=== PATIENT | female | born 1945 | race Caucasian/White ===

== ENCOUNTER 2016-05-22 11:11 | Outpatient (CLI) | payer MEDICARE, OTHER | END 2016-05-22 11:12 | disposition home or self-care (01) | DX: E11.9 Type 2 diabetes mellitus without complications (principal) ==

== ENCOUNTER 2016-07-07 14:21 | Outpatient (CLI) | payer MEDICARE, BC | END 2016-07-07 14:22 | disposition home or self-care (01) | DX: M77.31 Calcaneal spur, right foot (principal); M67.873 Other specified disorders of tendon, right ankle and foot ==

== ENCOUNTER 2016-08-07 11:14 | Outpatient (CLI) | payer MEDICARE, BC | END 2016-08-07 11:15 | disposition home or self-care (01) | DX: I10 Essential (primary) hypertension (principal); E11.9 Type 2 diabetes mellitus without complications; R07.9 Chest pain, unspecified ==

== ENCOUNTER 2016-11-12 13:37 | Outpatient (CLI) | payer MEDICARE, BC ==
[2016-11-12 18:21] LABS: HEMOGLOBIN A1C 0.81 g/dL
== END 2016-11-12 13:38 | disposition home or self-care (01) ==
LOC: LAB.F 13:37
PROVIDERS: ATTEND Family Medicine
DX: I10 Essential (primary) hypertension (principal)
CPT/HCPCS: 36415; 83036

== ENCOUNTER 2016-11-13 12:10 | Outpatient (CLI) | payer MEDICARE, BC | END 2016-11-13 12:11 | disposition home or self-care (01) | LOC: LAB.R 12:10 | PROVIDERS: ATTEND Family Medicine | DX: N39.0 Urinary tract infection, site not specified (principal); I10 Essential (primary) hypertension; E11.9 Type 2 diabetes mellitus without complications | CPT/HCPCS: 87077; 87086 ==

== ENCOUNTER 2017-03-15 09:59 | Outpatient (CLI) | payer MEDICARE, BC ==
[2017-03-15 19:11] LABS: BASOPHILS # (AUTO) 0.1 10^3/uL (0.0-0.1); BASOPHILS % (AUTO) 0.7 %; EOSINOPHILS # (AUTO) 0.2 10^3/uL (0.0-0.7); EOSINOPHILS % (AUTO) 2.2 %; HCT - HEMATOCRIT 39.7 % (37.0-47.0); HGB - HEMOGLOBIN 12.9 g/dL (12.0-16.0); LYMPHOCYTES % (AUTO) 20.3 %; MEAN CORPUSCULAR HEMOGLOBIN 25.8 pg (27.0-31.0); MEAN CORPUSCULAR HGB CONC 32.4 g/dL (32.0-36.0); MEAN CORPUSCULAR VOLUME 79.6 fL (81.0-99.0); MEAN PLATELET VOLUME 10.4 fL (7.9-10.8); MONOCYTES # (AUTO) 0.5 10^3/uL (0.0-1.0); MONOCYTES % (AUTO) 4.8 %; NEUTROPHILS # (AUTO) 7.2 10^3/uL (1.5-6.6); NUCLEATED RED BLOOD CELLS AUTO 0.1 /100WBC; RED BLOOD COUNT 4.99 10^6/uL (4.20-5.40); RED CELL DISTRIBUTION WIDTH 17.1 % (12.0-15.0); UNCORRECTED WHITE BLOOD COUNT 10.1 x10^3/uL; WHITE BLOOD COUNT 10.1 x10^3/uL (4.8-10.8)
[2017-03-15 19:17] LABS: ALBUMIN/GLOBULIN RATIO 1.2 (1.0-2.2); BILIRUBIN,TOTAL 0.6 mg/dL (0.2-1.0); BUN - BLOOD UREA NITROGEN 11 mg/dL (6-20); CALCIUM 8.9 mg/dL (8.5-10.3); CARBON DIOXIDE - CO2 25 mmol/L (21-32); CHLORIDE 104 mmol/L (101-111); CHOL/HDL RATIO 4.2 (<4.4); CHOLESTEROL 236 mg/dL; CREATININE 0.7 mg/dL (0.4-1.0); GFR - MDRD 82 (>89); GLUCOSE 102 mg/dL (70-100); HDL CHOLESTEROL 56 mg/dL; LDL/HDL RATIO 2.7 (<4.4); POTASSIUM 3.8 mmol/L (3.5-5.0); SODIUM 138 mmol/L (135-145); TOTAL PROTEIN 7.2 g/dL (6.7-8.2); TRIGLYCERIDES 136 mg/dL; VLDL CHOLESTEROL 27 mg/dL
[2017-03-15 20:16] LABS: HEMOGLOBIN A1C 0.83 g/dL
== END 2017-03-15 10:00 | disposition home or self-care (01) ==
LOC: LAB.F 09:59
PROVIDERS: ATTEND Family Medicine
DX: I10 Essential (primary) hypertension (principal); E11.9 Type 2 diabetes mellitus without complications; E78.5 Hyperlipidemia, unspecified; D64.9 Anemia, unspecified; I25.10 Atherosclerotic heart disease of native coronary artery without angina pectoris; E04.9 Nontoxic goiter, unspecified
CPT/HCPCS: 36415; 80053; 80061; 83036; 84443; 85025

== ENCOUNTER 2017-06-07 14:09 | Outpatient (CLI) | payer MEDICARE, BC ==
[2017-06-07 18:05] LABS: CREATININE 0.7 mg/dL (0.4-1.0)
[2017-06-07 19:05] LABS: HB2 TOTAL 13.4 g/dL; HEMOGLOBIN A1C 0.87 g/dL; HEMOGLOBIN A1C % 8.1 % (4.6-6.2)
== END 2017-06-07 14:10 | disposition home or self-care (01) ==
LOC: LAB.F 14:09
PROVIDERS: ATTEND Family Medicine
DX: I10 Essential (primary) hypertension (principal); E78.5 Hyperlipidemia, unspecified; E11.9 Type 2 diabetes mellitus without complications; I25.10 Atherosclerotic heart disease of native coronary artery without angina pectoris; E04.9 Nontoxic goiter, unspecified
CPT/HCPCS: 36415; 80048; 83036

== ENCOUNTER 2017-06-28 16:58 | Outpatient (CLI) | payer MEDICARE, BC ==
--- NOTE | 2017-06-29 15:45 | Ultrasound Report ---
CAROTID DUPLEX: 06/28/2017 CLINICAL INDICATION: CVA. TECHNIQUE: Real-time sonographic vascular imaging was performed by the floriculturist through the carotid arteries utilizing both color-flow and Doppler spectral analysis. Multiple passenger relations representative static images were saved for review. RIGHT Vessel PSV cm/sec EDV cm/sec ICA/CCA RSV Ratio Degree of Stenosis Plaque Estimate % RCCA Prox 120 -- -- RCCA Dist 91 10 -- RECA 103 -- -- RT BULB 103 7 1.1 ALFONSO Prox 68 7 0.74 ALFONSO Mid 76 12 0.83 ALFONSO Dist 86 20 0.94 RVA 78 -- -- RVA flow direction: Antegrade LEFT Vessel PSV cm/sec EDV cm/sec ICA/CCA RSV Ratio Degree of Stenosis Plaque Estimate % LCCA Prox 115 -- -- LCCA Dist 96 14 -- LECA 126 -- -- LFT BULB 120 14 1.25 LICA Prox 96 15 1.0 LICA Mid 90 18 0.93 LICA Dist 90 16 0.93 LVA 77 -- -- LVA flow direction: Antegrade Velocity criteria are extrapolated from diameter data as defined by the Society of Radiologists in Ultrasound Consensus Conference Radiology 2003; 229; 340-346. Degree of Stenosis % ICA PSV cm/sec ICA EDV cm/sec ICA/CCA PSV Ratio Plaque Estimate % Normal < 125 < 40 < 2.0 None <50 < 125 < 40 < 2.0 < 50 50-69 125-130 40-100 2.0-4.0 >/=50 >/=70 but less than near occlusion > 230 > 100 > 4.0 >/=50 Near occlusion High, low or undetectable Variable Variable Visible Total occlusion Undetectable Not applicable Not applicable No detectable lumen FINDINGS RIGHT: There is minimal plaquing in the right carotid bifurcation, without evidence of a focal hemodynamically significant stenosis. LEFT: There is minimal plaquing in the left carotid bifurcation, without evidence of a focal hemodynamically significant stenosis. Vertebral arteries demonstrate antegrade flow bilaterally. IMPRESSION: NO EVIDENCE OF A FOCAL HEMODYNAMICALLY SIGNIFICANT CAROTID STENOSIS. TD: 06/29/2017 11:13 [facility]
== END 2017-06-28 16:59 | disposition home or self-care (01) ==
LOC: DI 16:58
PROVIDERS: ATTEND Family Medicine
DX: I63.9 Cerebral infarction, unspecified (principal)
CPT/HCPCS: 93880

== ENCOUNTER 2017-10-07 08:29 | Outpatient (CLI) | payer MEDICARE, BC ==
[2017-10-07 12:43] LABS: ALBUMIN 3.6 g/dL (3.2-5.5); ALBUMIN/GLOBULIN RATIO 1.1 (1.0-2.2); ALKALINE PHOSPHATASE 78 IU/L (42-121); ALT ALANINE AMINOTRANSFERASE 28 IU/L (10-60); AST ASPARTATE AMINOTRANSFERASE 33 IU/L (10-42); BILIRUBIN,TOTAL 0.6 mg/dL (0.2-1.0); BUN - BLOOD UREA NITROGEN 13 mg/dL (6-20); CARBON DIOXIDE - CO2 29 mmol/L (21-32); CHLORIDE 101 mmol/L (101-111); CHOL/HDL RATIO 3.8 (<4.4); CHOLESTEROL 222 mg/dL; CREATININE 0.6 mg/dL (0.4-1.0); GFR - MDRD 98 (>89); GLUCOSE 99 mg/dL (70-100); HDL CHOLESTEROL 58 mg/dL; LDL CHOLESTEROL,CALCULATED 137 mg/dL; LDL/HDL RATIO 2.4 (<4.4); SODIUM 137 mmol/L (135-145); VLDL CHOLESTEROL 27 mg/dL
[2017-10-07 13:21] LABS: HB2 TOTAL 13.4 g/dL; HEMOGLOBIN A1C 0.76 g/dL; HEMOGLOBIN A1C % 7.3 % (4.6-6.2)
== END 2017-10-07 08:30 | disposition home or self-care (01) ==
LOC: LAB.F 08:29
PROVIDERS: ATTEND Family Medicine
DX: I10 Essential (primary) hypertension (principal); E11.9 Type 2 diabetes mellitus without complications; E78.5 Hyperlipidemia, unspecified; I25.10 Atherosclerotic heart disease of native coronary artery without angina pectoris; E04.9 Nontoxic goiter, unspecified
CPT/HCPCS: 36415; 80053; 80061; 82043; 83036; 83721; 84443

== ENCOUNTER 2018-01-02 13:09 | Outpatient (CLI) | payer MEDICARE, BC | END 2018-01-02 13:10 | disposition critical access hospital (66) | LOC: EMS 13:09 | PROVIDERS: ATTEND Surgery | DX: R51 Headache (principal); R53.1 Weakness; R42 Dizziness and giddiness; W18.30XA Fall on same level, unspecified, initial encounter; Y92.009 Unspecified place in unspecified non-institutional (private) residence as the place of occurrence of the external cause | CPT/HCPCS: A0425; A0429 ==

== ENCOUNTER 2018-01-02 13:34 | Emergency (ER) | payer MEDICARE, BC ==
--- NOTE | 2018-01-02 13:43 | ED Physician Documentation ---
History of Present Illness - Stated complaint Stated Complaint: FALL/HEAD INJ - Additonal information Additional information: hx from pt 72 f was in good health this morning making scones for the [employer] game sat down in a chair and it flipped backward and she fell hitting her head on the hard wood floor no LOC but has a terrible OLSEN feels nauseated and dizzy also has low nack pain no numbness or weakness no blood thinners Review of Systems Constitutional: denies: Fever Ears: denies: Drainage/discharge Nose: denies: Epistaxis Cardiac: denies: Chest pain / pressure GI: reports: Nausea. denies: Abdominal Pain, Vomiting Musculoskeletal: reports: Neck pain Neurologic: reports: Headache. denies: Focal weakness, Numbness Endocrine: denies: Easy bruising / bleeding PD PAST MEDICAL HISTORY - Past Medical History Cardiovascular: Hypertension Respiratory: None Endocrine/Autoimmune: Type 2 diabetes GI: None ROLL INSPECTOR: None : None HEENT: None Psych: None Musculoskeletal: Osteoarthritis Derm: None - Past Surgical History Past Surgical History: Yes General: Cholecystectomy Ortho: Carpal Tunnel surgery, Other /ROLL INSPECTOR: Hysterectomy Cardiovascular: CABG - Present Medications Home Medications: Ambulatory Orders Medication Instructions Recorded Confirmed Levothyroxine [Synthroid] 100 mcg PO QDAC 07/08/14 07/08/14 Losartan [Cozaar] 25 mg PO BID 07/08/14 07/08/14 Metoprolol Tartrate 1 tab PO BID 07/08/14 07/08/14 Pantoprazole [Protonix] 40 mg PO DAILY 07/08/14 07/08/14 Sertraline [Zoloft] 25 mg PO QPM 07/08/14 07/08/14 Insulin Glargine,Hum.rec.anlog 100 unit SUBQ QPM 01/02/18 01/02/18 [Toujeo Solostar] Ondansetron Odt [Zofran] 4 mg TL Q6H PRN #10 tablet 01/02/18 - Allergies Allergies/Adverse Reactions: Allergies Allergy/AdvReac Type Severity Reaction Status Date / Time Sulfa (Sulfonamide Allergy Mild Nausea Verified 07/08/14 07:14 Antibiotics) epinephrine AdvReac Unknown Verified 07/08/14 07:14 - Social History Does the pt smoke?: No Smoking Status: Former smoker Does the pt drink ETOH?: Yes Does the pt have substance abuse?: No - Immunizations Immunizations are current?: Yes - POLST Patient has POLST: No PD ED PE NORMAL - Vitals Vital signs reviewed: Yes - General General: Alert and oriented X 3 - HEENT HEENT: No: Atraumatic (TTP and erythema posteriopr scalp s step off or lac) - Neck Neck: No: No bony TTP (TTP C67) - Cardiac Cardiac: RRR - Respiratory Respiratory: No respiratory distress, Clear bilaterally - Abdomen Abdomen: Non tender - Derm Derm: Normal color - Neuro Neuro: Alert and oriented X 3 Eye Opening: Spontaneous Motor: Obeys Commands Verbal: Oriented GCS Score: 15 Results - Vitals Vitals: Vital Signs - 24 hr 01/02/18 13:41 Temperature 36.7 C Heart Rate 73 Respiratory 15 Rate Blood Pressure 148/54 H O2 Saturation 97 Oxygen O2 Source Room air - Labs Labs: Laboratory Tests 01/02/18 13:48 POC Whole Bld Glucose 212 H - Rads (name of study) CTH Radiology: See rad report (none) CTCS Radiology: See rad report (no acute) CXR Radiology: See rad report (no acute) PD MEDICAL DECISION MAKING - Sepsis Event Vital Signs: Vital Signs - 24 hr 01/02/18 13:41 Temperature 36.7 C Heart Rate 73 Respiratory 15 Rate Blood Pressure 148/54 H O2 Saturation 97 Oxygen O2 Source Room air Departure - Departure Disposition: 01 Home, Self Care Clinical Impression: Fall Qualifiers: Encounter type: initial encounter Qualified Code(s): W19.XXXA - Unspecified fall, initial encounter Head injury Qualifiers: Encounter type: initial encounter Qualified Code(s): S09.90XA - Unspecified injury of head, initial encounter Neck sprain Qualifiers: Encounter type: initial encounter Qualified Code(s): S13.9XXA - Sprain of joints and ligaments of unspecified parts of neck, initial encounter Sprain of chest wall Qualifiers: Encounter type: initial encounter Qualified Code(s): S23.8XXA - Sprain of other specified parts of thorax, initial encounter Condition: Good Instructions: ED Head Injury Closed, ED Sprain Strain Neck Follow-Up: Provider,Other [Primary Care Provider] - Prescriptions: Ondansetron Odt [Zofran] 4 mg TL Q6H PRN #10 tablet PRN Reason: Nausea / Vomiting Comments: Thankfully the CT scans and xray did not show any fractures or brain bleeding or brain swelling It is safe for you to go home Recommend tylenol for pain, ice for swelling and pain, zofran for nausea. Follow up with your PMD if not better in 3 days Return if worse
--- NOTE | 2018-01-02 14:45 | CT Report ---
Reason: fall HI nausea dizzy Procedure Date: 01/02/2018 Accession Number: [id number] / [id number] Procedure: CT - Head W/O CPT Code: FULL RESULT: EXAM: CT HEAD EXAM DATE: 01/02/2018 02:11 PM. CLINICAL HISTORY: Fall HI nausea dizzy. COMPARISON: 0 07/08/2014. TECHNIQUE: Multiaxial CT images were obtained from the foramen magnum to the vertex. Reformats: Sagittal and coronal. IV contrast: None. In accordance with CT protocol optimization, one or more of the following dose reduction techniques were utilized for this exam: automated exposure control, adjustment of mA and/or KV based on patient size, or use of iterative reconstructive technique. FINDINGS: Parenchyma: There is mild periventricular white matter hypodensity. Negative for acute hemorrhage. No midline shift or mass-effect. Extraaxial Spaces: No subdural or epidural collections identified. Ventricles: Normal in size and position. Sinuses and Orbits: Imaged paranasal sinuses, orbits, and mastoids show no significant abnormality. Bones: No fracture. Other: None. IMPRESSION: 1. Mild nonfocal white matter disease. 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 RADIA
[2018-01-02] MEDS ORDERED: ACETAMINOPHEN 325 MG TABLET PO STA (14:57)
[2018-01-02] MEDS ORDERED: ONDANSETRON ODT 4 MG TABLET TL STA (14:57)
--- NOTE | 2018-01-02 14:57 | CT Report ---
Reason: fall back HI C 67 TTP Procedure Date: 01/02/2018 Accession Number: [id number] / [id number] Procedure: CT - Cervical Spine W/O CPT Code: FULL RESULT: EXAM: CT CERVICAL SPINE WITHOUT CONTRAST DATE: 01/02/2018 02:11 PM. HISTORY: Head and neck injury. Tender to palpation. COMPARISONS: None. TECHNIQUE: Thin-section axial images were acquired of the cervical spine without contrast. Post-processing: Coronal and sagittal reformats. Other: None. In accordance with CT protocol optimization, one or more of the following dose reduction techniques were utilized for this exam: automated exposure control, adjustment of mA and/or KV based on patient size, or use of iterative reconstructive technique. FINDINGS: Alignment: No scoliosis or spondylolisthesis. Bones: No fracture. No lytic or destructive bone lesion. There is multilevel degenerative disease. Interspace Levels/Facets: There is mild to moderate disk height loss at C5-C6. There is mild disk height loss at C4-C5 and C6-C7. Facet joints appear normal in alignment with mild to moderate spurring. Musculature: No paravertebral hematoma. Other: No apical pneumothorax. Trachea is midline. IMPRESSION: 1. No fracture or subluxation. Mild to moderate degenerative disease at C5-C6. RADIA
--- NOTE | 2018-01-02 14:57 | XRAY Report ---
Reason: fall chest TTP Procedure Date: 01/02/2018 Accession Number: [id number] / [id number] Procedure: XR - Chest 2 View X-Ray CPT Code: 13876 FULL RESULT: EXAM: CHEST RADIOGRAPHY EXAM DATE: 01/02/2018 02:25 PM. CLINICAL HISTORY: Fall chest TTP. COMPARISON: 07/08/2014. TECHNIQUE: 2 views. FINDINGS: Lungs/Pleura: No focal opacities evident. No pleural effusion. No pneumothorax. Normal volumes. Mediastinum: Heart and mediastinal contours are unremarkable. Sternal wires and mediastinal vascular clips are compatible with CABG. Aortic calcifications are present. Other: No definite acute osseous abnormality. IMPRESSION: No acute cardiopulmonary abnormality. RADIA
[2018-01-02 16:37] VITALS: BP 137/49
== END 2018-01-02 16:39 | disposition home or self-care (01) ==
LOC: ED 13:34
DX: S09.90XA Unspecified injury of head, initial encounter (principal); S13.9XXA Sprain of joints and ligaments of unspecified parts of neck, initial encounter; S23.8XXA Sprain of other specified parts of thorax, initial encounter; W07.XXXA Fall from chair, initial encounter; I10 Essential (primary) hypertension; E11.9 Type 2 diabetes mellitus without complications; Z79.4 Long term (current) use of insulin; Z95.1 Presence of aortocoronary bypass graft; Z87.891 Personal history of nicotine dependence
CPT/HCPCS: 70450; 71046; 72125; 99283; A9270

== ENCOUNTER 2018-06-15 11:32 | Outpatient (CLI) | payer MEDICARE, BC | END 2018-06-15 11:33 | disposition EMS.NT | LOC: EMS 11:32 | PROVIDERS: ATTEND Surgery | DX: M25.562 Pain in left knee (principal); M25.561 Pain in right knee; M25.511 Pain in right shoulder; W18.39XA Other fall on same level, initial encounter; Y92.009 Unspecified place in unspecified non-institutional (private) residence as the place of occurrence of the external cause ==

== ENCOUNTER 2018-06-16 12:39 | Outpatient (CLI) | payer MEDICARE, BC ==
[2018-06-16 17:57] LABS: BILIRUBIN,URINE NEGATIVE (NEGATIVE); GLUCOSE, URINE (UA) NEGATIVE (NEGATIVE); KETONES,URINE (UA) NEGATIVE (NEGATIVE); LEUKOCYTE ESTERASE, URINE MODERATE (NEGATIVE); NITRITE,URINE NEGATIVE (NEGATIVE); OCCULT BLOOD,URINE NEGATIVE (NEGATIVE); PROTEIN,URINE NEGATIVE (NEGATIVE); UROBILINOGEN,URINE 0.2 (NORMAL) E.U./dL (NORMAL)
[2018-06-16 17:58] LABS: BACTERIA,URINE Rare /HPF (None Seen); CLARITY,URINE CLOUDY (CLEAR); RBC,URINE 0-5 /HPF (0-5); SQUAMOUS EPITHELIAL CELL,UR MOD Squamous (<= Few)
[2018-06-16 17:59] LABS: AMORPHOUS SEDIMENT,UR Marked /LPF
[2018-06-16 18:00] LABS: CREATININE 0.6 mg/dL (0.4-1.0)
[2018-06-16 18:01] LABS: HB2 TOTAL 14.5 g/dL; HEMOGLOBIN A1C 0.85 g/dL; HEMOGLOBIN A1C % 7.5 % (4.6-6.2)
== END 2018-06-16 12:40 | disposition home or self-care (01) ==
LOC: LAB.F 12:39
PROVIDERS: ATTEND Nurse Practitioner Family
DX: E11.9 Type 2 diabetes mellitus without complications (principal); R30.0 Dysuria
CPT/HCPCS: 36415; 80048; 81001; 82043; 83036; 87086

== ENCOUNTER 2018-08-06 08:00 | Outpatient (CLI) | payer MEDICARE, BC ==
[2018-08-06 14:38] LABS: BILIRUBIN,URINE NEGATIVE (NEGATIVE); GLUCOSE, URINE (UA) NEGATIVE (NEGATIVE); KETONES,URINE (UA) NEGATIVE (NEGATIVE); LEUKOCYTE ESTERASE, URINE NEGATIVE (NEGATIVE); NITRITE,URINE NEGATIVE (NEGATIVE); OCCULT BLOOD,URINE NEGATIVE (NEGATIVE); PROTEIN,URINE NEGATIVE (NEGATIVE); UROBILINOGEN,URINE 0.2 (NORMAL) E.U./dL (NORMAL)
[2018-08-06 14:40] LABS: CLARITY,URINE CLEAR (CLEAR)
== END 2018-08-06 23:59 | disposition home or self-care (01) ==
LOC: LAB.R 08:00
PROVIDERS: ATTEND Nurse Practitioner Family
DX: N39.0 Urinary tract infection, site not specified (principal)
CPT/HCPCS: 81001; 81003; 87086

== ENCOUNTER 2019-06-01 14:09 | Outpatient (CLI) | payer MEDICARE, BC | END 2019-06-01 14:10 | disposition EMS.NT | LOC: EMS 14:09 | PROVIDERS: ATTEND Surgery | DX: R53.1 Weakness (principal) ==

== ENCOUNTER 2019-08-12 12:06 | Outpatient (CLI) | payer MEDICARE, BC | END 2019-08-12 12:07 | disposition critical access hospital (66) | LOC: EMS 12:06 | PROVIDERS: ATTEND Surgery | DX: R42 Dizziness and giddiness (principal); R03.0 Elevated blood-pressure reading, without diagnosis of hypertension | CPT/HCPCS: A0425; A0429 ==

== ENCOUNTER 2019-08-12 12:23 | Emergency (ER) | payer MEDICARE, BC ==
[2019-08-12 13:27] LABS: BASOPHILS # (AUTO) 0.1 10^3/uL (0.0-0.1); BASOPHILS % (AUTO) 0.5 %; EOSINOPHILS # (AUTO) 0.2 10^3/uL (0.0-0.7); EOSINOPHILS % (AUTO) 1.8 %; HGB - HEMOGLOBIN 13.4 g/dL (12.0-16.0); LYMPHOCYTES # (AUTO) 1.7 10^3/uL (1.5-3.5); LYMPHOCYTES % (AUTO) 16.4 %; MEAN CORPUSCULAR HEMOGLOBIN 28.5 pg (27.0-31.0); MEAN CORPUSCULAR HGB CONC 32.8 g/dL (32.0-36.0); MEAN CORPUSCULAR VOLUME 86.8 fL (81.0-99.0); MEAN PLATELET VOLUME 11.2 fL (7.9-10.8); MONOCYTES # (AUTO) 0.6 10^3/uL (0.0-1.0); MONOCYTES % (AUTO) 5.5 %; NEUTROPHILS % (AUTO) 75.3 %; PLT - PLATELET COUNT 153 10^3/uL (130-450); RED BLOOD COUNT 4.71 10^6/uL (4.20-5.40); RED CELL DISTRIBUTION WIDTH 14.8 % (12.0-15.0); WHITE BLOOD COUNT 10.6 x10^3/uL (4.8-10.8)
[2019-08-12 13:33] LABS: INR 1.1 (0.8-1.2); PT - PROTHROMBIN TIME 12.7 secs (9.9-12.6)
[2019-08-12 13:40] LABS: ALBUMIN 3.7 g/dL (3.2-5.5); ALBUMIN/GLOBULIN RATIO 1.2 (1.0-2.2); BILIRUBIN,TOTAL 0.7 mg/dL (0.2-1.0); CREATININE 0.8 mg/dL (0.4-1.0); TOTAL PROTEIN 6.9 g/dL (6.7-8.2)
--- NOTE | 2019-08-12 13:41 | ED Physician Documentation ---
History of Present Illness - Stated complaint Stated Complaint: DIZZY - Chief complaint Chief Complaint: General - History obtained from History obtained from: Patient - Additonal information Additional information: 73-year-old woman with remote history of coronary bypass, hypertension. For the last 2 months every day when she gets out of bed she feels dizzy. She has to take several minutes to get out of bed and feels lightheaded. About once a week she has been having syncopal episodes from this. Today she had 1 of the syncopal episodes and injured her shoulders. They had already been injured from prior falls a little bit too. She also has a significant headache. She denies chest pain or trouble breathing. She had pedal edema yesterday and took a as needed Lasix which is a rare occurrence for her. Review of Systems Ten Systems: 10 systems reviewed and negative Constitutional: denies: Fever, Chills Nose: denies: Rhinorrhea / runny nose, Congestion Cardiac: denies: Chest pain / pressure, Palpitations Respiratory: denies: Dyspnea, Cough PD PAST MEDICAL HISTORY - Past Medical History Cardiovascular: Hypertension Respiratory: None Endocrine/Autoimmune: Type 2 diabetes GI: None ENGINEERING SPECIALIST: None : None HEENT: None Psych: None Musculoskeletal: Osteoarthritis Derm: None - Past Surgical History Past Surgical History: Yes General: Cholecystectomy Ortho: Carpal Tunnel surgery, Other /ENGINEERING SPECIALIST: Hysterectomy Cardiovascular: CABG - Present Medications Home Medications: Ambulatory Orders Medication Instructions Recorded Confirmed Levothyroxine [Synthroid] 100 mcg PO QDAC 07/08/14 07/08/14 Losartan [Cozaar] 25 mg PO BID 07/08/14 07/08/14 Metoprolol Tartrate 1 tab PO BID 07/08/14 07/08/14 Pantoprazole [Protonix] 40 mg PO DAILY 07/08/14 07/08/14 Sertraline [Zoloft] 25 mg PO QPM 07/08/14 07/08/14 Insulin Glargine,Hum.rec.anlog 100 unit SUBQ QPM 01/02/18 01/02/18 [Maribel Tsai] Ondansetron Odt [Zofran] 4 mg TL Q6H PRN #10 tablet 01/02/18 - Allergies Allergies/Adverse Reactions: Allergies Allergy/AdvReac Type Severity Reaction Status Date / Time Sulfa (Sulfonamide Allergy Mild Nausea Verified 08/12/19 12:34 Antibiotics) epinephrine AdvReac Unknown Verified 08/12/19 12:34 - Social History Does the pt smoke?: No Smoking Status: Never smoker Does the pt drink ETOH?: Yes Does the pt have substance abuse?: No - Immunizations Immunizations are current?: Yes - POLST Patient has POLST: No PD ED PE NORMAL - Vitals Vital signs reviewed: Yes - General General: Alert and oriented X 3, No acute distress - HEENT HEENT: PERRL, EOMI - Neck Neck: Supple, no meningeal sign, No bony TTP - Cardiac Cardiac: RRR, No murmur - Respiratory Respiratory: No respiratory distress, Clear bilaterally - Abdomen Abdomen: Non tender - Extremities Extremities: No edema, No calf tenderness / cord, Other (Both shoulders are nontender with relatively full range of motion) - Neuro Neuro: Alert and oriented X 3, No motor deficit, No sensory deficit, Normal speech Results - Vitals Vitals: Vital Signs - 24 hr 08/12/19 08/12/19 08/12/19 12:34 13:38 14:40 Temperature 36.9 C Heart Rate 84 73 Heart Rate [ 80 Sitting] Heart Rate [ 87 Standing] Heart Rate [ 73 Supine] Respiratory 22 22 Rate Blood Pressure 171/66 H 171/93 H Blood Pressure 147/95 H [Sitting] Blood Pressure 171/93 H [Standing] Blood Pressure 159/60 H [Supine] O2 Saturation 100 98 Oxygen O2 Source Room air - EKG (time done) 1229 Rate: Rate (enter#) (Normal sinus rhythm with a rate of 75, single PVC, low voltage. No ST elevation or depression.) - Labs Labs: Laboratory Tests 08/12/19 08/12/19 08/12/19 13:20 13:20 13:20 WBC 10.6 RBC 4.71 Hgb 13.4 Hct 40.9 MCV 86.8 MCH 28.5 MCHC 32.8 RDW 14.8 Plt Count 153 MPV 11.2 H Neut # (Auto) 8.0 H Lymph # (Auto) 1.7 [place] # (Auto) 0.6 Eos # (Auto) 0.2 Baso # (Auto) 0.1 Absolute Nucleated RBC 0.00 Nucleated RBC % 0.0 PT 12.7 H INR 1.1 Sodium 140 Potassium 4.2 Chloride 102 Carbon Dioxide 30 Anion Gap 8.0 BUN 13 Creatinine 0.8 Estimated GFR (MDRD) 70 L Glucose 98 Calcium 9.0 Total Bilirubin 0.7 AST 20 ALT 19 Alkaline Phosphatase 81 Troponin I High Sens B-Natriuretic Peptide Total Protein 6.9 Albumin 3.7 Globulin 3.2 Albumin/Globulin Ratio 1.2 Lipase 22 08/12/19 08/12/19 13:20 13:20 WBC RBC Hgb Hct MCV MCH MCHC RDW Plt Count MPV Neut # (Auto) Lymph # (Auto) [place] # (Auto) Eos # (Auto) Baso # (Auto) Absolute Nucleated RBC Nucleated RBC % PT INR Sodium Potassium Chloride Carbon Dioxide Anion Gap BUN Creatinine Estimated GFR (MDRD) Glucose Calcium Total Bilirubin AST ALT Alkaline Phosphatase Troponin I High Sens 4.1 B-Natriuretic Peptide 39 Total Protein Albumin Globulin Albumin/Globulin Ratio Lipase - Rads (name of study) CT Head Radiology: EMP read contemporaneously PD MEDICAL DECISION MAKING - ED course ED course: 73-year-old woman with orthostasis. Appears well here with a normal exam. Vital signs are unremarkable. Not technically orthostatic on orthostatic vital signs. Labs are unremarkable without evidence of CHF or OR. She had a significant headache, CT was done showing an old infarct but nothing acute. Departure - Departure Disposition: 01 Home, Self Care Clinical Impression: Orthostasis Headache Qualifiers: Headache type: unspecified Headache chronicity pattern: acute headache Intractability: not intractable Qualified Code(s): R51 - Headache Condition: Good Record reviewed to determine appropriate education?: Yes Instructions: ED Cephalgia Unspecified, ED Hypotension Orthostatic Comments: Drink plenty of fluids and be careful with position changes, return if worse. Follow-up with your doctor, next available appointment. Call Wednesday for an appointment.
--- NOTE | 2019-08-12 14:34 | CT Report ---
Reason: headache Procedure Date: 08/12/2019 Accession Number: [id number] / [id number] Procedure: CT - HEAD WO CPT Code: Final Report FULL RESULT: EXAM: CT HEAD EXAM DATE: 08/12/2019 01:59 PM. CLINICAL HISTORY: Fall. Headache. Stroke 4 years ago. COMPARISON: CERVICAL SPINE W/O 01/02/2018 2:07 PM HEAD W/O 07/08/2014 7:03 AM. TECHNIQUE: Multiaxial CT images were obtained from the foramen magnum to the vertex. Reformats: Sagittal and coronal. IV contrast: None. In accordance with CT protocol optimization, one or more of the following dose reduction techniques were utilized for this exam: automated exposure control, adjustment of mA and/or KV based on patient size, or use of iterative reconstructive technique. FINDINGS: Parenchyma: There is a focus of gliosis in the right internal capsule, suggestive of a prior infarct. No acute hemorrhage or infarct. Extraaxial Spaces: Normal for age. No subdural or epidural collections identified. Ventricles: Normal in size and position. Sinuses and Orbits: Imaged paranasal sinuses, orbits, and mastoids show no significant abnormality. Bones: No evidence of fracture or calvarial defect. Other: None. 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 No other significant abnormality. RADIA
[2019-08-12 14:47] VITALS: BP 171/93
== END 2019-08-12 15:11 | disposition home or self-care (01) ==
LOC: EDUNIT# → ED 12:23
DX: I95.1 Orthostatic hypotension (principal); R51 Headache; I10 Essential (primary) hypertension; E11.9 Type 2 diabetes mellitus without complications; Z79.4 Long term (current) use of insulin
CPT/HCPCS: 36415; 70450; 80053; 83690; 83880; 84484; 85025; 85610; 93005; 99284; 99285

== ENCOUNTER 2020-05-01 02:19 | Outpatient (CLI) | payer MEDICARE, BC | END 2020-05-01 02:20 | disposition critical access hospital (66) | LOC: EMS 02:19 | PROVIDERS: ATTEND Surgery | DX: M54.2 Cervicalgia (principal); R51.9 Headache, unspecified; S01.21XA Laceration without foreign body of nose, initial encounter; W18.39XA Other fall on same level, initial encounter; Y93.01 Activity, walking, marching and hiking; Y92.009 Unspecified place in unspecified non-institutional (private) residence as the place of occurrence of the external cause | CPT/HCPCS: A0425; A0427 ==

== ENCOUNTER 2020-05-01 03:20 | Emergency (ER) | payer MEDICARE, BC ==
--- NOTE | 2020-05-01 03:34 | ED Physician Documentation ---
PD HPI Fall - Stated complaint Stated Complaint: GLF - History obtained from History obtained from: Patient, EMS - History of Present Illness Mechanism of injury: Lost balance Fall distance: Standing position Where injury occurred: Home Timing - onset: How many minutes ago (approximately 30-40 minutes OVEN BAKER) Injury(ies) location: Head, Face, Neck Pain level now: 6 Quality of pain: Pain Associated symptoms: Neck pain. No: LOC, AMS, Seizures, Ear drainage, Nasal drainage, Weakness, Paresthesias, Dyspnea Contributing factors: No: Anticoagulated, Intoxicated Similar symptoms before: Has not had sx before Recently seen: Not recently seen - Additional information Additional information: BIBA. patient was in her kitchen tonight, had just plugged in her phone to charge it and quickly turned with intention of going to bedroom (was going to go to bed). upon turning, she suddenly lost her balance, which she says is not unusual for her if she turns too quickly; this resulted in her falling to floor, struck head and face on floor. She denies LOC but c/o neck pain and generalized headache. given 50micrograms fentanyl en route with improvement in these pains. she does not take any blood-thinning medications Review of Systems Eyes: reports: Reviewed and negative Cardiac: reports: Reviewed and negative Respiratory: reports: Reviewed and negative GI: reports: Reviewed and negative : denies: Incontinent Musculoskeletal: reports: Neck pain. denies: Back pain, Extremity pain, Joint pain Neurologic: reports: Headache, Head injury. 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 : None HEENT: None Psych: None Musculoskeletal: Osteoarthritis Derm: None - Past Surgical History Past Surgical History: Yes General: Cholecystectomy Ortho: Carpal Tunnel surgery, Other /FILE SYSTEM INSTALLER: Hysterectomy Cardiovascular: CABG - Present Medications Home Medications: Ambulatory Orders Medication Instructions Recorded Confirmed Levothyroxine [Synthroid] 100 mcg PO QDAC 07/08/14 07/08/14 Losartan [Cozaar] 100 mg PO DAILY 07/08/14 07/08/14 Metoprolol Tartrate 2 tab PO DAILY PM 07/08/14 07/08/14 Pantoprazole [Protonix] 40 mg PO DAILY 07/08/14 07/08/14 Insulin Glargine,Hum.rec.anlog 160 unit SUBQ QPM 01/02/18 01/02/18 [Maribel Tsai] - Allergies Allergies/Adverse Reactions: Allergies Allergy/AdvReac Type Severity Reaction Status Date / Time Sulfa (Sulfonamide Allergy Mild Nausea Verified 05/01/20 03:36 Antibiotics) epinephrine AdvReac Unknown Verified 05/01/20 03:36 - Social History Does the pt smoke?: No Smoking Status: Never smoker Does the pt drink ETOH?: Yes Does the pt have substance abuse?: No - Immunizations Immunizations are current?: Yes - POLST Patient has POLST: No PD ED PE NORMAL - Vitals Vital signs reviewed: Yes - General General: Alert and oriented X 3, No acute distress, Well developed/nourished - HEENT HEENT: PERRL, EOMI, Moist mucous membranes, Other (no racoon eyes (periorbital echymosis), negative smith's sign) - Cardiac Cardiac: RRR, No murmur - Respiratory Respiratory: No respiratory distress, Clear bilaterally - Abdomen Abdomen: Soft, Non tender - Derm Derm: Normal color, Warm and dry - Extremities Extremities: No deformity, No tenderness to palpate, Normal ROM s pain, No edema - Neuro Neuro: Alert and oriented X 3, insole rounder 2-12 intact, No motor deficit, No sensory deficit, Normal speech Eye Opening: Spontaneous Motor: Obeys Commands Verbal: Oriented GCS Score: 15 PD ED PE EXPANDED - HEENT HEENT Visual: 1 - abrasion (superficial abrasions without bony tenderness) Results - Vitals Vitals: Vital Signs - 24 hr 05/01/20 05/01/20 03:25 05:33 Temperature 36.5 C 36.6 C Heart Rate 88 95 Respiratory 23 22 Rate Blood Pressure 187/62 H 164/59 H O2 Saturation 95 93 Oxygen O2 Source Room air - Rads (name of study) CT cervical spine Radiology: Prelim report reviewed, See rad report CT head Radiology: Prelim report reviewed, See rad report PD MEDICAL DECISION MAKING - ED course Complexity details: reviewed results, re-evaluated patient, considered differential, d/w patient ED course: no acute findings on CT cervical spine nor CT head. she had brief episode of n/v which resolved with zofran. she was in NAD on reevaluation, requests tylenol for her headache and is comfortable with d/c home. after CT cervical spine result available, cervical collar removed and exam of the neck reveals nontender with palpation of cervical spine and no increase in discomfort with ROM of neck (extension, flexion, rotation) Departure - Departure Disposition: 01 Home, Self Care Clinical Impression: Head injury, Cervical strain, Fall Condition: Good Instructions: ED Head Injury Closed, ED Sprain Strain Neck Follow-Up: JENNA BECERRA MD [Primary Care Provider] - Discharge Date/Time: 05/01/20 06:18
[2020-05-01] MEDS ORDERED: ONDANSETRON 4 MG/2 ML VIAL IVP STA (04:40)
[2020-05-01 05:33] VITALS: BP 164/59
[2020-05-01] MEDS ORDERED: ACETAMINOPHEN 325 MG TABLET PO STA (05:39)
--- NOTE | 2020-05-01 08:07 | CT Report ---
PROCEDURE: HEAD WO INDICATIONS: fall, OLSEN, head injury TECHNIQUE: Noncontrast 4.5 mm thick angled axial sections acquired from the foramen magnum to the vertex. For r adiation dose reduction, the following was used: automated exposure control, adjustment of mA and/or kV according to patient size. COMPARISON: 08/12/2019 FINDINGS: Image quality: Excellent. CSF spaces: Basal cisterns are patent. No extra-axial fluid collections. Ventricles are normal in size and shape. Brain: No midline shift. No intracranial masses or hemorrhage. Diop-white matter interface is norm al. Age-related volume loss and mild small vessel ischemic change. Old lacunar infarcts in the right thalamus, body of right caudate, and left basal ganglia. Internal carotid and vertebral artery calci fications. Skull and face: Calvarium and visualized facial bones are intact, without suspicious lesions. Sinuses: Visualized sinuses and mastoids are clear. IMPRESSION: 1. Age-related volume loss, mild small vessel ischemic change, old lacunar infarcts. 2. No evidence acute stroke, hemorrhage, or mass. 3. No evidence significant intracranial sequelae of acute trauma. A preliminary report with the above findings was provided at the time of the study by [facility]. Reviewed by: Reyes Perry MD on 05/01/2020 8:06 AM [facility] Approved by: Reyes Perry MD on 05/01/2020 8:06 AM PST Station ID: [id number]
--- NOTE | 2020-05-01 08:10 | CT Report ---
PROCEDURE: CERVICAL SPINE WO INDICATIONS: fall, neck pain TECHNIQUE: Noncontrast 3 mm thick sections acquired from the skull base to the T4 level. Sagittal and coronal r eformats were then constructed. For radiation dose reduction, the following was used: automated exp osure control, adjustment of mA and/or kV according to patient size. COMPARISON: 01/02/2018 FINDINGS: Image quality: Excellent. Bones: No fractures or dislocations. Visualized superior ribs are intact. Moderate cervical spondy litic change. Chronic disc height loss and posterior disc osteophyte complex and uncovertebral joint hypertrophy at C5-C6 with bilateral bony foraminal narrowing. Multilevel cervical facet arthropathy. Soft tissues: Prevertebral soft tissues are normal in thickness. No paravertebral hematomas. No ap ical pneumothoraces. IMPRESSION: 1. No evidence acute cervical fracture or dislocation. 2. Moderate cervical spondylitic change. A preliminary report with the above findings was provided at the time of the study by [facility]. Reviewed by: Reyes Perry MD on 05/01/2020 8:09 AM [facility] Approved by: Reyes Perry MD on 05/01/2020 8:09 AM PST Station ID: [id number]
== END 2020-05-01 06:18 | disposition home or self-care (01) ==
LOC: EDUNIT# → ED 03:20
DX: S09.90XA Unspecified injury of head, initial encounter (principal); S16.1XXA Strain of muscle, fascia and tendon at neck level, initial encounter; S00.81XA Abrasion of other part of head, initial encounter; S00.10XA Contusion of unspecified eyelid and periocular area, initial encounter; W01.0XXA Fall on same level from slipping, tripping and stumbling without subsequent striking against object, initial encounter; Y92.000 Kitchen of unspecified non-institutional (private) residence as the place of occurrence of the external cause; R11.2 Nausea with vomiting, unspecified; R51.9 Headache, unspecified; M47.812 Spondylosis without myelopathy or radiculopathy, cervical region; I10 Essential (primary) hypertension; E11.9 Type 2 diabetes mellitus without complications; Z79.4 Long term (current) use of insulin
CPT/HCPCS: 70450; 72125; 96374; 99284; A9270

== ENCOUNTER 2021-02-26 13:34 | Emergency (ER) | payer MEDICARE, BC ==
[2021-02-26] MEDS ORDERED: SODIUM CHLORIDE 0.9% 1,000 ML IV STA (13:52)
--- NOTE | 2021-02-26 13:55 | ED Physician Documentation ---
History of Present Illness - Stated complaint Stated Complaint: HEADACHE, WEAKNESS, OFF CORDINATION - Additonal information Additional information: 75-year-old female presents emergency department for evaluation of dizziness, feeling off balance as well as a headache. She does have a longstanding history of dizziness and previous CtT scans have showed old CVA. She reports that yesterday morning she was getting ready and standing at her closet when she began to feel suddenly dizzy fell backwards striking her head. There was no loss of consciousness. Patient is not anticoagulated. However since the fall yesterday she has been having some numbness in her left arm as well as feeling off balance and unable to walk steadily. She denies CP, SOA She does report that currently her primary doctor is treating her for a urinary tract infection. Review of Systems Constitutional: denies: Fever, Chills Eyes: denies: Loss of vision, Decreased vision, Photophobia Ears: reports: Reviewed and negative Nose: reports: Reviewed and negative Throat: reports: Reviewed and negative Cardiac: denies: Chest pain / pressure, Palpitations Respiratory: denies: Dyspnea, Cough GI: denies: Abdominal Pain, Nausea, Vomiting : denies: Dysuria Skin: denies: Rash, Abrasion (s) Musculoskeletal: denies: Neck pain, Back pain Neurologic: reports: Numbness (Left arm), Headache. denies: Syncope, Seizure, Confused, Head injury, LOC PD PAST MEDICAL HISTORY - Past Medical History Cardiovascular: Hypertension Respiratory: None Neuro: CVA Endocrine/Autoimmune: Type 2 diabetes GI: None BOARD CERTIFIED ARTS THERAPIST: None : None HEENT: None Psych: None Musculoskeletal: Osteoarthritis Derm: None - Past Surgical History Past Surgical History: Yes General: Cholecystectomy Ortho: Carpal Tunnel surgery, Other /BOARD CERTIFIED ARTS THERAPIST: Hysterectomy Cardiovascular: CABG - Present Medications Home Medications: Ambulatory Orders Medication Instructions Recorded Confirmed Levothyroxine [Synthroid] 100 mcg PO QDAC 07/08/14 07/08/14 Losartan [Cozaar] 100 mg PO DAILY 07/08/14 07/08/14 Metoprolol Tartrate 2 tab PO DAILY PM 07/08/14 07/08/14 Pantoprazole [Protonix] 40 mg PO DAILY 07/08/14 07/08/14 Insulin Glargine,Hum.rec.anlog 160 unit SUBQ QPM 01/02/18 01/02/18 [Maribel Tsai] - Allergies Allergies/Adverse Reactions: Allergies Allergy/AdvReac Type Severity Reaction Status Date / Time Sulfa (Sulfonamide Allergy Mild Nausea Verified 02/26/21 14:01 Antibiotics) epinephrine AdvReac Unknown Verified 02/26/21 14:01 - Social History Does the pt smoke?: No Smoking Status: Never smoker Does the pt drink ETOH?: Yes Does the pt have substance abuse?: No - Immunizations Immunizations are current?: Yes - POLST Patient has POLST: No PD ED PE EXPANDED - General General: Alert, No acute distress, Well developed/nourished (Obese) - Cardiac Cardiac: Regular Rate, Radial strong equal, Pedal strong equal, Cap refill < 2 sec. No: Murmur Present - Respiratory Respiratory: Clear to ausultation zee. No: Distress, Labored - Abdomen Abdomen: Normal Bowel sounds, Tender to palpation, Suprapubic (no guarding or rebound) - Back Back: Normal exam. No: Vertebral tenderness - Derm Derm: Normal color, Warm and dry - Neuro Neuro: Alert and Oriented X 3, CNII-XII intact, Normal finger nose, Normal speech. No: Confused, Disoriented - GCS Eye Opening: Spontaneous Motor: Obeys Commands Verbal: Oriented Total: 15 Results - Vitals Vitals: Vital Signs - 24 hr 02/26/21 02/26/21 02/26/21 14:00 14:01 14:06 Temperature 36.8 C 36.8 C Heart Rate 84 84 Heart Rate [ 81 Sitting] Heart Rate [ 85 Standing] Heart Rate [ 76 Supine] Respiratory 20 20 Rate Blood Pressure 162/68 H 162/68 H Blood Pressure 151/88 H [Sitting] Blood Pressure 166/89 H [Standing] Blood Pressure 162/68 H [Supine] O2 Saturation 98 98 02/26/21 02/26/21 02/26/21 16:30 18:31 20:07 Temperature Heart Rate 70 73 88 Heart Rate [ Sitting] Heart Rate [ Standing] Heart Rate [ Supine] Respiratory 18 20 27 H Rate Blood Pressure 138/60 H 134/98 H 132/63 H Blood Pressure [Sitting] Blood Pressure [Standing] Blood Pressure [Supine] O2 Saturation 97 98 96 Oxygen O2 Source Room air - EKG (time done) 1408 Rate: Rate (enter#) (74) Rhythm: NSR Waldo: Normal Intervals: Normal OK QRS: Poor R wave progression Ischemia: Q waves (V4, II, III, AVF) Compare to prior EKG: Changed from prior EKG (new Q waves V4) - Labs Labs: Laboratory Tests 02/26/21 02/26/21 02/26/21 14:06 14:06 14:06 WBC 14.0 H RBC 4.98 Hgb 13.7 Hct 42.7 MCV 85.7 MCH 27.5 MCHC 32.1 RDW 14.9 Plt Count 165 MPV 11.9 H Neut # (Auto) 11.6 H Lymph # (Auto) 1.6 [place] # (Auto) 0.6 Eos # (Auto) 0.1 Baso # (Auto) 0.0 Absolute Nucleated RBC 0.00 Nucleated RBC % 0.0 Sodium 137 Potassium 3.9 Chloride 100 L Carbon Dioxide 26 Anion Gap 11.0 BUN 10 Creatinine 0.8 Estimated GFR (MDRD) 70 L Glucose 136 H Calcium 9.4 Total Bilirubin 0.7 AST 25 ALT 19 Alkaline Phosphatase 76 Troponin I High Sens 9.0 Total Protein 7.3 Albumin 4.3 Globulin 3.0 Albumin/Globulin Ratio 1.4 Lipase 18 L Urine Color Urine Clarity Urine pH Ur Specific [place] Urine Protein Urine Glucose (UA) Urine Ketones Urine Occult Blood Urine Nitrite Urine Bilirubin Urine Urobilinogen Ur Leukocyte Esterase Urine RBC Urine WBC Ur Squamous Epith Cells Urine Bacteria Ur Microscopic Review Urine Culture Comments Nasal Adenovirus (PCR) Nasal B. parapertussis DNA (PCR) Nasal Coronavir 229E PCR Nasal Coronavir HKU1 PCR Nasal Coronavir NL63 PCR Nasal Coronavir OC43 PCR Nasal Enterovir/Rhinovir PCR Nasal Influenza B PCR Nasal Influenza A PCR Nasal Parainfluen 1 PCR Nasal Parainfluen 2 PCR Nasal Parainfluen 3 PCR Nasal Parainfluen 4 PCR Nasal RSV (PCR) Nasal B.pertussis DNA PCR Nasal C.pneumoniae (PCR) [place] Human Metapneumo PCR Nasal M.pneumoniae (PCR) Nasal SARS-CoV-2 (PCR) Urine Opiates Screen Ur Oxycodone Screen Urine Methadone Screen Ur Propoxyphene Screen Ur Barbiturates Screen Ur Tricyclics Screen Ur Phencyclidine Scrn Ur Amphetamine Screen U Methamphetamines Scrn U Benzodiazepines Scrn Urine Cocaine Screen U Cannabinoids Screen 11/24/21 11/24/21 11/24/21 14:25 14:25 16:30 WBC RBC Hgb Hct MCV MCH MCHC RDW Plt Count MPV Neut # (Auto) Lymph # (Auto) [place] # (Auto) Eos # (Auto) Baso # (Auto) Absolute Nucleated RBC Nucleated RBC % Sodium Potassium Chloride Carbon Dioxide Anion Gap BUN Creatinine Estimated GFR (MDRD) Glucose Calcium Total Bilirubin AST ALT Alkaline Phosphatase Troponin I High Sens Total Protein Albumin Globulin Albumin/Globulin Ratio Lipase Urine Color LT. YELLOW Urine Clarity CLEAR Urine pH 5.5 Ur Specific [place] 1.010 Urine Protein NEGATIVE Urine Glucose (UA) NEGATIVE Urine Ketones NEGATIVE Urine Occult Blood NEGATIVE Urine Nitrite NEGATIVE Urine Bilirubin NEGATIVE Urine Urobilinogen 0.2 (NORMAL) Ur Leukocyte Esterase SMALL H Urine RBC 0-5 Urine WBC 6-10 H Ur Squamous Epith Cells MOD Squamous H Urine Bacteria Few Ur Microscopic Review INDICATED Urine Culture Comments NOT INDICATED Nasal Adenovirus (PCR) NOT DETECTED Nasal B. parapertussis DNA (PCR) NOT DETECTED Nasal Coronavir 229E PCR NOT DETECTED Nasal Coronavir HKU1 PCR NOT DETECTED Nasal Coronavir NL63 PCR NOT DETECTED Nasal Coronavir OC43 PCR NOT DETECTED Nasal Enterovir/Rhinovir PCR NOT DETECTED Nasal Influenza B PCR NOT DETECTED Nasal Influenza A PCR NOT DETECTED Nasal Parainfluen 1 PCR NOT DETECTED Nasal Parainfluen 2 PCR NOT DETECTED Nasal Parainfluen 3 PCR NOT DETECTED Nasal Parainfluen 4 PCR NOT DETECTED Nasal RSV (PCR) NOT DETECTED Nasal B.pertussis DNA PCR NOT DETECTED Nasal C.pneumoniae (PCR) NOT DETECTED [place] Human Metapneumo PCR NOT DETECTED Nasal M.pneumoniae (PCR) NOT DETECTED Nasal SARS-CoV-2 (PCR) NOT DETECTED Urine Opiates Screen NEGATIVE Ur Oxycodone Screen NEGATIVE Urine Methadone Screen NEGATIVE Ur Propoxyphene Screen NEGATIVE Ur Barbiturates Screen NEGATIVE Ur Tricyclics Screen NEGATIVE Ur Phencyclidine Scrn NEGATIVE Ur Amphetamine Screen NEGATIVE U Methamphetamines Scrn NEGATIVE U Benzodiazepines Scrn NEGATIVE Urine Cocaine Screen NEGATIVE U Cannabinoids Screen NEGATIVE - Rads (name of study) CXR Radiology: Final report received (mild atypical pneumonia) Angio head Radiology: Final report received (Interval right AIRBRUSH ARTIST TECHNICAL territory infarction since the 05/01/2020 exam with volume loss and encephalomalacia. This does not represent an acute infarct. Decreased flow within the right posterior cerebral artery.) CT angio neck Radiology: Final report received (No bandar hemodynamically significant stenosis seen within the arteries of the neck.) PD MEDICAL DECISION MAKING - ED course Complexity details: reviewed results, re-evaluated patient, d/w patient ED course: 75-year-old female who carries a history of hypertension and diabetes presents the emergency department for evaluation of feeling dizzy off balance and having a headache after her closet yesterday. She had fluent speech and no elicited ataxia however when walking with a walker she did have some difficulty walking a straight line. CT angio of the head and neck does show an interval right AIRBRUSH ARTIST TECHNICAL territory infarction which is new from April 2020. There is some associated decreased flow within the right posterior cerebral artery. Given her risk factors for CVA and CT evidence of a new infarct since April 2020 with new presentation for dizziness there is concerned that this may be posterior circulation CVA. Unfortunately we do not have MRI or MRI available. I will now reach out to neurology for further consult to determine if emergent transfer is warranted. Patient will be loaded with 324 of aspirin as well as 300 Plavix while here in the emergency department. Chest x-ray is suggestive of a mild atypical pneumonia. Patient's curb 65 score is 1 given for age only. Patient will be started on ceftriaxone and azithromycin. She is finishing a course of Macrobid for urinary tract infection. 1650: Have spoken with neuro-hospitalist Dr. Jo at [facility]. Given the patient's history and concerning CT angio of the head the concern is that she may have evolving infarcts. We unfortunately do not have MRI available at [facility] and he does recommend the patient transfer. He would recommend daily aspirin and Plavix. Goal systolic blood pressure less than 140. They will attempt to find us a hospitalist. 1730: I have spoken with Dr. Abdelrahman chang at [facility] Who has agreed to accept the patient in transfer. Unfortunately it will likely be 1 to 2 days before a bed is available at any [facility] campus. Pt is aware of the plan to transfer. Pt will be signed out to my night time colleague Dr. Calix to follow up on bed availability and any significant changes overnight. Departure - Departure Disposition: 02 Transfer Acute Care Hosp Clinical Impression: Posterior circulation stroke, Dizzy Pneumonia Qualifiers: Pneumonia type: due to unspecified organism Laterality: unspecified laterality Lung location: unspecified part of lung Qualified Code(s): J18.9 - Pneumonia, unspecified organism Condition: Stable Record reviewed to determine appropriate education?: Yes
[2021-02-26 14:12] LABS: BASOPHILS % (AUTO) 0.3 %; EOSINOPHILS # (AUTO) 0.1 10^3/uL (0.0-0.7); EOSINOPHILS % (AUTO) 0.6 %; HCT - HEMATOCRIT 42.7 % (37.0-47.0); HGB - HEMOGLOBIN 13.7 g/dL (12.0-16.0); LYMPHOCYTES # (AUTO) 1.6 10^3/uL (1.5-3.5); LYMPHOCYTES % (AUTO) 11.3 %; MEAN CORPUSCULAR HEMOGLOBIN 27.5 pg (27.0-31.0); MEAN CORPUSCULAR HGB CONC 32.1 g/dL (32.0-36.0); MEAN CORPUSCULAR VOLUME 85.7 fL (81.0-99.0); MEAN PLATELET VOLUME 11.9 fL (7.9-10.8); MONOCYTES # (AUTO) 0.6 10^3/uL (0.0-1.0); MONOCYTES % (AUTO) 4.1 %; NEUTROPHILS # (AUTO) 11.6 10^3/uL (1.5-6.6); NEUTROPHILS % (AUTO) 83.3 %; PLT - PLATELET COUNT 165 10^3/uL (130-450); RED BLOOD COUNT 4.98 10^6/uL (4.20-5.40); RED CELL DISTRIBUTION WIDTH 14.9 % (12.0-15.0)
--- NOTE | 2021-02-26 14:13 | XRAY Report ---
PROCEDURE: Chest 1 View X-Ray INDICATIONS: Chest Pain TECHNIQUE: One view of the chest was acquired. COMPARISON: 01/02/2018 chest x-ray FINDINGS: Surgical changes and devices: None. Lungs and pleura: No pleural effusions or pneumothorax. Mild bilateral perihilar reticulonodular den sity. Mediastinum: Mediastinal contours appear normal. Heart size is normal. Bones and chest wall: No suspicious bony lesions. Overlying soft tissues appear unremarkable. IMPRESSION: Mild atypical pneumonia. Reviewed by: Letitia Olivera MD on 02/26/2021 2:11 PM PST Approved by: Letitia Olivera MD on 02/26/2021 2:11 PM PST Station ID: [id number]
[2021-02-26] MEDS ORDERED: IOVERSOL 320 100 ML VIAL IVP ONE ×2 (14:15→18:38)
[2021-02-26 14:30] LABS: ALBUMIN 4.3 g/dL (3.2-5.5); ALBUMIN/GLOBULIN RATIO 1.4 (1.0-2.2); BILIRUBIN,TOTAL 0.7 mg/dL (0.2-1.0); CALCIUM 9.4 mg/dL (8.5-10.3); CREATININE 0.8 mg/dL (0.4-1.0); POTASSIUM 3.9 mmol/L (3.5-5.0); TOTAL PROTEIN 7.3 g/dL (6.7-8.2)
[2021-02-26 14:57] LABS: BILIRUBIN,URINE NEGATIVE (NEGATIVE); GLUCOSE, URINE (UA) NEGATIVE (NEGATIVE); KETONES,URINE (UA) NEGATIVE (NEGATIVE); LEUKOCYTE ESTERASE, URINE SMALL (NEGATIVE); NITRITE,URINE NEGATIVE (NEGATIVE); OCCULT BLOOD,URINE NEGATIVE (NEGATIVE); PH,URINE 5.5 PH (5.0-7.5); PROTEIN,URINE NEGATIVE (NEGATIVE); UROBILINOGEN,URINE 0.2 (NORMAL) E.U./dL (NORMAL)
[2021-02-26 15:00] LABS: CLARITY,URINE CLEAR (CLEAR)
[2021-02-26 15:12] LABS: RBC,URINE 0-5 /HPF (0-5)
[2021-02-26 15:13] LABS: BACTERIA,URINE Few /HPF (None Seen); SQUAMOUS EPITHELIAL CELL,UR MOD Squamous (<= Few)
--- NOTE | 2021-02-26 15:59 | CT Report ---
PROCEDURE: ANGIO NECK W INDICATIONS: L sided facial droop, L neck pain CONTRAST: IV CONTRAST: Optiray 320 ml: 80 PO CONTRAST: *NO PO CONTRAST TECHNIQUE: After the administration of intravenous contrast, 1.5 mm axial sections acquired from the aortic arch to the [place] of [place]. Coronal 3-D maximum intensity projection (MIP) and/or volume rendering ref ormats were then performed. For radiation dose reduction, the following was used: automated exposur e control, adjustment of mA and/or kV according to patient size. COMPARISON: Correlation is made with the accompanying head CT angiogram, 02/26/2021. Correlation is made with prior cervical spine CT, 05/01/2020. FINDINGS: Image quality: Excellent. Carotid system: The great vessels demonstrate a conventional anatomy as they arise from the aortic a rch. The origins of the common carotid arteries appear patent. The common carotid arteries demonstr ate normal calibers and courses. The bifurcation regions demonstrate atherosclerotic calcification a nd irregularity. There is approximately 50% narrowing seen involving the origin of the left left inte rnal carotid artery. Within the right proximal internal carotid artery, there is 30-40% narrowing. Th e more distal internal carotid arteries demonstrate normal course and caliber. Posterior circulation: The origins of the vertebral arteries appear patent. Focal calcification is seen involving the left V4 segment, with approximately 50% narrowing. The more superior portions of t he vertebral arteries otherwise demonstrate normal course and caliber, with the left vertebral artery dominant to the right. Soft tissues: Visualized neck soft tissues demonstrate no suspicious abnormalities. The thyroid is normal in size and there are no incidental findings. In this patient with this given history, scrutiny is given to the course of the left facial nerve, in cluding within the left parotid gland. No masses or abnormal enhancement can be seen. Bones: No suspicious bony lesions. Visualized cervical spine appears normally aligned. Moderate c ervical spine degenerative changes are seen. IMPRESSION: No imaging explanation is found for the patient's presenting symptoms. No bandar hemodynamically significant stenosis can be seen involving the arteries of the neck. The estimate of stenosis included in the report of the imaging study was calculated using the NASCET method Reviewed by: Forest Banda MD on 02/26/2021 2:58 PM [facility] Approved by: Forest Banda MD on 02/26/2021 2:58 PM [facility] Station ID: [id number]
--- NOTE | 2021-02-26 16:05 | CT Report ---
PROCEDURE: ANGIO HEAD W/WO INDICATIONS: L sided facial droop CONTRAST: IV CONTRAST: Optiray 320 ml: 80 PO CONTRAST: *NO PO CONTRAST TECHNIQUE: Precontrast 4.5 mm thick angled axial sections acquired from the foramen magnum to the vertex. Afte r the administration of intravenous contrast, 1 mm thick sections acquired through the [place] of [place] is. Postcontrast 4.5 mm thick sections then re-acquired from the foramen magnum to the vertex. 3-di mensional etbqlzz-wvawfhhbf-wissbwoouh (MIP) and/or volume rendering reformats were acquired of the c entral intracranial vasculature. For radiation dose reduction, the following was used: automated ex posure control, adjustment of mA and/or kV according to patient size. COMPARISON: Correlation is made with prior noncontrast head CT, 05/01/2020. Correlation is also made with the accompanying CT neck angiogram, 02/26/2021. FINDINGS: Image quality: Motion artifact is noted. There is streak artifact seen through the skull base. Anterior circulation: Intracranial internal carotid arteries demonstrate arthroscopic calcification and irregularity, with approximately 50% narrowing seen on each side. The flow within the paired ante rior cerebral arteries is normal and symmetric. The flow within the middle cerebral arteries is norm al and symmetric. The anterior communicating artery is seen. No aneurysms are seen. Posterior circulation: The distal right vertebral artery largely terminates in the right posterior in ferior cerebellar artery. Within the proximal left vertebral artery, there is focal calcification, wi th approximately 50% narrowing. There is a normal appearing basilar artery. Flow within the posterior cerebral arteries is asymmetric and decreased on the right. No aneurysms are seen. CSF spaces: Ventricles are normal in size and shape. Basal cisterns are patent. No extra-axial flu id collections. Brain: Since the prior examination, there has been a right COURT ABSTRACTOR territory infarction, with mild loss and encephalomalacia. This does not have an acute appearance. No midline shift. No intracranial blee ds or masses. Diop-white matter interface appears intact. In this patient with this given history, scrutiny is given to left facial droop, scrutiny is given to the course of the left facial nerve, including within the left parotid gland. No masses or abnormal enhancement can be seen. Skull and face: Calvarium and facial bones appear intact, without suspicious lesions. Sinuses: Visualized sinuses and mastoids are clear. IMPRESSION: No imaging explanation is found for the patient's presenting symptoms of left facial kimber op. If there is strong clinical concern for a stroke, please consider a dedicated brain MRI for further e valuation (assuming that there is no contraindication to MRI). Interval right COURT ABSTRACTOR territory infarction, since the 05/01/2020 examination, with volume loss and enceph alomalacia. This does not represent an acute infarction. There is associated decreased flow within the right posterior cerebral artery. No intracranial hemorrhage is seen. Reviewed by: Forest Banda MD on 02/26/2021 3:03 PM [facility] Approved by: Forest Banda MD on 02/26/2021 3:03 PM [facility] Station ID: [id number]
[2021-02-26] MEDS ORDERED: CLOPIDOGREL 300 MG TABLET PO STA (16:27)
[2021-02-26] MEDS ORDERED: ASPIRIN CHEW 81 MG TABLET PO STA (16:27)
[2021-02-26 16:54] LABS: MUDS CUTOFF CONCENTRATIONS CUTOFF CONC BELOW:
[2021-02-26 17:21] LABS: AMPHETAMINE SCREEN,URINE NEGATIVE (NEGATIVE); BARBITURATE SCREEN,UR NEGATIVE (NEGATIVE); BENZODIAZEPINES SCREEN, URINE NEGATIVE (NEGATIVE); COCAINE SCREEN URINE NEGATIVE (NEGATIVE); METHADONE SCREEN, URINE NEGATIVE (NEGATIVE); METHAMPHETAMINES SCREEN, URINE NEGATIVE (NEGATIVE); OPIATE SCREEN, URINE NEGATIVE (NEGATIVE); OXYCODONE SCREEN, URINE NEGATIVE (NEGATIVE); PROPOXYPHENE SCREEN, URINE NEGATIVE (NEGATIVE); THC CANNABINOID SCREEN, URINE NEGATIVE (NEGATIVE); TRICYCLIC ANTIDEPRESSANT,URINE NEGATIVE (NEGATIVE)
[2021-02-26 17:35] LABS: CORONAVIRUS 229E-RESP PCR NOT DETECTED; CORONAVIRUS HKU1-RESP PCR NOT DETECTED; CORONAVIRUS NL63-RESP PCR NOT DETECTED; CORONAVIRUS OC43-RESP PCR NOT DETECTED; HUMAN METAPNEUMOVIRUS NOT DETECTED; INFLUENZA A- RESP PCR PANEL NOT DETECTED; RHINOVIRUS/ENTEROVIRUS NOT DETECTED; SARS-CoV-2 -RESP PCR PANEL NOT DETECTED
[2021-02-26 17:36] LABS: B. PARAPERTUSSIS- RESP PCR PAN NOT DETECTED; B. PERTUSSIS- RESP PCR PANEL NOT DETECTED; C. PNEUMONIAE- RESP PCR PANEL NOT DETECTED; INFLUENZA B - RESP PCR PANEL NOT DETECTED; M. PNEUMONIAE- RESP PCR PANEL NOT DETECTED; PARAINFLUENZA VIRUS 1 NOT DETECTED; PARAINFLUENZA VIRUS 2 NOT DETECTED; PARAINFLUENZA VIRUS 3 NOT DETECTED; PARAINFLUENZA VIRUS 4 NOT DETECTED; RSV- RESP PCR PANEL NOT DETECTED
[2021-02-26] MEDS ORDERED: cefTRIAXone 1 GM VIAL IVP STA (18:12)
[2021-02-26] MEDS ORDERED: AZITHROMYCIN INJ 500 MG in SODIUM CHLORIDE 0.9% 250 ML IV STA (18:12)
[2021-02-27 05:01] VITALS: BP 146/57
== END 2021-02-27 05:00 | disposition short-term general hospital (02) ==
LOC: ED 13:34
DX: I63.331 Cerebral infarction due to thrombosis of right posterior cerebral artery (principal); J18.9 Pneumonia, unspecified organism; I10 Essential (primary) hypertension; E11.59 Type 2 diabetes mellitus with other circulatory complications; Z79.4 Long term (current) use of insulin; Z20.822 Contact with and (suspected) exposure to COVID-19
CPT/HCPCS: 36415; 70496; 70498; 71045; 80053; 80306; 81001; 83690; 84484; 85025; 87631; 93005; 96365; 96375; 99283; 99285; A9270; Q9967; 0202U; 81003; 87086

== ENCOUNTER 2021-04-20 08:16 | Outpatient (CLI) | payer MEDICARE, BC | END 2021-04-20 08:17 | disposition EMS.NT | LOC: EMS 08:16 | DX: Z03.89 Encounter for observation for other suspected diseases and conditions ruled out (principal) ==

== ENCOUNTER 2021-05-05 19:58 | Outpatient (CLI) | payer MEDICARE, BC | END 2021-05-05 19:59 | disposition EMS.NT | LOC: EMS 19:58 | DX: Z03.89 Encounter for observation for other suspected diseases and conditions ruled out (principal) ==

== ENCOUNTER 2021-05-14 21:32 | Outpatient (CLI) | payer MEDICARE, BC | END 2021-05-14 21:33 | disposition short-term general hospital (02) | LOC: EMS 21:32 | DX: I46.9 Cardiac arrest, cause unspecified (principal) | CPT/HCPCS: A0425; A0433 ==

== ENCOUNTER 2021-06-05 08:00 | Outpatient (CLI) | payer MEDICARE, BC ==
[2021-06-05 20:55] LABS: BASOPHILS # (AUTO) 0.1 10^3/uL (0.0-0.1); BASOPHILS % (AUTO) 0.5 %; EOSINOPHILS # (AUTO) 0.2 10^3/uL (0.0-0.7); EOSINOPHILS % (AUTO) 1.6 %; HCT - HEMATOCRIT 37.8 % (37.0-47.0); HGB - HEMOGLOBIN 11.4 g/dL (12.0-16.0); LYMPHOCYTES # (AUTO) 1.8 10^3/uL (1.5-3.5); LYMPHOCYTES % (AUTO) 11.8 %; MEAN CORPUSCULAR HGB CONC 30.2 g/dL (32.0-36.0); MEAN CORPUSCULAR VOLUME 89.6 fL (81.0-99.0); MONOCYTES # (AUTO) 0.9 10^3/uL (0.0-1.0); MONOCYTES % (AUTO) 6.1 %; NEUTROPHILS # (AUTO) 12.1 10^3/uL (1.5-6.6); NEUTROPHILS % (AUTO) 79.5 %; PLT - PLATELET COUNT 206 10^3/uL (130-450); RED BLOOD COUNT 4.22 10^6/uL (4.20-5.40); RED CELL DISTRIBUTION WIDTH 17.7 % (12.0-15.0); WHITE BLOOD COUNT 15.2 x10^3/uL (4.8-10.8)
[2021-06-05 21:06] LABS: ALBUMIN 3.7 g/dL (3.2-5.5); ALBUMIN/GLOBULIN RATIO 1.2 (1.0-2.2); BILIRUBIN,TOTAL 0.6 mg/dL (0.2-1.0); CALCIUM 9.3 mg/dL (8.5-10.3); CREATININE 1.8 mg/dL (0.4-1.0); POTASSIUM 4.2 mmol/L (3.5-5.0); TOTAL PROTEIN 6.7 g/dL (6.7-8.2)
== END 2021-06-05 23:59 | disposition home or self-care (01) ==
LOC: LAB.R 08:00
DX: I11.0 Hypertensive heart disease with heart failure (principal); I50.20 Unspecified systolic (congestive) heart failure
CPT/HCPCS: 80053; 85025

== ENCOUNTER 2021-06-14 21:30 | Outpatient (CLI) | payer MEDICARE, BC ==
[2021-06-14 21:57] LABS: BASOPHILS # (AUTO) 0.1 10^3/uL (0.0-0.1); BASOPHILS % (AUTO) 0.4 %; EOSINOPHILS # (AUTO) 0.5 10^3/uL (0.0-0.7); EOSINOPHILS % (AUTO) 3.4 %; LYMPHOCYTES # (AUTO) 2.2 10^3/uL (1.5-3.5); LYMPHOCYTES % (AUTO) 16.2 %; MEAN CORPUSCULAR HEMOGLOBIN 27.4 pg (27.0-31.0); MEAN CORPUSCULAR HGB CONC 30.2 g/dL (32.0-36.0); MEAN CORPUSCULAR VOLUME 90.5 fL (81.0-99.0); MEAN PLATELET VOLUME 13.1 fL (7.9-10.8); MONOCYTES # (AUTO) 0.7 10^3/uL (0.0-1.0); MONOCYTES % (AUTO) 5.2 %; NEUTROPHILS # (AUTO) 10.2 10^3/uL (1.5-6.6); NEUTROPHILS % (AUTO) 74.4 %; PLT - PLATELET COUNT 154 10^3/uL (130-450); RED BLOOD COUNT 4.75 10^6/uL (4.20-5.40); RED CELL DISTRIBUTION WIDTH 18.3 % (12.0-15.0); WHITE BLOOD COUNT 13.7 x10^3/uL (4.8-10.8)
[2021-06-14 22:52] LABS: CALCIUM 9.8 mg/dL (8.5-10.3); CREATININE 1.7 mg/dL (0.4-1.0); POTASSIUM 4.2 mmol/L (3.5-5.0)
== END 2021-06-14 23:59 | disposition home or self-care (01) ==
LOC: LAB.R 21:30
DX: E11.9 Type 2 diabetes mellitus without complications (principal); I11.0 Hypertensive heart disease with heart failure; I50.9 Heart failure, unspecified; I48.0 Paroxysmal atrial fibrillation; I25.5 Ischemic cardiomyopathy
CPT/HCPCS: 80048; 85025

== ENCOUNTER 2021-06-14 23:53 | Outpatient (CLI) | payer MEDICARE, BC | END 2021-06-14 23:54 | disposition critical access hospital (66) | LOC: EMS 23:53 | DX: R94.4 Abnormal results of kidney function studies (principal); I95.9 Hypotension, unspecified; R73.9 Hyperglycemia, unspecified | CPT/HCPCS: A0425; A0427 ==

== ENCOUNTER 2021-06-15 | Inpatient (IN) | payer MEDICARE, BC ==
[2021-06-15 00:31] LABS: BASOPHILS # (AUTO) 0.1 10^3/uL (0.0-0.1); BASOPHILS % (AUTO) 0.3 %; EOSINOPHILS # (AUTO) 0.5 10^3/uL (0.0-0.7); EOSINOPHILS % (AUTO) 3.3 %; HCT - HEMATOCRIT 41.5 % (37.0-47.0); HGB - HEMOGLOBIN 12.7 g/dL (12.0-16.0); LYMPHOCYTES # (AUTO) 2.9 10^3/uL (1.5-3.5); LYMPHOCYTES % (AUTO) 20.1 %; MEAN CORPUSCULAR HEMOGLOBIN 27.4 pg (27.0-31.0); MEAN CORPUSCULAR HGB CONC 30.6 g/dL (32.0-36.0); MEAN CORPUSCULAR VOLUME 89.6 fL (81.0-99.0); MEAN PLATELET VOLUME 13.6 fL (7.9-10.8); MONOCYTES # (AUTO) 0.9 10^3/uL (0.0-1.0); MONOCYTES % (AUTO) 6.2 %; NEUTROPHILS % (AUTO) 69.7 %; PLT - PLATELET COUNT 153 10^3/uL (130-450); RED BLOOD COUNT 4.63 10^6/uL (4.20-5.40); RED CELL DISTRIBUTION WIDTH 18.2 % (12.0-15.0); WHITE BLOOD COUNT 14.4 x10^3/uL (4.8-10.8)
[2021-06-15 00:43] LABS: ALBUMIN 3.7 g/dL (3.2-5.5); ALBUMIN/GLOBULIN RATIO 1.2 (1.0-2.2); BILIRUBIN,TOTAL 0.5 mg/dL (0.2-1.0); CALCIUM 9.4 mg/dL (8.5-10.3); CREATININE 1.6 mg/dL (0.4-1.0); POTASSIUM 4.1 mmol/L (3.5-5.0); TOTAL PROTEIN 6.8 g/dL (6.7-8.2)
[2021-06-15] MEDS ORDERED: SODIUM CHLORIDE 0.9% 1,000 ML IV STA ×2 (01:32→04:40)
[2021-06-15] MEDS ORDERED: COD LIVER OIL/ZINC OXIDE 113 GM TUBE TOP PRN (04:49)
[2021-06-15] MEDS ORDERED: ZINC OXIDE 20% OINT 30 GM TUBE TOP STA (05:07)
[2021-06-15 08:35] LABS: CREATININE 1.4 mg/dL (0.4-1.0); POTASSIUM 3.9 mmol/L (3.5-5.0)
[2021-06-15] MEDS ORDERED: ACETAMINOPHEN 325 MG TABLET PO PRN (09:19)
[2021-06-15] MEDS ORDERED: ONDANSETRON 4 MG/2 ML VIAL IVP PRN (09:19)
--- NOTE | 2021-06-15 10:07 | XRAY Report ---
PROCEDURE: Chest 1 View X-Ray INDICATIONS: leukocytosis, AMS TECHNIQUE: One view of the chest was acquired. COMPARISON: CXR 02/26/2021. Lung apices on CTA neck 02/26/2021. FINDINGS: Surgical changes and devices: Post median sternotomy and CABG. Cholecystic clips. Lungs and pleura: No pleural effusions or pneumothorax. No consolidation identified. Mild hazy opaci ty in the upper lobes appears similar the prior exam. Low lung volumes. Mediastinum: Mediastinal contours appear normal. Heart size is at the upper limits of normal. Bones and chest wall: No suspicious bony lesions. Overlying soft tissues appear unremarkable. IMPRESSION: Mild hazy opacity in the upper lobes bilaterally. This could be due to pneumonia, atelectasis, or sca rring. Reviewed by: Amilcar Maldonado MD on 06/15/2021 9:05 AM [facility] Approved by: Amilcar Maldonado MD on 06/15/2021 9:05 AM [facility] Station ID: [id number]
[2021-06-15] MEDS: DEXTROSE 5%-0.45% NACL 1,000 ML IV SCH ×3 (10:54→21:17)
[2021-06-15] MEDS: SODIUM CHLORIDE FLUSH 0.9% 10 ML SYRINGE IVP PRN ×2 (10:54→13:25)
--- NOTE | 2021-06-15 11:12 | HISTORY & PHYSICAL EXAMINATION ---
Chief Complaint - Chief Complaint Chief Complaint: Abnormal labs History of Present Illness - Admitted From Admitted From:: formerly [facility] - History Obtained From Records Reviewed: [facility] and [facility] Admission Record History obtained from: Medical Records Exam Limitations: Patient is unable to answer questions - History of Present Illness HPI Comment/Other: 75 year old female who presented today from formerly [facility] due to abnormal labs. She is unable to provide history therefore the information has been obtained from report with the ED provider and medical records. Labs were drawn on 06/14/21 at [facility] and showed a Sodium of 153, Potassium 4.2, Chloride 114, serum Carbon Dioxide 26, Anion Gap 13.0, BUN 96, Creatinine 1.7, GFR 29. In the emergency room her labs were redrawn and showed acute kidney injury with hypovolemia hypernatremia, dehydration, and leukocytosis with a Sodium of 152, Bun 93, Creatinine 1.6, GFR 31, H&H 12.7/41.4, and WBCs 14.4. She is afebrile and an urinalysis was ordered. She was given 2 liters of normal saline and her repeat labs showed a sodium of 154, BUN 85, Creatinine 1.4, GFR 36. Upon arrival to the medical surgical unit the patient is lethargic but arousable. She is able to follow simple commands and moves all extremities equally. Her pupils are PERRL. She did not verbalize answers to questions but did shake and nod her head. She shook her head no when asked if she was in any pain. Upon examination, she has lower abdominal tenderness to palpation and distended bladder. A Shafer catheter has been ordered due to her lower abdominal tenderness and to obtain a urinalysis. A chest x-ray was also added to determine if leukocytosis is infectious versus reactive. Her IV fluids were changed to D5 1/2 NS at 125ml/hr for hypovolemia hypernatremia and dehydration. A CT of the head has been added due to current neurological status. She has a , [employer] who is her POA and according the record his number is [phone]. The bedside nurse relayed that he was with the patient in the ED and left to get some sleep when she was transferred to the floor. She has a history of a Cardiopulmonary resuscitation in May 2021 and was tr ansferred to [facility]. She was then discharged to [facility]. She also has a history of a Cardiovascular accident in March 2021. A residual from the CVA is unknown however her [facility] record listed a history of dysphagia and generalized muscle weakness. She has a history of type II diabetes and takes Lantus, Novolog, and Canagliflozin. She also has a history of hypothyroidsim, hyperlipidemia, Bipolar, depression, hypertension, ischemic cardiomyopathy, and parosysmal atrial fibrillation. History - Past Medical History Cardiovascular: reports: Hypertension, High cholesterol, Coronary artery disease, Atrial fibrillation, Other (Cardiomyopathy) Respiratory: reports: None Neuro: reports: CVA Endocrine/Autoimmune: reports: Type 2 diabetes GI: reports: None RUG SHAMPOOER: reports: None : reports: None HEENT: reports: None Psych: reports: Depression, Bipolar disorder Musculoskeletal: reports: Osteoarthritis Derm: reports: None MRSA Hx?: No - Past Surgical History General: reports: Cholecystectomy Ortho: reports: Carpal Tunnel surgery, Other /RUG SHAMPOOER: reports: Hysterectomy Cardiovascular: reports: CABG - Family & Social History Family History Comment/Other: Unable to obtian family history at this time Living arrangement: prison ([facility]) - Substance History Use: Uses substance without health or social issues: NONE - POLST Patient has POLST: Yes POLST Status: Full Code (POLST is dated 05/30/2021) Meds/Allgy - Home Medications Home Medications: Ambulatory Orders Medication Instructions Recorded Confirmed Metoprolol Tartrate 2 tab PO DAILY PM 07/08/14 07/08/14 Apixaban [Eliquis] 5 mg PO BID 06/15/21 Aspirin [Aspirin EC] 81 mg PO DAILY 06/15/21 Atorvastatin Calcium [Lipitor] 80 mg PO QPM 06/15/21 06/15/21 Canagliflozin [Invokana] 100 mg PO DAILY 06/15/21 Clopidogrel [Plavix] 75 mg PO DAILY 06/15/21 06/15/21 Ergocalciferol [Vitamin D2] 2,000 unit PO DAILY 06/15/21 Furosemide [Lasix] 20 mg PO DAILY 06/15/21 06/15/21 Insulin Glargine [Lantus Solostar] 10 units SUBQ BID 06/15/21 Insulin Lispro [Humalog Kwikpen 6 unit SUBQ ACHS 06/15/21 06/15/21 U-100] Levothyroxine Sodium 50 mcg PO QDAC 06/15/21 06/15/21 Losartan [Cozaar] 75 mg PO DAILY 06/15/21 06/15/21 Metoprolol Succinate [Toprol Xl] 50 mg PO QPM 06/15/21 06/15/21 Metoprolol Succinate [Toprol Xl] 100 mg PO DAILY 06/15/21 06/15/21 Multivitamin 1 tab PO DAILY 06/15/21 Pantoprazole [Protonix] 40 mg PO BIDAC 06/15/21 06/15/21 Sacubitril/Valsartan [Entresto 24 1 tab PO DAILY 06/15/21 mg-26 mg Tablet] Sertraline [Zoloft] 50 mg PO DAILY 06/15/21 06/15/21 - Allergies Allergies/Adverse Reactions: Allergies Allergy/AdvReac Type Severity Reaction Status Date / Time Sulfa (Sulfonamide Allergy Mild Nausea Verified 06/15/21 00:11 Antibiotics) epinephrine AdvReac Unknown Verified 06/15/21 00:11 Review of Systems - Other Findings Other Findings: Unable to complete the ROS due to patient status. Exam - Vital Signs Vital Signs: Vital Signs x48h Temp Pulse Pulse Resp BP BP Pulse Ox 06/15/21 10:45 36.4 C L 98 19 101/77 95 06/15/21 09:46 36.3 C L 95 19 142/73 H 97 06/15/21 09:07 90 21 109/50 L 96 06/15/21 08:00 89 21 109/79 98 06/15/21 06:00 84 22 112/90 H 97 06/15/21 04:37 85 22 98/51 L 97 06/15/21 01:59 82 20 120/60 99 - Physical Exam General Appearance: positive: No acute distress, Lethargic Eyes Bilateral: positive: Normal inspection, PERRL ENT: positive: Dry mucous membranes Respiratory: positive: Chest non-tender, No respiratory distress, Breath sounds nml Cardiovascular: positive: Regular rate & rhythm, No murmur, No gallop Abdomen: positive: Nml bowel sounds, Tenderness (lower abdominal) Skin: positive: Warm, Dry, Skin rash (Erythematus rash to bilateral groin.), Decubitus (State II to coccyx.) Extremities: positive: Non-tender, Nml appearance, No pedal edema, Other (poor skin turgor) Neurologic/Psychiatric: positive: Other (Patient is lethargic but following simple commands. She is able to opens eye and maintain eye contact. She is moving all extremties. When asked simple questions she makes incoherent sounds. When asked yes or no questions she is nodding and shaking her head approp riately.) Conclusion/Plan - Problem List (1) CVA (cerebral vascular accident) Conclusion/Plan: According to the ED provider, the patient was alert and oriented until February 2021 and then she had a CVA in March 2021. If she had a residual from this CVA is unknown however her admission record from [facility] listed muscle weakness and dysphagia as a diagnosis. Upon admission to the medical surgical unit she was following simple commands, opening eyes, PERRL 3, and tracking. She was able to move all extremities equally. She was not verbally answering questions but was shaking her head appropriately. The bedside nurse reports that she was able to assist with position changes and feed herself lunch. A repeat neuro assessment 2 hours after admission to the floor revealed PERRL 3, intermittently follows commands and was able to weakly show teeth with slight left side facial droop. She is able to withdrawal to pain bilaterally to both upper and lower extremities. She is no longer shaking or nodding head to questions. She is only opening her right eye and is not tracking. The NIH score at this time is 24 and [place] Coma Scale is 9. A CT of her head was added to the admission workup due to the presenting neurological status. The 06/15/[address] showed "suspected new left lacunar infart. No acute intracranial hemorrhage. Encephalomalacia in the right occipital lobe from prior infarct appears similar. Similar prior right lacunar infarct. New opacification of the right maxillary sinus." Stroke Code was called after radiologist presented findings. Neurologist Dr. Odin Alanis from [facility] was consulted who recommended stopping the Eliquis, continuing aspirin, along with obtaining an MRI and 2D Echo. She is not a TPA candidate due to last known normal is unknown and greater than 4 hours. Plan: Stop Eliquis per Neurologist recommendation Continue Aspirin 81mg PO daily. Order 2D Echo per Neurologist recommendation. Monitor neuro status every 6 hours for the next 24 hours for changes. A MRI of brain tomorrow. Lipid panel for tomorrow morning and A1C (2) Hypovolemia due to dehydration Conclusion/Plan: Patient was admitted from [facility] today for abnormal labs. The prehospital labs were drawn on 06/14/21 at [facility] and showed a Sodium of 153, Potassium 4.2, Chloride 114, serum Carbon Dioxide 26, Anion Gap 13.0, BUN 96, Creatinine 1.7, GFR 29. In the emergency room her labs were redrawn and showed acute kidney injury with hypovolemia hypernatremia and dehydration with a Sodium of 152, Bun 93, Creatinine 1.6, GFR 31, H&H 12.7/41.4. She was given 2 liters of normal saline and her repeat labs showed a sodium of 154, BUN 85, Creatinine 1.4, GFR 36. She was changed to D5 1/2NS at 125ml/hr for hydration upon admission to the medical surgical floor. Plan: Continue to rehydrate with IVF D5 1/2 NS at 125ml/hr. Monitor BMP daily. (3) Hypernatremia Conclusion/Plan: Patient was brought to the hospital today from [facility] due to abnormal labs that included an elevated Sodium of 153. In the ED her sodium remianed elevated at 152 after 2 liters of normal saline. IV fluids were changed to D5 1/2 NS at 125ml/hr upon arriving to the medical surgical unit. Plan: Continue to with IVF D5 1/2NS at 125ml/hr for hydration. Monitor BMP daily. (4) RAGHAV (acute kidney injury) Conclusion/Plan: Patient was admitted from [facility] today for abnormal labs. The prehospital labs were drawn on 06/14/21 at [facility] and showed a Sodium of 153, Potassium 4.2, Chloride 114, serum Carbon Dioxide 26, Anion Gap 13.0, BUN 96, Creatinine 1.7, GFR 29. In the emergency room her labs were redrawn and showed acute kidney injury with hypovolemia hypernatremia and dehydration with a Sodium of 152, Bun 93, Creatinine 1.6, GFR 31, H&H 12.7/41.4. She was given 2 liters of normal saline and her repeat labs showed a sodium of 154, BUN 85, Creatinine 1.4, GFR 36. She was changed to D5 1/2NS at 125ml/hr for hydration upon admission to the medical surgical floor. Plan: Continue to rehydrate with IVF D5 1/2 NS at 125ml/hr. Monitor BMP daily. Avoid nephrotoxic agents. (5) Leukocytosis Conclusion/Plan: Patient was admitted from [facility] today for abnormal labs. It us unclear as to why she was getting frequent lab draws but her WBCs on 06/05/21 were 15.2, then on 06/14/21 they were 13.7, and today they were 14.4. She is afebrile. A urinalysis which showed positive nitrites, moderate leukocytes, and WBCs. A chest x-ray was also done upon admission and showed "Mild hazy opacity in bilateral upper lobes. This could be pneumonia, atelectasis, or scaring". She also presented with a sena rash to her groin bilaterally and a stage II decubitus ulcer to coccyx. Plan: Obtain blood cultures and lactic acid. Start Azihromycin 500mg IVPB daily and Ceftriaxone 1gm IVPB daily for possible pnuemonia and UTI. Adjust antibiotics for urine culture results as needed. Nystatin cream to rash twice daily. Apply zinc oxide to coccyx. Consider abdominal studies if WBCs continue to be elevated after antibiotics due to tenderness. (6) Type 2 diabetes mellitus Conclusion/Plan: Patient has a history of type II diabetes and takes Lantus 10 units twice daily, Insulin Lispro 6 units subQ four times a day, and Canagliflozin 100mg PO daily. Upon admission her serum glucose was 260. Plan Obtain an A1C. Resume Lantus 10 units SubQ twice daily Monitor bedside glucose every 6 hours and cover per insulin sliding scale. (7) History of atrial fibrillation Conclusion/Plan: According to her admission record from [facility] the patient has a history of Atrial Fibrillation. In the ED she had an EKG that showed NSR with Q waves in lead II and aVF. She is on Metoprolol tartrate 100mg PO daily, Eliquis 5mg PO twice daily, and Aspirin 81mg PO daily. CHADS-VASc Score is 8 and is associated with a 10.8% stroke risk per year. Plan: We will continue to monitor the patient's cardiac rhythm with telemetry. We will continue her metoprolol using Metorolol succinate 100mg NG daily until she is able to swallow. Continue with aspirin 81mg PO daily. Hold Eliquis due to recommendation by neurologist. (8) Hypothyroid Conclusion/Plan: The patient has a history of hypothyroidism and takes Levothyroxine 50mcg po daily. Plan: We will obtain a TSH level and resume levothyroxine as indicated. (9) Hypertension Conclusion/Plan: The patient has a history of hypertension. She is on Sacrubitril/ Valsartan 24/26mg PO daily and Metoprolol tartrate 100mg PO daily. During her hospitalization her systolic blood pressure has been 90-120s. Plan: We will resume her Metoprolol for her a-fib prophylaxis with hold parameters for BP less than 100. Consider resuming her her Sacrubitril/Valsartan when systolic blood pressure is consistently greater than 120. - Lab Results Fish Bones: 06/15/21 00:25 06/15/21 07:50
[2021-06-15] MEDS: NYSTATIN POWDER 15 GM TOP SCH ×2 (13:35→20:53)
[2021-06-15 13:36] LABS: BILIRUBIN,URINE NEGATIVE (NEGATIVE); CLARITY,URINE SL. CLOUDY (CLEAR); GLUCOSE, URINE (UA) >=1000 mg/dL (NEGATIVE); KETONES,URINE (UA) NEGATIVE (NEGATIVE); LEUKOCYTE ESTERASE, URINE MODERATE (NEGATIVE); NITRITE,URINE POSITIVE (NEGATIVE); OCCULT BLOOD,URINE TRACE-INTA (NEGATIVE); PH,URINE 5.5 PH (5.0-7.5); PROTEIN,URINE NEGATIVE (NEGATIVE); UROBILINOGEN,URINE 0.2 (NORMAL) E.U./dL (NORMAL)
--- NOTE | 2021-06-15 13:42 | CT Report ---
PROCEDURE: HEAD WO INDICATIONS: altered mental status TECHNIQUE: Noncontrast 4.5 mm thick angled axial sections acquired from the foramen magnum to the vertex. For r adiation dose reduction, the following was used: automated exposure control, adjustment of mA and/or kV according to patient size. COMPARISON: Head CT 02/26/2021, 05/01/2020. FINDINGS: Image quality: Excellent. CSF spaces: Basal cisterns are patent. No extra-axial fluid collections. Ventricles are prominent. Brain: No midline shift. No intracranial masses or hemorrhage. Small left lacunar infarct appears new. Similar prior right lacunar infarct. Encephalomalacia adjacent to the posterior horn of the righ t lateral ventricle is similar to 02/26/2021. There is periventricular hypodensity consistent with ch ronic microvascular ischemic disease. Age-related parenchymal loss. Skull and face: Calvarium and visualized facial bones are intact, without suspicious lesions. Sinuses: Opacification of the right maxillary sinus, new. Mild mucosal thickening in the right anteri or ethmoid air cells. The other paranasal sinuses and mastoids are clear. IMPRESSION: 1. Suspect new left lacunar infarct. No acute intracranial hemorrhage. 2. Encephalomalacia in the right occipital lobe from prior infarct appears similar. Similar prior rig ht lacunar infarct. 3. Opacification of the right maxillary sinus, new. Results were communicated to Dr. Rivero at 06/15/2021 12:36 PM AKJAVIER. Reviewed by: Amilcar Maldonado MD on 06/15/2021 12:40 PM SUMAYA Approved by: Amilcar Maldonado MD on 06/15/2021 12:40 PM AKJAVIER Station ID: [id number]
[2021-06-15 13:44] LABS: BACTERIA,URINE Few /HPF (None Seen); SQUAMOUS EPITHELIAL CELL,UR RARE Squamous (<= Few); WBC,URINE >25 /HPF (0-5)
[2021-06-15 13:45] LABS: YEAST,URINE PRESENT
[2021-06-15] MEDS: SODIUM CHLORIDE FLUSH 0.9% 10 ML SYRINGE IVP SCH (15:55)
[2021-06-15] MEDS: cefTRIAXone 1 GM in SODIUM CHLORIDE 0.9% MINIBAG 100 ML IV SCH (16:45)
[2021-06-15] MEDS: AZITHROMYCIN INJ 500 MG in SODIUM CHLORIDE 0.9% 250 ML IV SCH (16:51)
[2021-06-15] MEDS: INSULIN REGULAR HUMAN 300 UNIT/3 ML VIAL SUBQ SCH (18:53)
--- NOTE | 2021-06-15 20:25 | ED Physician Documentation ---
History of Present Illness - Stated complaint Stated Complaint: ABNORMAL LABS - Chief complaint Chief Complaint: General - History obtained from History obtained from: Family (spouse (in ED at bedside)) - History of Present Illness Timing: Unknown - Additonal information Additional information: BIBA from [facility]. Patient sent to ED for abnormal blood tests (specifically, high BUN and sodium). It is unclear why these were drawn today. Patient cannot contribute to HPI/ROS due to expressive aphasia (she is lethargic and nonverbal on initial evaluation; later in ED stay she is awake but minimal vernal response when I ask her how she is feeling, and dysarthric and very difficult to understand when she did respond to the question). Patients says he suspects she is not taking much PO liquid intake; she is only allowed what he describes as a gel form of hydration. Patient was seen in this ED February 2021 for CVA, transferred to [facility]. Last month (05/14/21) she collapsed at home and was pulseless and apneic (per EMS report), had CPR (EMS report mentions PEA as well as asystole). She was taken directly to [facility] says that prior to that event, she was AAOx3 and independent. She now is at [facility], requires assist with attempts to stand, and is mostly nonverbal. Review of Systems Unable to obtain: Other (no adequate verbal responses to obtain ROS) PD PAST MEDICAL HISTORY - Past Medical History Past Medical History: Yes Cardiovascular: Hypertension, High cholesterol, Coronary artery disease, Atrial fibrillation, Other (Cardiomyopathy) Respiratory: None Neuro: CVA Endocrine/Autoimmune: Type 2 diabetes GI: None CANDY CATCHER: None : None HEENT: None Psych: Depression, Bipolar disorder Musculoskeletal: Osteoarthritis Derm: None - Past Surgical History Past Surgical History: Yes General: Cholecystectomy Ortho: Carpal Tunnel surgery, Other /CANDY CATCHER: Hysterectomy Cardiovascular: CABG - Present Medications Home Medications: Ambulatory Orders Medication Instructions Recorded Confirmed Metoprolol Tartrate 2 tab PO DAILY PM 07/08/14 07/08/14 Apixaban [Eliquis] 5 mg PO BID 06/15/21 Aspirin [Aspirin EC] 81 mg PO DAILY 06/15/21 Atorvastatin Calcium [Lipitor] 80 mg PO QPM 06/15/21 06/15/21 Canagliflozin [Invokana] 100 mg PO DAILY 06/15/21 Clopidogrel [Plavix] 75 mg PO DAILY 06/15/21 06/15/21 Ergocalciferol [Vitamin D2] 2,000 unit PO DAILY 06/15/21 Furosemide [Lasix] 20 mg PO DAILY 06/15/21 06/15/21 Insulin Glargine [Lantus Solostar] 10 units SUBQ BID 06/15/21 Insulin Lispro [Humalog Kwikpen 6 unit SUBQ ACHS 06/15/21 06/15/21 U-100] Levothyroxine Sodium 50 mcg PO QDAC 06/15/21 06/15/21 Losartan [Cozaar] 75 mg PO DAILY 06/15/21 06/15/21 Metoprolol Succinate [Toprol Xl] 50 mg PO QPM 06/15/21 06/15/21 Metoprolol Succinate [Toprol Xl] 100 mg PO DAILY 06/15/21 06/15/21 Multivitamin 1 tab PO DAILY 06/15/21 Pantoprazole [Protonix] 40 mg PO BIDAC 06/15/21 06/15/21 Sacubitril/Valsartan [Entresto 24 1 tab PO DAILY 06/15/21 mg-26 mg Tablet] Sertraline [Zoloft] 50 mg PO DAILY 06/15/21 06/15/21 - Allergies Allergies/Adverse Reactions: Allergies Allergy/AdvReac Type Severity Reaction Status Date / Time Sulfa (Sulfonamide Allergy Mild Nausea Verified 06/15/21 00:11 Antibiotics) epinephrine AdvReac Unknown Verified 06/15/21 00:11 - Social History Does the pt smoke?: No Smoking Status: Unknown if ever smoked Does the pt drink ETOH?: Yes Does the pt have substance abuse?: No - Immunizations Immunizations are current?: Yes - POLST Patient has POLST: Yes POLST Status: Full Code (POLST is dated 05/30/2021) PD ED PE NORMAL - Vitals Vital signs reviewed: Yes - General General: No acute distress, Well developed/nourished, Other (asleep; awakens to verbal with gentle tactile. follows simple commands, opens eyes but no eye contact) - HEENT HEENT: PERRL - Cardiac Cardiac: RRR, No murmur - Respiratory Respiratory: No respiratory distress, Clear bilaterally - Abdomen Abdomen: Normal bowel sounds, Soft, Non tender, Non distended - Derm Derm: Warm and dry - Extremities Extremities: No edema - Neuro Eye Opening: To Voice Motor: Obeys Commands Verbal: Incomprehensible GCS Score: 11 Results - Vitals Vitals: Vital Signs - 24 hr 06/15/21 06/15/21 06/15/21 00:00 00:51 01:59 Temperature 36.5 C Heart Rate 91 87 82 Respiratory 18 22 20 Rate Blood Pressure 137/59 H 120/60 O2 Saturation 97 98 99 06/15/21 06/15/21 06/15/21 04:37 06:00 08:00 Temperature Heart Rate 85 84 89 Respiratory 22 22 21 Rate Blood Pressure 98/51 L 112/90 H 109/79 O2 Saturation 97 97 98 06/15/21 09:07 Temperature Heart Rate 90 Respiratory 21 Rate Blood Pressure 109/50 L O2 Saturation 96 Oxygen O2 Source Room air - EKG (time done) No standard instances Rate: Rate (enter#) (90) Rhythm: NSR [place]: LAD Intervals: Normal [place] QRS: Normal Ischemia: Normal ST segments, Q waves (III, aVF, V3-V5) - Labs Labs: Laboratory Tests 06/15/21 06/15/21 06/15/21 00:25 00:25 06:51 WBC 14.4 H RBC 4.63 Hgb 12.7 Hct 41.5 MCV 89.6 MCH 27.4 MCHC 30.6 L RDW 18.2 H Plt Count 153 MPV 13.6 H Neut # (Auto) 10.0 H Lymph # (Auto) 2.9 [place] # (Auto) 0.9 Eos # (Auto) 0.5 Baso # (Auto) 0.1 Absolute Nucleated RBC 0.00 Nucleated RBC % 0.0 Sodium 152 H Cancelled Potassium 4.1 Cancelled Chloride 115 H Cancelled Carbon Dioxide 24 Cancelled Anion Gap 13.0 Cancelled BUN 93 H* Cancelled Creatinine 1.6 H Cancelled Estimated GFR (MDRD) 31 L Cancelled Glucose 260 H Cancelled Calcium 9.4 Cancelled Total Bilirubin 0.5 AST 20 ALT 26 Alkaline Phosphatase 151 H Total Protein 6.8 Albumin 3.7 Globulin 3.1 Albumin/Globulin Ratio 1.2 Lipase 52 H 06/15/21 07:50 WBC RBC Hgb Hct MCV MCH MCHC RDW Plt Count MPV Neut # (Auto) Lymph # (Auto) [place] # (Auto) Eos # (Auto) Baso # (Auto) Absolute Nucleated RBC Nucleated RBC % Sodium 154 H Potassium 3.9 Chloride 117 H Carbon Dioxide 27 Anion Gap 10.0 BUN 85 H* Creatinine 1.4 H Estimated GFR (MDRD) 36 L Glucose 187 H Calcium 9.0 Total Bilirubin AST ALT Alkaline Phosphatase Total Protein Albumin Globulin Albumin/Globulin Ratio Lipase PD MEDICAL DECISION MAKING - ED course Complexity details: reviewed old records, reviewed results, re-evaluated patient, considered differential, d/w patient, d/w family ED course: profoundly elevated BUN with mildly elevated creatinine. Mild hypernatremia. Patients bun/creatinine had been normal on previous results (as far back as 2012 on [facility] records) until 06/05/21. Notably there are no results between February 2021 and June 05, 2021. Based on the EMS record (in [facility]) from 05/14/21, and considering (per ) her neurologic changes subsequent to that event, I suspect she sustained ischemic injury due to low-flow state when she had the cardiopulmonary arrest, with current evidence of this previous, recent cerebral and renal injury. The most concerning abnormality at this time is BUN in 90s, which is significantly higher than 06/05/21. Her creatinine tonight is comparable to 06/05/21. This pattern would be most likely due to profound dehydration. LGIB included on differential but this would be unlikely given normal h/h. She is given 2 liters NS IV and BMP redrawn. On reevaluation, she is awake and alert with again at bedside. She makes some eye contact. It is on the reevaluation when she answers one of my questions (how are you feeling?), but I cannot understand her answer (very quiet and dysarthric). The redraw shows persistent hypernatremia (sodium has slightly increased from previous) and little improvement in BUN (93 down to 85). She will likely benefit from further IV hydration and recheck(s) of labs and at this point would best be undertaken as inpatient/observation. D/W Dr. Jones, accepts to hospitalist service. Records were requested from [facility] but were not received during patients ED stay. Departure - Departure Disposition: ED Place in Observation Clinical Impression: Hypernatremia, Prerenal azotemia Condition: Stable Discharge Date/Time: 06/15/21 10:32
[2021-06-15] MEDS: PANTOPRAZOLE 40 MG TABLET PO SCH (20:53)
[2021-06-15] MEDS: ATORVASTATIN 40 MG TABLET PO SCH (20:53)
[2021-06-15] MEDS: INSULIN GLARGINE 300 UNIT/3 ML PEN SUBQ SCH (20:56)
[2021-06-15] MEDS ORDERED: METOPROLOL SUCCINATE 50 MG TABLET PO SCH ×2 (21:00)
[2021-06-15] MEDS ORDERED: ATORVASTATIN 40 MG TABLET PO SCH (21:00)
[2021-06-15] MEDS ORDERED: NON FORMULARY MED (Atorvastatin Calcium [Lipitor] 80 MG Tablet) PO SCH (21:00)
[2021-06-16] MEDS: INSULIN REGULAR HUMAN 300 UNIT/3 ML VIAL SUBQ SCH ×3 (00:22→11:25)
[2021-06-16] MEDS: SODIUM CHLORIDE FLUSH 0.9% 10 ML SYRINGE IVP SCH ×3 (00:28→16:27)
[2021-06-16] MEDS: DEXTROSE 5%-0.45% NACL 1,000 ML IV SCH (04:17)
[2021-06-16 05:22] LABS: BASOPHILS % (AUTO) 0.2 %; EOSINOPHILS # (AUTO) 0.4 10^3/uL (0.0-0.7); EOSINOPHILS % (AUTO) 4.9 %; HCT - HEMATOCRIT 34.8 % (37.0-47.0); HGB - HEMOGLOBIN 10.2 g/dL (12.0-16.0); LYMPHOCYTES # (AUTO) 2.2 10^3/uL (1.5-3.5); MEAN CORPUSCULAR HEMOGLOBIN 26.9 pg (27.0-31.0); MEAN CORPUSCULAR HGB CONC 29.3 g/dL (32.0-36.0); MEAN CORPUSCULAR VOLUME 91.8 fL (81.0-99.0); MEAN PLATELET VOLUME 12.8 fL (7.9-10.8); MONOCYTES # (AUTO) 0.5 10^3/uL (0.0-1.0); MONOCYTES % (AUTO) 5.8 %; NEUTROPHILS # (AUTO) 5.9 10^3/uL (1.5-6.6); NEUTROPHILS % (AUTO) 64.7 %; PLT - PLATELET COUNT 116 10^3/uL (130-450); RED BLOOD COUNT 3.79 10^6/uL (4.20-5.40); RED CELL DISTRIBUTION WIDTH 18.6 % (12.0-15.0)
[2021-06-16 05:32] LABS: CHOL/HDL RATIO 3.8 (<4.4); CHOLESTEROL 115 mg/dL; HDL CHOLESTEROL 30 mg/dL; LDL CHOLESTEROL,CALCULATED 55 mg/dL; LDL/HDL RATIO 1.8 (<4.4); TRIGLYCERIDES 149 mg/dL; VLDL CHOLESTEROL 30 mg/dL
[2021-06-16 05:38] LABS: CALCIUM 9.1 mg/dL (8.5-10.3); CREATININE 1.1 mg/dL (0.4-1.0); POTASSIUM 3.9 mmol/L (3.5-5.0)
[2021-06-16] MEDS: PANTOPRAZOLE 40 MG TABLET PO SCH ×2 (06:17→16:23)
[2021-06-16] MEDS: LEVOTHYROXINE 25 MCG TABLET PO SCH (06:17)
--- NOTE | 2021-06-16 07:31 | PROVIDER PROGRESS NOTE ---
Assessment/Plan - Problem List (1) CVA (cerebral vascular accident) Assessment/Plan: MRI done on 06/16/2021 showed acute infarcts in the left basal ganglia and left cerebral pedro as well as a punctate acute infarct in the left centrum semiovale. Remote right occipital temporal infarct. Global cerebral volume loss and severe chronic microvascular ischemic changes She was seen by speech therapy for swallow eval with recommendations for thin liquid via straw following oral care and mechanical soft diet. Lovastatin 80 mg p.o. every afternoon. Plavix 75 mg p.o. daily Eliquis 5 mg p.o. twice daily Metoprolol succinate 100 mg every morning and 50 mg every afternoon Losartan 75 mg p.o. daily. Entresto currently held. Anticipate return to [facility] on 06/17/2021 or 06/18/2021 for continued rehab (2) Hypovolemia due to dehydration Assessment/Plan: Currently receiving IV hydration with dextrose 5 solution at 100 mL/h. (3) Hypernatremia Assessment/Plan: On 06/16/2021 at 5 AM was 156. IV fluids were changed to dextrose 5 solution at 100 mL/h. Repeat sodium at 5 PM was 151 We will continue IV hydration and continue to monitor sodium level. (4) RAGHAV (acute kidney injury) Assessment/Plan: Improved/resolved. Creatinine today was 1.0 with estimated GFR of 54 Continue IV hydration with dextrose 5 solution at 100 mL/h. (5) Urinary tract infection Assessment/Plan: Urine culture grew E. coli. White blood cell count improved from 14.4 yesterday down to 9.0 today. We will continue Rocephin and azithromycin while awaiting blood culture (6) Type 2 diabetes mellitus Assessment/Plan: Hemoglobin A1c was 8.1. On Lantus 10 units subcu twice daily. Sliding scale insulin and Accu-Cheks before every meal at bedtime. (7) History of atrial fibrillation Assessment/Plan: Miguel vasc score is 8. On metoprolol succinate 100 mg every morning and 50 mg every afternoon. Eliquis 5 mg p.o. twice daily. 2D echocardiogram done on 06/15/2021 showed overall left ventricular systolic function is normal with an ejection fraction of 55 to 60%. Impaired relaxation consistent with grade 1 diastolic dysfunction. No regional wall motion abnormality was seen. Aortic valve is trileaflet. Focal sclerosis of the right and noncoronary cusps. No evidence of aortic stenosis. No evidence of aortic regurgitation. No mitral stenosis. Mild mitral annular calcification. Trace mitral regurgitation. No pericardial effusion. There was an adipose layer noted in the pericardium. Inter atrial septum appears normal. No mass or thrombus identified. No pleural effusion noted. (8) Hypothyroid Assessment/Plan: Synthroid 50 mcg p.o. daily AC (9) Hypertension Assessment/Plan: On metoprolol and losartan. - Current Meds Current Meds: Current Medications Generic Name Dose Route Start Last Admin Trade Name Freq PRN Reason Stop Dose Admin Atorvastatin Calcium 80 mg 06/15/21 21:00 06/15/21 20:53 Atorvastatin 40 Mg Tablet PO 80 mg QPM ELIZABETH Administration Ceftriaxone Sodium 1 gm/ 100 mls @ 200 mls/hr 06/15/21 15:46 06/15/21 17:15 Sodium Chloride IV Infused DAILY ELIZABETH Infusion Azithromycin 500 mg/ Sodium 250 mls @ 250 mls/hr 06/15/21 17:00 06/15/21 17:51 Chloride IV 06/17/21 09:59 Infused DAILY ELIZABETH Infusion Insulin Glargine 10 unit 06/15/21 21:00 06/15/21 20:56 Insulin Glargine 300 Unit/3 Ml Pen SUBQ 10 unit BID ELIZABETH Administration Insulin Human Regular 2 - 10 unit 06/15/21 18:00 06/16/21 06:15 Insulin Regular Human 300 Unit/3 Ml Vial SUBQ 2 unit Q6HR ELIZABETH Administration Protocol Levothyroxine Sodium 50 mcg 06/16/21 07:00 06/16/21 06:17 Levothyroxine 25 Mcg Tablet PO 50 mcg QDAC ELIZABETH Administration Nystatin 1 applic 06/15/21 13:00 06/15/21 20:53 Nystatin Powder 15 Gm TOP 1 applic BID ELIZABETH Administration Pantoprazole Sodium 40 mg 06/15/21 20:00 06/16/21 06:17 Pantoprazole 40 Mg Tablet PO 40 mg BIDAC ELIZABETH Administration Sodium Chloride 10 ml 06/15/21 09:19 06/15/21 13:25 Sodium Chloride Flush 0.9% 10 Ml Syringe IVP 10 ml PRN PRN Administration NEEDED PER PROVIDER ORDERS Sodium Chloride 10 ml 06/15/21 17:00 06/16/21 00:28 Sodium Chloride Flush 0.9% 10 Ml Syringe IVP Not Given 0100,0900,1700 ELIZABETH - Lab Result Fish Bone Diagrams: 06/16/21 05:00 06/16/21 11:02 - Additional Planning My Orders: My Active Orders 06/15/21 09:19 Activity Orders [RC] Q2HR IO [RC] IOSHIFT Initiate Bowel Care Protocol [RC] .protocol Initiate Line Care Protocol [RC] QSHIFT Initiate Personal Care Protoco [RC] .protocol Oxygen Therapy [RC] .PRN Telemetry- [RC] Q4HR Vital Signs [RC] Q4HR Acetaminophen [Tylenol] 650 mg PO Q4HR PRN Ondansetron Inj [Zofran Inj] 4 mg IVP Q6HR PRN Sodium Chloride Flush 0.9% [Normal Saline Flush 0.9%] 10 ml IVP PRN PRN Code Status [OTHERS] Routine Condition of Patient [OTHERS] Routine DVT Prophylaxis [OTHERS] Routine 06/15/21 09:24 SCDs [RC] QSHIFT 06/15/21 11:13 Nutrition Consult [CONS] Routine 06/15/21 12:09 Bladder Scan [RC] ONCE 06/15/21 12:46 Straight Catheter Insertion [RC] PRN 06/15/21 13:00 Nystatin [Nystop] 1 applic TOP BID 06/15/21 15:46 cefTRIAXone [Rocephin] 1 gm Sodium Chloride 0.9% Minibag [Normal Saline 0.9% Minibag] 100 ml IV DAILY 06/15/21 15:49 Blood Glucose POC [RC] 0000,0600,1200,1800 Initiate Hypoglycemia Protocol [RC] .protocol 06/15/21 15:51 NPO except Meds [DIET] 06/15/21 16:01 Neuro Check [RC] Q4H 06/15/21 16:14 Blood Culture [CULTURE, BLOOD #1] [] Stat 06/15/21 16:44 Blood Culture [CULTURE, BLOOD #2] [] Stat 06/15/21 17:00 Azithromycin Inj [Zithromax Inj] 500 mg Sodium Chloride 0.9% [Normal Saline 0.9%] 250 ml IV DAILY Sodium Chloride Flush 0.9% [Normal Saline Flush 0.9%] 10 ml IVP 0100,0900,1700 06/15/21 18:00 Insulin Regular Human [Humulin R] 2 - 10 unit SUBQ Q6HR 06/15/21 20:00 Pantoprazole [Protonix] 40 mg PO BIDAC 06/15/21 21:00 Atorvastatin [Lipitor] 80 mg PO QPM Insulin Glargine [Lantus Solostar] 10 unit SUBQ BID 06/16/21 05:00 HEMOGLOBIN A1c% [CHEM] DAILYLAB 06/16/21 07:00 Levothyroxine [Synthroid] 50 mcg PO QDAC 06/16/21 07:26 Echo Complete w/Bubble Study [ECHO] Routine 06/16/21 08:00 D5W @ 100mls/hr Dextrose 5% [D5w] 1,000 ml IV 100 mls/hr 06/16/21 09:00 BRAIN WO [MRI] Routine Clopidogrel [Plavix] 75 mg PO DAILY Sertraline [Zoloft] 50 mg PO DAILY 06/16/21 11:00 BMP - BASIC METABOLIC PANEL [CHEM] Q6H 06/16/21 17:00 BMP - BASIC METABOLIC PANEL [CHEM] Q6H 06/17/21 05:00 BMP - BASIC METABOLIC PANEL [CHEM] DAILYLAB CBC - COMP BLD CT W/AUTO DIFF [HEME] DAILYLAB 06/18/21 05:00 BMP - BASIC METABOLIC PANEL [CHEM] DAILYLAB CBC - COMP BLD CT W/AUTO DIFF [HEME] DAILYLAB 06/19/21 05:00 BMP - BASIC METABOLIC PANEL [CHEM] DAILYLAB CBC - COMP BLD CT W/AUTO DIFF [HEME] DAILYLAB 06/20/21 05:00 BMP - BASIC METABOLIC PANEL [CHEM] DAILYLAB CBC - COMP BLD CT W/AUTO DIFF [HEME] DAILYLAB Subjective - Subjective Patient Reports: Other (Patient was more alert, awake and oriented x4 today. Following commands appropriately and attempting to answer questions appropriately. Her voice is hoarse.) Objective Vital Signs: Vital Signs - 24 hr 06/15/21 06/15/21 06/15/21 08:00 09:07 09:46 Temperature 36.3 C L Heart Rate 89 90 95 Heart Rate [ Brachial] Heart Rate [ Monitoring electrodes] Respiratory 21 21 19 Rate Blood Pressure 109/79 109/50 L 142/73 H Blood Pressure [Left Brachial artery] O2 Saturation 98 96 97 06/15/21 06/15/21 06/15/21 10:45 14:19 15:42 Temperature 36.4 C L 36.4 C L 36.8 C Heart Rate Heart Rate [ 85 Brachial] Heart Rate [ 98 Monitoring electrodes] Respiratory 19 18 18 Rate Blood Pressure Blood Pressure 101/77 121/52 L 103/61 [Left Brachial artery] O2 Saturation 95 98 95 06/15/21 06/15/21 06/16/21 20:58 23:57 05:09 Temperature 36.6 C 36.7 C 36.7 C Heart Rate Heart Rate [ 85 78 Brachial] Heart Rate [ Monitoring electrodes] Respiratory 19 20 22 Rate Blood Pressure Blood Pressure 129/49 L 113/42 L 119/40 L [Left Brachial artery] O2 Saturation 100 98 97 Oxygen O2 Source Room air I&O (Last 24 Hrs): Intake and Output Totals x24h 06/14/21 06/15/21 06/16/21 22:59 23:59 23:59 Intake Total 942.083 Output Total 400 Balance 542.083 General: Alert, Oriented x3, Cooperative, No acute distress HEENT: PERRLA, EOMI Neck: Supple, No JVD Neuro: Alert, Oriented Times 3 Cardiovascular: Other (Irregularly iregular) Respiratory: Chest non-tender, No respiratory distress, Breath sounds nml Abdomen: Normal bowel sounds, Soft, No tenderness, No masses Extremities: No clubbing, No edema, No tenderness/swelling Skin: No rashes, No breakdown, No significant lesion - Results Results: Laboratory Results WBC 9.0 x10^3/uL (4.8-10.8) 06/16/21 05:00 RBC 3.79 10^6/uL (4.20-5.40) L 06/16/21 05:00 Hgb 10.2 g/dL (12.0-16.0) L 06/16/21 05:00 Hct 34.8 % (37.0-47.0) L 06/16/21 05:00 MCV 91.8 fL (81.0-99.0) 06/16/21 05:00 MCH 26.9 pg (27.0-31.0) L 06/16/21 05:00 MCHC 29.3 g/dL (32.0-36.0) L 06/16/21 05:00 RDW 18.6 % (12.0-15.0) H 06/16/21 05:00 Plt Count 116 10^3/uL (130-450) L 06/16/21 05:00 MPV 12.8 fL (7.9-10.8) H 06/16/21 05:00 Neut # (Auto) 5.9 10^3/uL (1.5-6.6) 06/16/21 05:00 Lymph # (Auto) 2.2 10^3/uL (1.5-3.5) 06/16/21 05:00 [place] # (Auto) 0.5 10^3/uL (0.0-1.0) 06/16/21 05:00 Eos # (Auto) 0.4 10^3/uL (0.0-0.7) 06/16/21 05:00 Baso # (Auto) 0.0 10^3/uL (0.0-0.1) 06/16/21 05:00 Absolute Nucleated RBC 0.00 x10^3/uL 06/16/21 05:00 Nucleated RBC % 0.0 /100WBC 06/16/21 05:00 Sodium 156 mmol/L (135-145) H* 06/16/21 05:00 Potassium 3.9 mmol/L (3.5-5.0) 06/16/21 05:00 Chloride 120 mmol/L (101-111) H* 06/16/21 05:00 Carbon Dioxide 27 mmol/L (21-32) 06/16/21 05:00 Anion Gap 9.0 (6-13) 06/16/21 05:00 BUN 51 mg/dL (6-20) H 06/16/21 05:00 Creatinine 1.1 mg/dL (0.4-1.0) H 06/16/21 05:00 Estimated GFR (MDRD) 48 (>89) L 06/16/21 05:00 Glucose 176 mg/dL (70-100) H 06/16/21 05:00 Lactic Acid 2.1 mmol/L (0.5-2.2) 06/15/21 16:14 Calcium 9.1 mg/dL (8.5-10.3) 06/16/21 05:00 Total Bilirubin 0.5 mg/dL (0.2-1.0) 06/15/21 00:25 AST 20 IU/L (10-42) 06/15/21 00:25 ALT 26 IU/L (10-60) 06/15/21 00:25 Alkaline Phosphatase 151 IU/L (42-121) H 06/15/21 00:25 Total Protein 6.8 g/dL (6.7-8.2) 06/15/21 00:25 Albumin 3.7 g/dL (3.2-5.5) 06/15/21 00:25 Globulin 3.1 g/dL (2.1-4.2) 06/15/21 00:25 Albumin/Globulin Ratio 1.2 (1.0-2.2) 06/15/21 00:25 Triglycerides 149 mg/dL (-149) 06/16/21 05:00 Cholesterol 115 mg/dL (-199) 06/16/21 05:00 LDL Cholesterol, Calc 55 mg/dL (-129) 06/16/21 05:00 VLDL Cholesterol 30 mg/dL 06/16/21 05:00 HDL Cholesterol 30 mg/dL (60-) L 06/16/21 05:00 LDL/HDL Ratio 1.8 (<4.4) 06/16/21 05:00 Cholesterol/HDL Ratio 3.8 (<4.4) 06/16/21 05:00 Lipase 52 U/L (22-51) H 06/15/21 00:25 Urine Color YELLOW 06/15/21 13:25 Urine Clarity SL. CLOUDY (CLEAR) 06/15/21 13:25 Urine pH 5.5 PH (5.0-7.5) 06/15/21 13:25 Ur Specific [place] 1.020 (1.002-1.030) 06/15/21 13:25 Urine Protein NEGATIVE mg/dL (NEGATIVE) 06/15/21 13:25 Urine Glucose (UA) >=1000 mg/dL (NEGATIVE) H 06/15/21 13:25 Urine Ketones NEGATIVE mg/dL (NEGATIVE) 06/15/21 13:25 Urine Occult Blood TRACE-INTA (NEGATIVE) 06/15/21 13:25 Urine Nitrite POSITIVE (NEGATIVE) H 06/15/21 13:25 Urine Bilirubin NEGATIVE (NEGATIVE) 06/15/21 13:25 Urine Urobilinogen 0.2 (NORMAL) E.U./dL (NORMAL) 06/15/21 13:25 Ur Leukocyte Esterase MODERATE (NEGATIVE) H 06/15/21 13:25 Urine RBC 6-10 /HPF (0-5) H 06/15/21 13:25 Urine WBC >25 /HPF (0-5) H 06/15/21 13:25 Ur Squamous Epith Cells RARE Squamous (<= Few) 06/15/21 13:25 Urine Bacteria Few /HPF (None Seen) 06/15/21 13:25 Urine Yeast PRESENT 06/15/21 13:25 Ur Microscopic Review INDICATED 06/15/21 13:25 Urine Culture Comments INDICATED 06/15/21 13:25 SARS-CoV-2 (PCR) NOT DETECTED 06/15/21 09:30 ABX Reporting Has patient been on IV antibiotics over the past 48 hours?: Yes
[2021-06-16] MEDS: cefTRIAXone 1 GM in SODIUM CHLORIDE 0.9% MINIBAG 100 ML IV SCH (08:04)
[2021-06-16] MEDS: DEXTROSE 5% 1,000 ML IV SCH ×2 (08:05→21:29)
[2021-06-16] MEDS: SERTRALINE 50 MG TABLET PO SCH (08:08)
[2021-06-16] MEDS: INSULIN GLARGINE 300 UNIT/3 ML PEN SUBQ SCH ×2 (08:08→21:32)
[2021-06-16] MEDS: NYSTATIN POWDER 15 GM TOP SCH ×2 (08:08→21:32)
[2021-06-16] MEDS: CLOPIDOGREL 75 MG TABLET PO SCH (08:08)
[2021-06-16] MEDS ORDERED: LOSARTAN 50 MG TABLET PO SCH (09:00)
[2021-06-16] MEDS ORDERED: ASPIRIN EC 81 MG TABLET PO SCH (09:00)
[2021-06-16] MEDS ORDERED: METOPROLOL SUCCINATE 50 MG TABLET PO SCH (09:00)
[2021-06-16] MEDS: AZITHROMYCIN INJ 500 MG in SODIUM CHLORIDE 0.9% 250 ML IV SCH (09:06)
[2021-06-16 09:19] LABS: ESTIMATED AVERAGE GLUCOSE 186 mg/dL (70-100); HEMOGLOBIN A1c% 8.1 % (4.27-6.07)
--- NOTE | 2021-06-16 11:08 | PHARMACY PROGRESS NOTE ---
- Best Possible Medication History Admit Date and Time: 06/15/211927 Processed by: Pharmacy Medication History completed: Yes Secondary Source(s): Facility MAR as ONLY source As the person ultimately responsible for medication therapy, providers are able to order a medication from an existing home medication list in [facility] via the "Reconcile Routine" prior to Confirmation of that medication by director of operations support. Such practice is discouraged except when the physician, in their clinical judgment, deems that a medical need exists for a medication without regard to previous use.
[2021-06-16 11:26] LABS: CALCIUM 9.1 mg/dL (8.5-10.3); CREATININE 1.1 mg/dL (0.4-1.0); POTASSIUM 3.6 mmol/L (3.5-5.0)
--- NOTE | 2021-06-16 15:14 | MRI Report ---
PROCEDURE: Brain W/O INDICATIONS: altered mental status TECHNIQUE: Noncontrast axial T1 spin echo, axial T2 fast spin echo, sagittal and axial FLAIR, coronal T2 fast sp in echo, axial gradient echo, axial diffusion and ADC through the brain. COMPARISON: CT head 05/01/2020 and 02/26/2021. FINDINGS: There are multiple areas of restricted diffusion consistent with acute infarct. The most notable of t hese is in the left basal ganglia and left thalamus which extends inferiorly into the anteromedial le ft cerebral pedro. An additional punctate focus of restricted diffusion is present in the left centrum semiovale. There is remote infarct in the right occipital lobe and posterior temporal lobe with encephalomalacia and gliosis. No abnormal extra axial fluid collection, mass effect, or midline shift. The ventricles and basilar c isterns are patent. There is advanced global cerebral volume loss and severe chronic vascular ischemi c change. No gross orbital abnormality. Right maxillary sinus opacification. Remaining paranasal sinu ses and mastoid air cells are predominantly clear. IMPRESSION: Acute infarcts in the left basal ganglia and left cerebral pedro as well as a punctate acute infarct i n the left centrum semiovale. Remote right occipitotemporal infarct. Global cerebral volume loss and severe chronic microvascular ischemic changes. Reviewed by: Chris Baer MD on 06/16/2021 3:13 PM PDT Approved by: Chris Baer MD on 06/16/2021 3:13 PM PDT Station ID: [id number]
[2021-06-16] MEDS: INSULIN ASPART 300 UNIT/3 ML PEN SUBQ SCH ×2 (16:29→21:31)
[2021-06-16 17:13] LABS: POTASSIUM 3.6 mmol/L (3.5-5.0)
[2021-06-16] MEDS: ATORVASTATIN 40 MG TABLET PO SCH (21:30)
[2021-06-16] MEDS: APIXABAN 5 MG TABLET PO SCH (21:30)
[2021-06-16] MEDS: METOPROLOL SUCCINATE 50 MG TABLET PO SCH (21:31)
[2021-06-17] MEDS: SODIUM CHLORIDE FLUSH 0.9% 10 ML SYRINGE IVP SCH ×3 (00:24→16:42)
[2021-06-17 05:09] LABS: BASOPHILS % (AUTO) 0.4 %; EOSINOPHILS # (AUTO) 0.4 10^3/uL (0.0-0.7); EOSINOPHILS % (AUTO) 4.8 %; HCT - HEMATOCRIT 32.2 % (37.0-47.0); HGB - HEMOGLOBIN 9.7 g/dL (12.0-16.0); LYMPHOCYTES # (AUTO) 2.1 10^3/uL (1.5-3.5); LYMPHOCYTES % (AUTO) 22.6 %; MEAN CORPUSCULAR HEMOGLOBIN 27.4 pg (27.0-31.0); MEAN CORPUSCULAR HGB CONC 30.1 g/dL (32.0-36.0); MEAN PLATELET VOLUME 13.4 fL (7.9-10.8); MONOCYTES # (AUTO) 0.5 10^3/uL (0.0-1.0); MONOCYTES % (AUTO) 5.5 %; NEUTROPHILS % (AUTO) 65.8 %; PLT - PLATELET COUNT 113 10^3/uL (130-450); RED BLOOD COUNT 3.54 10^6/uL (4.20-5.40); RED CELL DISTRIBUTION WIDTH 17.8 % (12.0-15.0); WHITE BLOOD COUNT 9.2 x10^3/uL (4.8-10.8)
[2021-06-17 05:17] LABS: CALCIUM 8.7 mg/dL (8.5-10.3); CREATININE 0.9 mg/dL (0.4-1.0); POTASSIUM 3.4 mmol/L (3.5-5.0)
[2021-06-17] MEDS: PANTOPRAZOLE 40 MG TABLET PO SCH ×2 (06:08→16:35)
[2021-06-17] MEDS: LEVOTHYROXINE 25 MCG TABLET PO SCH (06:08)
[2021-06-17] MEDS: DEXTROSE 5% 1,000 ML IV SCH ×3 (06:12→16:43)
[2021-06-17] MEDS ORDERED: POTASSIUM CHLORIDE 20 MEQ TABLET PO ONE (07:50)
[2021-06-17] MEDS: INSULIN ASPART 300 UNIT/3 ML PEN SUBQ SCH ×3 (08:57→21:05)
[2021-06-17] MEDS: SERTRALINE 50 MG TABLET PO SCH (08:58)
[2021-06-17] MEDS: APIXABAN 5 MG TABLET PO SCH ×2 (08:58→21:01)
[2021-06-17] MEDS: MULTIVITAMIN W/MINERALS TABLET PO SCH (08:58)
[2021-06-17] MEDS: CLOPIDOGREL 75 MG TABLET PO SCH (08:59)
[2021-06-17] MEDS ORDERED: METOPROLOL SUCCINATE 50 MG TABLET PO SCH (09:00)
[2021-06-17] MEDS: INSULIN GLARGINE 300 UNIT/3 ML PEN SUBQ SCH ×2 (09:01→21:05)
[2021-06-17] MEDS: cefTRIAXone 1 GM in SODIUM CHLORIDE 0.9% MINIBAG 100 ML IV SCH (09:01)
[2021-06-17] MEDS: NYSTATIN POWDER 15 GM TOP SCH ×2 (09:03→20:31)
[2021-06-17] MEDS: AZITHROMYCIN INJ 500 MG in SODIUM CHLORIDE 0.9% 250 ML IV SCH (09:46)
--- NOTE | 2021-06-17 10:21 | PROVIDER PROGRESS NOTE ---
Subjective - Prog Note Date Prog Note Date: 06/17/21 - Subjective Subjective: She denies any focal deficits. Feels at her baseline. Reports no pain. Current Medications - Current Medications Current Medications: Active Medications Acetaminophen (Acetaminophen 325 Mg Tablet) 650 mg PO Q4HR PRN PRN Reason: Pain 1 to 4 Apixaban (Apixaban 5 Mg Tablet) 5 mg PO BID [facility] Last Admin: 06/17/21 08:58 Dose: 5 mg Atorvastatin Calcium (Atorvastatin 40 Mg Tablet) 80 mg PO QPM [facility] Last Admin: 06/16/21 21:30 Dose: 80 mg Cefuroxime Axetil (Cefuroxime Axetil 250 Mg Tablet) 250 mg PO BID [facility] Stop: 06/20/21 08:59 Clopidogrel Bisulfate (Clopidogrel 75 Mg Tablet) 75 mg PO DAILY [facility] Last Admin: 06/17/21 08:59 Dose: 75 mg Dextrose (D5w) 1,000 mls @ 100 mls/hr IV .Q10H [facility] Last Admin: 06/17/21 06:12 Dose: 100 mls/hr Insulin Aspart (Insulin Aspart 300 Unit/3 Ml Pen) 1 - 5 unit SUBQ 0800,1200,1700,2100 [facility]; Protocol Last Admin: 06/17/21 08:57 Dose: 1 unit Insulin Glargine (Insulin Glargine 300 Unit/3 Ml Pen) 10 unit SUBQ BID [facility] Last Admin: 06/17/21 09:01 Dose: 10 unit Levothyroxine Sodium (Levothyroxine 25 Mcg Tablet) 50 mcg PO QDAC [facility] Last Admin: 06/17/21 06:08 Dose: 50 mcg Metoprolol Succinate (Metoprolol Succinate 50 Mg Tablet) 50 mg PO QPM [facility] Last Admin: 06/16/21 21:31 Dose: 50 mg Metoprolol Succinate (Metoprolol Succinate 50 Mg Tablet) 100 mg PO DAILY [facility] Last Admin: 06/17/21 09:01 Dose: 100 mg Multivitamins/Minerals (Multivitamin W/Minerals Tablet) 1 tab PO DAILYWM [facility] Last Admin: 06/17/21 08:58 Dose: 1 tab Nystatin (Nystatin Powder 15 Gm) 1 applic TOP BID [facility] Last Admin: 06/17/21 09:03 Dose: 1 applic Ondansetron HCl (Ondansetron 4 Mg/2 Ml Vial) 4 mg IVP Q6HR PRN PRN Reason: Nausea / Vomiting Pantoprazole Sodium (Pantoprazole 40 Mg Tablet) 40 mg PO BIDAC [facility] Last Admin: 06/17/21 06:08 Dose: 40 mg Sertraline HCl (Sertraline 50 Mg Tablet) 50 mg PO DAILY [facility] Last Admin: 06/17/21 08:58 Dose: 50 mg Sodium Chloride (Sodium Chloride Flush 0.9% 10 Ml Syringe) 10 ml IVP PRN PRN PRN Reason: NEEDED PER PROVIDER ORDERS Last Admin: 06/15/21 13:25 Dose: 10 ml Sodium Chloride (Sodium Chloride Flush 0.9% 10 Ml Syringe) 10 ml IVP 0100,0900,1700 [facility] Last Admin: 06/17/21 09:46 Dose: 10 ml Apixaban [Eliquis] 5 mg PO BID 06/15/21 Atorvastatin Calcium [Lipitor] 40 mg PO QPM 06/15/21 Furosemide [Lasix] 20 mg PO DAILY 06/15/21 Insulin Glargine [Lantus Solostar] 10 units SUBQ BID 06/15/21 Levothyroxine Sodium 50 mcg PO QDAC 06/15/21 Losartan [Cozaar] 75 mg PO DAILY 06/15/21 Metoprolol Succinate [Toprol Xl] 50 mg PO QPM 06/15/21 Pantoprazole [Protonix] 40 mg PO BIDAC 06/15/21 RX: Aspirin [Aspirin EC] 81 mg PO DAILY 06/15/21 RX: Canagliflozin [Invokana] 100 mg PO DAILY 06/15/21 RX: Multivitamin 1 tab PO DAILY 06/15/21 RX: Sacubitril/Valsartan [Entresto 24 mg-26 mg Tablet] 1 tab PO BID 06/15/21 RX: Sertraline [Zoloft] 50 mg PO DAILY 06/15/21 Acetaminophen [Acetaminophen Extra Strength] 1,000 mg PO Q8H PRN 06/16/21 Brimonidine Tartrate/Timolol [Combigan 0.2%-0.5% Eye Drops] 2 drops EACHEYE TID 06/16/21 Calcium Carbonate [Tums (Calcium Carbonate 500mg)] 1,000 mg PO Q8H PRN 06/16/21 Cholecalciferol (Vitamin D3) [Vitamin D3] 50 mcg PO DAILY 06/16/21 Insulin Regular Human [Humulin R] 6 unit SUBQ AC 06/16/21 RX: Ascorbic Acid 500 mg PO DAILY 06/16/21 Spironolactone [Aldactone] 25 mg PO DAILY 06/16/21 Objective - Vital Signs/Intake & Output Reviewed Vital Signs: Yes Vital Signs: Vital Signs x48h Temp Pulse Pulse Resp BP BP Pulse Ox 06/17/21 07:31 36.3 C L 64 18 133/40 H 96 06/17/21 05:58 36.6 C 64 17 111/82 H 100 Intake & Output: Intake & Output 06/14/21 06/15/21 06/16/21 06/17/21 22:59 23:59 23:59 23:59 Intake Total 2975.083 1966.667 Output Total 1000 600 Balance 2793.570 3801.667 - Objective General Appearance: positive: No acute distress, Alert Eyes Bilateral: positive: Normal inspection, Conjunctivae nml ENT: positive: ENT inspection nml Neck: positive: Nml inspection Respiratory: positive: No respiratory distress. negative: Wheezes, Rales Cardiovascular: positive: Regular rate & rhythm. negative: Tachycardia Abdomen: positive: Non-tender, No distention. negative: Tenderness Skin: positive: Warm, Dry Extremities: positive: No pedal edema Neurologic/Psychiatric: positive: Other (She has 5 out of 5 motor strength in her left upper and lower extremity. She has 5 out of 5 motor strength in her right lower extremity as well. She appears to have very faint motor weakness distally in her right upper extremity but no gross deficits). negative: Disoriented to person, Disoriented to place, Facial droop - Lab Results Fish Bones: 06/17/21 04:45 06/17/21 18:07 Other Labs: Lab Results x24hrs 06/17/21 06/17/21 06/16/21 Range/Units 04:45 04:45 17:00 WBC 9.2 (4.8-10.8) x10^3/uL RBC 3.54 L (4.20-5.40) 10^6/uL Hgb 9.7 L (12.0-16.0) g/dL Hct 32.2 L (37.0-47.0) % MCV 91.0 (81.0-99.0) fL MCH 27.4 (27.0-31.0) pg MCHC 30.1 L (32.0-36.0) g/dL RDW 17.8 H (12.0-15.0) % Plt Count 113 L (130-450) 10^3/uL MPV 13.4 H (7.9-10.8) fL Neut # (Auto) 6.0 (1.5-6.6) 10^3/uL Lymph # (Auto) 2.1 (1.5-3.5) 10^3/uL [place] # (Auto) 0.5 (0.0-1.0) 10^3/uL Eos # (Auto) 0.4 (0.0-0.7) 10^3/uL Baso # (Auto) 0.0 (0.0-0.1) 10^3/uL Absolute Nucleated RBC 0.00 x10^3/uL Nucleated RBC % 0.0 /100WBC Sodium 148 H 151 H (135-145) mmol/L Potassium 3.4 L 3.6 (3.5-5.0) mmol/L Chloride 112 H 116 H (101-111) mmol/L Carbon Dioxide 26 26 (21-32) mmol/L Anion Gap 10.0 9.0 (6-13) BUN 28 H 37 H (6-20) mg/dL Creatinine 0.9 1.0 (0.4-1.0) mg/dL Estimated GFR (MDRD) 61 L 54 L (>89) Glucose 166 H 177 H (70-100) mg/dL Calcium 8.7 9.0 (8.5-10.3) mg/dL / Range/Units 11:02 WBC (4.8-10.8) x10^3/uL RBC (4.20-5.40) 10^6/uL Hgb (12.0-16.0) g/dL Hct (37.0-47.0) % MCV (81.0-99.0) fL MCH (27.0-31.0) pg MCHC (32.0-36.0) g/dL RDW (12.0-15.0) % Plt Count (130-450) 10^3/uL MPV (7.9-10.8) fL Neut # (Auto) (1.5-6.6) 10^3/uL Lymph # (Auto) (1.5-3.5) 10^3/uL [place] # (Auto) (0.0-1.0) 10^3/uL Eos # (Auto) (0.0-0.7) 10^3/uL Baso # (Auto) (0.0-0.1) 10^3/uL Absolute Nucleated RBC x10^3/uL Nucleated RBC % /100WBC Sodium 155 H* (135-145) mmol/L Potassium 3.6 (3.5-5.0) mmol/L Chloride 117 H (101-111) mmol/L Carbon Dioxide 24 (21-32) mmol/L Anion Gap 14.0 H (6-13) BUN 43 H (6-20) mg/dL Creatinine 1.1 H (0.4-1.0) mg/dL Estimated GFR (MDRD) 48 L (>89) Glucose 189 H (70-100) mg/dL Calcium 9.1 (8.5-10.3) mg/dL Assessment/Plan - Problem List (1) CVA (cerebral vascular accident) Impression: MRI yesterday confirmed multiple left-sided infarcts involving the basal ganglia as well as the cerebral pedro and centrum semiovale. She is on Plavix and we have now resumed Eliquis after discussion with neurology as it was felt to be a low risk of hemorrhagic conversion. We did allow permissive hypertension and her home antihypertensives have been resumed. She is working with PT and OT and she will need to go back to [facility] for ongoing rehab. Suspect she will be able to be discharged tomorrow once we ensure her blood pressure stable as well as her sodium continues to improve. (2) Hypernatremia Impression: This is likely secondary to decreased free water intake which may have been exacerbated by the pured diet and thickened liquid she had been on at the [facility]. This is now improved and her sodium today is 148. We will continue her on D5 water and I have asked the nursing staff provide her with a cup of water every few hours. We have also advanced her diet after being evaluated by speech therapy and hopes that she will increase her free water intake. (3) Urinary tract infection Impression: Urine culture grew E. coli. She has received 3 days of ceftriaxone and will switch her over to oral Ceftin to complete 5 days of therapy. (4) History of atrial fibrillation Impression: She is in a sinus rhythm and is rate controlled. We are continuing her home metoprolol. We have also resumed her home Eliquis after the stroke as it was felt that there is low risk of hemorrhagic conversion. (5) Type 2 diabetes mellitus Impression: Her blood glucose has been well controlled. We will continue her home insulin regimen. (6) Hypothyroid Impression: Continue synthroid. (7) RAGHAV (acute kidney injury) Impression: Resolved. This was secondary to hypovolemia and resolved with IV fluids.
[2021-06-17] MEDS: ZINC OXIDE 20% OINT 30 GM TUBE TOP PRN (14:30)
[2021-06-17] MEDS ORDERED: INSULIN ASPART 300 UNIT/3 ML PEN SUBQ SCH (17:00)
[2021-06-17] MEDS: ATORVASTATIN 40 MG TABLET PO SCH (21:01)
[2021-06-17] MEDS: METOPROLOL SUCCINATE 50 MG TABLET PO SCH (21:01)
[2021-06-18] MEDS: SODIUM CHLORIDE FLUSH 0.9% 10 ML SYRINGE IVP SCH ×2 (00:28→08:56)
[2021-06-18] MEDS: DEXTROSE 5% 1,000 ML IV SCH (01:05)
[2021-06-18] MEDS: PANTOPRAZOLE 40 MG TABLET PO SCH (06:01)
[2021-06-18] MEDS: LEVOTHYROXINE 25 MCG TABLET PO SCH (06:01)
[2021-06-18 08:06] LABS: BASOPHILS % (AUTO) 0.3 %; EOSINOPHILS # (AUTO) 0.4 10^3/uL (0.0-0.7); EOSINOPHILS % (AUTO) 4.3 %; HCT - HEMATOCRIT 30.9 % (37.0-47.0); HGB - HEMOGLOBIN 9.7 g/dL (12.0-16.0); LYMPHOCYTES # (AUTO) 2.2 10^3/uL (1.5-3.5); LYMPHOCYTES % (AUTO) 23.8 %; MEAN CORPUSCULAR HEMOGLOBIN 27.4 pg (27.0-31.0); MEAN CORPUSCULAR HGB CONC 31.4 g/dL (32.0-36.0); MEAN CORPUSCULAR VOLUME 87.3 fL (81.0-99.0); MEAN PLATELET VOLUME 12.3 fL (7.9-10.8); MONOCYTES # (AUTO) 0.5 10^3/uL (0.0-1.0); MONOCYTES % (AUTO) 5.2 %; NEUTROPHILS # (AUTO) 5.9 10^3/uL (1.5-6.6); NEUTROPHILS % (AUTO) 65.5 %; PLT - PLATELET COUNT 111 10^3/uL (130-450); RED BLOOD COUNT 3.54 10^6/uL (4.20-5.40); RED CELL DISTRIBUTION WIDTH 17.6 % (12.0-15.0); WHITE BLOOD COUNT 9.1 x10^3/uL (4.8-10.8)
[2021-06-18 08:15] LABS: CALCIUM 8.4 mg/dL (8.5-10.3); CREATININE 0.8 mg/dL (0.4-1.0); POTASSIUM 3.5 mmol/L (3.5-5.0)
[2021-06-18] MEDS: MULTIVITAMIN W/MINERALS TABLET PO SCH (08:44)
[2021-06-18] MEDS: APIXABAN 5 MG TABLET PO SCH (08:44)
[2021-06-18] MEDS: INSULIN GLARGINE 300 UNIT/3 ML PEN SUBQ SCH (08:44)
[2021-06-18] MEDS: CLOPIDOGREL 75 MG TABLET PO SCH (08:44)
[2021-06-18] MEDS: NYSTATIN POWDER 15 GM TOP SCH (08:44)
[2021-06-18] MEDS: ZINC OXIDE 20% OINT 30 GM TUBE TOP PRN (08:44)
[2021-06-18] MEDS: SERTRALINE 50 MG TABLET PO SCH (08:44)
[2021-06-18] MEDS: INSULIN ASPART 300 UNIT/3 ML PEN SUBQ SCH ×2 (08:45→11:42)
--- NOTE | 2021-06-18 08:58 | Discharge Plan ---
"Discharge Plan for SNF / [place] - Discharge Plan And Transition Orders Problem Reviewed?: Yes Disposition: [facility] DC/Xfer Condition: Stable Allergies and Adverse Reactions: Allergies Allergy/AdvReac Type Severity Reaction Status Date / Time Sulfa (Sulfonamide Allergy Mild Nausea Verified 06/15/21 00:11 Antibiotics) epinephrine AdvReac Unknown Verified 06/15/21 00:11 Health Concerns: The patient was admitted for hypernatremia due to decreased free water intake likely secondary to the dysphagia and thickened liquid diet she was previously on. Shortly after hospitalization, she developed right-sided deficits which resolved within a few hours. There was concern for stroke or TIA and she underwent MRI which confirmed multiple left-sided infarcts. Her Eliquis was initially held but this has later been resumed as it was felt she was at low risk for hemorrhagic conversion. She has also been started on atorvastatin. We are also continuing her home Plavix. She [facility] and not appear to have any obvious gross deficits. She was seen by physical therapy and they recommended ongoing therapy at a SNF. Her hypernatremia was managed here with D5 water and her diet was advanced to dysphagia with thin liquids. She has done well with this without obvious signs of aspiration's we will advance her diet on discharge to dysphagia with thin liquids. Her sodium is now within normal limits. Her acute kidney injury resolved with IV fluids. She was also found of a urinary tract infection and was treated with IV ceftriaxone before being attention to oral Ceftin. She is now stable for discharge back to SNF for rehab. On day of discharge, she does participate in a palpation but it is quite brief and she does not speak very much. She is oriented to self but not always to location. She does follow commands. We suspect that she likely has vascular dementia after her multiple strokes and after the cardiac arrest last month. Plan of Treatment: She will continue oral Ceftin until the evening of June 19. I recommend discontinuing Lasix and spironolactone upon discharge she appears euvolemic and she came in quite dehydrated and has had limited free water intake due to her dysphagia diet. We will need to encourage her to consume free water to event further episodes of hypernatremia. She should also discontinue losartan as she is on Entresto. She should have labs obtained in 3 to 5 days to ensure her sodium and renal function is stable. We also recommend an outpatient referral to palliative care. - SNF / [facility] Transition Orders [facility] Diagnosis: Stroke - stable. Hypernatremia - resolved. Suspect vascular dementia - stable. UTI - improved. History of atrial fibrillation - stable. Type 2 diabetes mellitus - stable. Hypothyroidism - stable. RAGHAV - resolved. Medicare Certification Statement: I cert[facility] medically necessary on a continuing basis for any of the conditions for which she/he is receiving care during hospitalization. Notify PCP of admission and forward orders to primary provider for signature. Weight on admission and: Weekly Call PCP immediately if weight increases by: 1.361 kg Other Notification Orders: Call PCP immediately if patient develops dyspnea, chest pain/tightness or edema. Additional Bowel Program Orders: If no BM after 2 days, nurse may give M.O.M. 30ml PO PRN and/or ducolax Supp 1 VA and/or CINDY 250mg P.O., and/or senna 1-2 tabs PO. On day 3 nurse may give repeat above order until residents constipation is resolved. Medication Orders: PLEASE REFER TO THE DISCHARGE MEDICATION LIST. Insulin Orders?: Yes - Medications New Prescriptions: cefUROXime axetiL [Ceftin] 250 mg PO BID 2 Days #3 tablet Atorvastatin [Lipitor] 80 mg PO QPM #30 tablet - Diet Type: No added sugar Texture: Dysphagia mech Liquids: Thin - Therapies | Activity Therapy: Evaluation | Treat if indicated: PT, OT, Swallowing / ST Follow Up: She should continue to follow-up with her press loader and she should be referred to neurology."
--- NOTE | 2021-06-18 11:27 | DISCHARGE SUMMARY ---
"Discharge Summary Admit Date: 06/15/21 Discharge Date: 06/18/21 Discharging Provider: Romain Tolliver Primary Care Provider: Lissy Nguyen Code Status: Attempt Resuscitation Condition at Discharge: Stable Discharge Disposition: SNF DC/Xfer Discharge Facility Name: [facility] - DIAGNOSES Admission Diagnoses: CVA Hypovolemia due to dehydration Hyponatremia RAGHAV Leukocytosis Type 2 diabetes mellitus History of atrial fibrillation Hypothyroid Hypertension Discharge Diagnoses with Status of Each Condition: Stroke - stable. Hypernatremia - resolved. Vascular dementia - stable. UTI - improved. History of atrial fibrillation - stable. Type 2 diabetes mellitus - stable. Hypothyroidism - stable. RAGHAV - resolved. - HPI History of Present Illness: 75 year old female who presented today from [facility] due to abnormal labs. She is unable to provide history therefore the information has been obtained from report with the ED provider and medical records. Labs were drawn on 06/14/21 at [facility] and showed a Sodium of 153, Potassium 4.2, Chloride 114, serum Carbon Dioxide 26, Anion Gap 13.0, BUN 96, Creatinine 1.7, GFR 29. In the emergency room her labs were redrawn and showed acute kidney injury with hypovolemia hypernatremia, dehydration, and leukocytosis with a Sodium of 152, Bun 93, Creatinine 1.6, GFR 31, H&H 12.7/41.4, and WBCs 14.4. She is afebrile and an urinalysis was ordered. She was given 2 liters of normal saline and her repeat labs showed a sodium of 154, BUN 85, Creatinine 1.4, GFR 36. Upon arrival to the medical surgical unit the patient is lethargic but arousable. She is able to follow simple commands and moves all extremities equally. Her pupils are PERRL. She did not verbalize answers to questions but did shake and nod her head. She shook her head no when asked if she was in any pain. Upon examination, she has lower abdominal tenderness to palpation and distended bladder. A Shafer catheter has been ordered due to her lower abdominal tenderness and to obtain a urinalysis. A chest x-ray was also added to determine if leukocytosis is infectious versus reactive. Her IV fluids were changed to D5 1/2 NS at 125ml/hr for hypovolemia hypernatremia and dehydration. A CT of the head has been added due to current neurological status. She has a , Socrates Shine who is her POA and according the record his number is [phone]. The bedside nurse relayed that he was with the patient in the ED and left to get some sleep when she was transferred to the floor. She has a history of a Cardiopulmonary resuscitation in May 2021 and was transferred to [facility]. She was then discharged to [facility]. She also has a history of a Cardiovascular accident in March 2021. A residual from the CVA is unknown however her [facility] record listed a history of dysphagia and generalized muscle weakness. She has a history of type II diabetes and takes Lantus, Novolog, and Canagliflozin. She also has a history of hypothyroidsim, hyperlipidemia, Bipolar, depression, hypertension, ischemic cardiomyopathy, and parosysmal atrial fibrillation. - CONSULTS | PROCEDURES Consultations: PT, OT - HOSPITAL COURSE Hospital Course: The patient was admitted for hypernatremia due to decreased free water intake likely secondary to the dysphagia and thickened liquid diet she was previously on. Shortly after hospitalization, she developed right-sided deficits which resolved within a few hours. There was concern for stroke or TIA and she underwent MRI which confirmed multiple left-sided infarcts. Her Eliquis was initially held but this has later been resumed as it was felt she was at low risk for hemorrhagic conversion. She has also been started on atorvastatin. We are also continuing her home Plavix. She has done well from a neurologic standpoint and not appear to have any obvious gross deficits. She was seen by physical therapy and they recommended ongoing therapy at a SNF. Her hypernatrem ia was managed here with D5 water and her diet was advanced to dysphagia with thin liquids. She has done well with this without obvious signs of aspiration's we will advance her diet on discharge to dysphagia with thin liquids. Her sodium is now within normal limits. Her acute kidney injury resolved with IV fluids. She was also found of a urinary tract infection and was treated with IV ceftriaxone before being attention to oral Ceftin. She is now stable for discharge back to SNF for rehab. On day of discharge, she does participate in a palpation but it is quite brief and she does not speak very much. She is oriented to self but not always to location. She does follow commands. We susp ect that she likely has vascular dementia after her multiple strokes and after the cardiac arrest last month. On discharge, we prescribed Ceftin to take for 2 more days to complete 5 days of therapy on June 19. I have also discontinued Lasix and spironolactone as she appears euvolemic and was dehydrated on admission. We have also commended that she increase her free water intake at the SNF. We also discontinue losartan as she is already on Entresto. - ALLERGIES Allergies/Adverse Reactions: Allergies Allergy/AdvReac Type Severity Reaction Status Date / Time Sulfa (Sulfonamide Allergy Mild Nausea Verified 06/15/21 00:11 Antibiotics) epinephrine AdvReac Unknown Verified 06/15/21 00:11 - MEDICATIONS Home Medications: Ambulatory Orders Medication Instructions Recorded Confirmed Apixaban [Eliquis] 5 mg PO BID 06/15/21 06/16/21 Aspirin [Aspirin EC] 81 mg PO DAILY 06/15/21 06/16/21 Canagliflozin [Invokana] 100 mg PO DAILY 06/15/21 06/16/21 Insulin Glargine [Lantus Solostar] 10 units SUBQ BID 06/15/21 06/16/21 Levothyroxine Sodium 50 mcg PO QDAC 06/15/21 06/15/21 Metoprolol Succinate [Toprol Xl] 50 mg PO QPM 06/15/21 06/15/21 Multivitamin 1 tab PO DAILY 06/15/21 06/16/21 Pantoprazole [Protonix] 40 mg PO BIDAC 06/15/21 06/15/21 Sacubitril/Valsartan [Entresto 24 1 tab PO BID 06/15/21 06/16/21 mg-26 mg Tablet] Sertraline [Zoloft] 50 mg PO DAILY 06/15/21 06/15/21 Acetaminophen [Acetaminophen Extra 1,000 mg PO Q8H PRN 06/16/21 06/16/21 Strength] Ascorbic Acid 500 mg PO DAILY 06/16/21 06/16/21 Brimonidine Tartrate/Timolol 2 drops EACHEYE TID 06/16/21 06/16/21 [Combigan 0.2%-0.5% Eye Drops] Calcium Carbonate [Tums (Calcium 1,000 mg PO Q8H PRN 06/16/21 06/16/21 Carbonate 500mg)] Cholecalciferol (Vitamin D3) 50 mcg PO DAILY 06/16/21 06/16/21 [Vitamin D3] Insulin Regular Human [Humulin R] 6 unit SUBQ AC 06/16/21 06/16/21 Atorvastatin [Lipitor] 80 mg PO QPM #30 tablet 06/18/21 cefUROXime axetiL [Ceftin] 250 mg PO BID 2 Days #3 tablet 06/18/21 - PHYSICAL EXAM AT DISCHARGE General Appearance: positive: No acute distress, Alert Eyes Bilateral: positive: Normal inspection, PERRL, Conjunctivae nml ENT: positive: ENT inspection nml Neck: positive: Nml inspection Respiratory: positive: No respiratory distress. negative: Wheezes, Rales Cardiovascular: positive: Regular rate & rhythm, No murmur. negative: Tachycardia Abdomen: positive: Non-tender, No distention. negative: Tenderness Skin: positive: Warm, Dry Extremities: positive: No pedal edema Neurologic/Psychiatric: positive: Disoriented to place (She is not always oriented to location), Slurred/abnml speech (Her speech is not slurred but is delayed. She has some difficulty with word finding.), Other (She has 5-5 motor strength in all of her extremity except the right upper extremity. She has about 4-5 motor strength in the right upper extremity. Also abnormal [id number] test with right upper extremity.). negative: Disoriented to person - LABS Result Diagrams: 06/18/21 08:01 06/18/21 08:01 Other Lab Results: Vital Signs - 24 hr 06/17/21 06/17/21 06/18/21 21:00 23:47 06:23 Temperature 37.2 C 37 C 36.3 C L Heart Rate [ 80 71 Brachial] Heart Rate [ 58 L Radial] Respiratory 22 19 20 Rate Blood Pressure 131/52 H 104/43 L [Left Brachial artery] Blood Pressure 108/85 H [Left Radial artery] Blood Pressure [Right Brachial artery] O2 Saturation 100 100 97 06/18/21 06/18/21 06/18/21 08:41 12:32 12:52 Temperature 36.5 C Heart Rate [ 56 L 71 Brachial] Heart Rate [ Radial] Respiratory 16 18 Rate Blood Pressure 125/41 L 136/117 H [Left Brachial artery] Blood Pressure [Left Radial artery] Blood Pressure 119/47 L [Right Brachial artery] O2 Saturation 97 97 Oxygen O2 Source Room air - DIAGNOSTIC IMAGING Diagnostic Imaging Results: Final report reviewed - FOLLOW UP Follow Up: We recommend that she continue to follow-up with her engineer technician. We also recommended that she follow-up with neurology on an outpatient basis. - TIME SPENT Time Spent in Discharge (Minutes): 34"
[2021-06-18 13:32] VITALS: BP 119/47
== END 2021-06-18 13:45 | DRG 65 ==
LOC: EDUNIT# → ED → MS2 09:19 → OBSVTOIN 19:28
PROVIDERS: ADMIT Internal Medicine; ATTEND Internal Medicine
DX: I63.9 Cerebral infarction, unspecified (principal); E87.0 Hyperosmolality and hypernatremia; N17.9 Acute kidney failure, unspecified; N39.0 Urinary tract infection, site not specified; G81.91 Hemiplegia, unspecified affecting right dominant side; R53.83 Other fatigue; I10 Essential (primary) hypertension; E78.5 Hyperlipidemia, unspecified; F31.9 Bipolar disorder, unspecified; R29.724 NIHSS score 24; I25.5 Ischemic cardiomyopathy; E86.1 Hypovolemia; E86.0 Dehydration; Z20.822 Contact with and (suspected) exposure to COVID-19; D72.829 Elevated white blood cell count, unspecified; B37.2 Candidiasis of skin and nail; L89.152 Pressure ulcer of sacral region, stage 2; E11.9 Type 2 diabetes mellitus without complications; Z79.4 Long term (current) use of insulin; Z79.899 Other long term (current) drug therapy; E03.9 Hypothyroidism, unspecified; B96.20 Unspecified Escherichia coli [E. coli] as the cause of diseases classified elsewhere; R29.810 Facial weakness; R13.10 Dysphagia, unspecified; I48.0 Paroxysmal atrial fibrillation; F01.50 Vascular dementia, unspecified severity, without behavioral disturbance, psychotic disturbance, mood disturbance, and anxiety; Z95.1 Presence of aortocoronary bypass graft; Z86.73 Personal history of transient ischemic attack (TIA), and cerebral infarction without residual deficits
CPT/HCPCS: 36415; 51701; 70450; 70551; 71045; 80048; 80053; 80061; 81001; 83036; 83605; 83690; 83735; 84132; 85025; 87040; 87086; 87181; 87635; 92610; 93005; 93306; 96361; 96365; 96368; 97163; 97166; 97530; 99285; A9270; G0378; J1815; 81003; 83721

== ENCOUNTER 2021-06-18 13:43 | Outpatient (CLI) | payer MEDICARE, BC | END 2021-06-18 13:44 | disposition home or self-care (01) | LOC: EMS 13:43 | PROVIDERS: ATTEND Internal Medicine | DX: R41.82 Altered mental status, unspecified (principal); Z74.01 Bed confinement status | CPT/HCPCS: A0425; A0428 ==

== ENCOUNTER 2021-06-26 15:42 | Outpatient (CLI) | payer MEDICARE, BC ==
[2021-06-26 16:22] LABS: BASOPHILS % (AUTO) 0.3 %; EOSINOPHILS # (AUTO) 0.2 10^3/uL (0.0-0.7); EOSINOPHILS % (AUTO) 1.9 %; HCT - HEMATOCRIT 35.1 % (37.0-47.0); LYMPHOCYTES # (AUTO) 1.5 10^3/uL (1.5-3.5); MEAN CORPUSCULAR HEMOGLOBIN 28.4 pg (27.0-31.0); MEAN CORPUSCULAR HGB CONC 31.3 g/dL (32.0-36.0); MEAN CORPUSCULAR VOLUME 90.5 fL (81.0-99.0); MEAN PLATELET VOLUME 12.5 fL (7.9-10.8); MONOCYTES # (AUTO) 0.6 10^3/uL (0.0-1.0); MONOCYTES % (AUTO) 6.2 %; NEUTROPHILS % (AUTO) 75.2 %; PLT - PLATELET COUNT 155 10^3/uL (130-450); RED BLOOD COUNT 3.88 10^6/uL (4.20-5.40); RED CELL DISTRIBUTION WIDTH 18.9 % (12.0-15.0); WHITE BLOOD COUNT 9.3 x10^3/uL (4.8-10.8)
[2021-06-26 16:33] LABS: ALBUMIN 3.4 g/dL (3.2-5.5); ALBUMIN/GLOBULIN RATIO 1.1 (1.0-2.2); BILIRUBIN,TOTAL 0.5 mg/dL (0.2-1.0); CREATININE 0.9 mg/dL (0.4-1.0); POTASSIUM 3.3 mmol/L (3.5-5.0); TOTAL PROTEIN 6.4 g/dL (6.7-8.2)
[2021-06-26 17:37] LABS: ESTIMATED AVERAGE GLUCOSE 166 mg/dL (70-100); HEMOGLOBIN A1c% 7.4 % (4.27-6.07)
== END 2021-06-26 15:43 | disposition home or self-care (01) ==
LOC: LAB.R 15:42
DX: I10 Essential (primary) hypertension (principal); I48.0 Paroxysmal atrial fibrillation; N17.9 Acute kidney failure, unspecified; E11.9 Type 2 diabetes mellitus without complications; D64.9 Anemia, unspecified
CPT/HCPCS: 80053; 83036; 85025

== ENCOUNTER 2021-07-17 10:04 | Outpatient (CLI) | payer MEDICARE, BC ==
[2021-07-17 10:43] LABS: ALBUMIN 3.6 g/dL (3.2-5.5); ALBUMIN/GLOBULIN RATIO 1.1 (1.0-2.2); BILIRUBIN,TOTAL 0.7 mg/dL (0.2-1.0); CREATININE 0.7 mg/dL (0.4-1.0); MAGNESIUM 1.9 mg/dL (1.7-2.8); POTASSIUM 3.7 mmol/L (3.5-5.0); TOTAL PROTEIN 6.8 g/dL (6.7-8.2)
== END 2021-07-17 10:05 | disposition home or self-care (01) ==
LOC: LAB 10:04
PROVIDERS: ATTEND Internal Medicine Cardiovascular Disease
DX: I50.9 Heart failure, unspecified (principal)
CPT/HCPCS: 36415; 80053; 83735

== ENCOUNTER 2021-08-28 20:10 | Outpatient (CLI) | payer MEDICARE, BC ==
[2021-08-28 22:10] LABS: CALCIUM 9.2 mg/dL (8.5-10.3); CREATININE 0.7 mg/dL (0.4-1.0); POTASSIUM 3.5 mmol/L (3.5-5.0)
== END 2021-08-28 23:59 | disposition home or self-care (01) ==
LOC: LAB.R 20:10
PROVIDERS: ATTEND Hospitalist
DX: E11.9 Type 2 diabetes mellitus without complications (principal)
CPT/HCPCS: 80048

== ENCOUNTER 2021-09-18 14:53 | Outpatient (CLI) | payer MEDICARE, BC | END 2021-09-18 14:54 | disposition critical access hospital (66) | LOC: EMS 14:53 | DX: R04.0 Epistaxis (principal); W06.XXXA Fall from bed, initial encounter; Y92.092 Bedroom in other non-institutional residence as the place of occurrence of the external cause; Z79.01 Long term (current) use of anticoagulants | CPT/HCPCS: A0425; A0427 ==

== ENCOUNTER 2021-09-18 15:05 | Emergency (ER) | payer MEDICARE, BC ==
[2021-09-18 15:12] VITALS: BP 141/50
--- NOTE | 2021-09-18 15:31 | ED Physician Documentation ---
History of Present Illness - Stated complaint Stated Complaint: GLF - Chief complaint Chief Complaint: Trauma Hd/Nk - Additonal information Additional information: 75-year-old female who has a history of fairly advanced dementia and is on El iquis presents to the emergency department after an unwitnessed fall. She is typically bedbound and was found on the ground at her care facility. She is at baseline a Glascow 14 and presents as such today. She does have contusion to the right side of her face as well as epistaxis to her right nares. History from patient is limited secondary to dementia Patient does present as a modified trauma and is in a modified c-collar Review of Systems Unable to obtain: Dementia PD PAST MEDICAL HISTORY - Past Medical History Cardiovascular: Hypertension, High cholesterol, Coronary artery disease, Atrial fibrillation, Other Respiratory: None Neuro: CVA Endocrine/Autoimmune: Type 2 diabetes GI: None CONTRACT ASSOCIATE MANAGER: None : None HEENT: None Psych: Depression, Bipolar disorder Musculoskeletal: Osteoarthritis Derm: None - Past Surgical History Past Surgical History: Yes General: Cholecystectomy Ortho: Carpal Tunnel surgery, Other /CONTRACT ASSOCIATE MANAGER: Hysterectomy Cardiovascular: CABG - Present Medications Home Medications: Ambulatory Orders Medication Instructions Recorded Confirmed Apixaban [Eliquis] 5 mg PO BID 06/15/21 09/07/21 Aspirin [Aspirin EC] 81 mg PO DAILY 06/15/21 09/07/21 Canagliflozin [Invokana] 100 mg PO DAILY 06/15/21 09/07/21 Insulin Glargine [Lantus Solostar] 10 units SUBQ BID 06/15/21 09/07/21 Levothyroxine Sodium 50 mcg PO QDAC 06/15/21 09/07/21 Metoprolol Succinate [Toprol Xl] 50 mg PO QPM 06/15/21 09/07/21 Multivitamin 1 tab PO DAILY 06/15/21 09/07/21 Pantoprazole [Protonix] 40 mg PO BIDAC 06/15/21 09/07/21 Sacubitril/Valsartan [Entresto 24 1 tab PO BID 06/15/21 09/07/21 mg-26 mg Tablet] Sertraline [Zoloft] 50 mg PO DAILY 06/15/21 09/07/21 Acetaminophen [Acetaminophen Extra 1,000 mg PO Q8H PRN 06/16/21 09/07/21 Strength] Ascorbic Acid 500 mg PO DAILY 06/16/21 09/07/21 Brimonidine Tartrate/Timolol 2 drops EACHEYE TID 06/16/21 09/07/21 [Combigan 0.2%-0.5% Eye Drops] Calcium Carbonate [Tums (Calcium 1,000 mg PO Q8H PRN 06/16/21 09/07/21 Carbonate 500mg)] Cholecalciferol (Vitamin D3) 50 mcg PO DAILY 06/16/21 09/07/21 [Vitamin D3] Insulin Regular Human [Humulin R] 6 unit SUBQ AC 06/16/21 09/07/21 Atorvastatin [Lipitor] 80 mg PO QPM #30 tablet 06/18/21 09/07/21 - Allergies Allergies/Adverse Reactions: Allergies Allergy/AdvReac Type Severity Reaction Status Date / Time Sulfa (Sulfonamide Allergy Mild Nausea Verified 09/18/21 15:12 Antibiotics) epinephrine AdvReac Unknown Verified 09/18/21 15:12 - Social History Does the pt smoke?: No Smoking Status: Unknown if ever smoked Does the pt drink ETOH?: Yes Does the pt have substance abuse?: No - Immunizations Immunizations are current?: Yes Immunizations: TDAP current <10years - POLST Patient has POLST: Yes POLST Status: Full Code PD ED PE EXPANDED - General General: Alert, No acute distress - HEENT HEENT: Head injury, PERRL, Other (Contusion just above the right eyebrow. Dried blood in the right nares. No active epistaxis.). No: Atraumatic - Neck Neck: Supple w/out meningeal sx. No: Adenopathy - Cardiac Cardiac: Regular Rate, Radial strong equal, Pedal strong equal, Cap refill < 2 sec - Respiratory Respiratory: Clear to ausultation zee. No: Distress, Labored - Abdomen Abdomen: Normal Bowel sounds. No: Tender to palpation - Back Back: No: Vertebral tenderness (No vertebral tenderness crepitus or step-off. No bruising ecchymosis noted to the posterior flank back or legs) - Derm Derm: Abrasion (s) (Right forehead) - Extremities Extremities: Normal. No: Deformity, Tenderness - Neuro Neuro: Confused, CNII-XII intact - GCS Eye Opening: Spontaneous Motor: Obeys Commands Verbal: Confused Total: 14 Results - Vitals Vitals: Vital Signs - 24 hr 09/18/21 15:08 Temperature 36.8 C Heart Rate 86 Respiratory 12 Rate Blood Pressure 141/50 H O2 Saturation 97 Oxygen O2 Source Room air - Rads (name of study) CT head Radiology: Final report received (Volume loss and small vessel ischemic disease. No interim cranial acute findings. Chronic right occipital lobe infarct. Chronic bilateral basal ganglial infarcts. No change in right maxillary sinus opacification) cervical CT Radiology: Final report received (No fracture or dislocation) max/fac CT Radiology: Final report received (Nasal bone fracture) PD MEDICAL DECISION MAKING - ED course Complexity details: reviewed results, re-evaluated patient, considered differential ED course: 75-year-old female who has a history of dementia and is anticoagulated on Eliquis is brought to the emergency department for evaluation of facial trauma after being found on the ground at her care facility. It is assumed that she rolled out of bed. She presents with an abrasion to her right forehead and epistaxis to the right nares. She has no obvious focal neurodeficits and is at her baseline health Glascow coma scale of 14. CT of the head showed no acute findings though we do note the chronic basal ganglia and right occipital infarcts. Cervical spine imaging was negative. Maxillofacial CT did show a nasal bone fracture. No acute treatment is necessary. Patient is stable for discharge back to her care facility. Departure - Departure Disposition: 01 Home, Self Care Clinical Impression: Dementia Qualifiers: Dementia type: unspecified type Dementia behavioral disturbance: without beha vioral disturbance Qualified Code(s): F03.90 - Unspecified dementia without behavioral disturbance Fall from bed Qualifiers: Encounter type: initial encounter Qualified Code(s): W06.XXXA - Fall from bed, initial encounter Nasal bone fracture Qualifiers: Encounter type: initial encounter Fracture type: closed Qualified Code(s): S02.2XXA - Fracture of nasal bones, initial encounter for closed fracture Condition: Stable Record reviewed to determine appropriate education?: Yes Instructions: ED Head Injury Closed Comments: Agnieszka was seen in the emergency department today after she was found on the ground at the care facility. It is assumed that she rolled out of bed. She is on Eliquis and anticoagulant. She does have an abrasion to her right forehead as well as some blood from her right nostril. The CT of her head did not show any acute findings though we do note that she has multiple old previous infarcts. The cervical spine CT showed no fractures. The CT of the bones of her face do show a nasal bone fracture. In general there is no specific treatment for this it will simply heal with time. Please return Agnieszka to the emergency department if you note any acutely altered mental status, she has slurred speech, facial droop or sudden weakness in her arms
--- NOTE | 2021-09-18 15:35 | CT Report ---
PROCEDURE: HEAD WO INDICATIONS: fall out of bed; anticoagulated TECHNIQUE: Noncontrast 4.5 mm thick angled axial sections acquired from the foramen magnum to the vertex. For r adiation dose reduction, the following was used: automated exposure control, adjustment of mA and/or kV according to patient size. COMPARISON: Brain MRI dated 06/16/2021. CT dated 09/07/2021 FINDINGS: Image quality: Excellent. CSF spaces: Basal cisterns are patent. No extra-axial fluid collections. A saccular dilatation of the occipital horn of the right lateral ventricle. Ventricles are otherwise normal in size and shape. Brain: No midline shift. Moderate chronic right occipital lobe infarct. No change in small bilatera l chronic basal ganglia infarcts. No intracranial masses or hemorrhage. Diop-white matter interface is normal. Skull and face: Calvarium and visualized facial bones are intact, without suspicious lesions. Sinuses: Complete opacification of the right maxillary sinus, as before. Mastoids are clear. IMPRESSION: 1. Volume loss and small vessel ischemic disease. 2. No acute intracranial amount. 3. Chronic right occipital lobe infarct. Small chronic bilateral basal ganglia infarcts. 4. No change in right maxillary sinus opacification. Reviewed by: Letitia Olivera MD on 09/18/2021 3:34 PM PDT Approved by: Letitia Olivera MD on 09/18/2021 3:34 PM PDT Station ID: [id number]
--- NOTE | 2021-09-18 15:37 | CT Report ---
PROCEDURE: MAXILLOFACIAL WO INDICATIONS: fall out of bed; right nares epistaxis TECHNIQUE: Noncontrast 1.5 mm thick axial images acquired from the mandible through the frontal sinuses, with co bean and sagittal reformatting. For radiation dose reduction, the following was used: automated ex posure control, adjustment of mA and/or kV according to patient size. COMPARISON: None. FINDINGS: Image quality: Excellent. Bones and teeth: Orbital west are intact. Sinus west show no fracture or deformity. Moderately di splaced comminuted fracture of the nasal bone. Visualized portions of the mandible demonstrate no fra ctures or subluxation. Zygomatic arches are intact. Pterygoid plates are intact. Visualized portio ns of the skull base and auditory canals are intact. Sinuses: Complete opacification of the right maxillary sinus is present, as before. Mastoids are tremayne r. Moderate because of thickening within the right anterior ethmoid air cells. Soft tissues: No edema, masses, or fluid collections. No enlarged lymph nodes. No soft tissue lace rations or debris. Vascular: Visualized vascular structures appear normal in the absence of contrast. Bony vascular fo ramina and canals are intact. IMPRESSION: 1. Nasal bone fracture. 2. Right maxillary sinus opacification. Reviewed by: Letitia Olivera MD on 09/18/2021 3:35 PM PDT Approved by: Letitia Olivera MD on 09/18/2021 3:35 PM PDT Station ID: [id number]
--- NOTE | 2021-09-18 15:38 | CT Report ---
PROCEDURE: CERVICAL SPINE WO INDICATIONS: fall out of bed TECHNIQUE: Noncontrast 3 mm thick sections acquired from the skull base to the T4 level. Sagittal and coronal r eformats were then constructed. For radiation dose reduction, the following was used: automated exp osure control, adjustment of mA and/or kV according to patient size. COMPARISON: None. FINDINGS: Image quality: Excellent. Bones: No fractures or dislocations. Visualized superior ribs are intact. Multilevel degenerative disc and facet disease is present. Soft tissues: Prevertebral soft tissues are normal in thickness. No paravertebral hematomas. No ap ical pneumothoraces. IMPRESSION: No fracture. Reviewed by: Letitia Olivera MD on 09/18/2021 3:37 PM PDT Approved by: Letitia Olivera MD on 09/18/2021 3:37 PM PDT Station ID: [id number]
== END 2021-09-18 16:34 | disposition home or self-care (01) ==
LOC: EDBD → EDUNIT# → ED 15:05
DX: S02.2XXA Fracture of nasal bones, initial encounter for closed fracture (principal); W06.XXXA Fall from bed, initial encounter; F03.90 Unspecified dementia, unspecified severity, without behavioral disturbance, psychotic disturbance, mood disturbance, and anxiety; I10 Essential (primary) hypertension; I48.91 Unspecified atrial fibrillation; E11.9 Type 2 diabetes mellitus without complications; Z79.4 Long term (current) use of insulin
CPT/HCPCS: 36415; 99281; 99284

== ENCOUNTER 2021-09-18 16:35 | Outpatient (CLI) | payer MEDICARE, BC | END 2021-09-18 16:36 | disposition home or self-care (01) | LOC: EMS 16:35 | PROVIDERS: ATTEND Registered Nurse | DX: S02.2XXA Fracture of nasal bones, initial encounter for closed fracture (principal); X58.XXXA Exposure to other specified factors, initial encounter; F03.90 Unspecified dementia, unspecified severity, without behavioral disturbance, psychotic disturbance, mood disturbance, and anxiety; Z74.01 Bed confinement status | CPT/HCPCS: A0425; A0428 ==

== ENCOUNTER 2021-12-05 08:56 | Outpatient (CLI) | payer MEDICARE, BC ==
[2021-12-05 09:16] LABS: CALCIUM 9.5 mg/dL (8.5-10.3); CREATININE 0.7 mg/dL (0.4-1.0)
[2021-12-05 10:13] LABS: ESTIMATED AVERAGE GLUCOSE 120 mg/dL (70-100); HEMOGLOBIN A1c% 5.8 % (4.27-6.07)
== END 2021-12-05 08:57 | disposition home or self-care (01) ==
LOC: LAB.R 08:56
PROVIDERS: ATTEND Hospitalist
DX: I50.22 Chronic systolic (congestive) heart failure (principal); E11.9 Type 2 diabetes mellitus without complications
CPT/HCPCS: 80048; 83036

== ENCOUNTER 2022-03-18 08:00 | Outpatient (CLI) | payer MEDICARE, BC ==
[2022-03-18 19:17] LABS: B. PARAPERTUSSIS- RESP PCR PAN NOT DETECTED; B. PERTUSSIS- RESP PCR PANEL NOT DETECTED; C. PNEUMONIAE- RESP PCR PANEL NOT DETECTED; CORONAVIRUS 229E-RESP PCR NOT DETECTED; CORONAVIRUS HKU1-RESP PCR NOT DETECTED; CORONAVIRUS NL63-RESP PCR NOT DETECTED; CORONAVIRUS OC43-RESP PCR NOT DETECTED; HUMAN METAPNEUMOVIRUS NOT DETECTED; INFLUENZA A- RESP PCR PANEL NOT DETECTED; INFLUENZA B - RESP PCR PANEL NOT DETECTED; M. PNEUMONIAE- RESP PCR PANEL NOT DETECTED; PARAINFLUENZA VIRUS 1 NOT DETECTED; PARAINFLUENZA VIRUS 2 NOT DETECTED; PARAINFLUENZA VIRUS 3 NOT DETECTED; PARAINFLUENZA VIRUS 4 NOT DETECTED; RHINOVIRUS/ENTEROVIRUS NOT DETECTED; RSV- RESP PCR PANEL NOT DETECTED; SARS-CoV-2 -RESP PCR PANEL NOT DETECTED
== END 2022-03-18 23:59 | disposition home or self-care (01) ==
LOC: LAB.R 08:00
PROVIDERS: ATTEND Internal Medicine
DX: J06.9 Acute upper respiratory infection, unspecified (principal); R06.02 Shortness of breath; B34.8 Other viral infections of unspecified site; Z13.83 Encounter for screening for respiratory disorder NEC; Z20.822 Contact with and (suspected) exposure to COVID-19
CPT/HCPCS: 87633

== ENCOUNTER 2022-08-26 14:51 | Outpatient (CLI) | payer MEDICARE, BC ==
[2022-08-26 20:24] LABS: ESTIMATED AVERAGE GLUCOSE 117 mg/dL (70-100); HEMOGLOBIN A1c% 5.7 % (4.27-6.07)
== END 2022-08-26 14:52 | disposition home or self-care (01) ==
LOC: LAB.R 14:51
PROVIDERS: ATTEND Registered Nurse
DX: E11.9 Type 2 diabetes mellitus without complications (principal)
CPT/HCPCS: 83036

== ENCOUNTER 2023-01-31 15:52 | Outpatient (CLI) | payer MEDICARE, BC | END 2023-01-31 15:53 | disposition critical access hospital (66) | LOC: EMS 15:52 | DX: S00.83XA Contusion of other part of head, initial encounter (principal); W05.0XXA Fall from non-moving wheelchair, initial encounter; Y92.098 Other place in other non-institutional residence as the place of occurrence of the external cause | CPT/HCPCS: A0425; A0429 ==

== ENCOUNTER 2023-02-05 13:34 | Outpatient (CLI) | payer MEDICARE, BC ==
[2023-02-05 13:46] LABS: BASOPHILS % (AUTO) 0.3 %; EOSINOPHILS % (AUTO) 0.3 %; HCT - HEMATOCRIT 48.9 % (37.0-47.0); HGB - HEMOGLOBIN 14.8 g/dL (12.0-16.0); LYMPHOCYTES # (AUTO) 1.4 10^3/uL (1.5-3.5); LYMPHOCYTES % (AUTO) 11.9 %; MEAN CORPUSCULAR HEMOGLOBIN 28.2 pg (27.0-31.0); MEAN CORPUSCULAR HGB CONC 30.3 g/dL (32.0-36.0); MEAN CORPUSCULAR VOLUME 93.1 fL (81.0-99.0); MEAN PLATELET VOLUME 13.4 fL (7.9-10.8); MONOCYTES # (AUTO) 0.6 10^3/uL (0.0-1.0); MONOCYTES % (AUTO) 5.2 %; NEUTROPHILS # (AUTO) 9.7 10^3/uL (1.5-6.6); PLT - PLATELET COUNT 126 10^3/uL (130-450); RED BLOOD COUNT 5.25 10^6/uL (4.20-5.40); RED CELL DISTRIBUTION WIDTH 15.3 % (12.0-15.0); WHITE BLOOD COUNT 11.8 x10^3/uL (4.8-10.8)
[2023-02-05 13:59] LABS: CALCIUM 10.3 mg/dL (8.5-10.3); CREATININE 0.7 mg/dL (0.6-1.3); MAGNESIUM 2.1 mg/dL (1.7-2.3); POTASSIUM 3.9 mmol/L (3.5-4.5)
[2023-02-05 14:20] LABS: THYROID STIMULATING HORMONE 0.59 uIU/mL (0.34-5.60)
== END 2023-02-05 13:35 | disposition home or self-care (01) ==
LOC: LAB.R 13:34
PROVIDERS: ATTEND Registered Nurse
DX: I11.0 Hypertensive heart disease with heart failure (principal); I50.22 Chronic systolic (congestive) heart failure; E11.9 Type 2 diabetes mellitus without complications; I48.0 Paroxysmal atrial fibrillation; I25.5 Ischemic cardiomyopathy; E03.9 Hypothyroidism, unspecified
CPT/HCPCS: 80048; 83735; 84443; 85025

== ENCOUNTER 2023-02-10 17:27 | Outpatient (CLI) | payer MEDICARE, BC | END 2023-02-10 17:28 | disposition critical access hospital (66) | LOC: EMS 17:27 | DX: R40.20 Unspecified coma (principal); R00.0 Tachycardia, unspecified | CPT/HCPCS: A0425; A0427 ==

== ENCOUNTER 2023-02-10 17:34 | Inpatient (IN) | payer MEDICARE, BC ==
[2023-02-10] MEDS ORDERED: SODIUM CHLORIDE 0.9% 1,000 ML IV STA ×2 (17:42→17:43)
--- NOTE | 2023-02-10 17:45 | ED Physician Documentation ---
PD HPI FEVER - Stated complaint Stated Complaint: ALOC - History obtained from History obtained from: EMS - Additional information Additional information: Patient is a 77-year-old female brought in to the emergency department from [facility]. The patient is unable to give any history. She apparently is nonverbal at baseline. Per EMS they found the patient unresponsive this afternoon in her bed. She did have a fall about a week ago. She is reportedly on blood thinners. She felt warm to the touch to EMS. No reported fevers from the [facility]. No reported vomiting, cough, diarrhea or constipation. Patient does not ambulate at baseline. She is reportedly full code. 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: Hysterectomy Cardiovascular: CABG - Present Medications Home Medications: Ambulatory Orders Medication Instructions Recorded Confirmed Apixaban [Eliquis] 5 mg PO BID 06/15/21 09/07/21 Canagliflozin [Invokana] 100 mg PO DAILY 06/15/21 09/07/21 Insulin Glargine [Lantus Solostar] 10 units SUBQ BID 06/15/21 09/07/21 Levothyroxine Sodium 50 mcg PO QDAC 06/15/21 09/07/21 Metoprolol Succinate [Toprol Xl] 50 mg PO QPM 06/15/21 09/07/21 Multivitamin 1 tab PO DAILY 06/15/21 09/07/21 Pantoprazole [Protonix] 40 mg PO BIDAC 06/15/21 09/07/21 Sacubitril/Valsartan [Entresto 24 1 tab PO BID 06/15/21 09/07/21 mg-26 mg Tablet] Sertraline [Zoloft] 50 mg PO DAILY 06/15/21 09/07/21 Acetaminophen [Acetaminophen Extra 1,000 mg PO Q8H PRN 06/16/21 09/07/21 Strength] Brimonidine Tartrate/Timolol 2 drops EACHEYE TID 06/16/21 09/07/21 [Combigan 0.2%-0.5% Eye Drops] Calcium Carbonate [Tums (Calcium 1,000 mg PO Q8H PRN 06/16/21 09/07/21 Carbonate 500mg)] Cholecalciferol (Vitamin D3) 50 mcg PO DAILY 06/16/21 09/07/21 [Vitamin D3] Insulin Regular Human [Humulin R] 6 unit SUBQ AC 06/16/21 09/07/21 Spironolactone [Aldactone] 25 mg PO DAILY 02/10/23 - Allergies Allergies/Adverse Reactions: Allergies Allergy/AdvReac Type Severity Reaction Status Date / Time Sulfa (Sulfonamide Allergy Mild Nausea Verified 02/10/23 17:48 Antibiotics) epinephrine AdvReac Unknown Verified 02/10/23 17:48 - Social History Does the pt smoke?: No Smoking Status: Unknown if ever smoked Does the pt drink ETOH?: Yes Does the pt have substance abuse?: No - Immunizations Immunizations are current?: Yes Immunizations: TDAP current <10years - POLST Patient has POLST: Yes POLST Status: Full Code PD ED PE NORMAL - Vitals Vital signs reviewed: Yes - General General: Other (mouth open, staring at ceiling, eyes closed) - HEENT HEENT: Other (dry lips and tongue) - Neck Neck: No bony TTP - Cardiac Cardiac: Other (tachycardic) - Respiratory Respiratory: Other (diminished B) - Abdomen Abdomen: Soft, Non tender, Non distended - Derm Derm: Other (hot skin, slight skin breakdown over the sacrum with erythema, no drainage) - Extremities Extremities: No edema - Neuro Eye Opening: To Pain Motor: Withdraws to Pain Verbal: Incomprehensible GCS Score: 8 Results - Vitals Vitals: Vital Signs - 24 hr 02/10/23 02/10/23 02/10/23 17:43 17:49 18:24 Temperature 37.4 C Heart Rate 133 H 971 H 115 H Respiratory 20 20 36 H Rate Blood Pressure 98/58 L 98/59 L 84/47 L O2 Saturation 96 97 95 02/10/23 02/10/23 02/10/23 19:33 19:45 20:14 Temperature 37.1 C Heart Rate 104 H 129 H 98 Respiratory 22 28 H 28 H Rate Blood Pressure 121/51 L 93/69 O2 Saturation 97 100 99 Oxygen O2 Source Room air - Labs Labs: Laboratory Tests 02/10/23 02/10/23 02/10/23 17:51 17:51 17:51 WBC 27.3 H RBC 5.45 H Hgb 15.6 Hct 52.6 H MCV 96.5 MCH 28.6 MCHC 29.7 L RDW 16.4 H Plt Count 359 MPV 13.2 H Neut # (Auto) Not Reportable Lymph # (Auto) Not Reportable [place] # (Auto) Not Reportable Eos # (Auto) Not Reportable Baso # (Auto) Not Reportable Absolute Nucleated RBC Not Reportable Total Counted 100 Band Neuts % (Manual) 0 Abnorm Lymph % (Manual) 0 Nucleated RBC % Not Reportable Neutrophils # (Manual) 25.7 H Lymphocytes # (Manual) 0.8 L Monocytes # (Manual) 0.8 Eosinophils # (Manual) 0.0 Basophils # (Manual) 0.0 Differential Comment MANUAL DIFFERENTIAL Manual Slide Review Indicated Platelet Estimate NORMAL (130-450,000) Platelet Morphology NORMAL APPEARANCE RBC Morph Micro Appear NORMAL APPEARANCE PT 21.3 H INR 2.1 H APTT 28.1 Sodium 159 H* Potassium 4.1 Chloride 118 H Carbon Dioxide 21 Anion Gap 20.0 H BUN 65 H Creatinine 2.4 H Estimated GFR (MDRD) 19 L Glucose 274 H Lactic Acid Calcium 10.0 Total Bilirubin 0.7 AST 56 H ALT 40 Alkaline Phosphatase 96 Total Protein 6.6 Albumin 3.8 Globulin 2.8 Albumin/Globulin Ratio 1.4 Lipase 66 Urine Color Urine Clarity Urine pH Ur Specific [place] Urine Protein Urine Glucose (UA) Urine Ketones Urine Occult Blood Urine Nitrite Urine Bilirubin Urine Urobilinogen Ur Leukocyte Esterase Urine RBC Urine WBC Ur Epithelial Cells Ur Squamous Epith Cells Urine Bacteria Urine Yeast Ur Microscopic Review Urine Culture Comments Nasal Adenovirus (PCR) Nasal B. parapertussis DNA (PCR) Nasal Coronavir 229E PCR Nasal Coronavir HKU1 PCR Nasal Coronavir NL63 PCR Nasal Coronavir OC43 PCR Nasal Enterovir/Rhinovir PCR Nasal Influenza B PCR Nasal Influenza A PCR Nasal Parainfluen 1 PCR Nasal Parainfluen 2 PCR Nasal Parainfluen 3 PCR Nasal Parainfluen 4 PCR Nasal RSV (PCR) Nasal B.pertussis DNA PCR Nasal C.pneumoniae (PCR) Mynor Human Metapneumo PCR Nasal M.pneumoniae (PCR) Nasal SARS-CoV-2 (PCR) 02/10/23 02/10/23 02/10/23 17:51 18:00 18:05 WBC RBC Hgb Hct MCV MCH MCHC RDW Plt Count MPV Neut # (Auto) Lymph # (Auto) [place] # (Auto) Eos # (Auto) Baso # (Auto) Absolute Nucleated RBC Total Counted Band Neuts % (Manual) Abnorm Lymph % (Manual) Nucleated RBC % Neutrophils # (Manual) Lymphocytes # (Manual) Monocytes # (Manual) Eosinophils # (Manual) Basophils # (Manual) Differential Comment Manual Slide Review Platelet Estimate Platelet Morphology RBC Morph Micro Appear PT INR APTT Sodium Potassium Chloride Carbon Dioxide Anion Gap BUN Creatinine Estimated GFR (MDRD) Glucose Lactic Acid 4.3 H* Calcium Total Bilirubin AST ALT Alkaline Phosphatase Total Protein Albumin Globulin Albumin/Globulin Ratio Lipase Urine Color YELLOW Urine Clarity HAZY Urine pH 5.5 Ur Specific [place] >=1.030 H Urine Protein NEGATIVE Urine Glucose (UA) 500 H Urine Ketones NEGATIVE Urine Occult Blood MODERATE H Urine Nitrite NEGATIVE Urine Bilirubin NEGATIVE Urine Urobilinogen 0.2 (NORMAL) Ur Leukocyte Esterase SMALL H Urine RBC 6-10 H Urine WBC >25 H Ur Epithelial Cells RARE Transitional Ur Squamous Epith Cells NONE SEEN Urine Bacteria Many H Urine Yeast PRESENT Ur Microscopic Review INDICATED Urine Culture Comments INDICATED Nasal Adenovirus (PCR) NOT DETECTED Nasal B. parapertussis DNA (PCR) NOT DETECTED Nasal Coronavir 229E PCR NOT DETECTED Nasal Coronavir HKU1 PCR NOT DETECTED Nasal Coronavir NL63 PCR NOT DETECTED Nasal Coronavir OC43 PCR NOT DETECTED Nasal Enterovir/Rhinovir PCR NOT DETECTED Nasal Influenza B PCR NOT DETECTED Nasal Influenza A PCR NOT DETECTED Nasal Parainfluen 1 PCR NOT DETECTED Nasal Parainfluen 2 PCR NOT DETECTED Nasal Parainfluen 3 PCR NOT DETECTED Nasal Parainfluen 4 PCR NOT DETECTED Nasal RSV (PCR) NOT DETECTED Nasal B.pertussis DNA PCR NOT DETECTED Nasal C.pneumoniae (PCR) NOT DETECTED [place]yn[place] Human Metapneumo PCR NOT DETECTED Nasal M.pneumoniae (PCR) NOT DETECTED Nasal SARS-CoV-2 (PCR) NOT DETECTED - Rads (name of study) cxr Relevant Findings:: Final report received, See rad report head CT Relevant Findings:: Final report received, See rad report PD Medical Decision Making - ED course Complexity details: reviewed results, re-evaluated patient, considered differential, d/w cloud consultant ED course: 77-year-old female with an unclear past medical history presents with altered mental status and fever. Appears to be septic. Likely uroseptic. Possible pneumonia on chest x-ray. White blood cell count significantly elevated at 27. 3. Lactate was elevated at 4.3, after fluid resuscitation repeat lactate 2.2. She is also hyponatremic, but this is a chronic condition for the patient. She does have acute renal insufficiency as well. Creatinine 2.4, baseline 0.7, likely secondary to dehydration. Respiratory panel is negative. Chest x-ray shows a possible upper lobe patchy pneumonia. Initial fluid resuscitation with with normal saline, when her sodium came back elevated, changed to Plasma-Lyte. Patient will be admitted for further care, discussed the case with the nighttime hospitalist who accepts This document was made in part using voice recognition software. While efforts are made to proofread this document, sound alike and grammatical errors may occur. - Sepsis Event Sepsis Onset Date: 02/10/23 Sepsis Onset Time: 19:05 Current Stage of Sepsis: Sepsis Possible source of Sepsis: Genitourinary, Skin/soft tissue Mental/Cognitive Status: Lethargic, Change from baseline Reason for not giving 30ml/kg crystalloid fluids: Electrolye imbalance Capillary refill: Less than 2 seconds Peripheral Pulse Strength: 2+ Slightly Diminished Peripheral Pulse Location: Radial Bedside ultrasound performed: No Departure - Departure Disposition: 66 [facility] DC/Xfer Clinical Impression: Sepsis Qualifiers: Sepsis type: sepsis due to unspecified organism Sepsis acute organ dysfunction status: with acute organ dysfunction Severe sepsis acute organ dysfunction type: acute renal failure Acute renal failure type: unspecified Severe sepsis shock status: without septic shock Qualified Code(s): A41.9 - Sepsis, unspecified organism UTI (urinary tract infection) Qualifiers: Urinary tract infection type: site unspecified Hematuria presence: without hematuria Qualified Code(s): N39.0 - Urinary tract infection, site not specified Condition: Stable Discharge Date/Time: 02/10/23 21:55
[2023-02-10 18:02] LABS: BASOPHILS % (AUTO) 0.4 %; HCT - HEMATOCRIT 52.6 % (37.0-47.0); HGB - HEMOGLOBIN 15.6 g/dL (12.0-16.0); LYMPHOCYTES % (AUTO) 5.5 %; MEAN CORPUSCULAR HEMOGLOBIN 28.6 pg (27.0-31.0); MEAN CORPUSCULAR HGB CONC 29.7 g/dL (32.0-36.0); MEAN CORPUSCULAR VOLUME 96.5 fL (81.0-99.0); MEAN PLATELET VOLUME 13.2 fL (7.9-10.8); NEUTROPHILS % (AUTO) 89.3 %; PLT - PLATELET COUNT 359 10^3/uL (130-450); RED BLOOD COUNT 5.45 10^6/uL (4.20-5.40); RED CELL DISTRIBUTION WIDTH 16.4 % (12.0-15.0); WHITE BLOOD COUNT 27.3 x10^3/uL (4.8-10.8)
[2023-02-10 18:07] LABS: SLIDE REVIEW? Indicated
[2023-02-10 18:09] LABS: ABNORMAL LYMPHS % (MANUAL) 0 %; BAND NEUTROPHILS % (MANUAL) 0 %
[2023-02-10 18:11] LABS: PARTIAL THROMBOPLASTIN TIME 28.1 secs (24.9-33.3)
[2023-02-10 18:11] LABS: BILIRUBIN,URINE NEGATIVE (NEGATIVE); GLUCOSE, URINE (UA) 500 mg/dL (NEGATIVE); KETONES,URINE (UA) NEGATIVE (NEGATIVE); LEUKOCYTE ESTERASE, URINE SMALL (NEGATIVE); NITRITE,URINE NEGATIVE (NEGATIVE); OCCULT BLOOD,URINE MODERATE (NEGATIVE); PH,URINE 5.5 PH (5.0-7.5); PROTEIN,URINE NEGATIVE (NEGATIVE); UROBILINOGEN,URINE 0.2 (NORMAL) E.U./dL (NORMAL)
[2023-02-10 18:13] LABS: ALBUMIN 3.8 g/dL (3.2-5.5)
[2023-02-10 18:15] LABS: INR 2.1 (0.8-1.2); PT - PROTHROMBIN TIME 21.3 secs (9.9-12.6)
[2023-02-10 18:19] LABS: ALBUMIN/GLOBULIN RATIO 1.4 (1.0-2.2); BILIRUBIN,TOTAL 0.7 mg/dL (0.2-1.0); CREATININE 2.4 mg/dL (0.6-1.3); POTASSIUM 4.1 mmol/L (3.5-4.5); TOTAL PROTEIN 6.6 g/dL (6.4-8.9)
[2023-02-10 18:20] LABS: CLARITY,URINE HAZY (CLEAR)
[2023-02-10 18:20] LABS: LACTIC ACID, VENOUS 4.3 mmol/L (0.5-2.2)
[2023-02-10 18:24] LABS: BACTERIA,URINE Many /HPF (None Seen); EPITHELIAL CELLS,UR RARE Transitional /HPF (<= Few); SQUAMOUS EPITHELIAL CELL,UR NONE SEEN (<= Few); WBC,URINE >25 /HPF (0-5)
[2023-02-10 18:25] LABS: YEAST,URINE PRESENT
[2023-02-10 18:28] LABS: DIFFERENTIAL COMMENT MANUAL DIFFERENTIAL; LYMPHOCYTES # (MANUAL) 0.8 10^3/uL (1.5-3.5); LYMPHOCYTES % (MANUAL) 3 %; MONOCYTES # (MANUAL) 0.8 10^3/uL (0.0-1.0); NEUTROPHILS # (MANUAL) 25.7 10^3/uL (1.5-6.6); PLATELET ESTIMATE, MANUAL NORMAL (130-450,000) (NORMAL); PLATELET MORPHOLOGY NORMAL APPEARANCE (NORMAL); RBC MORPHOLOGY (MULTIPLE) NORMAL APPEARANCE (NORMAL)
[2023-02-10] MEDS ORDERED: cefTRIAXone 1 GM VIAL IVP STA (18:37)
[2023-02-10] MEDS ORDERED: ELECTROLYTE-A SOLUTION 1,000 ML IV STA (18:39)
[2023-02-10] MEDS ORDERED: ELECTROLYTE-A SOLUTION 1,000 ML IV ONE (18:39)
[2023-02-10] MEDS ORDERED: VANCOMYCIN INJ 1 GM in SODIUM CHLORIDE 0.9% 500 ML IV STA (18:40)
[2023-02-10 19:04] LABS: B. PARAPERTUSSIS- RESP PCR PAN NOT DETECTED; B. PERTUSSIS- RESP PCR PANEL NOT DETECTED; C. PNEUMONIAE- RESP PCR PANEL NOT DETECTED; CORONAVIRUS 229E-RESP PCR NOT DETECTED; CORONAVIRUS HKU1-RESP PCR NOT DETECTED; CORONAVIRUS NL63-RESP PCR NOT DETECTED; CORONAVIRUS OC43-RESP PCR NOT DETECTED; HUMAN METAPNEUMOVIRUS NOT DETECTED; INFLUENZA A- RESP PCR PANEL NOT DETECTED; INFLUENZA B - RESP PCR PANEL NOT DETECTED; M. PNEUMONIAE- RESP PCR PANEL NOT DETECTED; PARAINFLUENZA VIRUS 1 NOT DETECTED; PARAINFLUENZA VIRUS 2 NOT DETECTED; PARAINFLUENZA VIRUS 3 NOT DETECTED; PARAINFLUENZA VIRUS 4 NOT DETECTED; RHINOVIRUS/ENTEROVIRUS NOT DETECTED; RSV- RESP PCR PANEL NOT DETECTED; SARS-CoV-2 -RESP PCR PANEL NOT DETECTED
--- NOTE | 2023-02-10 19:06 | XRAY Report ---
PROCEDURE: Chest 1 View X-Ray INDICATIONS: fever TECHNIQUE: One view of the chest was acquired. COMPARISON: Chest x-ray, 06/18/2021. FINDINGS: Surgical changes and devices: None. Lungs and pleura: Question patchy infiltrates in upper lobes bilaterally appear No pleural effusions or pneumothorax. Mediastinum: Mediastinal contours appear normal. Heart size is normal. Bones and chest wall: No suspicious bony lesions. Overlying soft tissues appear unremarkable. IMPRESSION: Question patchy infiltrates in upper lobes bilaterally. Reviewed by: Parag Sharif MD on 02/10/2023 7:05 PM PST Approved by: Parag Sharif MD on 02/10/2023 7:05 PM PST Station ID: [id number]
--- NOTE | 2023-02-10 20:02 | CT Report ---
PROCEDURE: HEAD WO INDICATIONS: altered, fever, h/o falls TECHNIQUE: Noncontrast 4.5 mm thick angled axial sections acquired from the foramen magnum to the vertex. For r adiation dose reduction, the following was used: automated exposure control, adjustment of mA and/or kV according to patient size. COMPARISON: CT head without, 01/31/2023. FINDINGS: Image quality: Excellent. CSF spaces: Basal cisterns are patent. No extra-axial fluid collections. Ventricles are normal in size and shape. Brain: There is [id number] cerebral volume loss. Moderate periventricular white matter chron ic small vessel ischemic changes are present. Encephalomalacia in the right occipital lobe consistent with old infarct. No midline shift. No intracranial masses or hemorrhage. Diop-white matter interf neo is normal. Skull and face: Calvarium and visualized facial bones are intact, without suspicious lesions. There is a left frontal subscapular hematoma. Sinuses: Visualized sinuses and mastoids are clear. IMPRESSION: 1. No acute intracranial pathology. 2. Old right occipital infarct. 3. Cerebral volume loss and periventricular white matter chronic small vessel ischemic changes. 4. Left frontal subscapular contusion and hematoma. Reviewed by: Parag Sharif MD on 02/10/2023 8:00 PM PST Approved by: Parag Sharif MD on 02/10/2023 8:00 PM PST Station ID: [id number]
[2023-02-10] MEDS ORDERED: HYDROcod/ACETAM 10 MG/325 MG TABLET PO PRN (20:41)
[2023-02-10] MEDS ORDERED: ACETAMINOPHEN 325 MG TABLET PO PRN (20:41)
--- NOTE | 2023-02-10 20:50 | HISTORY & PHYSICAL EXAMINATION ---
Chief Complaint - Chief Complaint Chief Complaint: Encephalopathy History of Present Illness - Admitted From Admitted From:: [facility] - History Obtained From Records Reviewed: Yes History obtained from: ER MD and review of records Exam Limitations: Patient unable to give significant history - History of Present Illness HPI Comment/Other: Patient is a 77-year-old female brought in to the emergency department from [facility]. The patient is unable to give any history. She apparently is nonverbal at baseline. Per EMS they found the patient unresponsive this afternoon in her bed. She did have a fall about a week ago. She is reportedly on blood thinners. She felt warm to the touch to EMS. No reported fevers from the [facility]. No reported vomiting, cough, diarrhea or constipation. Patient does not ambulate at baseline. She is reportedly full code. 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 : reports: None HEENT: reports: None Psych: reports: Depression, Bipolar disorder Musculoskeletal: reports: Osteoarthritis Derm: reports: None MRSA Hx?: No - Past Surgical History General: reports: Cholecystectomy Ortho: reports: Carpal Tunnel surgery, 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: Hysterectomy Cardiovascular: reports: CABG - Family & Social History Family History Comment/Other: Unable to obtian family history at this time - Substance History Use: Uses substance without health or social issues: NONE - POLST Patient has POLST: Yes POLST Status: Full Code Meds/Allgy - Home Medications Home Medications: Ambulatory Orders Medication Instructions Recorded Confirmed Apixaban [Eliquis] 5 mg PO BID 06/15/21 09/07/21 Canagliflozin [Invokana] 100 mg PO DAILY 06/15/21 09/07/21 Insulin Glargine [Lantus Solostar] 10 units SUBQ BID 06/15/21 09/07/21 Levothyroxine Sodium 50 mcg PO QDAC 06/15/21 09/07/21 Metoprolol Succinate [Toprol Xl] 50 mg PO QPM 06/15/21 09/07/21 Multivitamin 1 tab PO DAILY 06/15/21 09/07/21 Pantoprazole [Protonix] 40 mg PO BIDAC 06/15/21 09/07/21 Sacubitril/Valsartan [Entresto 24 1 tab PO BID 06/15/21 09/07/21 mg-26 mg Tablet] Sertraline [Zoloft] 50 mg PO DAILY 06/15/21 09/07/21 Acetaminophen [Acetaminophen Extra 1,000 mg PO Q8H PRN 06/16/21 09/07/21 Strength] Brimonidine Tartrate/Timolol 2 drops EACHEYE TID 06/16/21 09/07/21 [Combigan 0.2%-0.5% Eye Drops] Calcium Carbonate [Tums (Calcium 1,000 mg PO Q8H PRN 06/16/21 09/07/21 Carbonate 500mg)] Cholecalciferol (Vitamin D3) 50 mcg PO DAILY 06/16/21 09/07/21 [Vitamin D3] Insulin Regular Human [Humulin R] 6 unit SUBQ AC 06/16/21 09/07/21 Spironolactone [Aldactone] 25 mg PO DAILY 02/10/23 - Allergies Allergies/Adverse Reactions: Allergies Allergy/AdvReac Type Severity Reaction Status Date / Time Sulfa (Sulfonamide Allergy Mild Nausea Verified 02/10/23 17:48 Antibiotics) epinephrine AdvReac Unknown Verified 02/10/23 17:48 Review of Systems - Constitutional Constitutional: reports: Other (!4 system review attempted but unable to obtain due to patient being encephalopathic) Exam - Vital Signs Vital Signs: Vital Signs x48h Temp Pulse Resp BP Pulse Ox 02/10/23 20:14 98 28 H 99 02/10/23 19:45 37.1 C 129 H 28 H 93/69 100 02/10/23 19:33 104 H 22 121/51 L 97 02/10/23 18:24 115 H 36 H 84/47 L 95 02/10/23 17:49 971 H 20 98/59 L 97 02/10/23 17:43 37.4 C 133 H 20 98/58 L 96 - Physical Exam General Appearance: positive: Other (General General: Other (mouth open, staring at ceiling, eyes closed) - HEENT Other (dry lips and tongue) - Cardiac (tachycardic) Respiratory Diminshed in bl bases AEBL Abdomen : Soft, Non tender, Non distended - Derm Derm: Other (hot skin) Neuro Opens eyes staes at ceiling comfortble) Sepsis Event Note (H) - Evaluation Current Stage of Sepsis: Sepsis Possible source of Sepsis: positive: Genitourinary, Skin/soft tissue Conclusion/Plan - Problem List (1) Sepsis Conclusion/Plan: Folllow up on cultures Likely from UTI On rocephin Fluid resuscitation done in ER Repeat Labs in am Qualifiers: Sepsis type: sepsis due to unspecified organism Sepsis acute organ dysfunction status: with acute organ dysfunction Severe sepsis acute organ dysfunction type: acute renal failure Acute renal failure type: unspecified Severe sepsis shock status: without septic shock Qualified Code(s): A41.9 - Sepsis, unspecified organism; R65.20 - Severe sepsis without septic shock; N17.9 - Acute kidney failure, unspecified (2) Urinary tract infection Conclusion/Plan: Dollowow up on cultures OHas indwelling metcalf Continue Rocephin Qualifiers: Urinary tract infection type: site unspecified Hematuria presence: without hematuria Qualified Code(s): N39.0 - Urinary tract infection, site not specified (3) RAGHAV (acute kidney injury) Conclusion/Plan: Old patient is non verbal Eliquis is on hold to be resumed in am Continue statins in am (5) Dehydration Conclusion/Plan: D51/2 NS (6) History of atrial fibrillation Conclusion/Plan: Rate controlled continue to monitor on telemetry continue Eliquis in am (7) Hypernatremia Conclusion/Plan: REpeat electrolytes in am (8) Hypothyroid Conclusion/Plan: Resume thyroxine in am once more alert and awake DVT prophyalxis SCD (9) Type 2 diabetes mellitus Conclusion/Plan: REsume lantus in am This is a telemedicine admission with patient and me both in different locations (10) Prerenal azotemia Conclusion/Plan: Gentle hydration - Lab Results Fish Bones: 02/10/23 17:51 02/10/23 17:51 - Diagnostic Imaging Results Diagnostic Imaging Results: positive: Final report reviewed - EKG Results EKG Interpreted Independently: No
[2023-02-10] MEDS: DEXTROSE 5%-0.45% NACL 1,000 ML IV SCH (21:11)
[2023-02-10 21:23] LABS: LACTIC ACID, VENOUS 2.2 mmol/L (0.5-2.2)
[2023-02-10] MEDS: ZINC OXIDE 20% OINT 30 GM TUBE TOP PRN (22:29)
[2023-02-11] MEDS: NOREPINEPHRINE/0.9 % NS 8 MG/250 ML BAG IV SCH ×2 (00:04→06:22)
[2023-02-11 01:11] LABS: LACTIC ACID, VENOUS 2.1 mmol/L (0.5-2.2)
[2023-02-11 04:39] LABS: BASOPHILS % (AUTO) 0.3 %; HCT - HEMATOCRIT 45.4 % (37.0-47.0); HGB - HEMOGLOBIN 13.5 g/dL (12.0-16.0); MEAN CORPUSCULAR HEMOGLOBIN 28.6 pg (27.0-31.0); MEAN CORPUSCULAR HGB CONC 29.7 g/dL (32.0-36.0); MEAN CORPUSCULAR VOLUME 96.2 fL (81.0-99.0); MEAN PLATELET VOLUME 13.6 fL (7.9-10.8); MONOCYTES % (AUTO) 6.8 %; PLT - PLATELET COUNT 209 10^3/uL (130-450); RED BLOOD COUNT 4.72 10^6/uL (4.20-5.40); RED CELL DISTRIBUTION WIDTH 16.2 % (12.0-15.0)
[2023-02-11 04:41] LABS: CALCIUM, IONIZED 1.14 mmol/L (1.15-1.33); VBG PH 7.388 (7.31-7.41)
[2023-02-11 04:46] LABS: WHITE BLOOD COUNT 37.3 x10^3/uL (4.8-10.8)
[2023-02-11 04:47] LABS: ABNORMAL LYMPHS % (MANUAL) 0 %
[2023-02-11 04:51] LABS: ALBUMIN 3.2 g/dL (3.2-5.5)
[2023-02-11 04:54] LABS: ALBUMIN/GLOBULIN RATIO 1.2 (1.0-2.2); BILIRUBIN,TOTAL 0.6 mg/dL (0.2-1.0); CALCIUM 8.5 mg/dL (8.5-10.3); CREATININE 1.4 mg/dL (0.6-1.3); MAGNESIUM 2.1 mg/dL (1.7-2.3); PHOSPHORUS 2.7 mg/dL (2.5-5.0); POTASSIUM 4.4 mmol/L (3.5-4.5); TOTAL PROTEIN 5.8 g/dL (6.4-8.9)
[2023-02-11 06:09] LABS: BAND NEUTROPHILS % (MANUAL) 4 %; BASOPHILS # (MANUAL) 0.4 10^3/uL (0-0.1); BASOPHILS % (MANUAL) 1 %; DIFFERENTIAL COMMENT MANUAL DIFFERENTIAL; LYMPHOCYTES # (MANUAL) 6.3 10^3/uL (1.5-3.5); LYMPHOCYTES % (MANUAL) 17 %; MONOCYTES # (MANUAL) 2.2 10^3/uL (0.0-1.0); NEUTROPHILS # (MANUAL) 28.3 10^3/uL (1.5-6.6); PLATELET ESTIMATE, MANUAL NORMAL (130-450,000) (NORMAL); RBC MORPHOLOGY (MULTIPLE) NORMAL APPEARANCE (NORMAL)
[2023-02-11] MEDS ORDERED: PANTOPRAZOLE 40 MG VIAL IVP SCH (07:00)
[2023-02-11] MEDS: DEXTROSE 5%-0.45% NACL 1,000 ML IV SCH (07:02)
[2023-02-11] MEDS ORDERED: PIPERACILLIN/TAZOBACTAM 3.375 GM in SODIUM CHLORIDE 0.9% MINIBAG 100 ML IV ONE (08:00)
[2023-02-11] MEDS: DEXTROSE 5% 1,000 ML IV SCH ×2 (08:09→20:58)
[2023-02-11] MEDS ORDERED: cefTRIAXone 1 GM in SODIUM CHLORIDE 0.9% MINIBAG 100 ML IV SCH (09:00)
[2023-02-11] MEDS: NORepinephrine 8 MG in DEXTROSE 5% 250ML IV SCH ×3 (12:13→22:18)
[2023-02-11] MEDS: PIPERACILLIN/TAZOBACTAM 3.375 GM in SODIUM CHLORIDE 0.9% MINIBAG 100 ML IV SCH ×2 (12:19→20:10)
[2023-02-11] MEDS: HYDROCORTISONE SUCCINATE 100 MG/2 ML VIAL IVP SCH ×3 (12:31→22:34)
--- NOTE | 2023-02-11 12:36 | PHARMACY PROGRESS NOTE ---
- Best Possible Medication History Admit Date and Time: 02/10/232040 Processed by: Pharmacy Medication History completed: Yes Patient Interview: Pt unable to participate Secondary Source(s): Facility MAR as ONLY source As the person ultimately responsible for medication therapy, providers are able to order a medication from an existing home medication list in [facility] via the "Reconcile Routine" prior to Confirmation of that medication by client support associate. Such practice is discouraged except when the physician, in their clinical judgment, deems that a medical need exists for a medication without regard to previous use.
[2023-02-11] MEDS: INSULIN REGULAR HUMAN 300 UNIT/3 ML VIAL SUBQ SCH ×2 (12:37→18:23)
--- NOTE | 2023-02-11 12:49 | PROVIDER PROGRESS NOTE ---
Assessment/Plan - Problem List (1) Septic shock Assessment/Plan: -- Exact source is unclear, at this time believed to be due to a urinary tract infection however leukocytosis markedly increased therefore a CT chest/abdomen/pelvis is currently pending. --Continue IV vancomycin and Zosyn which were started this morning. --Continue vasopressors with Levophed. Have also started her on Solu-Cortef 50 mg every 6 hours. --Blood and urine cultures are pending. -- I had several discussions regarding CODE STATUS with her medical power of robot operator which is her . At this time she remains full code. Case was also discussed with palliative care. Overall she portends a very poor prognosis. --She remains encephalopathic and unarousable which according to her is her baseline. She is nonverbal. (2) Ischemic cardiomyopathy Assessment/Plan: --TTE from June 2021 showing LVEF of 55 to 60% with grade 1 diastolic dysfunction. -- Holding all antihypertensives given she is on vasopressor medication for circulatory shock. --Patient does have a prior history of coronary artery disease s/p CABG x5. We will continue her aspirin and statin. -- She also had cardiac resuscitation in 2021. I question if there was some anoxic brain injury from this event. (3) Paroxysmal atrial fibrillation Assessment/Plan: -- Continue to monitor on telemetry. --I do not think she would be able to take oral apixaban at this time. We will start her on therapeutic doses of Lovenox for anticoagulation. (4) Urinary tract infection Qualifiers: Urinary tract infection type: site unspecified Hematuria presence: without hematuria Qualified Code(s): N39.0 - Urinary tract infection, site not specified Assessment/Plan: -- Urine culture currently pending. --Continue on IV vancomycin and Zosyn. (5) RAGHAV (acute kidney injury) Assessment/Plan: -- Baseline creatinine under 1. Continue IV D5 and water. (6) CVA (cerebral vascular accident) Assessment/Plan: -- History of CVA with residual right-sided deficits. Continue aspirin and statin. -- Currently resides at the [facility]. -- She has had very poor nutrition over the last little while. 23 kg weight loss in 18 months weight loss with sacral wounds and is essentially bedridden. Nutrition is following. She does portend a very poor prognosis. Palliative care has been consulted. -- If she is not able to take p.o. nutrition over the next 48 hours may need taken to consider enteral nutrition. (7) Closed head injury Qualifiers: Encounter type: initial encounter Qualified Code(s): S09.90XA - Unspecified injury of head, initial encounter Assessment/Plan: --Fall 1 week ago with a closed head injury. (8) Fall Qualifiers: Encounter type: initial encounter Qualified Code(s): W19.XXXA - Unspecified fall, initial encounter (9) Hypernatremia Assessment/Plan: --Hyponatremia due to poor oral intake and free water deficit over the past several days. -- We will start her on D5 water and continue to monitor sodium. (10) Hypothyroid Assessment/Plan: --Continue levothyroxine. (12) Type 2 diabetes mellitus Assessment/Plan: --Continue sliding scale insulin while she is NPO. - Current Meds Current Meds: Current Medications Generic Name Dose Route Start Last Admin Trade Name Freq PRN Reason Stop Dose Admin Hydrocortisone Sodium Succinate 50 mg 02/11/23 11:00 02/11/23 12:31 Hydrocortisone Succinate 100 Mg/2 Ml Vial IVP 02/16/23 10:59 50 mg Q6H ELIZABETH Administration Dextrose 1,000 mls @ 100 mls/hr 02/11/23 08:00 02/11/23 08:09 D5w IV 100 mls/hr .Q10H ELIZABETH Administration Piperacillin Sod/Tazobactam 100 mls @ 25 mls/hr 02/11/23 12:00 02/11/23 12:19 Sod 3.375 gm/ Sodium Chloride IV 25 mls/hr Q8H ELIZABETH Administration Norepinephrine Bitartrate 8 mg 250 mls @ 45 mls/hr 02/11/23 12:00 02/11/23 12:13 / Dextrose IV 26 mcg/min .Q5H34M ELIZABETH 48.75 mls/hr Administration Protocol 24 MCG/MIN Insulin Human Regular 1 - 5 unit 02/11/23 12:00 02/11/23 12:37 Insulin Regular Human 300 Unit/3 Ml Vial SUBQ 2 unit Q6HR ELIZABETH Administration Protocol Multi-Ingredient Ointment 1 applic 02/10/23 21:41 02/10/23 22:29 Zinc Oxide 20% Oint 30 Gm Tube TOP 1 applic PRN PRN Administration Skin Care - Lab Result Fish Bone Diagrams: 02/11/23 04:24 02/11/23 04:24 - Additional Planning My Orders: My Active Orders 02/11/23 08:00 Dextrose 5% [D5w] 1,000 ml IV 100 mls/hr 02/11/23 08:59 Blood Glucose POC [RC] 0000,0600,1200,1800 Initiate Hypoglycemia Protocol [RC] .protocol 02/11/23 10:38 Sodium Chloride 0.9% [Normal Saline 0.9%] 248 ml Phenylephrine [Mathieu- Synephrine] 20 mg IV 100 mcg/min 02/11/23 11:00 Hydrocortisone Succinate [Solu-CORTEF] 50 mg IVP Q6H 02/11/23 12:00 Dextrose 5% [D5w] 242 ml NORepinephrine [Levophed] 8 mg IV 24 mcg/min Insulin Regular Human [Humulin R] 1 - 5 unit SUBQ Q6HR Piperacillin/Tazobactam [Zosyn] 3.375 gm Sodium Chloride 0.9% Minibag [Normal Saline 0.9% Minibag] 100 ml IV Q8H 02/11/23 16:00 Pantoprazole [Protonix] 40 mg PO BIDAC 02/11/23 18:00 Vancomycin Inj [Vancomycin] 1 gm Sodium Chloride 0.9% [Normal Saline 0.9%] 250 ml IV Q24H 02/11/23 21:00 Atorvastatin Calcium [Lipitor] 80 mg PO QPM 02/12/23 05:00 HEMOGLOBIN A1c% [CHEM] DAILYLAB 02/12/23 07:00 Levothyroxine Sodium [Levothyroxine Sodium] 50 mcg PO QDAC 02/12/23 09:00 Aspirin Chewable [[place] Aspirin] 81 mg PO DAILY Subjective - Subjective Patient Reports: Other (I had multiple discussions with medical power of robot operator which is her in regards to her CODE STATUS. He would like to keep her full code for now. She is nonverbal and not arousable at this time.) Objective Vital Signs: Vital Signs - 24 hr 02/10/23 02/10/23 02/10/23 17:43 17:49 18:24 Temperature 37.4 C Heart Rate 133 H 971 H 115 H Heart Rate [ Monitoring electrodes] Respiratory 20 20 36 H Rate Blood Pressure 98/58 L 98/59 L 84/47 L Blood Pressure [Right Brachial artery] O2 Saturation 96 97 95 02/10/23 02/10/23 02/10/23 19:33 19:45 20:14 Temperature 37.1 C Heart Rate 104 H 129 H 98 Heart Rate [ Monitoring electrodes] Respiratory 22 28 H 28 H Rate Blood Pressure 121/51 L 93/69 Blood Pressure [Right Brachial artery] O2 Saturation 97 100 99 02/10/23 02/10/23 02/10/23 20:48 21:16 22:00 Temperature 36.9 C 36.8 C 36.6 C Heart Rate 94 111 H Heart Rate [ 91 Monitoring electrodes] Respiratory 27 H 24 23 Rate Blood Pressure 81/42 L 80/44 L Blood Pressure 90/43 L [Right Brachial artery] O2 Saturation 97 97 100 02/10/23 02/11/23 02/11/23 23:00 00:00 00:15 Temperature 36.2 C L 36.2 C L 36.2 C L Heart Rate Heart Rate [ 97 76 78 Monitoring electrodes] Respiratory 21 20 19 Rate Blood Pressure Blood Pressure 83/41 L 87/70 L 93/42 L [Right Brachial artery] O2 Saturation 98 100 100 02/11/23 02/11/23 02/11/23 00:20 00:25 00:30 Temperature 36.1 C L 36.1 C L 36.1 C L Heart Rate Heart Rate [ 70 71 68 Monitoring electrodes] Respiratory 18 19 21 Rate Blood Pressure Blood Pressure 108/44 L 113/43 L 114/45 L [Right Brachial artery] O2 Saturation 100 100 100 02/11/23 02/11/23 02/11/23 00:45 01:00 01:15 Temperature 36.1 C L 36.1 C L 36.1 C L Heart Rate Heart Rate [ 65 63 63 Monitoring electrodes] Respiratory 21 19 19 Rate Blood Pressure Blood Pressure 119/39 L 121/39 L 124/39 L [Right Brachial artery] O2 Saturation 100 100 100 02/11/23 02/11/23 02/11/23 01:45 02:00 02:15 Temperature 36.1 C L 36.2 C L 36.2 C L Heart Rate Heart Rate [ 62 62 67 Monitoring electrodes] Respiratory 20 20 18 Rate Blood Pressure Blood Pressure 126/39 L 126/39 L 128/37 L [Right Brachial artery] O2 Saturation 100 99 96 02/11/23 02/11/23 02/11/23 02:30 02:45 03:00 Temperature 36.2 C L 36.3 C L 36.3 C L Heart Rate Heart Rate [ 62 76 67 Monitoring electrodes] Respiratory 19 23 20 Rate Blood Pressure Blood Pressure 122/37 L 125/40 L 123/39 L [Right Brachial artery] O2 Saturation 98 98 97 02/11/23 02/11/23 02/11/23 03:15 03:30 03:45 Temperature 36.4 C L 36.5 C 36.5 C Heart Rate Heart Rate [ 68 66 66 Monitoring electrodes] Respiratory 19 20 21 Rate Blood Pressure Blood Pressure 126/40 L 122/40 L 124/40 L [Right Brachial artery] O2 Saturation 98 98 98 02/11/23 02/11/23 02/11/23 04:00 04:15 05:00 Temperature 36.5 C 36.6 C 36.7 C Heart Rate Heart Rate [ 66 68 88 Monitoring electrodes] Respiratory 22 22 25 H Rate Blood Pressure Blood Pressure 126/39 L 125/39 L 126/40 L [Right Brachial artery] O2 Saturation 98 98 96 02/11/23 02/11/23 02/11/23 06:00 07:00 08:00 Temperature 36.5 C Heart Rate Heart Rate [ 76 81 82 Monitoring electrodes] Respiratory 24 24 26 H Rate Blood Pressure Blood Pressure 106/49 L 108/50 L 105/53 L [Right Brachial artery] O2 Saturation 98 98 97 02/11/23 02/11/23 02/11/23 09:00 10:00 11:00 Temperature 37.1 C Heart Rate Heart Rate [ 89 89 101 H Monitoring electrodes] Respiratory 24 24 25 H Rate Blood Pressure Blood Pressure 109/46 L 102/41 L 100/57 L [Right Brachial artery] O2 Saturation 96 97 99 02/11/23 11:58 Temperature 37.7 C Heart Rate Heart Rate [ 95 Monitoring electrodes] Respiratory 27 H Rate Blood Pressure Blood Pressure 115/87 H [Right Brachial artery] O2 Saturation 97 Oxygen O2 Source Room air I&O (Last 24 Hrs): Intake and Output Totals x24h 02/09/23 02/10/23 02/11/23 23:59 23:59 23:59 Intake Total 3273.334 1728.959 Output Total 190 1166 Balance 3083.334 562.959 General: No acute distress HEENT: Other (Ecchymosis on left eye) Neuro: Other (Unarousable) Cardiovascular: Regular rate, Normal S1, Normal S2, No murmurs Respiratory: Chest non-tender, No respiratory distress, Breath sounds nml Abdomen: Normal bowel sounds, Soft, No tenderness, No hepatospenomegaly, No masses Extremities: No clubbing, No cyanosis, No edema, Normal pulses, No tenderness/swelling - Results Results: Laboratory Results WBC 37.3 x10^3/uL (4.8-10.8) H* 02/11/23 04:24 RBC 4.72 10^6/uL (4.20-5.40) 02/11/23 04:24 Hgb 13.5 g/dL (12.0-16.0) 02/11/23 04:24 Hct 45.4 % (37.0-47.0) 02/11/23 04:24 MCV 96.2 fL (81.0-99.0) 02/11/23 04:24 MCH 28.6 pg (27.0-31.0) 02/11/23 04:24 MCHC 29.7 g/dL (32.0-36.0) L 02/11/23 04:24 RDW 16.2 % (12.0-15.0) H 02/11/23 04:24 Plt Count 209 10^3/uL (130-450) 02/11/23 04:24 MPV 13.6 fL (7.9-10.8) H 02/11/23 04:24 Neut # (Auto) Not Reportable 02/11/23 04:24 Lymph # (Auto) Not Reportable 02/11/23 04:24 Zapata # (Auto) Not Reportable 02/11/23 04:24 Eos # (Auto) Not Reportable 02/11/23 04:24 Baso # (Auto) Not Reportable 02/11/23 04:24 Absolute Nucleated RBC Not Reportable 02/11/23 04:24 Total Counted 100 02/11/23 04:24 Band Neuts % (Manual) 4 % (0-10) 02/11/23 04:24 Abnorm Lymph % (Manual) 0 % 02/11/23 04:24 Nucleated RBC % Not Reportable 02/11/23 04:24 Neutrophils # (Manual) 28.3 10^3/uL (1.5-6.6) H 02/11/23 04:24 Lymphocytes # (Manual) 6.3 10^3/uL (1.5-3.5) H 02/11/23 04:24 Monocytes # (Manual) 2.2 10^3/uL (0.0-1.0) H 02/11/23 04:24 Eosinophils # (Manual) 0.0 10^3/uL (0-0.7) 02/11/23 04:24 Basophils # (Manual) 0.4 10^3/uL (0-0.1) H 02/11/23 04:24 Differential Comment MANUAL DIFFERENTIAL 02/11/23 04:24 Manual Slide Review Indicated 02/10/23 17:51 Platelet Estimate NORMAL (130-450,000) (NORMAL) 02/11/23 04:24 Platelet Morphology NORMAL APPEARANCE (NORMAL) 02/10/23 17:51 RBC Morph Micro Appear NORMAL APPEARANCE (NORMAL) 02/11/23 04:24 PT 21.3 secs (9.9-12.6) H 02/10/23 17:51 INR 2.1 (0.8-1.2) H 02/10/23 17:51 APTT 28.1 secs (24.9-33.3) 02/10/23 17:51 VBG pH 7.388 (7.31-7.41) 02/11/23 04:24 Ionized Calcium 1.14 mmol/L (1.15-1.33) L 02/11/23 04:24 Sodium 154 mmol/L (135-145) H 02/11/23 04:24 Potassium 4.4 mmol/L (3.5-4.5) 02/11/23 04:24 Chloride 119 mmol/L (101-111) H 02/11/23 04:24 Carbon Dioxide 23 mmol/L (21-32) 02/11/23 04:24 Anion Gap 12.0 (6-13) 02/11/23 04:24 BUN 52 mg/dL (6-20) H 02/11/23 04:24 Creatinine 1.4 mg/dL (0.6-1.3) H 02/11/23 04:24 Estimated GFR (MDRD) 36 (>89) L 02/11/23 04:24 Glucose 310 mg/dL (74-104) H 02/11/23 04:24 POC Whole Bld Glucose 194 mg/dL (70 - 100) H 02/11/23 11:55 Lactic Acid 0.9 mmol/L (0.5-2.2) 02/11/23 04:24 Calcium 8.5 mg/dL (8.5-10.3) 02/11/23 04:24 Phosphorus 2.7 mg/dL (2.5-5.0) 02/11/23 04:24 Magnesium 2.1 mg/dL (1.7-2.3) 02/11/23 04:24 Total Bilirubin 0.6 mg/dL (0.2-1.0) 02/11/23 04:24 AST 81 IU/L (10-42) H 02/11/23 04:24 ALT 55 IU/L (10-60) 02/11/23 04:24 Alkaline Phosphatase 78 IU/L (42-121) 02/11/23 04:24 Total Protein 5.8 g/dL (6.4-8.9) L 02/11/23 04:24 Albumin 3.2 g/dL (3.2-5.5) 02/11/23 04:24 Globulin 2.6 g/dL (2.1-4.2) 02/11/23 04:24 Albumin/Globulin Ratio 1.2 (1.0-2.2) 02/11/23 04:24 Lipase 66 U/L (11-82) 02/10/23 17:51 Urine Color YELLOW 02/10/23 18:05 Urine Clarity HAZY (CLEAR) 02/10/23 18:05 Urine pH 5.5 PH (5.0-7.5) 02/10/23 18:05 Ur Specific Royal >=1.030 (1.002-1.030) H 02/10/23 18:05 Urine Protein NEGATIVE mg/dL (NEGATIVE) 02/10/23 18:05 Urine Glucose (UA) 500 mg/dL (NEGATIVE) H 02/10/23 18:05 Urine Ketones NEGATIVE mg/dL (NEGATIVE) 02/10/23 18:05 Urine Occult Blood MODERATE (NEGATIVE) H 02/10/23 18:05 Urine Nitrite NEGATIVE (NEGATIVE) 02/10/23 18:05 Urine Bilirubin NEGATIVE (NEGATIVE) 02/10/23 18:05 Urine Urobilinogen 0.2 (NORMAL) E.U./dL (NORMAL) 02/10/23 18:05 Ur Leukocyte Esterase SMALL (NEGATIVE) H 02/10/23 18:05 Urine RBC 6-10 /HPF (0-5) H 02/10/23 18:05 Urine WBC >25 /HPF (0-5) H 02/10/23 18:05 Ur Epithelial Cells RARE Transitional /HPF (<= Few) 02/10/23 18:05 Ur Squamous Epith Cells NONE SEEN (<= Few) 02/10/23 18:05 Urine Bacteria Many /HPF (None Seen) H 02/10/23 18:05 Urine Yeast PRESENT 02/10/23 18:05 Ur Microscopic Review INDICATED 02/10/23 18:05 Urine Culture Comments INDICATED 02/10/23 18:05 Nasal Adenovirus (PCR) NOT DETECTED 02/10/23 18:00 Nasal B. parapertussis DNA (PCR) NOT DETECTED 02/10/23 18:00 Nasal Coronavir 229E PCR NOT DETECTED 02/10/23 18:00 Nasal Coronavir HKU1 PCR NOT DETECTED 02/10/23 18:00 Nasal Coronavir NL63 PCR NOT DETECTED 02/10/23 18:00 Nasal Coronavir OC43 PCR NOT DETECTED 02/10/23 18:00 Nasal Enterovir/Rhinovir PCR NOT DETECTED 02/10/23 18:00 Nasal Influenza B PCR NOT DETECTED 02/10/23 18:00 Nasal Influenza A PCR NOT DETECTED 02/10/23 18:00 Nasal Parainfluen 1 PCR NOT DETECTED 02/10/23 18:00 Nasal Parainfluen 2 PCR NOT DETECTED 02/10/23 18:00 Nasal Parainfluen 3 PCR NOT DETECTED 02/10/23 18:00 Nasal Parainfluen 4 PCR NOT DETECTED 02/10/23 18:00 Nasal RSV (PCR) NOT DETECTED 02/10/23 18:00 Nasal Screen MRSA (PCR) NEGATIVE (NEGATIVE) 02/10/23 22:05 Nasal B.pertussis DNA PCR NOT DETECTED 02/10/23 18:00 Nasal C.pneumoniae (PCR) NOT DETECTED 02/10/23 18:00 Mynor Human Metapneumo PCR NOT DETECTED 02/10/23 18:00 Nasal M.pneumoniae (PCR) NOT DETECTED 02/10/23 18:00 Nasal SARS-CoV-2 (PCR) NOT DETECTED 02/10/23 18:00 Sepsis Event Note (H) - Evaluation Current Stage of Sepsis: Septic shock Possible source of Sepsis: positive: GI tract/intra-abdominal, Genitourinary, Skin/soft tissue - Sepsis Criteria Sepsis Criteria: WBC count greater than 12,000 or less than 4000, MAP less than 65 mmHg, Metabolic: lactate > 2 mmol/L ABX Reporting Has patient been on IV antibiotics over the past 48 hours?: No Current Medications - Current Medications Current Medications: Active Medications Generic Name Dose Route Start Last Admin Trade Name Freq PRN Reason Stop Dose Admin Acetaminophen 650 mg 02/10/23 20:41 Acetaminophen 325 Mg Tablet PO Q4HR PRN Pain 1 to 4, or Fever Hydrocodone Bitart/Acetaminophen 1 tab 02/10/23 20:41 Hydrocod/Acetam 10 Mg/325 Mg Tablet PO Q4HR PRN Pain 8 to 10 Aspirin 81 mg 02/12/23 09:00 Aspirin Chew 81 Mg Tablet PO DAILY ELIZABETH Atorvastatin Calcium 80 mg 02/11/23 21:00 Atorvastatin 40 Mg Tablet PO QPM ELIZABETH Hydrocortisone Sodium Succinate 50 mg 02/11/23 11:00 02/11/23 12:31 Hydrocortisone Succinate 100 Mg/2 Ml Vial IVP 02/16/23 10:59 50 mg Q6H ELIZABETH Administration Dextrose 1,000 mls @ 100 mls/hr 02/11/23 08:00 02/11/23 08:09 D5w IV 100 mls/hr .Q10H ELIZABETH Administration Piperacillin Sod/Tazobactam 100 mls @ 25 mls/hr 02/11/23 12:00 02/11/23 12:19 Sod 3.375 gm/ Sodium Chloride IV 25 mls/hr Q8H ELIZABETH Administration Vancomycin HCl 1 gm/ Sodium 250 mls @ 167 mls/hr 02/11/23 18:00 Chloride IV Q24H ELIZABETH Norepinephrine Bitartrate 8 mg 250 mls @ 45 mls/hr 02/11/23 12:00 02/11/23 12:13 / Dextrose IV 26 mcg/min .Q5H34M ELIZABETH 48.75 mls/hr Administration Protocol 24 MCG/MIN Phenylephrine HCl 20 mg/ 250 mls @ 75 mls/hr 02/11/23 10:38 Sodium Chloride IV .Q3H20M [facility] Protocol 100 MCG/MIN Insulin Human Regular 1 - 5 unit 02/11/23 12:00 02/11/23 12:37 Insulin Regular Human 300 Unit/3 Ml Vial SUBQ 2 unit Q6HR [facility] Administration Protocol Levothyroxine Sodium 50 mcg 02/12/23 07:00 Levothyroxine 25 Mcg Tablet PO QDAC [facility] Multi-Ingredient Ointment 1 applic 02/10/23 21:41 02/10/23 22:29 Zinc Oxide 20% Oint 30 Gm Tube TOP 1 applic PRN PRN Administration Skin Care Pantoprazole Sodium 40 mg 02/11/23 16:00 Pantoprazole 40 Mg Tablet PO BIDAC [facility] Apixaban [Eliquis] 5 mg PO BID 06/15/21 Canagliflozin [Invokana] 100 mg PO DAILY 06/15/21 Insulin Glargine [Lantus Solostar] 10 units SUBQ BID 06/15/21 Levothyroxine Sodium 50 mcg PO QDAC 06/15/21 Metoprolol Succinate [Toprol Xl] 50 mg PO QPM 06/15/21 Multivitamin 1 tab PO DAILY 06/15/21 Pantoprazole [Protonix] 40 mg PO BIDAC 06/15/21 Sacubitril/Valsartan [Entresto 24 mg-26 mg Tablet] 1 tab PO QPM 06/15/21 Sertraline [Zoloft] 50 mg PO DAILY 06/15/21 Brimonidine Tartrate/Timolol [Combigan 0.2%-0.5% Eye Drops] 1 drops EACHEYE BID 06/16/21 Calcium Carbonate [Tums (Calcium Carbonate 500mg)] 1,000 mg PO Q8H PRN 06/16/21 Cholecalciferol (Vitamin D3) [Vitamin D3] 50 mcg PO DAILY 06/16/21 Insulin Regular Human [Humulin R] 3 unit SUBQ AC 06/16/21 Spironolactone [Aldactone] 25 mg PO DAILY 02/10/23 Acetaminophen [Tylenol] 650 mg PO Q6H PRN 02/11/23 Aspirin Chewable [St Orlando Aspirin] 81 mg PO DAILY 02/11/23 Atorvastatin Calcium [Lipitor] 80 mg PO QPM 02/11/23 Carboxymethylcellulose Sodium 1 applic EACHEYE QPM 02/11/23 Sacubitril/Valsartan [Entresto 24 mg-26 mg Tablet] 2 tab PO DAILY 02/11/23
--- NOTE | 2023-02-11 13:15 | CT Report ---
PROCEDURE: ABDOMEN/PELVIS W INDICATIONS: Sepsis CONTRAST: 100ml omni 300 TECHNIQUE: After the administration of intravenous contrast, 5 mm thick sections acquired from the diaphragms to the symphysis. 5 mm thick coronal and sagittal reformats were acquired. For radiation dose reducti on, the following was used: automated exposure control, adjustment of mA and/or kV according to ilya ent size. COMPARISON: None FINDINGS: Image quality: Suboptimal due to motion artifact. Lung bases and heart: Please see same day chest CT. Liver: No solid mass. Gallbladder and biliary tree: Surgically absent. No biliary dilation, accounting for post-cholecystec kody state. Spleen: No splenomegaly. Pancreas: No pancreatic ductal dilation. Adrenals: No adrenal nodule. Kidneys and ureters: No hydronephrosis. No renal cystic lesion which requires follow up. No solid mas s. Bowel and peritoneum: No bowel distension. No pathologic free fluid. Abnormal bowel wall thickening o f the transverse and descending colon, although this is underdistended. Lymph nodes: No central or retroperitoneal adenopathy. Vessels: No infrarenal aortic aneurysm. PELVIS Reproductive organs: Fluid and air within the vaginal vault. There is wall striation and some mucosal hyperemia of the vagina. Bladder: Shafer catheter within the urinary bladder. No urinary bladder wall thickening. Trace air wit hin the urinary bladder, presumably iatrogenic. Pelvic lymph nodes: No pelvic adenopathy by size criteria. Bones: Subacute to chronic compression deformity of the L1 vertebral body, without endplate retropuls ion. Other: No significant ventral or inguinal hernia. IMPRESSION: Abnormal thickening of the transverse and descending colon. Differential includes artifact over under distention versus colitis. Air and fluid within the vagina, which is atypical. Additionally, there is vaginal wall striation and mucosal hyperemia, which may indicate infection. Source of air and gas is not clear, as there does n ot appear to be a fistula within this region. Subacute to chronic compression deformity of the L1 vertebral body, without endplate retropulsion. Reviewed by: Donny Lyon on 02/11/2023 1:14 PM PST Approved by: Donny Lyon on 02/11/2023 1:14 PM PST Station ID: [id number]
--- NOTE | 2023-02-11 13:17 | CT Report ---
PROCEDURE: CHEST W INDICATIONS: Septic shock CONTRAST: 100ml omni 300 TECHNIQUE: After the administration of intravenous contrast, 1 mm axial images were acquired from the pulmonary apices through the posterior costophrenic angles. Axial 5 mm soft tissue kernel reconstructions were performed as well as 8 mm axial MIP and coronal and sagittal 5 mm reformations. For radiation dose reduction, the following was used: automated exposure control, adjustment of mA and/or kV according to patient size. COMPARISON: None. FINDINGS: Image quality: Excellent. Lungs and pleura: No consolidation. Trace pleural effusions. No suspicious pulmonary nodules which re quire follow up. Mediastinum: Heart size is normal. No pericardial effusion. No large vessel abnormality. No mediastin al adenopathy by size criteria. Chest wall and lower neck: No thyroid nodule which requires sonographic follow up. No axillary or sup raclavicular adenopathy by size. Bones: No aggressive osseous abnormality. Sternotomy. Upper Abdomen: Please see dedicated CT abdomen pelvis for further discussion. IMPRESSION: Trace pleural effusions. No evidence of pulmonary infection. Reviewed by: Donny Lyon on 02/11/2023 1:16 PM PST Approved by: Donny Lyon on 02/11/2023 1:16 PM PST Station ID: [id number]
[2023-02-11] MEDS ORDERED: iohexoL-300 100 ML VIAL IVP ONE (15:12)
[2023-02-11] MEDS ORDERED: PANTOPRAZOLE 40 MG TABLET PO SCH (16:00)
[2023-02-11] MEDS: VANCOMYCIN INJ 1 GM in SODIUM CHLORIDE 0.9% 250 ML IV SCH (18:14)
[2023-02-11] MEDS: ZINC OXIDE 20% OINT 30 GM TUBE TOP PRN (20:54)
[2023-02-11] MEDS: FAMOTIDINE 20 MG/2 ML VIAL IVP SCH (20:58)
[2023-02-11] MEDS: ATORVASTATIN 40 MG TABLET PO SCH (21:05)
[2023-02-11] MEDS: PHENYLEPHRINE 20 MG in SODIUM CHLORIDE 0.9% 248 ML IV SCH (22:14)
[2023-02-11] MEDS ORDERED: NOREPINEPHRINE/0.9 % NS 8 MG/250 ML BAG IV ONE (22:17)
[2023-02-12] MEDS: INSULIN REGULAR HUMAN 300 UNIT/3 ML VIAL SUBQ SCH ×4 (00:26→18:22)
[2023-02-12] MEDS: PHENYLEPHRINE 20 MG in SODIUM CHLORIDE 0.9% 248 ML IV SCH ×9 (02:19→21:11)
[2023-02-12] MEDS: NORepinephrine 8 MG in DEXTROSE 5% 250ML IV SCH ×4 (02:51→21:11)
[2023-02-12] MEDS ORDERED: ACETAMINOPHEN 1,000 MG/100 ML 1,000 MG/100 ML BAG IV PRN (03:47)
[2023-02-12] MEDS: PIPERACILLIN/TAZOBACTAM 3.375 GM in SODIUM CHLORIDE 0.9% MINIBAG 100 ML IV SCH ×3 (04:11→20:24)
[2023-02-12] MEDS: HYDROCORTISONE SUCCINATE 100 MG/2 ML VIAL IVP SCH ×4 (04:28→22:57)
[2023-02-12 05:05] LABS: BASOPHILS # (AUTO) 0.1 10^3/uL (0.0-0.1); BASOPHILS % (AUTO) 0.2 %; HCT - HEMATOCRIT 46.6 % (37.0-47.0); HGB - HEMOGLOBIN 13.9 g/dL (12.0-16.0); LYMPHOCYTES # (AUTO) 1.7 10^3/uL (1.5-3.5); LYMPHOCYTES % (AUTO) 4.1 %; MEAN CORPUSCULAR HEMOGLOBIN 28.5 pg (27.0-31.0); MEAN CORPUSCULAR HGB CONC 29.8 g/dL (32.0-36.0); MEAN CORPUSCULAR VOLUME 95.5 fL (81.0-99.0); MEAN PLATELET VOLUME 13.5 fL (7.9-10.8); MONOCYTES # (AUTO) 1.2 10^3/uL (0.0-1.0); MONOCYTES % (AUTO) 2.9 %; NEUTROPHILS # (AUTO) 37.6 10^3/uL (1.5-6.6); NEUTROPHILS % (AUTO) 91.4 %; PLT - PLATELET COUNT 276 10^3/uL (130-450); RED BLOOD COUNT 4.88 10^6/uL (4.20-5.40); RED CELL DISTRIBUTION WIDTH 15.9 % (12.0-15.0)
[2023-02-12 05:15] LABS: CALCIUM, IONIZED 1.11 mmol/L (1.15-1.33); VBG PH 7.39 (7.31-7.41)
[2023-02-12 05:29] LABS: CALCIUM 8.7 mg/dL (8.5-10.3); POTASSIUM 3.2 mmol/L (3.5-4.5)
[2023-02-12 05:34] LABS: WHITE BLOOD COUNT 41.1 x10^3/uL (4.8-10.8)
[2023-02-12] MEDS ORDERED: CALCIUM GLUC 1,000MG/50ML-NACL 1,000 MG/50 ML BAG IV ONE (05:56)
[2023-02-12 06:15] LABS: DIFFERENTIAL COMMENT MANUAL=AUTO DIFF; PLATELET ESTIMATE, MANUAL NORMAL (130-450,000) (NORMAL); RBC MORPHOLOGY (MULTIPLE) NORMAL APPEARANCE (NORMAL)
[2023-02-12 06:48] LABS: MAGNESIUM 1.9 mg/dL (1.7-2.3); PHOSPHORUS 2.6 mg/dL (2.5-5.0)
[2023-02-12] MEDS: LEVOTHYROXINE 25 MCG TABLET PO SCH (07:05)
[2023-02-12] MEDS: ZINC OXIDE 20% OINT 30 GM TUBE TOP PRN (07:19)
[2023-02-12] MEDS: DEXTROSE 5% 1,000 ML IV SCH ×2 (08:21→18:25)
[2023-02-12] MEDS: POTASSIUM CHLOR 10 MEQ/100 ML 10 MEQ/100 ML BAG IV SCH ×6 (08:45→20:22)
--- NOTE | 2023-02-12 09:10 | PROVIDER PROGRESS NOTE ---
Assessment/Plan - Problem List (1) Septic shock Assessment/Plan: (1) Septic shock Assessment/Plan: --Question of UTI, culture pending. --CT abd/pelvis showing evidence of colitis. --Will order a stool PCR. --Continue IV vancomycin and Zosyn which were started this morning. --Continue vasopressors with Levophed and phenylephrine which was initiated last night. Have also started her on Solu-Cortef 50 mg every 6 hours. --Blood and urine cultures are pending. -- I had several discussions regarding CODE STATUS with her medical power of prosecuting attorney which is her as well as her son. They were agreed jointly to make her DNR. --She remains encephalopathic and unarousable which according to her is her baseline. She is nonverbal. (2) Ischemic cardiomyopathy Assessment/Plan: --TTE from June 2021 showing LVEF of 55 to 60% with grade 1 diastolic dysfunction. -- Holding all antihypertensives given she is on vasopressor medication for circulatory shock. --Patient does have a prior history of coronary artery disease s/p CABG x5. We will continue her aspirin and statin. -- She also had cardiac resuscitation in 2021. I question if there was some anoxic brain injury from this event. (3) Paroxysmal atrial fibrillation Assessment/Plan: -- Continue to monitor on telemetry. --I do not think she would be able to take oral apixaban at this time. We will start her on therapeutic doses of Lovenox for anticoagulation. (4) Urinary tract infection Qualifiers: Urinary tract infection type: site unspecified Hematuria presence: without hematuria Qualified Code(s): N39.0 - Urinary tract infection, site not specified Assessment/Plan: -- Urine culture currently pending. --Continue on IV vancomycin and Zosyn. (5) RAGHAV (acute kidney injury) Assessment/Plan: -- Baseline creatinine under 1. Continue IV D5 and water. (6) CVA (cerebral vascular accident) Assessment/Plan: -- History of CVA with residual right-sided deficits. Continue aspirin and statin. -- Currently resides at the [facility]. -- She has had very poor nutrition over the last little while. 23 kg weight loss in 18 months weight loss with sacral wounds and is essentially bedridden. Nutrition is following. She does portend a very poor prognosis. Palliative care has been consulted. -- If she is not able to take p.o. nutrition over the next 48 hours may need taken to consider enteral nutrition. (7) Closed head injury Qualifiers: Encounter type: initial encounter Qualified Code(s): S09.90XA - Unspecified injury of head, initial encounter Assessment/Plan: --Fall 1 week ago with a closed head injury. (8) Fall Qualifiers: Encounter type: initial encounter Qualified Code(s): W19.XXXA - Unspecified fall, initial encounter (9) Hypernatremia Assessment/Plan: --Hyponatremia due to poor oral intake and free water deficit over the past several days. -- We will start her on D5 water and continue to monitor sodium. (10) Hypothyroid Assessment/Plan: --Continue levothyroxine. (12) Type 2 diabetes mellitus Assessment/Plan: --Continue sliding scale insulin while she is NPO. (4) Urinary tract infection Qualifiers: Urinary tract infection type: site unspecified Hematuria presence: without hematuria Qualified Code(s): N39.0 - Urinary tract infection, site not specified (7) Closed head injury Qualifiers: Encounter type: initial encounter Qualified Code(s): S09.90XA - Unspecified injury of head, initial encounter (8) Fall Qualifiers: Encounter type: initial encounter Qualified Code(s): W19.XXXA - Unspecified fall, initial encounter - Current Meds Current Meds: Current Medications Generic Name Dose Route Start Last Admin Trade Name Freq PRN Reason Stop Dose Admin Atorvastatin Calcium 80 mg 02/11/23 21:00 02/11/23 21:05 Atorvastatin 40 Mg Tablet PO Not Given QPM ELIZABETH Famotidine 20 mg 02/11/23 21:00 02/11/23 20:58 Famotidine 20 Mg/2 Ml Vial IVP 20 mg BID ELIZABETH Administration Hydrocortisone Sodium Succinate 50 mg 02/11/23 11:00 02/12/23 04:28 Hydrocortisone Succinate 100 Mg/2 Ml Vial IVP 02/16/23 10:59 50 mg Q6H ELIZABETH Administration Dextrose 1,000 mls @ 100 mls/hr 02/11/23 08:00 02/12/23 08:21 D5w IV 100 mls/hr .Q10H ELIZABETH Administration Piperacillin Sod/Tazobactam 100 mls @ 25 mls/hr 02/11/23 12:00 02/12/23 04:11 Sod 3.375 gm/ Sodium Chloride IV 25 mls/hr Q8H ELIZABETH Administration Vancomycin HCl 1 gm/ Sodium 250 mls @ 167 mls/hr 02/11/23 18:00 02/11/23 20:05 Chloride IV Infused Q24H ELIZABETH Infusion Norepinephrine Bitartrate 8 mg 250 mls @ 45 mls/hr 02/11/23 12:00 02/12/23 08:34 / Dextrose IV 26 mcg/min .Q5H34M ELIZABETH 48.75 mls/hr Administration Protocol 24 MCG/MIN Phenylephrine HCl 20 mg/ 250 mls @ 75 mls/hr 02/11/23 10:38 02/12/23 08:02 Sodium Chloride IV 20 mcg/min .Q3H20M ELIZABETH 15 mls/hr Administration Protocol 100 MCG/MIN Acetaminophen 1,000 mg in 100 mls @ 400 mls/hr 02/12/23 03:47 02/12/23 05:10 Acetaminophen IV Infused Q6HR PRN Infusion Mild Pain or Fever>38C(100.4F) Potassium Chloride 10 meq in 100 mls @ 100 mls/hr 02/12/23 08:00 02/12/23 08:45 Potassium Chloride IV 02/12/23 09:59 100 mls/hr Q1H ELIZABETH Administration Insulin Human Regular 1 - 5 unit 02/11/23 12:00 02/12/23 06:00 Insulin Regular Human 300 Unit/3 Ml Vial SUBQ 5 unit Q6HR ELIZABETH Administration Protocol Levothyroxine Sodium 50 mcg 02/12/23 07:00 02/12/23 07:05 Levothyroxine 25 Mcg Tablet PO Not Given QDAC [facility] Multi-Ingredient Ointment 1 applic 02/10/23 21:41 02/12/23 07:19 Zinc Oxide 20% Oint 30 Gm Tube TOP 1 applic PRN PRN Administration Skin Care - Lab Result Fish Bone Diagrams: 02/12/23 04:47 02/12/23 04:47 - Additional Planning My Orders: My Active Orders 02/11/23 08:59 Blood Glucose POC [RC] 0000,0600,1200,1800 Initiate Hypoglycemia Protocol [RC] .protocol 02/11/23 10:38 Sodium Chloride 0.9% [Normal Saline 0.9%] 248 ml Phenylephrine [Mathieu- Synephrine] 20 mg IV 100 mcg/min 02/11/23 11:00 Hydrocortisone Succinate [Solu-CORTEF] 50 mg IVP Q6H 02/11/23 12:00 Dextrose 5% [D5w] 242 ml NORepinephrine [Levophed] 8 mg IV 24 mcg/min Insulin Regular Human [Humulin R] 1 - 5 unit SUBQ Q6HR Piperacillin/Tazobactam [Zosyn] 3.375 gm Sodium Chloride 0.9% Minibag [Normal Saline 0.9% Minibag] 100 ml IV Q8H 02/11/23 13:40 Blood Culture [CULTURE, BLOOD #1] [RM] Urgent 02/11/23 14:04 Blood Culture [CULTURE, BLOOD #2] [RM] Urgent 02/11/23 15:33 Code Status [OTHERS] Routine 02/11/23 18:00 Vancomycin Inj [Vancomycin] 1 gm Sodium Chloride 0.9% [Normal Saline 0.9%] 250 ml IV Q24H 02/11/23 21:00 Atorvastatin [Lipitor] 80 mg PO QPM Famotidine [Pepcid] 20 mg IVP BID 02/12/23 04:47 HEMOGLOBIN A1c% [CHEM] DAILYLAB 02/12/23 07:00 Levothyroxine [Synthroid] 50 mcg PO QDAC 02/12/23 08:00 Potassium Chlor 10 Meq/100 ml [Potassium Chloride] 10 meq in 100 ml IV Q1H 02/12/23 09:00 Aspirin Chewable [[place] Aspirin] 81 mg PO DAILY Enoxaparin [Lovenox] 100 mg SUBQ DAILY 02/13/23 05:00 BMP - BASIC METABOLIC PANEL [CHEM] DAILYLAB CBC [CBC - COMP BLD CT W/AUTO DIFF] [HEME] DAILYLAB 02/14/23 05:00 BMP - BASIC METABOLIC PANEL [CHEM] DAILYLAB CBC [CBC - COMP BLD CT W/AUTO DIFF] [HEME] DAILYLAB 02/15/23 05:00 BMP - BASIC METABOLIC PANEL [CHEM] DAILYLAB CBC [CBC - COMP BLD CT W/AUTO DIFF] [HEME] DAILYLAB 02/16/23 05:00 BMP - BASIC METABOLIC PANEL [CHEM] DAILYLAB CBC [CBC - COMP BLD CT W/AUTO DIFF] [HEME] DAILYLAB Subjective - Subjective Patient Reports: Resting Comfortably (Added phenylephrine overnight. Remains critical. Non verbale and non arousable.) Objective Vital Signs: Vital Signs - 24 hr 02/11/23 02/11/23 02/11/23 10:00 11:00 11:58 Temperature 37.1 C 37.7 C Heart Rate [ 89 101 H 95 Monitoring electrodes] Respiratory 24 25 H 27 H Rate Blood Pressure 102/41 L 100/57 L 115/87 H [Right Brachial artery] O2 Saturation 97 99 97 02/11/23 02/11/23 02/11/23 13:00 14:00 15:00 Temperature Heart Rate [ 83 93 71 Monitoring electrodes] Respiratory 26 H 19 27 H Rate Blood Pressure 97/45 L 105/48 L 105/49 L [Right Brachial artery] O2 Saturation 98 97 98 02/11/23 02/11/23 02/11/23 16:00 17:00 18:00 Temperature 37.8 C Heart Rate [ 86 89 89 Monitoring electrodes] Respiratory 28 H 29 H 29 H Rate Blood Pressure 112/42 L 109/45 L 118/50 L [Right Brachial artery] O2 Saturation 97 97 98 02/11/23 02/11/23 02/11/23 19:00 20:00 21:00 Temperature 37.5 C 37.4 C Heart Rate [ 64 60 61 Monitoring electrodes] Respiratory 25 H 25 H 25 H Rate Blood Pressure 113/43 L 154/46 H 164/45 H [Right Brachial artery] O2 Saturation 99 99 100 02/11/23 02/11/23 02/12/23 22:00 23:00 00:00 Temperature 37.7 C Heart Rate [ 53 L 63 70 Monitoring electrodes] Respiratory Rate Blood Pressure 105/38 L 162/50 H 142/42 H [Right Brachial artery] O2 Saturation 99 98 100 02/12/23 02/12/23 02/12/23 00:32 01:00 01:31 Temperature Heart Rate [ 48 L 46 L 72 Monitoring electrodes] Respiratory 25 H Rate Blood Pressure 153/43 H 155/43 H 157/49 H [Right Brachial artery] O2 Saturation 100 02/12/23 02/12/23 02/12/23 02:00 02:40 03:00 Temperature 38.0 C H Heart Rate [ 64 70 73 Monitoring electrodes] Respiratory 30 H 29 H Rate Blood Pressure 127/48 L 151/57 H 148/56 H [Right Brachial artery] O2 Saturation 99 99 02/12/23 02/12/23 02/12/23 03:30 04:00 05:00 Temperature 38.1 C H 38.1 C H Heart Rate [ 79 83 80 Monitoring electrodes] Respiratory 30 H 31 H Rate Blood Pressure 148/56 H 133/54 H 130/59 L [Right Brachial artery] O2 Saturation 99 100 02/12/23 02/12/23 02/12/23 06:00 07:00 08:00 Temperature 38 C H 37.9 C Heart Rate [ 70 77 77 Monitoring electrodes] Respiratory 30 H 12 31 H Rate Blood Pressure 95/48 L 117/53 L 114/64 [Right Brachial artery] O2 Saturation 99 99 100 Oxygen O2 Source Room air I&O (Last 24 Hrs): Intake and Output Totals x24h 02/10/23 02/11/23 02/12/23 23:59 23:59 23:59 Intake Total 3273.334 3900.459 2200.000 Output Total 190 2056 850 Balance 3083.334 1449.698 6156.000 General: No acute distress HEENT: Other (Ecchymosis over left eye) Neuro: Other (Unarousable) Cardiovascular: Regular rate, Normal S1, Normal S2 Respiratory: No respiratory distress, Breath sounds nml Abdomen: Normal bowel sounds, Soft Extremities: No clubbing, No cyanosis, No edema - Results Results: Laboratory Results WBC 41.1 x10^3/uL (4.8-10.8) H* 02/12/23 04:47 RBC 4.88 10^6/uL (4.20-5.40) 02/12/23 04:47 Hgb 13.9 g/dL (12.0-16.0) 02/12/23 04:47 Hct 46.6 % (37.0-47.0) 02/12/23 04:47 MCV 95.5 fL (81.0-99.0) 02/12/23 04:47 MCH 28.5 pg (27.0-31.0) 02/12/23 04:47 MCHC 29.8 g/dL (32.0-36.0) L 02/12/23 04:47 RDW 15.9 % (12.0-15.0) H 02/12/23 04:47 Plt Count 276 10^3/uL (130-450) 02/12/23 04:47 MPV 13.5 fL (7.9-10.8) H 02/12/23 04:47 Neut # (Auto) 37.6 10^3/uL (1.5-6.6) H 02/12/23 04:47 Lymph # (Auto) 1.7 10^3/uL (1.5-3.5) 02/12/23 04:47 [place] # (Auto) 1.2 10^3/uL (0.0-1.0) H 02/12/23 04:47 Eos # (Auto) 0.0 10^3/uL (0.0-0.7) 02/12/23 04:47 Baso # (Auto) 0.1 10^3/uL (0.0-0.1) 02/12/23 04:47 Absolute Nucleated RBC 0.00 x10^3/uL 02/12/23 04:47 Total Counted 100 02/11/23 04:24 Band Neuts % (Manual) Not Reportable 02/12/23 04:47 Abnorm Lymph % (Manual) Not Reportable 02/12/23 04:47 Nucleated RBC % 0.0 /100WBC 02/12/23 04:47 Neutrophils # (Manual) Not Reportable 02/12/23 04:47 Lymphocytes # (Manual) Not Reportable 02/12/23 04:47 Monocytes # (Manual) Not Reportable 02/12/23 04:47 Eosinophils # (Manual) Not Reportable 02/12/23 04:47 Basophils # (Manual) Not Reportable 02/12/23 04:47 Differential Comment MANUAL=AUTO DIFF 02/12/23 04:47 Manual Slide Review Indicated 02/10/23 17:51 Platelet Estimate NORMAL (130-450,000) (NORMAL) 02/12/23 04:47 Platelet Morphology NORMAL APPEARANCE (NORMAL) 02/10/23 17:51 RBC Morph Micro Appear NORMAL APPEARANCE (NORMAL) 02/12/23 04:47 PT 21.3 secs (9.9-12.6) H 02/10/23 17:51 INR 2.1 (0.8-1.2) H 02/10/23 17:51 APTT 28.1 secs (24.9-33.3) 02/10/23 17:51 VBG pH 7.390 (7.31-7.41) 02/12/23 04:47 Ionized Calcium 1.11 mmol/L (1.15-1.33) L 02/12/23 04:47 Sodium 149 mmol/L (135-145) H 02/12/23 04:47 Potassium 3.2 mmol/L (3.5-4.5) L 02/12/23 04:47 Chloride 114 mmol/L (101-111) H 02/12/23 04:47 Carbon Dioxide 19 mmol/L (21-32) L 02/12/23 04:47 Anion Gap 16.0 (6-13) H 02/12/23 04:47 BUN 28 mg/dL (6-20) H 02/12/23 04:47 Creatinine 1.0 mg/dL (0.6-1.3) 02/12/23 04:47 Estimated GFR (MDRD) 53 (>89) L 02/12/23 04:47 Glucose 354 mg/dL (74-104) H 02/12/23 04:47 POC Whole Bld Glucose 349 mg/dL (70 - 100) H 02/12/23 04:47 Lactic Acid 0.9 mmol/L (0.5-2.2) 02/11/23 04:24 Calcium 8.7 mg/dL (8.5-10.3) 02/12/23 04:47 Phosphorus 2.6 mg/dL (2.5-5.0) 02/12/23 04:47 Magnesium 1.9 mg/dL (1.7-2.3) 02/12/23 04:47 Total Bilirubin 0.6 mg/dL (0.2-1.0) 02/11/23 04:24 AST 81 IU/L (10-42) H 02/11/23 04:24 ALT 55 IU/L (10-60) 02/11/23 04:24 Alkaline Phosphatase 78 IU/L (42-121) 02/11/23 04:24 Total Protein 5.8 g/dL (6.4-8.9) L 02/11/23 04:24 Albumin 3.2 g/dL (3.2-5.5) 02/11/23 04:24 Globulin 2.6 g/dL (2.1-4.2) 02/11/23 04:24 Albumin/Globulin Ratio 1.2 (1.0-2.2) 02/11/23 04:24 Lipase 66 U/L (11-82) 02/10/23 17:51 Urine Color YELLOW 02/10/23 18:05 Urine Clarity HAZY (CLEAR) 02/10/23 18:05 Urine pH 5.5 PH (5.0-7.5) 02/10/23 18:05 Ur Specific [place] >=1.030 (1.002-1.030) H 02/10/23 18:05 Urine Protein NEGATIVE mg/dL (NEGATIVE) 02/10/23 18:05 Urine Glucose (UA) 500 mg/dL (NEGATIVE) H 02/10/23 18:05 Urine Ketones NEGATIVE mg/dL (NEGATIVE) 02/10/23 18:05 Urine Occult Blood MODERATE (NEGATIVE) H 02/10/23 18:05 Urine Nitrite NEGATIVE (NEGATIVE) 02/10/23 18:05 Urine Bilirubin NEGATIVE (NEGATIVE) 02/10/23 18:05 Urine Urobilinogen 0.2 (NORMAL) E.U./dL (NORMAL) 02/10/23 18:05 Ur Leukocyte Esterase SMALL (NEGATIVE) H 02/10/23 18:05 Urine RBC 6-10 /HPF (0-5) H 02/10/23 18:05 Urine WBC >25 /HPF (0-5) H 02/10/23 18:05 Ur Epithelial Cells RARE Transitional /HPF (<= Few) 02/10/23 18:05 Ur Squamous Epith Cells NONE SEEN (<= Few) 02/10/23 18:05 Urine Bacteria Many /HPF (None Seen) H 02/10/23 18:05 Urine Yeast PRESENT 02/10/23 18:05 Ur Microscopic Review INDICATED 02/10/23 18:05 Urine Culture Comments INDICATED 02/10/23 18:05 Nasal Adenovirus (PCR) NOT DETECTED 02/10/23 18:00 Nasal B. parapertussis DNA (PCR) NOT DETECTED 02/10/23 18:00 Nasal Coronavir 229E PCR NOT DETECTED 02/10/23 18:00 Nasal Coronavir HKU1 PCR NOT DETECTED 02/10/23 18:00 Nasal Coronavir NL63 PCR NOT DETECTED 02/10/23 18:00 Nasal Coronavir OC43 PCR NOT DETECTED 02/10/23 18:00 Nasal Enterovir/Rhinovir PCR NOT DETECTED 02/10/23 18:00 Nasal Influenza B PCR NOT DETECTED 02/10/23 18:00 Nasal Influenza A PCR NOT DETECTED 02/10/23 18:00 Nasal Parainfluen 1 PCR NOT DETECTED 02/10/23 18:00 Nasal Parainfluen 2 PCR NOT DETECTED 02/10/23 18:00 Nasal Parainfluen 3 PCR NOT DETECTED 02/10/23 18:00 Nasal Parainfluen 4 PCR NOT DETECTED 02/10/23 18:00 Nasal RSV (PCR) NOT DETECTED 02/10/23 18:00 Nasal Screen MRSA (PCR) NEGATIVE (NEGATIVE) 02/10/23 22:05 Nasal B.pertussis DNA PCR NOT DETECTED 02/10/23 18:00 Nasal C.pneumoniae (PCR) NOT DETECTED 02/10/23 18:00 [place] Human Metapneumo PCR NOT DETECTED 02/10/23 18:00 Nasal M.pneumoniae (PCR) NOT DETECTED 02/10/23 18:00 Nasal SARS-CoV-2 (PCR) NOT DETECTED 02/10/23 18:00 Sepsis Event Note (H) - Evaluation Current Stage of Sepsis: Septic shock Possible source of Sepsis: positive: GI tract/intra-abdominal, Genitourinary - Sepsis Criteria Sepsis Criteria: WBC count greater than 12,000 or less than 4000, MAP less than 65 mmHg, Metabolic: lactate > 2 mmol/L Current Medications - Current Medications Current Medications: Active Medications Generic Name Dose Route Start Last Admin Trade Name Freq PRN Reason Stop Dose Admin Acetaminophen 650 mg 02/10/23 20:41 Acetaminophen 325 Mg Tablet PO Q4HR PRN Pain 1 to 4, or Fever Hydrocodone Bitart/Acetaminophen 1 tab 02/10/23 20:41 Hydrocod/Acetam 10 Mg/325 Mg Tablet PO Q4HR PRN Pain 8 to 10 Aspirin 81 mg 02/12/23 09:00 Aspirin Chew 81 Mg Tablet PO DAILY [facility] Atorvastatin Calcium 80 mg 02/11/23 21:00 02/11/23 21:05 Atorvastatin 40 Mg Tablet PO Not Given QPM [facility] Enoxaparin Sodium 100 mg 02/12/23 09:00 Enoxaparin 100 Mg/Ml Syringe SUBQ DAILY [facility] Famotidine 20 mg 02/11/23 21:00 02/11/23 20:58 Famotidine 20 Mg/2 Ml Vial IVP 20 mg BID ELIZABETH Administration Hydrocortisone Sodium Succinate 50 mg 02/11/23 11:00 02/12/23 04:28 Hydrocortisone Succinate 100 Mg/2 Ml Vial IVP 02/16/23 10:59 50 mg Q6H ELIZABETH Administration Dextrose 1,000 mls @ 100 mls/hr 02/11/23 08:00 02/12/23 08:21 D5w IV 100 mls/hr .Q10H ELIZABETH Administration Piperacillin Sod/Tazobactam 100 mls @ 25 mls/hr 02/11/23 12:00 02/12/23 04:11 Sod 3.375 gm/ Sodium Chloride IV 25 mls/hr Q8H ELIZABETH Administration Vancomycin HCl 1 gm/ Sodium 250 mls @ 167 mls/hr 02/11/23 18:00 02/11/23 20:05 Chloride IV Infused Q24H ELIZABETH Infusion Norepinephrine Bitartrate 8 mg 250 mls @ 45 mls/hr 02/11/23 12:00 02/12/23 08:34 / Dextrose IV 26 mcg/min .Q5H34M ELIZABETH 48.75 mls/hr Administration Protocol 24 MCG/MIN Phenylephrine HCl 20 mg/ 250 mls @ 75 mls/hr 02/11/23 10:38 02/12/23 08:02 Sodium Chloride IV 20 mcg/min .Q3H20M ELIZABETH 15 mls/hr Administration Protocol 100 MCG/MIN Acetaminophen 1,000 mg in 100 mls @ 400 mls/hr 02/12/23 03:47 02/12/23 05:10 Acetaminophen IV Infused Q6HR PRN Infusion Mild Pain or Fever>38C(100.4F) Potassium Chloride 10 meq in 100 mls @ 100 mls/hr 02/12/23 08:00 02/12/23 08:45 Potassium Chloride IV 02/12/23 09:59 100 mls/hr Q1H ELIZABETH Administration Insulin Human Regular 1 - 5 unit 02/11/23 12:00 02/12/23 06:00 Insulin Regular Human 300 Unit/3 Ml Vial SUBQ 5 unit Q6HR ELIZABETH Administration Protocol Levothyroxine Sodium 50 mcg 02/12/23 07:00 02/12/23 07:05 Levothyroxine 25 Mcg Tablet PO Not Given QDAC ELIZABETH Multi-Ingredient Ointment 1 applic 02/10/23 21:41 02/12/23 07:19 Zinc Oxide 20% Oint 30 Gm Tube TOP 1 applic PRN PRN Administration Skin Care Apixaban [Eliquis] 5 mg PO BID 06/15/21 Canagliflozin [Invokana] 100 mg PO DAILY 06/15/21 Insulin Glargine [Lantus Solostar] 10 units SUBQ BID 06/15/21 Levothyroxine Sodium 50 mcg PO QDAC 06/15/21 Metoprolol Succinate [Toprol Xl] 50 mg PO QPM 06/15/21 Multivitamin 1 tab PO DAILY 06/15/21 Pantoprazole [Protonix] 40 mg PO BIDAC 06/15/21 Sacubitril/Valsartan [Entresto 24 mg-26 mg Tablet] 1 tab PO QPM 06/15/21 Sertraline [Zoloft] 50 mg PO DAILY 06/15/21 Brimonidine Tartrate/Timolol [Combigan 0.2%-0.5% Eye Drops] 1 drops EACHEYE BID 06/16/21 Calcium Carbonate [Tums (Calcium Carbonate 500mg)] 1,000 mg PO Q8H PRN 06/16/21 Cholecalciferol (Vitamin D3) [Vitamin D3] 50 mcg PO DAILY 06/16/21 Insulin Regular Human [Humulin R] 3 unit SUBQ AC 06/16/21 Spironolactone [Aldactone] 25 mg PO DAILY 02/10/23 Acetaminophen [Tylenol] 650 mg PO Q6H PRN 02/11/23 Aspirin Chewable [[place] Aspirin] 81 mg PO DAILY 02/11/23 Atorvastatin Calcium [Lipitor] 80 mg PO QPM 02/11/23 Carboxymethylcellulose Sodium 1 applic EACHEYE QPM 02/11/23 Sacubitril/Valsartan [Entresto 24 mg-26 mg Tablet] 2 tab PO DAILY 02/11/23
[2023-02-12] MEDS: FAMOTIDINE 20 MG/2 ML VIAL IVP SCH ×2 (09:55→20:28)
[2023-02-12] MEDS: ENOXAPARIN 100 MG/ML SYRINGE SUBQ SCH (09:56)
[2023-02-12 10:52] LABS: ESTIMATED AVERAGE GLUCOSE 120 mg/dL (70-100); HEMOGLOBIN A1c% 5.8 % (4.27-6.07)
[2023-02-12 12:35] LABS: CALCIUM, IONIZED 1.21 mmol/L (1.15-1.33); VBG PH 7.385 (7.31-7.41)
--- NOTE | 2023-02-12 17:20 | ANESTHESIA PROCEDURE NOTE ---
Anesth Central Line Template - Central Line Central Line Preparation: Unable to obtain consent (unable to contact by phone, hospitalist deemed medically necessary/urgent), Time out completed, Ultrasound used, Sterile prep and drape (sterile gloves/drape, cap/mask on all personnel and pt. chloraprepx2, wire visualized via u/s in r ij prior to dilation and cannulation. 3x ports aspirate blood. no changes in vs, no complications noted, CXR for placement) Central line location: Right IJ Central line type: Triple lumen Central line catheter tip site resides: Superior vena cava (SVC) Central line aftercare: Chlorhexidine disc placed, Secured, Placement confirmed, No pneumothorax, No complications, Bundle checklist complete, Pt tolerated well
--- NOTE | 2023-02-12 17:47 | XRAY Report ---
PROCEDURE: Chest for Line Placement INDICATIONS: Central line placement TECHNIQUE: One view of the chest was acquired. COMPARISON: CT chest 02/11/2023 FINDINGS: Surgical changes and devices: Right internal jugular catheter is seen with tip projecting over the s uperior cavoatrial junction. Sternotomy wires and mediastinal clips are present. Surgical clips proje ct over the right upper quadrant and left upper quadrant of the abdomen. Lungs and pleura: Trace pleural effusion seen on CT are not well-visualized radiographically. No foc al consolidation. No pneumothorax. Mediastinum: Mediastinal contours appear normal. Heart size is normal. Bones and chest wall: No suspicious bony lesions. Overlying soft tissues appear unremarkable. IMPRESSION: Right internal jugular catheter is seen with tip projecting over the superior cavoatrial junction. No pneumothorax. Reviewed by: Naresh Boswell MD on 02/12/2023 5:46 PM PST Approved by: Naresh Boswell MD on 02/12/2023 5:46 PM PST Station ID: [id number]
[2023-02-12] MEDS: ASPIRIN CHEW 81 MG TABLET PO SCH (18:16)
[2023-02-12] MEDS: VANCOMYCIN INJ 1 GM in SODIUM CHLORIDE 0.9% 250 ML IV SCH (18:39)
[2023-02-12] MEDS: ATORVASTATIN 40 MG TABLET PO SCH (20:28)
[2023-02-13] MEDS: POTASSIUM CHLOR 20 MEQ/100 ML 20 MEQ/100 ML BAG IV SCH ×4 (00:07→12:47)
[2023-02-13] MEDS: INSULIN REGULAR HUMAN 300 UNIT/3 ML VIAL SUBQ SCH ×4 (00:08→18:15)
[2023-02-13] MEDS: NORepinephrine 8 MG in DEXTROSE 5% 250ML IV SCH ×4 (01:23→19:53)
[2023-02-13] MEDS: PHENYLEPHRINE 20 MG in SODIUM CHLORIDE 0.9% 248 ML IV SCH ×6 (01:23→19:53)
[2023-02-13] MEDS: HYDROCORTISONE SUCCINATE 100 MG/2 ML VIAL IVP SCH (04:32)
[2023-02-13] MEDS: PIPERACILLIN/TAZOBACTAM 3.375 GM in SODIUM CHLORIDE 0.9% MINIBAG 100 ML IV SCH ×3 (04:32→20:23)
[2023-02-13] MEDS: DEXTROSE 5% 1,000 ML IV SCH ×2 (04:32→11:39)
[2023-02-13] MEDS: LEVOTHYROXINE 25 MCG TABLET PO SCH (05:36)
[2023-02-13 05:38] LABS: BASOPHILS % (AUTO) 0.1 %; HCT - HEMATOCRIT 42.1 % (37.0-47.0); HGB - HEMOGLOBIN 12.9 g/dL (12.0-16.0); LYMPHOCYTES # (AUTO) 1.6 10^3/uL (1.5-3.5); LYMPHOCYTES % (AUTO) 5.5 %; MEAN CORPUSCULAR HEMOGLOBIN 28.4 pg (27.0-31.0); MEAN CORPUSCULAR HGB CONC 30.6 g/dL (32.0-36.0); MEAN CORPUSCULAR VOLUME 92.7 fL (81.0-99.0); MEAN PLATELET VOLUME 13.5 fL (7.9-10.8); MONOCYTES % (AUTO) 3.3 %; NEUTROPHILS # (AUTO) 26.6 10^3/uL (1.5-6.6); NEUTROPHILS % (AUTO) 90.1 %; PLT - PLATELET COUNT 263 10^3/uL (130-450); RED BLOOD COUNT 4.54 10^6/uL (4.20-5.40); RED CELL DISTRIBUTION WIDTH 15.6 % (12.0-15.0); WHITE BLOOD COUNT 29.5 x10^3/uL (4.8-10.8)
[2023-02-13 06:15] LABS: VBG PH 7.406 (7.31-7.41)
[2023-02-13 06:16] LABS: CALCIUM, IONIZED 1.21 mmol/L (1.15-1.33)
[2023-02-13 07:05] LABS: MAGNESIUM 1.6 mg/dL (1.7-2.3); PHOSPHORUS 1.4 mg/dL (2.5-5.0)
[2023-02-13 07:06] LABS: CALCIUM 8.8 mg/dL (8.5-10.3); CREATININE 0.7 mg/dL (0.6-1.3); POTASSIUM 3.6 mmol/L (3.5-4.5)
[2023-02-13] MEDS ORDERED: MAGNESIUM SULFATE 2 GRAM 2 GM/50 ML BAG IV ONE (07:07)
[2023-02-13] MEDS ORDERED: SODIUM PHOSPHATE 21 MMOL in SODIUM CHLORIDE 0.9% 250 ML IV ONE (07:07)
[2023-02-13] MEDS ORDERED: POTASSIUM CHLOR 20 MEQ/100 ML 20 MEQ/100 ML BAG IV ONE ×2 (07:30→16:34)
[2023-02-13 08:07] LABS: DIFFERENTIAL COMMENT MANUAL=AUTO DIFF; PLATELET ESTIMATE, MANUAL NORMAL (130-450,000) (NORMAL); PLATELET MORPHOLOGY NORMAL APPEARANCE (NORMAL); RBC MORPHOLOGY (MULTIPLE) NORMAL APPEARANCE (NORMAL); WBC MORPHOLOGY (MULTIPLE) NORMAL APPEARANCE (NORMAL)
[2023-02-13] MEDS: ASPIRIN CHEW 81 MG TABLET PO SCH (08:27)
[2023-02-13] MEDS: FAMOTIDINE 20 MG/2 ML VIAL IVP SCH ×2 (08:27→20:24)
[2023-02-13] MEDS: ENOXAPARIN 100 MG/ML SYRINGE SUBQ SCH (08:27)
[2023-02-13] MEDS ORDERED: FAMOTIDINE 20 MG/2 ML VIAL IVP SCH (09:00)
[2023-02-13] MEDS ORDERED: FLUCONAZOLE 200 MG/100 ML 50 ML IV ONE (11:00)
[2023-02-13 11:36] LABS: MAGNESIUM 2.3 mg/dL (1.7-2.3); POTASSIUM 3.3 mmol/L (3.5-4.5)
--- NOTE | 2023-02-13 12:44 | PROVIDER PROGRESS NOTE ---
Assessment/Plan - Problem List (1) Septic shock Assessment/Plan: (1) Septic shock Assessment/Plan: --Question of UTI, culture showing gram negative. Will follow up. --CT abd/pelvis showing evidence of colitis. --Will order a stool PCR. --Vancomycin discontinued on 02/13. Continue IV Zosyn. --Weaning down pressors. Remains on Levophed. Stopped Solu-Cortef. --Blood cultures NGTD. -- I had several discussions regarding CODE STATUS with her medical power of county attorney which is her as well as her son. They were agreed jointly to make her DNR. --She was more alert and oriented. (2) Ischemic cardiomyopathy Assessment/Plan: --TTE from June 2021 showing LVEF of 55 to 60% with grade 1 diastolic dysfunction. -- Holding all antihypertensives given she is on vasopressor medication for circulatory shock. --Patient does have a prior history of coronary artery disease s/p CABG x5. We will continue her aspirin and statin. -- She also had cardiac resuscitation in 2021. I question if there was some anoxic brain injury from this event. (3) Paroxysmal atrial fibrillation Assessment/Plan: -- Continue to monitor on telemetry. --I do not think she would be able to take oral apixaban at this time. We will start her on therapeutic doses of Lovenox for anticoagulation. (4) Urinary tract infection Qualifiers: Urinary tract infection type: site unspecified Hematuria presence: without hematuria Qualified Code(s): N39.0 - Urinary tract infection, site not specified Assessment/Plan: -- Urine culture currently pending. --Continue on IV vancomycin and Zosyn. (5) RAGHAV (acute kidney injury) Assessment/Plan: -- Baseline creatinine under 1. Continue IV D5 and water. (6) CVA (cerebral vascular accident) Assessment/Plan: -- History of CVA with residual right-sided deficits. Continue aspirin and statin. -- Currently resides at the [facility]. -- She has had very poor nutrition over the last little while. 23 kg weight loss in 18 months weight loss with sacral wounds and is essentially bedridden. Nutrition is following. She does portend a very poor prognosis. Palliative care has been consulted. -- If she is not able to take p.o. nutrition over the next 48 hours may need taken to consider enteral nutrition. (7) Closed head injury Qualifiers: Encounter type: initial encounter Qualified Code(s): S09.90XA - Unspecified injury of head, initial encounter Assessment/Plan: --Fall 1 week ago with a closed head injury. (8) Fall Qualifiers: Encounter type: initial encounter Qualified Code(s): W19.XXXA - Unspecified fall, initial encounter (9) Hypernatremia Assessment/Plan: --Hyponatremia due to poor oral intake and free water deficit over the past several days. -- We will start her on D5 water and continue to monitor sodium. (10) Hypothyroid Assessment/Plan: --Continue levothyroxine. (12) Type 2 diabetes mellitus Assessment/Plan: --Continue sliding scale insulin while she is NPO. Anticipate >96 hours due to critical nature of her medical condition. (4) Urinary tract infection Qualifiers: Urinary tract infection type: site unspecified Hematuria presence: without hematuria Qualified Code(s): N39.0 - Urinary tract infection, site not spe cified (7) Closed head injury Qualifiers: Encounter type: initial encounter Qualified Code(s): S09.90XA - Unspecified injury of head, initial encounter (8) Fall Qualifiers: Encounter type: initial encounter Qualified Code(s): W19.XXXA - Unspecified fall, initial encounter - Current Meds Current Meds: Current Medications Generic Name Dose Route Start Last Admin Trade Name Freq PRN Reason Stop Dose Admin Aspirin 81 mg 02/12/23 09:00 02/13/23 08:27 Aspirin Chew 81 Mg Tablet PO Not Given DAILY ELIZABETH Atorvastatin Calcium 80 mg 02/11/23 21:00 02/12/23 20:28 Atorvastatin 40 Mg Tablet PO Not Given QPM ELIZABETH Enoxaparin Sodium 100 mg 02/12/23 09:00 02/13/23 08:27 Enoxaparin 100 Mg/Ml Syringe SUBQ 100 mg DAILY ELIZABETH Administration Famotidine 20 mg 02/11/23 21:00 02/13/23 08:27 Famotidine 20 Mg/2 Ml Vial IVP 20 mg BID ELIZABETH Administration Dextrose 1,000 mls @ 100 mls/hr 02/11/23 08:00 02/13/23 11:39 D5w IV 100 mls/hr .Q10H ELIZABETH Administration Piperacillin Sod/Tazobactam 100 mls @ 25 mls/hr 02/11/23 12:00 02/13/23 11:38 Sod 3.375 gm/ Sodium Chloride IV 25 mls/hr Q8H ELIZABETH Administration Norepinephrine Bitartrate 8 mg 250 mls @ 45 mls/hr 02/11/23 12:00 02/13/23 12:00 / Dextrose IV 10 mcg/min .Q5H34M ELIZABETH 18.75 mls/hr Titration Protocol 24 MCG/MIN Phenylephrine HCl 20 mg/ 250 mls @ 75 mls/hr 02/11/23 10:38 02/13/23 11:28 Sodium Chloride IV Not Given .Q3H20M ELIZABETH Protocol 100 MCG/MIN Acetaminophen 1,000 mg in 100 mls @ 400 mls/hr 02/12/23 03:47 02/12/23 05:10 Acetaminophen IV Infused Q6HR PRN Infusion Mild Pain or Fever>38C(100.4F) Potassium Chloride 20 meq in 100 mls @ 100 mls/hr 02/13/23 12:00 02/13/23 11:53 Potassium Chloride IV 02/13/23 13:59 100 mls/hr Q1H ELIZABETH Administration Protocol Insulin Human Regular 2 - 10 unit 02/12/23 12:00 02/13/23 11:39 Insulin Regular Human 300 Unit/3 Ml Vial SUBQ 2 unit Q6HR ELIZABETH Administration Protocol Levothyroxine Sodium 50 mcg 02/12/23 07:00 02/13/23 05:36 Levothyroxine 25 Mcg Tablet PO Not Given QDAC [facility] Multi-Ingredient Ointment 1 applic 02/10/23 21:41 02/12/23 07:19 Zinc Oxide 20% Oint 30 Gm Tube TOP 1 applic PRN PRN Administration Skin Care - Lab Result Fish Bone Diagrams: 02/13/23 04:27 02/13/23 11:00 - Additional Planning My Orders: My Active Orders 02/12/23 12:00 Insulin Regular Human [Humulin R] 2 - 10 unit SUBQ Q6HR 02/13/23 13:00 PHOSPHORUS [CHEM] Timed 02/14/23 05:00 BMP - BASIC METABOLIC PANEL [CHEM] DAILYLAB CBC [CBC - COMP BLD CT W/AUTO DIFF] [HEME] DAILYLAB 02/15/23 05:00 BMP - BASIC METABOLIC PANEL [CHEM] DAILYLAB CBC [CBC - COMP BLD CT W/AUTO DIFF] [HEME] DAILYLAB 02/16/23 05:00 BMP - BASIC METABOLIC PANEL [CHEM] DAILYLAB CBC [CBC - COMP BLD CT W/AUTO DIFF] [HEME] DAILYLAB Subjective - Subjective Patient Reports: Other (More alert and oriented. Able to tell me her location. Weaning down pressors. Will continue IV Zosyn.) Objective Vital Signs: Vital Signs - 24 hr 02/12/23 02/12/23 02/12/23 13:00 14:00 15:00 Temperature 37.4 C 37.3 C Heart Rate [ 74 72 79 Monitoring electrodes] Respiratory 27 H 28 H 25 H Rate Blood Pressure 113/62 106/51 L 119/66 [Right Brachial artery] O2 Saturation 99 98 99 02/12/23 02/12/23 02/12/23 16:00 17:00 18:00 Temperature 37.2 C Heart Rate [ 77 78 74 Monitoring electrodes] Respiratory 26 H 27 H 25 H Rate Blood Pressure 107/66 103/53 L 109/74 [Right Brachial artery] O2 Saturation 100 99 100 02/12/23 02/12/23 02/12/23 19:00 19:10 19:20 Temperature 36.9 C 36.9 C 36.9 C Heart Rate [ 72 73 73 Monitoring electrodes] Respiratory 25 H 25 H 24 Rate Blood Pressure 109/61 103/62 101/57 L [Right Brachial artery] O2 Saturation 100 100 100 02/12/23 02/12/23 02/12/23 19:25 19:30 19:35 Temperature 36.9 C 36.9 C 36.9 C Heart Rate [ 74 73 74 Monitoring electrodes] Respiratory 24 24 Rate Blood Pressure 106/56 L 102/62 104/56 L [Right Brachial artery] O2 Saturation 100 100 100 02/12/23 02/12/23 02/12/23 19:40 19:50 20:00 Temperature 36.9 C 36.8 C 36.8 C Heart Rate [ 72 74 75 Monitoring electrodes] Respiratory 22 Rate Blood Pressure 102/57 L 106/56 L 103/62 [Right Brachial artery] O2 Saturation 100 100 100 02/12/23 02/12/23 02/12/23 21:00 22:00 22:15 Temperature 36.9 C 36.9 C 36.9 C Heart Rate [ 76 74 75 Monitoring electrodes] Respiratory 22 25 H 23 Rate Blood Pressure 95/58 L 100/59 L 102/58 L [Right Brachial artery] O2 Saturation 100 99 100 02/12/23 02/13/23 02/13/23 23:00 00:00 01:00 Temperature 36.9 C 36.8 C 36.7 C Heart Rate [ 73 71 71 Monitoring electrodes] Respiratory 22 21 24 Rate Blood Pressure 110/60 100/56 L 107/54 L [Right Brachial artery] O2 Saturation 99 100 99 02/13/23 02/13/23 02/13/23 02:00 03:00 04:00 Temperature 36.7 C 36.7 C 36.7 C Heart Rate [ 66 73 71 Monitoring electrodes] Respiratory 25 H 22 26 H Rate Blood Pressure 97/56 L 111/57 L 101/57 L [Right Brachial artery] O2 Saturation 100 99 99 02/13/23 02/13/23 02/13/23 05:00 06:00 06:21 Temperature 36.7 C 36.6 C Heart Rate [ 70 72 100 Monitoring electrodes] Respiratory 24 27 H 11 L Rate Blood Pressure 110/59 L 102/63 143/96 H [Right Brachial artery] O2 Saturation 100 99 99 02/13/23 02/13/23 02/13/23 07:00 08:00 09:00 Temperature 36.5 C 36.6 C Heart Rate [ 78 78 71 Monitoring electrodes] Respiratory 21 24 22 Rate Blood Pressure 109/58 L 115/58 L 110/55 L [Right Brachial artery] O2 Saturation 100 100 98 02/13/23 02/13/23 02/13/23 10:00 11:00 12:00 Temperature 36.5 C Heart Rate [ 68 69 69 Monitoring electrodes] Respiratory 22 23 24 Rate Blood Pressure 94/51 L 108/59 L 101/56 L [Right Brachial artery] O2 Saturation 97 98 99 Oxygen O2 Source Room air I&O (Last 24 Hrs): Intake and Output Totals x24h 02/11/23 02/12/23 02/13/23 23:59 23:59 23:59 Intake Total 3900.459 4862.326 2741.167 Output Total 2055 2084 655 Balance 1847.609 0999.326 6.167 General: Cooperative, No acute distress Neuro: Alert, CN 2-12 Grossly Intact, Oriented Times 3 Cardiovascular: Regular rate, Normal S1, Normal S2, No murmurs Respiratory: Chest non-tender, No respiratory distress, Breath sounds nml Abdomen: Normal bowel sounds, Soft, No tenderness, No hepatospenomegaly, No masses Extremities: No clubbing, No cyanosis, No edema, Normal pulses, No tenderness/swelling - Results Results: Laboratory Results WBC 29.5 x10^3/uL (4.8-10.8) H 02/13/23 04:27 RBC 4.54 10^6/uL (4.20-5.40) 02/13/23 04:27 Hgb 12.9 g/dL (12.0-16.0) 02/13/23 04:27 Hct 42.1 % (37.0-47.0) 02/13/23 04:27 MCV 92.7 fL (81.0-99.0) 02/13/23 04:27 MCH 28.4 pg (27.0-31.0) 02/13/23 04:27 MCHC 30.6 g/dL (32.0-36.0) L 02/13/23 04:27 RDW 15.6 % (12.0-15.0) H 02/13/23 04:27 Plt Count 263 10^3/uL (130-450) 02/13/23 04:27 MPV 13.5 fL (7.9-10.8) H 02/13/23 04:27 Neut # (Auto) 26.6 10^3/uL (1.5-6.6) H 02/13/23 04:27 Lymph # (Auto) 1.6 10^3/uL (1.5-3.5) 02/13/23 04:27 Motley # (Auto) 1.0 10^3/uL (0.0-1.0) 02/13/23 04:27 Eos # (Auto) 0.0 10^3/uL (0.0-0.7) 02/13/23 04:27 Baso # (Auto) 0.0 10^3/uL (0.0-0.1) 02/13/23 04:27 Absolute Nucleated RBC 0.00 x10^3/uL 02/13/23 04:27 Total Counted 100 02/11/23 04:24 Band Neuts % (Manual) Not Reportable 02/13/23 04:27 Abnorm Lymph % (Manual) Not Reportable 02/13/23 04:27 Nucleated RBC % 0.0 /100WBC 02/13/23 04:27 Neutrophils # (Manual) Not Reportable 02/13/23 04:27 Lymphocytes # (Manual) Not Reportable 02/13/23 04:27 Monocytes # (Manual) Not Reportable 02/13/23 04:27 Eosinophils # (Manual) Not Reportable 02/13/23 04:27 Basophils # (Manual) Not Reportable 02/13/23 04:27 Differential Comment MANUAL=AUTO DIFF 02/13/23 04:27 Manual Slide Review Indicated 02/10/23 17:51 WBC Morphology NORMAL APPEARANCE (NORMAL) 02/13/23 04:27 Platelet Estimate NORMAL (130-450,000) (NORMAL) 02/13/23 04:27 Platelet Morphology NORMAL APPEARANCE (NORMAL) 02/13/23 04:27 RBC Morph Micro Appear NORMAL APPEARANCE (NORMAL) 02/13/23 04:27 PT 21.3 secs (9.9-12.6) H 02/10/23 17:51 INR 2.1 (0.8-1.2) H 02/10/23 17:51 APTT 28.1 secs (24.9-33.3) 02/10/23 17:51 VBG pH 7.406 (7.31-7.41) 02/13/23 04:27 Ionized Calcium 1.21 mmol/L (1.15-1.33) 02/13/23 04:27 Sodium 141 mmol/L (135-145) 02/13/23 04:27 Potassium 3.3 mmol/L (3.5-4.5) L 02/13/23 11:00 Chloride 111 mmol/L (101-111) 02/13/23 04:27 Carbon Dioxide 24 mmol/L (21-32) 02/13/23 04:27 Anion Gap 6.0 (6-13) 02/13/23 04:27 BUN 15 mg/dL (6-20) 02/13/23 04:27 Creatinine 0.7 mg/dL (0.6-1.3) 02/13/23 04:27 Estimated GFR (MDRD) 81 (>89) L 02/13/23 04:27 Glucose 259 mg/dL (74-104) H 02/13/23 04:27 POC Whole Bld Glucose 175 mg/dL (70 - 100) H 02/13/23 11:29 Estimat Average Glucose 120 mg/dL (70-100) H 02/12/23 04:47 Hemoglobin A1c % 5.8 % (4.27-6.07) 02/12/23 04:47 Lactic Acid 0.9 mmol/L (0.5-2.2) 02/11/23 04:24 Calcium 8.8 mg/dL (8.5-10.3) 02/13/23 04:27 Phosphorus 1.4 mg/dL (2.5-5.0) L 02/13/23 04:27 Magnesium 2.3 mg/dL (1.7-2.3) 02/13/23 11:00 Total Bilirubin 0.6 mg/dL (0.2-1.0) 02/11/23 04:24 AST 81 IU/L (10-42) H 02/11/23 04:24 ALT 55 IU/L (10-60) 02/11/23 04:24 Alkaline Phosphatase 78 IU/L (42-121) 02/11/23 04:24 Total Protein 5.8 g/dL (6.4-8.9) L 02/11/23 04:24 Albumin 3.2 g/dL (3.2-5.5) 02/11/23 04:24 Globulin 2.6 g/dL (2.1-4.2) 02/11/23 04:24 Albumin/Globulin Ratio 1.2 (1.0-2.2) 02/11/23 04:24 Lipase 66 U/L (11-82) 02/10/23 17:51 Urine Color YELLOW 02/10/23 18:05 Urine Clarity HAZY (CLEAR) 02/10/23 18:05 Urine pH 5.5 PH (5.0-7.5) 02/10/23 18:05 Ur Specific [place] >=1.030 (1.002-1.030) H 02/10/23 18:05 Urine Protein NEGATIVE mg/dL (NEGATIVE) 02/10/23 18:05 Urine Glucose (UA) 500 mg/dL (NEGATIVE) H 02/10/23 18:05 Urine Ketones NEGATIVE mg/dL (NEGATIVE) 02/10/23 18:05 Urine Occult Blood MODERATE (NEGATIVE) H 02/10/23 18:05 Urine Nitrite NEGATIVE (NEGATIVE) 02/10/23 18:05 Urine Bilirubin NEGATIVE (NEGATIVE) 02/10/23 18:05 Urine Urobilinogen 0.2 (NORMAL) E.U./dL (NORMAL) 02/10/23 18:05 Ur Leukocyte Esterase SMALL (NEGATIVE) H 02/10/23 18:05 Urine RBC 6-10 /HPF (0-5) H 02/10/23 18:05 Urine WBC >25 /HPF (0-5) H 02/10/23 18:05 Ur Epithelial Cells RARE Transitional /HPF (<= Few) 02/10/23 18:05 Ur Squamous Epith Cells NONE SEEN (<= Few) 02/10/23 18:05 Urine Bacteria Many /HPF (None Seen) H 02/10/23 18:05 Urine Yeast PRESENT 02/10/23 18:05 Ur Microscopic Review INDICATED 02/10/23 18:05 Urine Culture Comments INDICATED 02/10/23 18:05 Nasal Adenovirus (PCR) NOT DETECTED 02/10/23 18:00 Nasal B. parapertussis DNA (PCR) NOT DETECTED 02/10/23 18:00 Nasal Coronavir 229E PCR NOT DETECTED 02/10/23 18:00 Nasal Coronavir HKU1 PCR NOT DETECTED 02/10/23 18:00 Nasal Coronavir NL63 PCR NOT DETECTED 02/10/23 18:00 Nasal Coronavir OC43 PCR NOT DETECTED 02/10/23 18:00 Nasal Enterovir/Rhinovir PCR NOT DETECTED 02/10/23 18:00 Nasal Influenza B PCR NOT DETECTED 02/10/23 18:00 Nasal Influenza A PCR NOT DETECTED 02/10/23 18:00 Nasal Parainfluen 1 PCR NOT DETECTED 02/10/23 18:00 Nasal Parainfluen 2 PCR NOT DETECTED 02/10/23 18:00 Nasal Parainfluen 3 PCR NOT DETECTED 02/10/23 18:00 Nasal Parainfluen 4 PCR NOT DETECTED 02/10/23 18:00 Nasal RSV (PCR) NOT DETECTED 02/10/23 18:00 Nasal Screen MRSA (PCR) NEGATIVE (NEGATIVE) 02/10/23 22:05 Nasal B.pertussis DNA PCR NOT DETECTED 02/10/23 18:00 Nasal C.pneumoniae (PCR) NOT DETECTED 02/10/23 18:00 [place] Human Metapneumo PCR NOT DETECTED 02/10/23 18:00 Nasal M.pneumoniae (PCR) NOT DETECTED 02/10/23 18:00 Nasal SARS-CoV-2 (PCR) NOT DETECTED 02/10/23 18:00 Sepsis Event Note (H) - Evaluation Current Stage of Sepsis: Septic shock Possible source of Sepsis: positive: GI tract/intra-abdominal, Genitourinary - Sepsis Criteria Sepsis Criteria: WBC count greater than 12,000 or less than 4000, MAP less than 65 mmHg, Metabolic: lactate > 2 mmol/L Current Medications - Current Medications Current Medications: Active Medications Generic Name Dose Route Start Last Admin Trade Name Freq PRN Reason Stop Dose Admin Acetaminophen 650 mg 02/10/23 20:41 Acetaminophen 325 Mg Tablet PO Q4HR PRN Pain 1 to 4, or Fever Hydrocodone Bitart/Acetaminophen 1 tab 02/10/23 20:41 Hydrocod/Acetam 10 Mg/325 Mg Tablet PO Q4HR PRN Pain 8 to 10 Aspirin 81 mg 02/12/23 09:00 02/13/23 08:27 Aspirin Chew 81 Mg Tablet PO Not Given DAILY ELIZABETH Atorvastatin Calcium 80 mg 02/11/23 21:00 02/12/23 20:28 Atorvastatin 40 Mg Tablet PO Not Given QPM ELIZABETH Enoxaparin Sodium 100 mg 02/12/23 09:00 02/13/23 08:27 Enoxaparin 100 Mg/Ml Syringe SUBQ 100 mg DAILY ELIZABETH Administration Famotidine 20 mg 02/11/23 21:00 02/13/23 08:27 Famotidine 20 Mg/2 Ml Vial IVP 20 mg BID ELIZABETH Administration Dextrose 1,000 mls @ 100 mls/hr 02/11/23 08:00 02/13/23 11:39 D5w IV 100 mls/hr .Q10H ELIZABETH Administration Piperacillin Sod/Tazobactam 100 mls @ 25 mls/hr 02/11/23 12:00 02/13/23 11:38 Sod 3.375 gm/ Sodium Chloride IV 25 mls/hr Q8H ELIZABETH Administration Norepinephrine Bitartrate 8 mg 250 mls @ 45 mls/hr 02/11/23 12:00 02/13/23 12:00 / Dextrose IV 10 mcg/min .Q5H34M ELIZABETH 18.75 mls/hr Titration Protocol 24 MCG/MIN Phenylephrine HCl 20 mg/ 250 mls @ 75 mls/hr 02/11/23 10:38 02/13/23 12:47 Sodium Chloride IV Not Given .Q3H20M ELIZABETH Protocol 100 MCG/MIN Acetaminophen 1,000 mg in 100 mls @ 400 mls/hr 02/12/23 03:47 02/12/23 05:10 Acetaminophen IV Infused Q6HR PRN Infusion Mild Pain or Fever>38C(100.4F) Potassium Chloride 20 meq in 100 mls @ 100 mls/hr 02/13/23 12:00 02/13/23 12:47 Potassium Chloride IV 02/13/23 13:59 100 mls/hr Q1H [facility] Administration Protocol Insulin Human Regular 2 - 10 unit 02/12/23 12:00 02/13/23 11:39 Insulin Regular Human 300 Unit/3 Ml Vial SUBQ 2 unit Q6HR [facility] Administration Protocol Levothyroxine Sodium 50 mcg 02/12/23 07:00 02/13/23 05:36 Levothyroxine 25 Mcg Tablet PO Not Given QDAC [facility] Multi-Ingredient Ointment 1 applic 02/10/23 21:41 02/12/23 07:19 Zinc Oxide 20% Oint 30 Gm Tube TOP 1 applic PRN PRN Administration Skin Care Apixaban [Eliquis] 5 mg PO BID 06/15/21 Canagliflozin [Invokana] 100 mg PO DAILY 06/15/21 Insulin Glargine [Lantus Solostar] 10 units SUBQ BID 06/15/21 Levothyroxine Sodium 50 mcg PO QDAC 06/15/21 Metoprolol Succinate [Toprol Xl] 50 mg PO QPM 06/15/21 Multivitamin 1 tab PO DAILY 06/15/21 Pantoprazole [Protonix] 40 mg PO BIDAC 06/15/21 Sacubitril/Valsartan [Entresto 24 mg-26 mg Tablet] 1 tab PO QPM 06/15/21 Sertraline [Zoloft] 50 mg PO DAILY 06/15/21 Brimonidine Tartrate/Timolol [Combigan 0.2%-0.5% Eye Drops] 1 drops EACHEYE BID 06/16/21 Calcium Carbonate [Tums (Calcium Carbonate 500mg)] 1,000 mg PO Q8H PRN 06/16/21 Cholecalciferol (Vitamin D3) [Vitamin D3] 50 mcg PO DAILY 06/16/21 Insulin Regular Human [Humulin R] 3 unit SUBQ AC 06/16/21 Spironolactone [Aldactone] 25 mg PO DAILY 02/10/23 Acetaminophen [Tylenol] 650 mg PO Q6H PRN 02/11/23 Aspirin Chewable [[place] Aspirin] 81 mg PO DAILY 02/11/23 Atorvastatin Calcium [Lipitor] 80 mg PO QPM 02/11/23 Carboxymethylcellulose Sodium 1 applic EACHEYE QPM 02/11/23 Sacubitril/Valsartan [Entresto 24 mg-26 mg Tablet] 2 tab PO DAILY 02/11/23
[2023-02-13] MEDS ORDERED: FUROSEMIDE 40 MG/4 ML VIAL IVP SCH (18:00)
[2023-02-13] MEDS: SODIUM CHLORIDE 0.45% 1,000 ML IV SCH (18:19)
[2023-02-13] MEDS: ATORVASTATIN 40 MG TABLET PO SCH (19:54)
[2023-02-14] MEDS ORDERED: POTASSIUM CHLOR 20 MEQ/100 ML 20 MEQ/100 ML BAG IV ONE (00:06)
[2023-02-14] MEDS: INSULIN REGULAR HUMAN 300 UNIT/3 ML VIAL SUBQ SCH ×2 (00:17→06:13)
[2023-02-14] MEDS: ZINC OXIDE 20% OINT 30 GM TUBE TOP PRN ×2 (00:36→20:00)
[2023-02-14] MEDS: NORepinephrine 8 MG in DEXTROSE 5% 250ML IV SCH ×4 (01:58→20:19)
[2023-02-14] MEDS: PHENYLEPHRINE 20 MG in SODIUM CHLORIDE 0.9% 248 ML IV SCH ×3 (01:58→10:04)
[2023-02-14] MEDS: PIPERACILLIN/TAZOBACTAM 3.375 GM in SODIUM CHLORIDE 0.9% MINIBAG 100 ML IV SCH ×3 (04:31→19:55)
[2023-02-14 05:46] LABS: CALCIUM, IONIZED 1.16 mmol/L (1.15-1.33); VBG PH 7.394 (7.31-7.41)
[2023-02-14] MEDS: SODIUM CHLORIDE 0.45% 1,000 ML IV SCH ×2 (05:55→10:35)
[2023-02-14 05:56] LABS: MAGNESIUM 1.8 mg/dL (1.7-2.3); PHOSPHORUS 1.6 mg/dL (2.5-5.0)
[2023-02-14] MEDS ORDERED: MAGNESIUM SULFATE 2 GRAM 2 GM/50 ML BAG IV ONE (06:03)
[2023-02-14] MEDS: LEVOTHYROXINE 25 MCG TABLET PO SCH (06:20)
[2023-02-14 07:15] LABS: CALCIUM 8.3 mg/dL (8.5-10.3); CREATININE 0.7 mg/dL (0.6-1.3); POTASSIUM 3.3 mmol/L (3.5-4.5)
[2023-02-14 07:20] LABS: BASOPHILS # (AUTO) 0.1 10^3/uL (0.0-0.1); BASOPHILS % (AUTO) 0.2 %; EOSINOPHILS # (AUTO) 0.1 10^3/uL (0.0-0.7); EOSINOPHILS % (AUTO) 0.2 %; HCT - HEMATOCRIT 39.9 % (37.0-47.0); HGB - HEMOGLOBIN 12.6 g/dL (12.0-16.0); LYMPHOCYTES # (AUTO) 3.7 10^3/uL (1.5-3.5); LYMPHOCYTES % (AUTO) 14.6 %; MEAN CORPUSCULAR HEMOGLOBIN 28.6 pg (27.0-31.0); MEAN CORPUSCULAR HGB CONC 31.6 g/dL (32.0-36.0); MEAN CORPUSCULAR VOLUME 90.7 fL (81.0-99.0); MEAN PLATELET VOLUME 13.5 fL (7.9-10.8); MONOCYTES # (AUTO) 1.3 10^3/uL (0.0-1.0); MONOCYTES % (AUTO) 5.2 %; NRBC ABSOLUTE COUNT (AUTO) 0.02 x10^3/uL; NUCLEATED RED BLOOD CELLS AUTO 0.1 /100WBC; PLT - PLATELET COUNT 236 10^3/uL (130-450); RED CELL DISTRIBUTION WIDTH 15.7 % (12.0-15.0); WHITE BLOOD COUNT 25.6 x10^3/uL (4.8-10.8)
[2023-02-14 07:57] LABS: DIFFERENTIAL COMMENT MANUAL=AUTO DIFF; PLATELET ESTIMATE, MANUAL NORMAL (130-450,000) (NORMAL); PLATELET MORPHOLOGY NORMAL APPEARANCE (NORMAL); RBC MORPHOLOGY (MULTIPLE) 1+ ANISOCYTOSIS (NORMAL); WBC MORPHOLOGY (MULTIPLE) NORMAL APPEARANCE (NORMAL)
[2023-02-14] MEDS ORDERED: POTASSIUM PHOSPHATE 15 MMOL in SODIUM CHLORIDE 0.9% 250 ML IV ONE (08:00)
[2023-02-14] MEDS: FAMOTIDINE 20 MG/2 ML VIAL IVP SCH ×2 (08:18→21:15)
[2023-02-14] MEDS: ASPIRIN CHEW 81 MG TABLET PO SCH (08:18)
[2023-02-14] MEDS: ENOXAPARIN 100 MG/ML SYRINGE SUBQ SCH (08:18)
--- NOTE | 2023-02-14 10:30 | PROVIDER PROGRESS NOTE ---
Assessment/Plan - Problem List (1) Septic shock Assessment/Plan: (1) Septic shock Assessment/Plan: --Question of UTI, culture showing gram negative. Will follow up. --CT abd/pelvis showing evidence of colitis. --Will order a stool PCR. --Vancomycin discontinued on 02/13. Continue IV Zosyn. --Weaning down pressors. Remains on Levophed. Stopped Solu-Cortef. --Blood cultures NGTD. -- I had several discussions regarding CODE STATUS with her medical power of deputy county attorney which is her as well as her son. They were agreed jointly to make her DNR. --She was more alert and oriented today. Will start her on a regular diet. (2) Ischemic cardiomyopathy Assessment/Plan: --TTE from June 2021 showing LVEF of 55 to 60% with grade 1 diastolic dysfunction. -- Holding all antihypertensives given she is on vasopressor medication for circulatory shock. --Patient does have a prior history of coronary artery disease s/p CABG x5. We will continue her aspirin and statin. -- She also had cardiac resuscitation in 2021. I question if there was some anoxic brain injury from this event. (3) Paroxysmal atrial fibrillation Assessment/Plan: -- Continue to monitor on telemetry. --Restarted on oral Eliquis. --Holding metoprolol as she remains on pressors. She is currently in NSR. (4) Urinary tract infection Qualifiers: Urinary tract infection type: site unspecified Hematuria presence: without hematuria Qualified Code(s): N39.0 - Urinary tract infection, site not specified Assessment/Plan: -- Urine culture currently pending. --Continue on IV Zosyn. (5) RAGHAV (acute kidney injury) Assessment/Plan: --Resolved. (6) CVA (cerebral vascular accident) Assessment/Plan: -- History of CVA with residual right-sided deficits. Continue aspirin and statin. -- Currently resides at the [facility]. -- She has had very poor nutrition over the last little while. 23 kg weight loss in 18 months weight loss with sacral wounds and is essentially bedridden. Nutrition is following. -- If she is not able to take p.o. nutrition over the next 48 hours may need taken to consider enteral nutrition. She was able to tolerate a clear liquid diet. Will advance to a regular diet. She enjoys ensure. (7) Closed head injury Qualifiers: Encounter type: initial encounter Qualified Code(s): S09.90XA - Unspecified injury of head, initial encounter Assessment/Plan: --Fall 1 week ago with a closed head injury. (8) Fall Qualifiers: Encounter type: initial encounter Qualified Code(s): W19.XXXA - Unspecified fall, initial encounter (9) Hypernatremia Assessment/Plan: --Resolved. (10) Hypothyroid Assessment/Plan: --Continue levothyroxine. (12) Type 2 diabetes mellitus Assessment/Plan: --Continue sliding scale insulin. Anticipate >96 hours due to critical nature of her medical condition. Total critical care time 35 minutes. (4) Urinary tract infection Qualifiers: Urinary tract infection type: site unspecified Hematuria presence: without hematuria Qualified Code(s): N39.0 - Urinary tract infection, site not specified (7) Closed head injury Qualifiers: Encounter type: initial encounter Qualified Code(s): S09.90XA - Unspecified injury of head, initial encounter (8) Fall Qualifiers: Encounter type: initial encounter Qualified Code(s): W19.XXXA - Unspecified fall, initial encounter - Current Meds Current Meds: Current Medications Generic Name Dose Route Start Last Admin Trade Name Freq PRN Reason Stop Dose Admin Aspirin 81 mg 02/12/23 09:00 02/14/23 08:18 Aspirin Chew 81 Mg Tablet PO 81 mg DAILY ELIZABETH Administration Atorvastatin Calcium 80 mg 02/11/23 21:00 02/13/23 19:54 Atorvastatin 40 Mg Tablet PO Not Given QPM ELIZABETH Famotidine 20 mg 02/11/23 21:00 02/14/23 08:18 Famotidine 20 Mg/2 Ml Vial IVP 20 mg BID ELIZABETH Administration Furosemide 20 mg 02/13/23 18:00 02/13/23 18:19 Furosemide 40 Mg/4 Ml Vial IVP 02/14/23 17:59 20 mg ONCE ELIZABETH Administration Piperacillin Sod/Tazobactam 100 mls @ 25 mls/hr 02/11/23 12:00 02/14/23 04:31 Sod 3.375 gm/ Sodium Chloride IV 25 mls/hr Q8H ELIZABETH Administration Norepinephrine Bitartrate 8 mg 250 mls @ 45 mls/hr 02/11/23 12:00 02/14/23 10:22 / Dextrose IV 20 mcg/min .Q5H34M ELIZABETH 37.5 mls/hr Administration Protocol 24 MCG/MIN Phenylephrine HCl 20 mg/ 250 mls @ 75 mls/hr 02/11/23 10:38 02/14/23 10:04 Sodium Chloride IV Not Given .Q3H20M ELIZABETH Protocol 100 MCG/MIN Acetaminophen 1,000 mg in 100 mls @ 400 mls/hr 02/12/23 03:47 02/12/23 05:10 Acetaminophen IV Infused Q6HR PRN Infusion Mild Pain or Fever>38C(100.4F) Potassium Phosphate 15 mmol/ 255 mls @ 63.75 mls/hr 02/14/23 08:00 02/14/23 08:17 Sodium Chloride IV 02/14/23 11:59 63.75 mls/hr ONCE ONE Administration Protocol Levothyroxine Sodium 50 mcg 02/12/23 07:00 02/14/23 06:20 Levothyroxine 25 Mcg Tablet PO Not Given QDAC [facility] Multi-Ingredient Ointment 1 applic 02/10/23 21:41 02/14/23 00:36 Zinc Oxide 20% Oint 30 Gm Tube TOP 1 applic PRN PRN Administration Skin Care - Lab Result Fish Bone Diagrams: 02/14/23 04:30 02/14/23 04:30 - Additional Planning My Orders: My Active Orders 02/13/23 18:00 FUROSEMIDE INJ 40mg VIAL [LASIX INJ 40 mg VIAL] 20 mg IVP ONCE 02/14/23 07:08 Sodium Chloride 0.45% [Normal Saline 0.45%] 1,000 ml IV 50 mls/hr 02/14/23 08:00 Potassium Phosphate 15 mmol Sodium Chloride 0.9% [Normal Saline 0.9%] 250 ml IV ONCE 02/14/23 10:20 Blood Glucose Checks - Eating [RC] 0800,1200,1700,2100 Initiate Hypoglycemia Protocol [RC] .protocol 02/14/23 Lunch DIET [Regular Diet] [DIET] 02/14/23 12:00 Insulin Lispro [Humalog Kwikpen U-100] 1 - 5 unit SUBQ 0800,1200,1700,2100 Potassium Chlor 20 Meq/100 ml [Potassium Chloride] 20 meq in 100 ml IV Q1H 02/14/23 21:00 Apixaban [Eliquis] 5 mg PO BID Brimonidine Tartrate/Timolol [Combigan 0.2%-0.5% Eye Drops] 1 drops EACHEYE BID Carboxymethylcellulose 1% Opht [Refresh 1% Ophth Drops] DOSE drops EACHEYE QPM 02/15/23 05:00 BMP - BASIC METABOLIC PANEL [CHEM] DAILYLAB CBC [CBC - COMP BLD CT W/AUTO DIFF] [HEME] DAILYLAB 02/15/23 09:00 Cholecalciferol (Vitamin D3) [Vitamin D3] 50 mcg PO DAILY Multivitamin [Multivitamin] 1 tab PO DAILY 02/16/23 05:00 BMP - BASIC METABOLIC PANEL [CHEM] DAILYLAB CBC [CBC - COMP BLD CT W/AUTO DIFF] [HEME] DAILYLAB Subjective - Subjective Patient Reports: Resting Comfortably, No Complaints Nursing Reports: No Complaints (Improving. She is more alert therefore will trial more nutrition and restart some of her PO medications.) Objective Vital Signs: Vital Signs - 24 hr 02/13/23 02/13/23 02/13/23 11:00 12:00 13:00 Temperature 36.5 C 36.5 C Heart Rate [ 69 69 72 Monitoring electrodes] Respiratory 23 24 19 Rate Blood Pressure 108/59 L 101/56 L 104/51 L [Right Brachial artery] O2 Saturation 98 99 99 02/13/23 02/13/23 02/13/23 14:00 15:00 16:00 Temperature 36.7 C Heart Rate [ 69 66 66 Monitoring electrodes] Respiratory 22 27 H 28 H Rate Blood Pressure 95/59 L 105/52 L 104/57 L [Right Brachial artery] O2 Saturation 100 97 02/13/23 02/13/23 02/13/23 17:00 18:00 19:00 Temperature 36.4 C L 36.5 C Heart Rate [ 73 71 Monitoring electrodes] Respiratory 21 27 H 20 Rate Blood Pressure 116/83 H 94/55 L 100/57 L [Right Brachial artery] O2 Saturation 92 99 98 02/13/23 02/13/23 02/13/23 19:15 19:30 19:45 Temperature 36.5 C 36.5 C 36.5 C Heart Rate [ 63 75 70 Monitoring electrodes] Respiratory 27 H 26 H 25 H Rate Blood Pressure 100/55 L 106/56 L 105/52 L [Right Brachial artery] O2 Saturation 98 98 98 02/13/23 02/13/23 02/13/23 20:00 21:00 21:35 Temperature 36.5 C 36.6 C Heart Rate [ 72 65 62 Monitoring electrodes] Respiratory 24 22 Rate Blood Pressure 103/63 104/52 L 105/55 L [Right Brachial artery] O2 Saturation 98 100 02/13/23 02/13/23 02/13/23 21:40 21:45 21:50 Temperature Heart Rate [ 64 66 66 Monitoring electrodes] Respiratory Rate Blood Pressure 113/56 L 119/60 119/64 [Right Brachial artery] O2 Saturation 02/13/23 02/13/23 02/13/23 21:55 22:00 22:05 Temperature 36.5 C Heart Rate [ 70 75 69 Monitoring electrodes] Respiratory 22 Rate Blood Pressure 120/61 108/64 116/57 L [Right Brachial artery] O2 Saturation 98 02/13/23 02/13/23 02/13/23 22:10 22:15 22:20 Temperature Heart Rate [ 69 68 68 Monitoring electrodes] Respiratory Rate Blood Pressure 118/56 L 114/60 95/82 H [Right Brachial artery] O2 Saturation 02/13/23 02/13/23 02/13/23 22:25 22:30 22:35 Temperature 36.5 C Heart Rate [ 72 71 71 Monitoring electrodes] Respiratory Rate Blood Pressure 101/96 H 119/93 H 114/60 [Right Brachial artery] O2 Saturation 02/13/23 02/13/23 02/14/23 22:49 23:00 00:00 Temperature 36.5 C 36.4 C L Heart Rate [ 72 73 69 Monitoring electrodes] Respiratory 26 H 19 Rate Blood Pressure 122/61 105/75 117/57 L [Right Brachial artery] O2 Saturation 100 100 02/14/23 02/14/23 02/14/23 01:00 02:00 03:00 Temperature 36.5 C 36.5 C 36.4 C L Heart Rate [ 70 73 80 Monitoring electrodes] Respiratory 25 H 17 20 Rate Blood Pressure 119/62 112/59 L 101/62 [Right Brachial artery] O2 Saturation 100 95 100 02/14/23 02/14/23 02/14/23 04:00 04:30 04:35 Temperature 36.4 C L 36.5 C 36.5 C Heart Rate [ 73 64 71 Monitoring electrodes] Respiratory 22 25 H 23 Rate Blood Pressure 109/54 L 90/53 L 121/58 L [Right Brachial artery] O2 Saturation 100 100 100 02/14/23 02/14/23 02/14/23 04:40 04:45 05:00 Temperature 36.5 C 36.5 C Heart Rate [ 73 79 73 Monitoring electrodes] Respiratory 26 H 25 H 20 Rate Blood Pressure 121/65 123/65 122/65 [Right Brachial artery] O2 Saturation 100 02/14/23 02/14/23 02/14/23 05:15 05:30 06:00 Temperature 36.5 C Heart Rate [ 72 73 65 Monitoring electrodes] Respiratory 25 H Rate Blood Pressure 116/60 119/56 L 109/47 L [Right Brachial artery] O2 Saturation 99 02/14/23 02/14/23 02/14/23 07:00 08:00 09:00 Temperature 36.5 C 36.4 C L Heart Rate [ 63 74 66 Monitoring electrodes] Respiratory 18 23 Rate Blood Pressure 106/46 L 90/50 L 84/42 L [Right Brachial artery] O2 Saturation 99 100 100 02/14/23 10:00 Temperature 36.5 C Heart Rate [ 67 Monitoring electrodes] Respiratory 22 Rate Blood Pressure 100/45 L [Right Brachial artery] O2 Saturation 100 Oxygen O2 Source Room air I&O (Last 24 Hrs): Intake and Output Totals x24h 02/12/23 02/13/23 02/14/23 23:59 23:59 23:59 Intake Total 4862.326 4596.793 1778.905 Output Total 2085 1715 785 Balance 2777.326 2881.793 993.905 General: Alert, Cooperative, No acute distress Neuro: Alert Cardiovascular: Regular rate, Normal S1, Normal S2 Respiratory: Chest non-tender, No respiratory distress, Breath sounds nml Abdomen: Normal bowel sounds, Soft, No tenderness Extremities: No clubbing, No cyanosis, No edema - Results Results: Laboratory Results WBC 25.6 x10^3/uL (4.8-10.8) H 02/14/23 04:30 RBC 4.40 10^6/uL (4.20-5.40) 02/14/23 04:30 Hgb 12.6 g/dL (12.0-16.0) 02/14/23 04:30 Hct 39.9 % (37.0-47.0) 02/14/23 04:30 MCV 90.7 fL (81.0-99.0) 02/14/23 04:30 MCH 28.6 pg (27.0-31.0) 02/14/23 04:30 MCHC 31.6 g/dL (32.0-36.0) L 02/14/23 04:30 RDW 15.7 % (12.0-15.0) H 02/14/23 04:30 Plt Count 236 10^3/uL (130-450) 02/14/23 04:30 MPV 13.5 fL (7.9-10.8) H 02/14/23 04:30 Neut # (Auto) 20.0 10^3/uL (1.5-6.6) H 02/14/23 04:30 Lymph # (Auto) 3.7 10^3/uL (1.5-3.5) H 02/14/23 04:30 [place] # (Auto) 1.3 10^3/uL (0.0-1.0) H 02/14/23 04:30 Eos # (Auto) 0.1 10^3/uL (0.0-0.7) 02/14/23 04:30 Baso # (Auto) 0.1 10^3/uL (0.0-0.1) 02/14/23 04:30 Absolute Nucleated RBC 0.02 x10^3/uL 02/14/23 04:30 Total Counted 100 02/11/23 04:24 Band Neuts % (Manual) Not Reportable 02/14/23 04:30 Abnorm Lymph % (Manual) Not Reportable 02/14/23 04:30 Nucleated RBC % 0.1 /100WBC 02/14/23 04:30 Neutrophils # (Manual) Not Reportable 02/14/23 04:30 Lymphocytes # (Manual) Not Reportable 02/14/23 04:30 Monocytes # (Manual) Not Reportable 02/14/23 04:30 Eosinophils # (Manual) Not Reportable 02/14/23 04:30 Basophils # (Manual) Not Reportable 02/14/23 04:30 Differential Comment MANUAL=AUTO DIFF 02/14/23 04:30 Manual Slide Review Indicated 02/10/23 17:51 WBC Morphology NORMAL APPEARANCE (NORMAL) 02/14/23 04:30 Platelet Estimate NORMAL (130-450,000) (NORMAL) 02/14/23 04:30 Platelet Morphology NORMAL APPEARANCE (NORMAL) 02/14/23 04:30 RBC Morph Micro Appear 1+ ANISOCYTOSIS (NORMAL) 02/14/23 04:30 PT 21.3 secs (9.9-12.6) H 02/10/23 17:51 INR 2.1 (0.8-1.2) H 02/10/23 17:51 APTT 28.1 secs (24.9-33.3) 02/10/23 17:51 VBG pH 7.394 (7.31-7.41) 02/14/23 04:30 Ionized Calcium 1.16 mmol/L (1.15-1.33) 02/14/23 04:30 Sodium 140 mmol/L (135-145) 02/14/23 04:30 Potassium 3.3 mmol/L (3.5-4.5) L 02/14/23 04:30 Chloride 109 mmol/L (101-111) 02/14/23 04:30 Carbon Dioxide 22 mmol/L (21-32) 02/14/23 04:30 Anion Gap 9.0 (6-13) 02/14/23 04:30 BUN 10 mg/dL (6-20) 02/14/23 04:30 Creatinine 0.7 mg/dL (0.6-1.3) 02/14/23 04:30 Estimated GFR (MDRD) 81 (>89) L 02/14/23 04:30 Glucose 145 mg/dL (74-104) H 02/14/23 04:30 POC Whole Bld Glucose 163 mg/dL (70 - 100) H 02/14/23 06:11 Estimat Average Glucose 120 mg/dL (70-100) H 02/12/23 04:47 Hemoglobin A1c % 5.8 % (4.27-6.07) 02/12/23 04:47 Lactic Acid 0.9 mmol/L (0.5-2.2) 02/11/23 04:24 Calcium 8.3 mg/dL (8.5-10.3) L 02/14/23 04:30 Phosphorus 1.6 mg/dL (2.5-5.0) L 02/14/23 04:30 Magnesium 1.8 mg/dL (1.7-2.3) 02/14/23 04:30 Total Bilirubin 0.6 mg/dL (0.2-1.0) 02/11/23 04:24 AST 81 IU/L (10-42) H 02/11/23 04:24 ALT 55 IU/L (10-60) 02/11/23 04:24 Alkaline Phosphatase 78 IU/L (42-121) 02/11/23 04:24 Total Protein 5.8 g/dL (6.4-8.9) L 02/11/23 04:24 Albumin 3.2 g/dL (3.2-5.5) 02/11/23 04:24 Globulin 2.6 g/dL (2.1-4.2) 02/11/23 04:24 Albumin/Globulin Ratio 1.2 (1.0-2.2) 02/11/23 04:24 Lipase 66 U/L (11-82) 02/10/23 17:51 Urine Color YELLOW 02/10/23 18:05 Urine Clarity HAZY (CLEAR) 02/10/23 18:05 Urine pH 5.5 PH (5.0-7.5) 02/10/23 18:05 Ur Specific [place] >=1.030 (1.002-1.030) H 02/10/23 18:05 Urine Protein NEGATIVE mg/dL (NEGATIVE) 02/10/23 18:05 Urine Glucose (UA) 500 mg/dL (NEGATIVE) H 02/10/23 18:05 Urine Ketones NEGATIVE mg/dL (NEGATIVE) 02/10/23 18:05 Urine Occult Blood MODERATE (NEGATIVE) H 02/10/23 18:05 Urine Nitrite NEGATIVE (NEGATIVE) 02/10/23 18:05 Urine Bilirubin NEGATIVE (NEGATIVE) 02/10/23 18:05 Urine Urobilinogen 0.2 (NORMAL) E.U./dL (NORMAL) 02/10/23 18:05 Ur Leukocyte Esterase SMALL (NEGATIVE) H 02/10/23 18:05 Urine RBC 6-10 /HPF (0-5) H 02/10/23 18:05 Urine WBC >25 /HPF (0-5) H 02/10/23 18:05 Ur Epithelial Cells RARE Transitional /HPF (<= Few) 02/10/23 18:05 Ur Squamous Epith Cells NONE SEEN (<= Few) 02/10/23 18:05 Urine Bacteria Many /HPF (None Seen) H 02/10/23 18:05 Urine Yeast PRESENT 02/10/23 18:05 Ur Microscopic Review INDICATED 02/10/23 18:05 Urine Culture Comments INDICATED 02/10/23 18:05 Nasal Adenovirus (PCR) NOT DETECTED 02/10/23 18:00 Nasal B. parapertussis DNA (PCR) NOT DETECTED 02/10/23 18:00 Nasal Coronavir 229E PCR NOT DETECTED 02/10/23 18:00 Nasal Coronavir HKU1 PCR NOT DETECTED 02/10/23 18:00 Nasal Coronavir NL63 PCR NOT DETECTED 02/10/23 18:00 Nasal Coronavir OC43 PCR NOT DETECTED 02/10/23 18:00 Nasal Enterovir/Rhinovir PCR NOT DETECTED 02/10/23 18:00 Nasal Influenza B PCR NOT DETECTED 02/10/23 18:00 Nasal Influenza A PCR NOT DETECTED 02/10/23 18:00 Nasal Parainfluen 1 PCR NOT DETECTED 02/10/23 18:00 Nasal Parainfluen 2 PCR NOT DETECTED 02/10/23 18:00 Nasal Parainfluen 3 PCR NOT DETECTED 02/10/23 18:00 Nasal Parainfluen 4 PCR NOT DETECTED 02/10/23 18:00 Nasal RSV (PCR) NOT DETECTED 02/10/23 18:00 Nasal Screen MRSA (PCR) NEGATIVE (NEGATIVE) 02/10/23 22:05 Nasal B.pertussis DNA PCR NOT DETECTED 02/10/23 18:00 Nasal C.pneumoniae (PCR) NOT DETECTED 02/10/23 18:00 [place] Human Metapneumo PCR NOT DETECTED 02/10/23 18:00 Nasal M.pneumoniae (PCR) NOT DETECTED 02/10/23 18:00 Nasal SARS-CoV-2 (PCR) NOT DETECTED 02/10/23 18:00 Sepsis Event Note (H) - Evaluation Current Stage of Sepsis: Septic shock Possible source of Sepsis: positive: GI tract/intra-abdominal, Genitourinary - Sepsis Criteria Sepsis Criteria: WBC count greater than 12,000 or less than 4000, MAP less than 65 mmHg, Metabolic: lactate > 2 mmol/L Current Medications - Current Medications Current Medications: Active Medications Generic Name Dose Route Start Last Admin Trade Name Freq PRN Reason Stop Dose Admin Acetaminophen 650 mg 02/10/23 20:41 Acetaminophen 325 Mg Tablet PO Q4HR PRN Pain 1 to 4, or Fever Hydrocodone Bitart/Acetaminophen 1 tab 02/10/23 20:41 Hydrocod/Acetam 10 Mg/325 Mg Tablet PO Q4HR PRN Pain 8 to 10 Apixaban 5 mg 02/14/23 21:00 Apixaban 5 Mg Tablet PO BID ELIZABETH Aspirin 81 mg 02/12/23 09:00 02/14/23 08:18 Aspirin Chew 81 Mg Tablet PO 81 mg DAILY ELIZABETH Administration Atorvastatin Calcium 80 mg 02/11/23 21:00 02/13/23 19:54 Atorvastatin 40 Mg Tablet PO Not Given QPM ELIZABETH Carboxymethylcellulose 1 drops 02/14/23 21:00 Carboxymethylcellulose Ophth Drops EACHEYE QPM ELIZABETH Famotidine 20 mg 02/11/23 21:00 02/14/23 08:18 Famotidine 20 Mg/2 Ml Vial IVP 20 mg BID ELIZABETH Administration Furosemide 20 mg 02/13/23 18:00 02/13/23 18:19 Furosemide 40 Mg/4 Ml Vial IVP 02/14/23 17:59 20 mg ONCE ELIZABETH Administration Piperacillin Sod/Tazobactam 100 mls @ 25 mls/hr 02/11/23 12:00 02/14/23 04:31 Sod 3.375 gm/ Sodium Chloride IV 25 mls/hr Q8H ELIZABETH Administration Norepinephrine Bitartrate 8 mg 250 mls @ 45 mls/hr 02/11/23 12:00 02/14/23 10:22 / Dextrose IV 20 mcg/min .Q5H34M ELIZABETH 37.5 mls/hr Administration Protocol 24 MCG/MIN Phenylephrine HCl 20 mg/ 250 mls @ 75 mls/hr 02/11/23 10:38 02/14/23 10:04 Sodium Chloride IV Not Given .Q3H20M ELIZABETH Protocol 100 MCG/MIN Acetaminophen 1,000 mg in 100 mls @ 400 mls/hr 02/12/23 03:47 02/12/23 05:10 Acetaminophen IV Infused Q6HR PRN Infusion Mild Pain or Fever>38C(100.4F) Sodium Chloride 1,000 mls @ 50 mls/hr 02/14/23 07:08 Normal Saline 0.45% IV .Q20H ELIZABETH Potassium Chloride 20 meq in 100 mls @ 100 mls/hr 02/14/23 12:00 Potassium Chloride IV 02/14/23 12:59 Q1H [facility] Protocol Potassium Phosphate 15 mmol/ 255 mls @ 63.75 mls/hr 02/14/23 08:00 02/14/23 08:17 Sodium Chloride IV 02/14/23 11:59 63.75 mls/hr ONCE ONE Administration Protocol Insulin Human Lispro 1 - 5 unit 02/14/23 12:00 Insulin Lispro 300 Unit/3 Ml Pen SUBQ 0800,1200,1700,2100 [facility] Protocol Levothyroxine Sodium 50 mcg 02/12/23 07:00 02/14/23 06:20 Levothyroxine 25 Mcg Tablet PO Not Given QDAC [facility] Multi-Ingredient Ointment 1 applic 02/10/23 21:41 02/14/23 00:36 Zinc Oxide 20% Oint 30 Gm Tube TOP 1 applic PRN PRN Administration Skin Care Non-Formulary Medication 1 drops 02/14/23 21:00 Brimonidine Tartrate/Timolol [Combigan 0.2%-0.5% Eye Drops] EACHEYE BID [facility] Non-Formulary Medication 50 mcg 02/15/23 09:00 Cholecalciferol (Vitamin D3) [Vitamin D3] PO DAILY [facility] Non-Formulary Medication 1 tab 02/15/23 09:00 Multivitamin [Multivitamin] PO DAILY [facility] Apixaban [Eliquis] 5 mg PO BID 06/15/21 Canagliflozin [Invokana] 100 mg PO DAILY 06/15/21 Insulin Glargine [Lantus Solostar] 10 units SUBQ BID 06/15/21 Levothyroxine Sodium 50 mcg PO QDAC 06/15/21 Metoprolol Succinate [Toprol Xl] 50 mg PO QPM 06/15/21 Multivitamin 1 tab PO DAILY 06/15/21 Pantoprazole [Protonix] 40 mg PO BIDAC 06/15/21 Sacubitril/Valsartan [Entresto 24 mg-26 mg Tablet] 1 tab PO QPM 06/15/21 Sertraline [Zoloft] 50 mg PO DAILY 06/15/21 Brimonidine Tartrate/Timolol [Combigan 0.2%-0.5% Eye Drops] 1 drops EACHEYE BID 06/16/21 Calcium Carbonate [Tums (Calcium Carbonate 500mg)] 1,000 mg PO Q8H PRN 06/16/21 Cholecalciferol (Vitamin D3) [Vitamin D3] 50 mcg PO DAILY 06/16/21 Insulin Regular Human [Humulin R] 3 unit SUBQ AC 06/16/21 Spironolactone [Aldactone] 25 mg PO DAILY 02/10/23 Acetaminophen [Tylenol] 650 mg PO Q6H PRN 02/11/23 Aspirin Chewable [[place] Aspirin] 81 mg PO DAILY 02/11/23 Atorvastatin Calcium [Lipitor] 80 mg PO QPM 02/11/23 Carboxymethylcellulose Sodium 1 applic EACHEYE QPM 02/11/23 Sacubitril/Valsartan [Entresto 24 mg-26 mg Tablet] 2 tab PO DAILY 02/11/23
[2023-02-14] MEDS ORDERED: PHENYLEPHRINE 20 MG in SODIUM CHLORIDE 0.9% 248 ML IV PRN (11:02)
[2023-02-14] MEDS: INSULIN LISPRO 300 UNIT/3 ML PEN SUBQ SCH ×3 (11:21→21:34)
[2023-02-14] MEDS ORDERED: POTASSIUM CHLOR 20 MEQ/100 ML 20 MEQ/100 ML BAG IV SCH (12:00)
[2023-02-14 14:28] LABS: CALCIUM, IONIZED 1.15 mmol/L (1.15-1.33); VBG PH 7.402 (7.31-7.41)
[2023-02-14 14:42] LABS: MAGNESIUM 2.2 mg/dL (1.7-2.3); PHOSPHORUS 2.8 mg/dL (2.5-5.0)
--- NOTE | 2023-02-14 18:37 | XRAY Report ---
PROCEDURE: Chest for Line Placement INDICATIONS: Confirm c-line placement. May have been retracted. TECHNIQUE: One view of the chest was acquired. COMPARISON: None FINDINGS: Surgical changes and devices: Right IJ since venous line tip in the mid SVC. No pneumothorax. [place] e sternal wires present. Lungs and pleura: No pleural effusions or pneumothorax. Lungs are clear. Mediastinum: Mediastinal contours appear normal. Heart size is normal. Moderate vascular congestion . Atherosclerotic vascular calcification noted in the aortic arch. Bones and chest wall: No suspicious bony lesions. Overlying soft tissues appear unremarkable. IMPRESSION: Right IJ central venous line tip in the mid SVC. No pneumothorax Reviewed by: Fransisco Rose MD on 02/14/2023 5:35 PM AKST Approved by: Fransisco Rose MD on 02/14/2023 5:35 PM AKST Station ID: [id number]
[2023-02-14] MEDS: ATORVASTATIN 40 MG TABLET PO SCH (21:13)
[2023-02-14] MEDS: APIXABAN 5 MG TABLET PO SCH (21:13)
[2023-02-14] MEDS: TIMOLOL 0.5% OPHTH DROPS EACHEYE SCH (21:14)
[2023-02-14] MEDS: BRIMONIDINE 0.2% OPHTH DROPS 5 ML EACHEYE SCH (21:14)
[2023-02-14] MEDS: CARBOXYMETHYLCELLULOSE OPHTH DROPS EACHEYE SCH (21:15)
[2023-02-15] MEDS: NORepinephrine 8 MG in DEXTROSE 5% 250ML IV SCH ×4 (00:25→16:50)
[2023-02-15] MEDS: SODIUM CHLORIDE 0.45% 1,000 ML IV SCH ×2 (01:48→23:04)
[2023-02-15] MEDS: PIPERACILLIN/TAZOBACTAM 3.375 GM in SODIUM CHLORIDE 0.9% MINIBAG 100 ML IV SCH ×3 (04:25→20:07)
[2023-02-15] MEDS: SODIUM CHLORIDE FLUSH 0.9% 10 ML SYRINGE IVP PRN ×2 (04:27→22:25)
[2023-02-15 05:34] LABS: BASOPHILS % (AUTO) 0.2 %; EOSINOPHILS # (AUTO) 0.2 10^3/uL (0.0-0.7); EOSINOPHILS % (AUTO) 1.4 %; HCT - HEMATOCRIT 38.5 % (37.0-47.0); LYMPHOCYTES # (AUTO) 3.7 10^3/uL (1.5-3.5); LYMPHOCYTES % (AUTO) 24.3 %; MEAN CORPUSCULAR HEMOGLOBIN 28.1 pg (27.0-31.0); MEAN CORPUSCULAR HGB CONC 31.2 g/dL (32.0-36.0); MEAN CORPUSCULAR VOLUME 90.2 fL (81.0-99.0); MEAN PLATELET VOLUME 13.3 fL (7.9-10.8); MONOCYTES # (AUTO) 0.8 10^3/uL (0.0-1.0); MONOCYTES % (AUTO) 4.9 %; NEUTROPHILS # (AUTO) 10.2 10^3/uL (1.5-6.6); NEUTROPHILS % (AUTO) 67.4 %; NRBC ABSOLUTE COUNT (AUTO) 0.02 x10^3/uL; NUCLEATED RED BLOOD CELLS AUTO 0.1 /100WBC; PLT - PLATELET COUNT 192 10^3/uL (130-450); RED BLOOD COUNT 4.27 10^6/uL (4.20-5.40); RED CELL DISTRIBUTION WIDTH 15.9 % (12.0-15.0); WHITE BLOOD COUNT 15.2 x10^3/uL (4.8-10.8)
[2023-02-15] MEDS: LEVOTHYROXINE 25 MCG TABLET PO SCH (06:30)
[2023-02-15 07:04] LABS: CREATININE 0.7 mg/dL (0.6-1.3); MAGNESIUM 1.8 mg/dL (1.7-2.3); PHOSPHORUS 2.1 mg/dL (2.5-5.0); POTASSIUM 3.3 mmol/L (3.5-4.5)
[2023-02-15 07:13] LABS: CALCIUM, IONIZED 1.16 mmol/L (1.15-1.33); VBG PH 7.348 (7.31-7.41)
[2023-02-15] MEDS ORDERED: POTASSIUM CHLOR 20 MEQ/100 ML 20 MEQ/100 ML BAG IV SCH (08:00)
[2023-02-15] MEDS ORDERED: POTASSIUM PHOSPHATE 15 MMOL in SODIUM CHLORIDE 0.9% 250 ML IV ONE (08:00)
[2023-02-15] MEDS: INSULIN LISPRO 300 UNIT/3 ML PEN SUBQ SCH ×4 (08:39→20:29)
[2023-02-15] MEDS: ASPIRIN CHEW 81 MG TABLET PO SCH (08:42)
[2023-02-15] MEDS: MULTIVITAMIN TABLET PO SCH (08:42)
[2023-02-15] MEDS: CHOLECALCIFEROL 25 MCG TABLET PO SCH (08:43)
[2023-02-15] MEDS: BRIMONIDINE 0.2% OPHTH DROPS 5 ML EACHEYE SCH ×2 (08:44→20:31)
[2023-02-15] MEDS: APIXABAN 5 MG TABLET PO SCH ×2 (08:44→20:30)
[2023-02-15] MEDS: FAMOTIDINE 20 MG/2 ML VIAL IVP SCH ×2 (08:45→20:30)
[2023-02-15] MEDS: TIMOLOL 0.5% OPHTH DROPS EACHEYE SCH ×2 (08:45→20:31)
[2023-02-15] MEDS ORDERED: ALBUMIN 25% 12.5 GM/50 ML VIAL IV SCH (09:00)
[2023-02-15] MEDS ORDERED: FUROSEMIDE 40 MG/4 ML VIAL IVP ONE (09:00)
--- NOTE | 2023-02-15 09:04 | PROVIDER PROGRESS NOTE ---
Assessment/Plan - Problem List (1) Septic shock Assessment/Plan: (1) Septic shock Assessment/Plan: --Question of UTI, culture showing gram negative bacilli <10k. Will ask for sensitivities. --CT abd/pelvis showing evidence of colitis. --Stool PCR is pending. --Vancomycin discontinued on 02/13. Continue IV Zosyn. --Weaning down pressors. Remains on Levophed. Stopped Solu-Cortef. --Blood cultures NGTD. -- I had several discussions regarding CODE STATUS with her medical power of finance attorney which is her as well as her son. They were agreed jointly to make her DNR. --Tolerating a regular diet. (2) Ischemic cardiomyopathy Assessment/Plan: --TTE from June 2021 showing LVEF of 55 to 60% with grade 1 diastolic dysfunction. -- Holding all antihypertensives given she is on vasopressor medication for circulatory shock. --Patient does have a prior history of coronary artery disease s/p CABG x5. We will continue her aspirin and statin. -- She also had cardiac resuscitation in 2021. I question if there was some anoxic brain injury from this event. (3) Paroxysmal atrial fibrillation Assessment/Plan: -- Continue to monitor on telemetry. --Restarted on oral Eliquis. --Holding metoprolol as she remains on pressors. She is currently in NSR. (4) Urinary tract infection Qualifiers: Urinary tract infection type: site unspecified Hematuria presence: without hematuria Qualified Code(s): N39.0 - Urinary tract infection, site not specified Assessment/Plan: -- Urine culture showing gram negative bacilli <10k. Sensitivities not performed. --Continue on IV Zosyn. (5) RAGHAV (acute kidney injury) Assessment/Plan: --Resolved. (6) CVA (cerebral vascular accident) Assessment/Plan: -- History of CVA with residual right-sided deficits. Continue aspirin and statin. -- Currently resides at the [facility]. -- She has had very poor nutrition over the last little while. 23 kg weight loss in 18 months weight loss with sacral wounds and is essentially bedridden. Nutrition is following. --Tolerating mechanical soft diabetic diet. No s/s aspiration. (7) Closed head injury Qualifiers: Encounter type: initial encounter Qualified Code(s): S09.90XA - Unspecified injury of head, initial encounter Assessment/Plan: --Fall 1 week ago with a closed head injury. --Resumed on Eliquis. (8) Fall Qualifiers: Encounter type: initial encounter Qualified Code(s): W19.XXXA - Unspecified fall, initial encounter (9) Hypernatremia Assessment/Plan: --Resolved. (10) Hypothyroid Assessment/Plan: --Continue levothyroxine. (12) Type 2 diabetes mellitus Assessment/Plan: --Continue sliding scale insulin. Have added home Lantus 10 units BID. Anticipate >96 hours due to critical nature of her medical condition. Total critical care time 31 minutes. (4) Urinary tract infection Qualifiers: Urinary tract infection type: site unspecified Hematuria presence: without hematuria Qualified Code(s): N39.0 - Urinary tract infection, site not spec ified (7) Closed head injury Qualifiers: Encounter type: initial encounter Qualified Code(s): S09.90XA - Unspecified injury of head, initial encounter (8) Fall Qualifiers: Encounter type: initial encounter Qualified Code(s): W19.XXXA - Unspecified fall, initial encounter - Current Meds Current Meds: Current Medications Generic Name Dose Route Start Last Admin Trade Name Freq PRN Reason Stop Dose Admin Apixaban 5 mg 02/14/23 21:00 02/15/23 08:44 Apixaban 5 Mg Tablet PO 5 mg BID ELIZABETH Administration Aspirin 81 mg 02/12/23 09:00 02/15/23 08:42 Aspirin Chew 81 Mg Tablet PO 81 mg DAILY ELIZABETH Administration Atorvastatin Calcium 80 mg 02/11/23 21:00 02/14/23 21:13 Atorvastatin 40 Mg Tablet PO 80 mg QPM ELIZABETH Administration Brimonidine Tartrate 1 drops 02/14/23 21:00 02/15/23 08:44 Brimonidine 0.2% Ophth Drops 5 Ml EACHEYE 1 drops BID ELIZABETH Administration Carboxymethylcellulose 1 drops 02/14/23 21:00 02/14/23 21:15 Carboxymethylcellulose Ophth Drops EACHEYE 1 drops QPM ELIZABETH Administration Cholecalciferol 50 mcg 02/15/23 09:00 02/15/23 08:43 Cholecalciferol 25 Mcg Tablet PO 50 mcg DAILY ELIZABETH Administration Famotidine 20 mg 02/11/23 21:00 02/15/23 08:45 Famotidine 20 Mg/2 Ml Vial IVP 20 mg BID ELIZABETH Administration Piperacillin Sod/Tazobactam 100 mls @ 25 mls/hr 02/11/23 12:00 02/15/23 08:30 Sod 3.375 gm/ Sodium Chloride IV Infused Q8H ELIZABETH Infusion Norepinephrine Bitartrate 8 mg 250 mls @ 45 mls/hr 02/11/23 12:00 02/15/23 08:45 / Dextrose IV 20 mcg/min .Q5H34M ELIZABETH 37.5 mls/hr Administration Protocol 24 MCG/MIN Acetaminophen 1,000 mg in 100 mls @ 400 mls/hr 02/12/23 03:47 02/12/23 05:10 Acetaminophen IV Infused Q6HR PRN Infusion Mild Pain or Fever>38C(100.4F) Sodium Chloride 1,000 mls @ 50 mls/hr 02/14/23 07:08 02/15/23 01:48 Normal Saline 0.45% IV 50 mls/hr .Q20H ELIZABETH Administration Insulin Human Lispro 1 - 5 unit 02/14/23 12:00 02/15/23 08:39 Insulin Lispro 300 Unit/3 Ml Pen SUBQ 2 unit 0800,1200,1700,2100 ELIZABETH Administration Protocol Levothyroxine Sodium 50 mcg 02/12/23 07:00 02/15/23 06:30 Levothyroxine 25 Mcg Tablet PO 50 mcg QDAC ELIZABETH Administration Multi-Ingredient Ointment 1 applic 02/10/23 21:41 02/14/23 00:36 Zinc Oxide 20% Oint 30 Gm Tube TOP 1 applic PRN PRN Administration Skin Care Multivitamins 1 tab 02/15/23 08:00 02/15/23 08:42 Multivitamin Tablet PO 1 tab DAILYWM ELIZABETH Administration Sodium Chloride 20 ml 02/15/23 04:26 02/15/23 04:27 Sodium Chloride Flush 0.9% 10 Ml Syringe IVP 20 ml PRN PRN Administration After Blood Draw Timolol Maleate 1 drops 02/14/23 21:00 02/15/23 08:45 Timolol 0.5% Ophth Drops EACHEYE 1 drops BID ELIZABETH Administration - Lab Result Fish Bone Diagrams: 02/15/23 04:30 02/15/23 04:30 - Additional Planning My Orders: My Active Orders 02/14/23 10:20 Blood Glucose Checks - Eating [RC] 0800,1200,1700,2100 Initiate Hypoglycemia Protocol [RC] .protocol 02/14/23 11:02 Sodium Chloride 0.9% [Normal Saline 0.9%] 248 ml Phenylephrine [Mathieu- Synephrine] 20 mg IV 100 mcg/min 02/14/23 Lunch DIET [Regular Diet] [DIET] 02/14/23 12:00 Insulin Lispro [Humalog Kwikpen U-100] 1 - 5 unit SUBQ 0800,1200,1700,2100 02/14/23 21:00 Apixaban [Eliquis] 5 mg PO BID Brimonidine 0.2% Ophth Drops [Alphagan P 0.2% Ophth Drops] 1 drops EACHEYE BID Carboxymethylcellulose 1% Opht [Refresh 1% Ophth Drops] 1 drops EACHEYE QPM Timolol 0.5% Ophth Drops [Timoptic 0.5% Ophth Drops] 1 drops EACHEYE BID 02/15/23 08:00 Multivitamin [Theragran] 1 tab PO DAILYWM Potassium Phosphate 15 mmol Sodium Chloride 0.9% [Normal Saline 0.9%] 250 ml IV ONCE 02/15/23 09:00 Albumin 25% [Albuminar-25] 12.5 gm in 50 ml IV ONCE Cholecalciferol [Vitamin D3] 50 mcg PO DAILY FUROSEMIDE INJ 40mg VIAL [LASIX INJ 40 mg VIAL] 40 mg IVP ONCE ONE Insulin Glargine-Yfgn [Semglee] 10 unit SUBQ BID Sertraline [Zoloft] 50 mg PO DAILY 02/15/23 Lunch Carb-controlled Diet [DIET] 02/16/23 05:00 BMP - BASIC METABOLIC PANEL [CHEM] DAILYLAB CBC [CBC - COMP BLD CT W/AUTO DIFF] [HEME] DAILYLAB Subjective - Subjective Patient Reports: Feeling Better, Resting Comfortably, No Complaints (Remains on pressors. No abdominal pain. No fever, chills, N/V/D/C. No chest pain or SOB.) Objective Vital Signs: Vital Signs - 24 hr 02/14/23 02/14/23 02/14/23 10:00 11:00 12:00 Temperature 36.5 C 36.6 C Heart Rate [ 67 72 83 Monitoring electrodes] Respiratory 22 21 19 Rate Blood Pressure 100/45 L 101/53 L 123/59 L [Right Brachial artery] O2 Saturation 100 100 100 02/14/23 02/14/23 02/14/23 13:00 14:00 15:00 Temperature 36.9 C Heart Rate [ 78 71 70 Monitoring electrodes] Respiratory 22 24 22 Rate Blood Pressure 116/51 L 118/58 L 114/46 L [Right Brachial artery] O2 Saturation 99 100 99 02/14/23 02/14/23 02/14/23 16:00 17:00 18:00 Temperature 36.9 C Heart Rate [ 71 78 80 Monitoring electrodes] Respiratory 21 23 13 Rate Blood Pressure 127/42 L 116/80 128/54 L [Right Brachial artery] O2 Saturation 100 100 99 02/14/23 02/14/23 02/14/23 19:00 20:00 21:00 Temperature 36.8 C 36.8 C 36.8 C Heart Rate [ 76 72 76 Monitoring electrodes] Respiratory 25 H 23 26 H Rate Blood Pressure 96/52 L 94/44 L 106/51 L [Right Brachial artery] O2 Saturation 100 100 100 02/14/23 02/14/23 02/15/23 22:00 23:00 00:00 Temperature 36.8 C 36.8 C 36.8 C Heart Rate [ 74 73 70 Monitoring electrodes] Respiratory 14 19 25 H Rate Blood Pressure 100/67 97/57 L 100/56 L [Right Brachial artery] O2 Saturation 100 100 100 02/15/23 02/15/23 02/15/23 01:00 02:00 03:00 Temperature 36.9 C 36.8 C 36.7 C Heart Rate [ 67 70 67 Monitoring electrodes] Respiratory 25 H 22 22 Rate Blood Pressure 101/52 L 105/48 L 111/50 L [Right Brachial artery] O2 Saturation 100 100 100 02/15/23 02/15/23 02/15/23 04:00 05:00 06:00 Temperature 36.6 C 36.3 C L 36.2 C L Heart Rate [ 65 67 82 Monitoring electrodes] Respiratory 21 16 17 Rate Blood Pressure 111/52 L 108/49 L 106/69 [Right Brachial artery] O2 Saturation 100 100 100 02/15/23 02/15/23 06:58 08:00 Temperature 36.6 C 36.7 C Heart Rate [ 68 74 Monitoring electrodes] Respiratory 23 16 Rate Blood Pressure 109/47 L 109/51 L [Right Brachial artery] O2 Saturation 100 100 Oxygen O2 Source Room air I&O (Last 24 Hrs): Intake and Output Totals x24h 02/13/23 02/14/23 02/15/23 23:59 23:59 23:59 Intake Total 4596.793 3372.593 1638.333 Output Total 1715 1695 640 Balance 2881.793 1677.593 998.333 General: Alert, Oriented x3, Cooperative, No acute distress Neuro: Alert, CN 2-12 Grossly Intact, Oriented Times 3 Cardiovascular: Regular rate, Normal S1, Normal S2, No murmurs Respiratory: Chest non-tender, No respiratory distress, Breath sounds nml Abdomen: Normal bowel sounds, Soft, No tenderness, No hepatospenomegaly, No masses Extremities: No clubbing, No cyanosis, No edema, Normal pulses, No tenderness/swelling Skin: No rashes, No breakdown, No significant lesion - Results Results: Laboratory Results WBC 15.2 x10^3/uL (4.8-10.8) H 02/15/23 04:30 RBC 4.27 10^6/uL (4.20-5.40) 02/15/23 04:30 Hgb 12.0 g/dL (12.0-16.0) 02/15/23 04:30 Hct 38.5 % (37.0-47.0) 02/15/23 04:30 MCV 90.2 fL (81.0-99.0) 02/15/23 04:30 MCH 28.1 pg (27.0-31.0) 02/15/23 04:30 MCHC 31.2 g/dL (32.0-36.0) L 02/15/23 04:30 RDW 15.9 % (12.0-15.0) H 02/15/23 04:30 Plt Count 192 10^3/uL (130-450) 02/15/23 04:30 MPV 13.3 fL (7.9-10.8) H 02/15/23 04:30 Neut # (Auto) 10.2 10^3/uL (1.5-6.6) H 02/15/23 04:30 Lymph # (Auto) 3.7 10^3/uL (1.5-3.5) H 02/15/23 04:30 Jennings # (Auto) 0.8 10^3/uL (0.0-1.0) 02/15/23 04:30 Eos # (Auto) 0.2 10^3/uL (0.0-0.7) 02/15/23 04:30 Baso # (Auto) 0.0 10^3/uL (0.0-0.1) 02/15/23 04:30 Absolute Nucleated RBC 0.02 x10^3/uL 02/15/23 04:30 Total Counted 100 02/11/23 04:24 Band Neuts % (Manual) Not Reportable 02/14/23 04:30 Abnorm Lymph % (Manual) Not Reportable 02/14/23 04:30 Nucleated RBC % 0.1 /100WBC 02/15/23 04:30 Neutrophils # (Manual) Not Reportable 02/14/23 04:30 Lymphocytes # (Manual) Not Reportable 02/14/23 04:30 Monocytes # (Manual) Not Reportable 02/14/23 04:30 Eosinophils # (Manual) Not Reportable 02/14/23 04:30 Basophils # (Manual) Not Reportable 02/14/23 04:30 Differential Comment MANUAL=AUTO DIFF 02/14/23 04:30 Manual Slide Review Indicated 02/10/23 17:51 WBC Morphology NORMAL APPEARANCE (NORMAL) 02/14/23 04:30 Platelet Estimate NORMAL (130-450,000) (NORMAL) 02/14/23 04:30 Platelet Morphology NORMAL APPEARANCE (NORMAL) 02/14/23 04:30 RBC Morph Micro Appear 1+ ANISOCYTOSIS (NORMAL) 02/14/23 04:30 PT 21.3 secs (9.9-12.6) H 02/10/23 17:51 INR 2.1 (0.8-1.2) H 02/10/23 17:51 APTT 28.1 secs (24.9-33.3) 02/10/23 17:51 VBG pH 7.348 (7.31-7.41) 02/15/23 04:30 Ionized Calcium 1.16 mmol/L (1.15-1.33) 02/15/23 04:30 Sodium 139 mmol/L (135-145) 02/15/23 04:30 Potassium 3.3 mmol/L (3.5-4.5) L 02/15/23 04:30 Chloride 108 mmol/L (101-111) 02/15/23 04:30 Carbon Dioxide 25 mmol/L (21-32) 02/15/23 04:30 Anion Gap 6.0 (6-13) 02/15/23 04:30 BUN 8 mg/dL (6-20) 02/15/23 04:30 Creatinine 0.7 mg/dL (0.6-1.3) 02/15/23 04:30 Estimated GFR (MDRD) 81 (>89) L 02/15/23 04:30 Glucose 233 mg/dL (74-104) H 02/15/23 04:30 POC Whole Bld Glucose 224 mg/dL (70 - 100) H 02/15/23 07:39 Estimat Average Glucose 120 mg/dL (70-100) H 02/12/23 04:47 Hemoglobin A1c % 5.8 % (4.27-6.07) 02/12/23 04:47 Lactic Acid 0.9 mmol/L (0.5-2.2) 02/11/23 04:24 Calcium 8.0 mg/dL (8.5-10.3) L 02/15/23 04:30 Phosphorus 2.1 mg/dL (2.5-5.0) L 02/15/23 04:30 Magnesium 1.8 mg/dL (1.7-2.3) 02/15/23 04:30 Total Bilirubin 0.6 mg/dL (0.2-1.0) 02/11/23 04:24 AST 81 IU/L (10-42) H 02/11/23 04:24 ALT 55 IU/L (10-60) 02/11/23 04:24 Alkaline Phosphatase 78 IU/L (42-121) 02/11/23 04:24 Total Protein 5.8 g/dL (6.4-8.9) L 02/11/23 04:24 Albumin 3.2 g/dL (3.2-5.5) 02/11/23 04:24 Globulin 2.6 g/dL (2.1-4.2) 02/11/23 04:24 Albumin/Globulin Ratio 1.2 (1.0-2.2) 02/11/23 04:24 Lipase 66 U/L (11-82) 02/10/23 17:51 Urine Color YELLOW 02/10/23 18:05 Urine Clarity HAZY (CLEAR) 02/10/23 18:05 Urine pH 5.5 PH (5.0-7.5) 02/10/23 18:05 Ur Specific Munith >=1.030 (1.002-1.030) H 02/10/23 18:05 Urine Protein NEGATIVE mg/dL (NEGATIVE) 02/10/23 18:05 Urine Glucose (UA) 500 mg/dL (NEGATIVE) H 02/10/23 18:05 Urine Ketones NEGATIVE mg/dL (NEGATIVE) 02/10/23 18:05 Urine Occult Blood MODERATE (NEGATIVE) H 02/10/23 18:05 Urine Nitrite NEGATIVE (NEGATIVE) 02/10/23 18:05 Urine Bilirubin NEGATIVE (NEGATIVE) 02/10/23 18:05 Urine Urobilinogen 0.2 (NORMAL) E.U./dL (NORMAL) 02/10/23 18:05 Ur Leukocyte Esterase SMALL (NEGATIVE) H 02/10/23 18:05 Urine RBC 6-10 /HPF (0-5) H 02/10/23 18:05 Urine WBC >25 /HPF (0-5) H 02/10/23 18:05 Ur Epithelial Cells RARE Transitional /HPF (<= Few) 02/10/23 18:05 Ur Squamous Epith Cells NONE SEEN (<= Few) 02/10/23 18:05 Urine Bacteria Many /HPF (None Seen) H 02/10/23 18:05 Urine Yeast PRESENT 02/10/23 18:05 Ur Microscopic Review INDICATED 02/10/23 18:05 Urine Culture Comments INDICATED 02/10/23 18:05 Nasal Adenovirus (PCR) NOT DETECTED 02/10/23 18:00 Nasal B. parapertussis DNA (PCR) NOT DETECTED 02/10/23 18:00 Nasal Coronavir 229E PCR NOT DETECTED 02/10/23 18:00 Nasal Coronavir HKU1 PCR NOT DETECTED 02/10/23 18:00 Nasal Coronavir NL63 PCR NOT DETECTED 02/10/23 18:00 Nasal Coronavir OC43 PCR NOT DETECTED 02/10/23 18:00 Nasal Enterovir/Rhinovir PCR NOT DETECTED 02/10/23 18:00 Nasal Influenza B PCR NOT DETECTED 02/10/23 18:00 Nasal Influenza A PCR NOT DETECTED 02/10/23 18:00 Nasal Parainfluen 1 PCR NOT DETECTED 02/10/23 18:00 Nasal Parainfluen 2 PCR NOT DETECTED 02/10/23 18:00 Nasal Parainfluen 3 PCR NOT DETECTED 02/10/23 18:00 Nasal Parainfluen 4 PCR NOT DETECTED 02/10/23 18:00 Nasal RSV (PCR) NOT DETECTED 02/10/23 18:00 Nasal Screen MRSA (PCR) NEGATIVE (NEGATIVE) 02/10/23 22:05 Nasal B.pertussis DNA PCR NOT DETECTED 02/10/23 18:00 Nasal C.pneumoniae (PCR) NOT DETECTED 02/10/23 18:00 [place]or Human Metapneumo PCR NOT DETECTED 02/10/23 18:00 Nasal M.pneumoniae (PCR) NOT DETECTED 02/10/23 18:00 Nasal SARS-CoV-2 (PCR) NOT DETECTED 02/10/23 18:00 Sepsis Event Note (H) - Evaluation Current Stage of Sepsis: Septic shock Possible source of Sepsis: positive: GI tract/intra-abdominal, Genitourinary - Sepsis Criteria Sepsis Criteria: WBC count greater than 12,000 or less than 4000, MAP less than 65 mmHg, Metabolic: lactate > 2 mmol/L Current Medications - Current Medications Current Medications: Active Medications Generic Name Dose Route Start Last Admin Trade Name Freq PRN Reason Stop Dose Admin Acetaminophen 650 mg 02/10/23 20:41 Acetaminophen 325 Mg Tablet PO Q4HR PRN Pain 1 to 4, or Fever Hydrocodone Bitart/Acetaminophen 1 tab 02/10/23 20:41 Hydrocod/Acetam 10 Mg/325 Mg Tablet PO Q4HR PRN Pain 8 to 10 Apixaban 5 mg 02/14/23 21:00 02/15/23 08:44 Apixaban 5 Mg Tablet PO 5 mg BID ELIZABETH Administration Aspirin 81 mg 02/12/23 09:00 02/15/23 08:42 Aspirin Chew 81 Mg Tablet PO 81 mg DAILY ELIZABETH Administration Atorvastatin Calcium 80 mg 02/11/23 21:00 02/14/23 21:13 Atorvastatin 40 Mg Tablet PO 80 mg QPM ELIZABETH Administration Brimonidine Tartrate 1 drops 02/14/23 21:00 02/15/23 08:44 Brimonidine 0.2% Ophth Drops 5 Ml EACHEYE 1 drops BID ELIZABETH Administration Carboxymethylcellulose 1 drops 02/14/23 21:00 02/14/23 21:15 Carboxymethylcellulose Ophth Drops EACHEYE 1 drops QPM ELIZABETH Administration Cholecalciferol 50 mcg 02/15/23 09:00 02/15/23 08:43 Cholecalciferol 25 Mcg Tablet PO 50 mcg DAILY ELIZABETH Administration Famotidine 20 mg 02/11/23 21:00 02/15/23 08:45 Famotidine 20 Mg/2 Ml Vial IVP 20 mg BID ELIZABETH Administration Piperacillin Sod/Tazobactam 100 mls @ 25 mls/hr 02/11/23 12:00 02/15/23 08:30 Sod 3.375 gm/ Sodium Chloride IV Infused Q8H ELIZABETH Infusion Norepinephrine Bitartrate 8 mg 250 mls @ 45 mls/hr 02/11/23 12:00 02/15/23 08:45 / Dextrose IV 20 mcg/min .Q5H34M ELIZABETH 37.5 mls/hr Administration Protocol 24 MCG/MIN Acetaminophen 1,000 mg in 100 mls @ 400 mls/hr 02/12/23 03:47 02/12/23 05:10 Acetaminophen IV Infused Q6HR PRN Infusion Mild Pain or Fever>38C(100.4F) Sodium Chloride 1,000 mls @ 50 mls/hr 02/14/23 07:08 02/15/23 01:48 Normal Saline 0.45% IV 50 mls/hr .Q20H ELIZABETH Administration Phenylephrine HCl 20 mg/ 250 mls @ 75 mls/hr 02/14/23 11:02 Sodium Chloride IV .Q3H20M PRN HYPOTENSION Protocol 100 MCG/MIN Sodium Chloride 500 mls @ 20 mls/hr 02/15/23 04:26 Normal Saline 0.9% IV Q24H PRN TKO RATE Potassium Phosphate 15 mmol/ 255 mls @ 63.75 mls/hr 02/15/23 08:00 Sodium Chloride IV 02/15/23 11:59 ONCE ONE Protocol Albumin Human 12.5 gm in 50 mls @ 50 mls/hr 02/15/23 09:00 Albuminar-25 IV 02/17/23 09:59 ONCE ELIZABETH Insulin Glargine-yfgn 10 unit 02/15/23 09:00 Insulin Glargine-Yfgn 300 Unit/3 Ml Pen SUBQ BID [facility] Insulin Human Lispro 1 - 5 unit 02/14/23 12:00 02/15/23 08:39 Insulin Lispro 300 Unit/3 Ml Pen SUBQ 2 unit 0800,1200,1700,2100 [facility] Administration Protocol Levothyroxine Sodium 50 mcg 02/12/23 07:00 02/15/23 06:30 Levothyroxine 25 Mcg Tablet PO 50 mcg QDAC [facility] Administration Multi-Ingredient Ointment 1 applic 02/10/23 21:41 02/14/23 00:36 Zinc Oxide 20% Oint 30 Gm Tube TOP 1 applic PRN PRN Administration Skin Care Multivitamins 1 tab 02/15/23 08:00 02/15/23 08:42 Multivitamin Tablet PO 1 tab DAILYWM [facility] Administration Sertraline HCl 50 mg 02/15/23 09:00 Sertraline 50 Mg Tablet PO DAILY [facility] Sodium Chloride 20 ml 02/15/23 04:26 02/15/23 04:27 Sodium Chloride Flush 0.9% 10 Ml Syringe IVP 20 ml PRN PRN Administration After Blood Draw Timolol Maleate 1 drops 02/14/23 21:00 02/15/23 08:45 Timolol 0.5% Ophth Drops EACHEYE 1 drops BID [facility] Administration Apixaban [Eliquis] 5 mg PO BID 06/15/21 Canagliflozin [Invokana] 100 mg PO DAILY 06/15/21 Insulin Glargine [Lantus Solostar] 10 units SUBQ BID 06/15/21 Levothyroxine Sodium 50 mcg PO QDAC 06/15/21 Metoprolol Succinate [Toprol Xl] 50 mg PO QPM 06/15/21 Multivitamin 1 tab PO DAILY 06/15/21 Pantoprazole [Protonix] 40 mg PO BIDAC 06/15/21 Sacubitril/Valsartan [Entresto 24 mg-26 mg Tablet] 1 tab PO QPM 06/15/21 Sertraline [Zoloft] 50 mg PO DAILY 06/15/21 Brimonidine Tartrate/Timolol [Combigan 0.2%-0.5% Eye Drops] 1 drops EACHEYE BID 06/16/21 Calcium Carbonate [Tums (Calcium Carbonate 500mg)] 1,000 mg PO Q8H PRN 06/16/21 Cholecalciferol (Vitamin D3) [Vitamin D3] 50 mcg PO DAILY 06/16/21 Insulin Regular Human [Humulin R] 3 unit SUBQ AC 06/16/21 Spironolactone [Aldactone] 25 mg PO DAILY 02/10/23 Acetaminophen [Tylenol] 650 mg PO Q6H PRN 02/11/23 Aspirin Chewable [[place] Aspirin] 81 mg PO DAILY 02/11/23 Atorvastatin Calcium [Lipitor] 80 mg PO QPM 02/11/23 Carboxymethylcellulose Sodium 1 applic EACHEYE QPM 02/11/23 Sacubitril/Valsartan [Entresto 24 mg-26 mg Tablet] 2 tab PO DAILY 02/11/23
[2023-02-15] MEDS: INSULIN GLARGINE-YFGN 300 UNIT/3 ML PEN SUBQ SCH ×2 (09:54→20:29)
[2023-02-15] MEDS: SERTRALINE 50 MG TABLET PO SCH (09:55)
[2023-02-15] MEDS: ALBUMIN 25% 12.5 GM/50 ML VIAL IV SCH (14:11)
[2023-02-15 15:37] LABS: VBG PH 7.433 (7.31-7.41)
[2023-02-15 15:38] LABS: CALCIUM, IONIZED 1.08 mmol/L (1.15-1.33)
[2023-02-15] MEDS ORDERED: CALCIUM GLUC 1,000MG/50ML-NACL 1,000 MG/50 ML BAG IV ONE (16:26)
[2023-02-15 16:37] LABS: MAGNESIUM 1.7 mg/dL (1.7-2.3); PHOSPHORUS 3.2 mg/dL (2.5-5.0); POTASSIUM 3.4 mmol/L (3.5-4.5)
[2023-02-15] MEDS ORDERED: MAGNESIUM SULFATE 2 GRAM 2 GM/50 ML BAG IV ONE (16:41)
[2023-02-15] MEDS: POTASSIUM CHLOR 20 MEQ/100 ML 20 MEQ/100 ML BAG IV SCH ×2 (16:50→18:19)
[2023-02-15] MEDS: ZINC OXIDE 20% OINT 30 GM TUBE TOP PRN (20:10)
[2023-02-15] MEDS: ATORVASTATIN 40 MG TABLET PO SCH (20:30)
[2023-02-15] MEDS: CARBOXYMETHYLCELLULOSE OPHTH DROPS EACHEYE SCH (20:30)
[2023-02-15 22:46] LABS: POTASSIUM 3.6 mmol/L (3.5-4.5)
[2023-02-15 23:01] LABS: CALCIUM, IONIZED 1.11 mmol/L (1.15-1.33); VBG PH 7.433 (7.31-7.41)
[2023-02-15] MEDS ORDERED: POTASSIUM CHLOR 20 MEQ/100 ML 20 MEQ/100 ML BAG IV ONE (23:05)
[2023-02-16] MEDS: PIPERACILLIN/TAZOBACTAM 3.375 GM in SODIUM CHLORIDE 0.9% MINIBAG 100 ML IV SCH ×3 (04:18→19:33)
[2023-02-16] MEDS: SODIUM CHLORIDE FLUSH 0.9% 10 ML SYRINGE IVP PRN (04:42)
[2023-02-16] MEDS: NORepinephrine 8 MG in DEXTROSE 5% 250ML IV SCH ×5 (05:20→19:15)
[2023-02-16 05:38] LABS: BASOPHILS % (AUTO) 0.2 %; EOSINOPHILS # (AUTO) 0.4 10^3/uL (0.0-0.7); HCT - HEMATOCRIT 36.1 % (37.0-47.0); HGB - HEMOGLOBIN 11.3 g/dL (12.0-16.0); LYMPHOCYTES # (AUTO) 3.7 10^3/uL (1.5-3.5); LYMPHOCYTES % (AUTO) 24.8 %; MEAN CORPUSCULAR HEMOGLOBIN 28.3 pg (27.0-31.0); MEAN CORPUSCULAR HGB CONC 31.3 g/dL (32.0-36.0); MEAN CORPUSCULAR VOLUME 90.5 fL (81.0-99.0); MEAN PLATELET VOLUME 13.5 fL (7.9-10.8); MONOCYTES # (AUTO) 0.7 10^3/uL (0.0-1.0); MONOCYTES % (AUTO) 4.4 %; NEUTROPHILS # (AUTO) 9.7 10^3/uL (1.5-6.6); NEUTROPHILS % (AUTO) 65.9 %; PLT - PLATELET COUNT 176 10^3/uL (130-450); RED BLOOD COUNT 3.99 10^6/uL (4.20-5.40); RED CELL DISTRIBUTION WIDTH 15.9 % (12.0-15.0); WHITE BLOOD COUNT 14.7 x10^3/uL (4.8-10.8)
[2023-02-16 06:01] LABS: CALCIUM 8.1 mg/dL (8.5-10.3); CREATININE 0.6 mg/dL (0.6-1.3); PHOSPHORUS 2.7 mg/dL (2.5-5.0); POTASSIUM 3.7 mmol/L (3.5-4.5)
[2023-02-16] MEDS ORDERED: POTASSIUM CHLOR 20 MEQ/100 ML 20 MEQ/100 ML BAG IV ONE (06:11)
[2023-02-16 06:25] LABS: CALCIUM, IONIZED 1.14 mmol/L (1.15-1.33); VBG PH 7.372 (7.31-7.41)
[2023-02-16] MEDS: LEVOTHYROXINE 25 MCG TABLET PO SCH (06:28)
[2023-02-16] MEDS: MULTIVITAMIN TABLET PO SCH (08:33)
[2023-02-16] MEDS: INSULIN LISPRO 300 UNIT/3 ML PEN SUBQ SCH ×4 (08:49→20:52)
[2023-02-16] MEDS: INSULIN GLARGINE-YFGN 300 UNIT/3 ML PEN SUBQ SCH ×2 (08:59→20:53)
[2023-02-16] MEDS ORDERED: ALBUMIN 25% 12.5 GM/50 ML VIAL IV SCH (09:00)
[2023-02-16] MEDS: ZINC OXIDE 20% OINT 30 GM TUBE TOP PRN (09:00)
[2023-02-16] MEDS ORDERED: FUROSEMIDE 20 MG/2 ML VIAL IVP SCH ×2 (09:00)
[2023-02-16] MEDS: APIXABAN 5 MG TABLET PO SCH (09:12)
[2023-02-16] MEDS: CHOLECALCIFEROL 25 MCG TABLET PO SCH (09:14)
[2023-02-16] MEDS: ASPIRIN CHEW 81 MG TABLET PO SCH (09:14)
[2023-02-16] MEDS: FAMOTIDINE 20 MG/2 ML VIAL IVP SCH ×2 (09:20→20:52)
[2023-02-16] MEDS: SERTRALINE 50 MG TABLET PO SCH (09:35)
[2023-02-16] MEDS: BRIMONIDINE 0.2% OPHTH DROPS 5 ML EACHEYE SCH ×2 (11:18→20:51)
[2023-02-16] MEDS: TIMOLOL 0.5% OPHTH DROPS EACHEYE SCH ×2 (11:18→20:52)
--- NOTE | 2023-02-16 15:13 | PROVIDER PROGRESS NOTE ---
Subjective - Subjective Pt reports feeling: No change (Minimally communicative, needs to be fed, this is apparently her baseline, per today's RN Maddy) Objective - Vital Signs/Intake & Output Vital Signs: Vital Signs Temp Pulse Resp BP Pulse Ox 02/16/23 15:00 37.1 C 64 21 116/55 L 100 02/16/23 14:00 37 C 68 17 95/53 L 100 02/16/23 13:00 36.8 C 73 20 79/34 L 100 02/16/23 12:00 36.7 C 79 15 95/59 L 100 Intake & Output: Intake & Output 02/13/23 02/14/23 02/15/23 02/16/23 23:59 23:59 23:59 23:59 Intake Total 4596.793 3372.593 5201.403 1260.625 Output Total 1715 1695 5305 2888 Balance 2881.793 1677.593 -103.597 -1627.375 - Objective General Appearance: positive: Lethargic Eyes Bilateral: positive: Normal inspection, EOMI ENT: positive: No signs of dehydration Neck: positive: Nml inspection, No JVD Respiratory: positive: No respiratory distress Cardiovascular: positive: Regular rate & rhythm, No murmur Abdomen: positive: Non-tender, No distention Skin: positive: Warm, Dry Extremities: positive: Non-tender Neurologic/Psychiatric: positive: Other (lethargic, minimally communicative, needs to be fed) - Lab Results Fish Bones: 02/16/23 04:45 02/16/23 09:04 Other Labs: Lab Results x24hrs 02/16/23 02/16/23 02/16/23 Range/Units 11:28 09:04 07:28 WBC (4.8-10.8) x10^3/uL RBC (4.20-5.40) 10^6/uL Hgb (12.0-16.0) g/dL Hct (37.0-47.0) % MCV (81.0-99.0) fL MCH (27.0-31.0) pg MCHC (32.0-36.0) g/dL RDW (12.0-15.0) % Plt Count (130-450) 10^3/uL MPV (7.9-10.8) fL Neut # (Auto) (1.5-6.6) 10^3/uL Lymph # (Auto) (1.5-3.5) 10^3/uL [place] # (Auto) (0.0-1.0) 10^3/uL Eos # (Auto) (0.0-0.7) 10^3/uL Baso # (Auto) (0.0-0.1) 10^3/uL Absolute Nucleated RBC x10^3/uL Nucleated RBC % /100WBC VBG pH (7.31-7.41) Ionized Calcium (1.15-1.33) mmol/L Sodium (135-145) mmol/L Potassium 4.1 (3.5-4.5) mmol/L Chloride (101-111) mmol/L Carbon Dioxide (21-32) mmol/L Anion Gap (6-13) BUN (6-20) mg/dL Creatinine (0.6-1.3) mg/dL Estimated GFR (MDRD) (>89) Glucose (74-104) mg/dL POC Whole Bld Glucose 215 H 149 H (70 - 100) mg/dL Calcium (8.5-10.3) mg/dL Phosphorus (2.5-5.0) mg/dL Magnesium (1.7-2.3) mg/dL 02/16/23 02/16/23 02/16/23 Range/Units 04:45 04:45 04:45 WBC 14.7 H (4.8-10.8) x10^3/uL RBC 3.99 L (4.20-5.40) 10^6/uL Hgb 11.3 L (12.0-16.0) g/dL Hct 36.1 L (37.0-47.0) % MCV 90.5 (81.0-99.0) fL MCH 28.3 (27.0-31.0) pg MCHC 31.3 L (32.0-36.0) g/dL RDW 15.9 H (12.0-15.0) % Plt Count 176 (130-450) 10^3/uL MPV 13.5 H (7.9-10.8) fL Neut # (Auto) 9.7 H (1.5-6.6) 10^3/uL Lymph # (Auto) 3.7 H (1.5-3.5) 10^3/uL [place] # (Auto) 0.7 (0.0-1.0) 10^3/uL Eos # (Auto) 0.4 (0.0-0.7) 10^3/uL Baso # (Auto) 0.0 (0.0-0.1) 10^3/uL Absolute Nucleated RBC 0.00 x10^3/uL Nucleated RBC % 0.0 /100WBC VBG pH 7.372 (7.31-7.41) Ionized Calcium 1.14 L (1.15-1.33) mmol/L Sodium 139 (135-145) mmol/L Potassium 3.7 (3.5-4.5) mmol/L Chloride 106 (101-111) mmol/L Carbon Dioxide 28 (21-32) mmol/L Anion Gap 5.0 L (6-13) BUN 5 L (6-20) mg/dL Creatinine 0.6 (0.6-1.3) mg/dL Estimated GFR (MDRD) 96 (>89) Glucose 171 H (74-104) mg/dL POC Whole Bld Glucose (70 - 100) mg/dL Calcium 8.1 L (8.5-10.3) mg/dL Phosphorus 2.7 (2.5-5.0) mg/dL Magnesium 2.0 (1.7-2.3) mg/dL 02/15/23 02/15/23 02/15/23 Range/Units 22:25 22:25 20:24 WBC (4.8-10.8) x10^3/uL RBC (4.20-5.40) 10^6/uL Hgb (12.0-16.0) g/dL Hct (37.0-47.0) % MCV (81.0-99.0) fL MCH (27.0-31.0) pg MCHC (32.0-36.0) g/dL RDW (12.0-15.0) % Plt Count (130-450) 10^3/uL MPV (7.9-10.8) fL Neut # (Auto) (1.5-6.6) 10^3/uL Lymph # (Auto) (1.5-3.5) 10^3/uL [place] # (Auto) (0.0-1.0) 10^3/uL Eos # (Auto) (0.0-0.7) 10^3/uL Baso # (Auto) (0.0-0.1) 10^3/uL Absolute Nucleated RBC x10^3/uL Nucleated RBC % /100WBC VBG pH 7.433 H (7.31-7.41) Ionized Calcium 1.11 L (1.15-1.33) mmol/L Sodium (135-145) mmol/L Potassium 3.6 (3.5-4.5) mmol/L Chloride (101-111) mmol/L Carbon Dioxide (21-32) mmol/L Anion Gap (6-13) BUN (6-20) mg/dL Creatinine (0.6-1.3) mg/dL Estimated GFR (MDRD) (>89) Glucose (74-104) mg/dL POC Whole Bld Glucose 172 H (70 - 100) mg/dL Calcium (8.5-10.3) mg/dL Phosphorus (2.5-5.0) mg/dL Magnesium 2.0 (1.7-2.3) mg/dL 02/15/23 02/15/23 02/15/23 Range/Units 16:33 15:10 15:10 WBC (4.8-10.8) x10^3/uL RBC (4.20-5.40) 10^6/uL Hgb (12.0-16.0) g/dL Hct (37.0-47.0) % MCV (81.0-99.0) fL MCH (27.0-31.0) pg MCHC (32.0-36.0) g/dL RDW (12.0-15.0) % Plt Count (130-450) 10^3/uL MPV (7.9-10.8) fL Neut # (Auto) (1.5-6.6) 10^3/uL Lymph # (Auto) (1.5-3.5) 10^3/uL [place] # (Auto) (0.0-1.0) 10^3/uL Eos # (Auto) (0.0-0.7) 10^3/uL Baso # (Auto) (0.0-0.1) 10^3/uL Absolute Nucleated RBC x10^3/uL Nucleated RBC % /100WBC VBG pH 7.433 H (7.31-7.41) Ionized Calcium 1.08 L (1.15-1.33) mmol/L Sodium (135-145) mmol/L Potassium 3.4 L (3.5-4.5) mmol/L Chloride (101-111) mmol/L Carbon Dioxide (21-32) mmol/L Anion Gap (6-13) BUN (6-20) mg/dL Creatinine (0.6-1.3) mg/dL Estimated GFR (MDRD) (>89) Glucose (74-104) mg/dL POC Whole Bld Glucose 168 H (70 - 100) mg/dL Calcium (8.5-10.3) mg/dL Phosphorus 3.2 (2.5-5.0) mg/dL Magnesium 1.7 (1.7-2.3) mg/dL Sepsis Event Note (H) - Evaluation Current Stage of Sepsis: Septic shock Possible source of Sepsis: positive: GI tract/intra-abdominal, Genitourinary - Sepsis Criteria Sepsis Criteria: WBC count greater than 12,000 or less than 4000, MAP less than 65 mmHg, Metabolic: lactate > 2 mmol/L Assessment/Plan - Problem List (1) Hypotension Impression: Possible UTI is the cause of septic shock, with urine culture showing gram negative bacilli . Sensitivities pending. Blood cultures NGTD. Lactic acid has now normalized but she is still hypotensive CT abd/pelvis showed evidence of colitis. Stool PCR is __ Empiric Vancomycin discontinued on 02/13. Continued empiric IV Zosyn. The last Hospitalist had several discussions regarding CODE STATUS with her medical power of civil rights attorney which is her as well as her son. They were agreed jointly to make her DNR. EKG was done today which I interpreted. EKG shows sinus rhythm, rate 71, i nferior Q waves, and anterolateral Q waves. Prolonged QT interval of 545 M sac. Low voltage EKG. Since EKG from 06/15/2021, the prolonged QT and the low voltage are new Plan: Weaning down pressors keeping MAP >65. She is off Neosyneph but remains on Levophed. Stopped Solu-Cortef. Cont gentle iv fluids unless she has depressed LVEF Obtained EKG today to eval for ACS. Obtain Echo to eval for cardiomyopathy or pleural effusion/tamponade (given the low voltage on EKG done today) Will check TSH to assure dose is adequate (2) Urinary tract infection Qualifiers: Urinary tract infection type: site unspecified Hematuria presence: without hematuria Qualified Code(s): N39.0 - Urinary tract infection, site not specified Assessment/Plan: Urine culture showing gram negative bacilli Sensitivities pending Plan: Continue on IV Zosyn. (3) Ischemic cardiomyopathy Assessment/Plan: Echo from June 2021 showing LVEF of 55 to 60% with grade 1 diastolic dysfunction. Obtained Echo today to eval for cardiomyopathy or pleural effusion/tamponade (given the low voltage on EKG done today) and it did show depressed LVEF. Patient does have a prior history of coronary artery disease s/p CABG x5. She also had cardiac arrest and resuscitation in 2021. I question if there was some anoxic brain injury from this event. Plan: Still holding all cardiac meds, given she is still on vasopressor medication for circulatory shock. We will continue her aspirin and statin. (4) Paroxysmal atrial fibrillation Assessment/Plan: She is currently in NSR. Plan: Continue to monitor on telemetry. She was restarted on oral Eliquis. I will stop this given the finding of brain hematoma Holding metoprolol as she remains on pressors. (5) Closed head injury Qualifiers: Encounter type: initial encounter Qualified Code(s): S09.90XA - Unspecified injury of head, initial encounter Assessment/Plan: Fall 1 week ago with a closed head injury. Her CT head done this admission showed no acute intracranial pathology, and old right occipital CVA, cerebral volume loss and small vessel ischemic changes and a left frontal contusion and hematoma She was resumed on Eliquis by the previous Hiopsitalist Plan: I will stop the Eliquis. She probably should no longer be on an anticoagulant Will order PT and OT when she is no longer hypotensive (6) Fall at home Qualifiers: Encounter type: initial encounter Qualified Code(s): W19.XXXA - Unspecified fall, initial encounter Plan: Will order orthostatic VS when she is OOB Will order PT and OT when she is no longer hypotensive (7) CVA (cerebral vascular accident) Assessment/Plan: History of CVA with residual right-sided deficits. Currently resides at the [facility] [place]. Plan: She is tolerating mechanical soft diabetic diet. No s/s aspiration. Continue aspirin and statin. (8) Hypothyroid Assessment/Plan: Plan: Continue levothyroxine. Will check TSH to assure dose is adequate (9) Type 2 diabetes mellitus Assessment/Plan: Plan: Continue sliding scale insulin. Have added home Lantus 10 units BID. (10) Severe protein calorie malnutrition Assessment/Plan: She has had very poor nutrition recently. 23 kg weight loss in 18 months was documented and she has sacral wounds (recently is essentially bedridden). Plan: Nutrition is following. Suppl calories ordered (11) RAGHAV (acute kidney injury) Assessment/Plan: Resolved. (12) Hypernatremia Assessment/Plan: Resolved.
[2023-02-16] MEDS: SODIUM CHLORIDE 0.45% 1,000 ML IV SCH (19:32)
[2023-02-16] MEDS: SODIUM CHLORIDE 0.9% 500 ML IV PRN (19:41)
[2023-02-16] MEDS: CARBOXYMETHYLCELLULOSE OPHTH DROPS EACHEYE SCH (20:51)
[2023-02-16] MEDS: ATORVASTATIN 40 MG TABLET PO SCH (20:52)
[2023-02-17] MEDS: ZINC OXIDE 20% OINT 30 GM TUBE TOP PRN ×2 (00:02→18:23)
[2023-02-17] MEDS: PIPERACILLIN/TAZOBACTAM 3.375 GM in SODIUM CHLORIDE 0.9% MINIBAG 100 ML IV SCH ×3 (03:52→20:04)
[2023-02-17] MEDS: NORepinephrine 8 MG in DEXTROSE 5% 250ML IV SCH (04:12)
[2023-02-17] MEDS: SODIUM CHLORIDE FLUSH 0.9% 10 ML SYRINGE IVP PRN (04:14)
[2023-02-17 04:54] LABS: CALCIUM, IONIZED 1.13 mmol/L (1.15-1.33); VBG PH 7.426 (7.31-7.41)
[2023-02-17 05:06] LABS: CALCIUM 8.3 mg/dL (8.5-10.3); CREATININE 0.5 mg/dL (0.6-1.3); MAGNESIUM 1.6 mg/dL (1.7-2.3); PHOSPHORUS 3.1 mg/dL (2.5-5.0); POTASSIUM 3.3 mmol/L (3.5-4.5)
[2023-02-17] MEDS ORDERED: MAGNESIUM SULFATE 2 GRAM 2 GM/50 ML BAG IV ONE (05:34)
[2023-02-17] MEDS: POTASSIUM CHLOR 20 MEQ/100 ML 20 MEQ/100 ML BAG IV SCH ×2 (05:47→06:52)
[2023-02-17] MEDS ORDERED: HYDROcod/ACETAM 10 MG/325 MG TABLET PO PRN (07:39)
[2023-02-17] MEDS: INSULIN LISPRO 300 UNIT/3 ML PEN SUBQ SCH ×4 (07:55→21:02)
[2023-02-17] MEDS: INSULIN GLARGINE-YFGN 300 UNIT/3 ML PEN SUBQ SCH ×2 (08:23→21:02)
[2023-02-17] MEDS: LEVOTHYROXINE 25 MCG TABLET PO SCH (08:23)
[2023-02-17] MEDS: BRIMONIDINE 0.2% OPHTH DROPS 5 ML EACHEYE SCH ×3 (08:24→22:04)
[2023-02-17] MEDS: CHOLECALCIFEROL 25 MCG TABLET PO SCH (08:24)
[2023-02-17] MEDS: ASPIRIN CHEW 81 MG TABLET PO SCH (08:24)
[2023-02-17] MEDS: TIMOLOL 0.5% OPHTH DROPS EACHEYE SCH ×2 (08:25→22:04)
[2023-02-17] MEDS: MULTIVITAMIN TABLET PO SCH (08:25)
[2023-02-17] MEDS: SERTRALINE 50 MG TABLET PO SCH (08:25)
[2023-02-17] MEDS: FAMOTIDINE 20 MG/2 ML VIAL IVP SCH ×2 (08:26→20:39)
--- NOTE | 2023-02-17 08:28 | PROVIDER PROGRESS NOTE ---
Subjective - Subjective Pt reports feeling: No change (Minimally communicative, needs to be fed, this is apparently her baseline) Objective - Vital Signs/Intake & Output Reviewed Vital Signs: Yes Vital Signs: Vital Signs Temp Pulse Resp BP Pulse Ox 02/17/23 07:00 36.5 C 51 L 17 103/49 L 99 02/17/23 06:00 36.7 C 60 12 109/52 L 100 02/17/23 05:00 36.6 C 55 L 17 113/49 L 100 Intake & Output: Intake & Output 02/14/23 02/15/23 02/16/23 02/17/23 23:59 23:59 23:59 23:59 Intake Total 3372.593 5201.403 2838.750 624.969 Output Total 1695 5305 3948 1105 Balance 1677.593 -103.597 -1109.250 -480.031 - Objective General Appearance: positive: No acute distress, Lethargic (moves all extrem, grunts, opens eyes then falls back asleep, she is fed and is able to swallow) Eyes Bilateral: positive: EOMI, No lid inflammation ENT: positive: ENT inspection nml, No signs of dehydration Neck: positive: Nml inspection, No JVD Respiratory: positive: No respiratory distress, Breath sounds nml Cardiovascular: positive: Regular rate & rhythm, No murmur Abdomen: positive: Non-tender, No distention Skin: positive: Warm, Dry Extremities: positive: Non-tender, No pedal edema Neurologic/Psychiatric: positive: Other (Lethargic, minimally communicative, mo ves allextrem, swallows when fed) - Lab Results Fish Bones: 02/16/23 04:45 02/17/23 09:06 Other Labs: Lab Results x24hrs 02/17/23 02/17/23 02/17/23 Range/Units 07:51 04:15 04:15 VBG pH 7.426 H (7.31-7.41) Ionized Calcium 1.13 L (1.15-1.33) mmol/L Sodium 139 (135-145) mmol/L Potassium 3.3 L (3.5-4.5) mmol/L Chloride 103 (101-111) mmol/L Carbon Dioxide 31 (21-32) mmol/L Anion Gap 5.0 L (6-13) BUN 6 (6-20) mg/dL Creatinine 0.5 L (0.6-1.3) mg/dL Estimated GFR (MDRD) 119 (>89) Glucose 138 H (74-104) mg/dL POC Whole Bld Glucose 121 H (70 - 100) mg/dL Calcium 8.3 L (8.5-10.3) mg/dL Phosphorus 3.1 (2.5-5.0) mg/dL Magnesium 1.6 L (1.7-2.3) mg/dL 02/16/23 02/16/23 02/16/23 Range/Units 20:37 17:12 11:28 VBG pH (7.31-7.41) Ionized Calcium (1.15-1.33) mmol/L Sodium (135-145) mmol/L Potassium (3.5-4.5) mmol/L Chloride (101-111) mmol/L Carbon Dioxide (21-32) mmol/L Anion Gap (6-13) BUN (6-20) mg/dL Creatinine (0.6-1.3) mg/dL Estimated GFR (MDRD) (>89) Glucose (74-104) mg/dL POC Whole Bld Glucose 184 H 228 H 215 H (70 - 100) mg/dL Calcium (8.5-10.3) mg/dL Phosphorus (2.5-5.0) mg/dL Magnesium (1.7-2.3) mg/dL 02/16/23 Range/Units 09:04 VBG pH (7.31-7.41) Ionized Calcium (1.15-1.33) mmol/L Sodium (135-145) mmol/L Potassium 4.1 (3.5-4.5) mmol/L Chloride (101-111) mmol/L Carbon Dioxide (21-32) mmol/L Anion Gap (6-13) BUN (6-20) mg/dL Creatinine (0.6-1.3) mg/dL Estimated GFR (MDRD) (>89) Glucose (74-104) mg/dL POC Whole Bld Glucose (70 - 100) mg/dL Calcium (8.5-10.3) mg/dL Phosphorus (2.5-5.0) mg/dL Magnesium (1.7-2.3) mg/dL Sepsis Event Note (H) - Evaluation Current Stage of Sepsis: Septic shock Possible source of Sepsis: positive: GI tract/intra-abdominal, Genitourinary - Sepsis Criteria Sepsis Criteria: WBC count greater than 12,000 or less than 4000, MAP less than 65 mmHg, Metabolic: lactate > 2 mmol/L Assessment/Plan - Problem List (1) Hypotension Impression: Possible UTI was the cause of septic shock, with urine culture showing gram negative bacilli . Blood cultures are neg to date. CT abd/pelvis showed evidence of colitis. Stool PCR is not resulted yet. Empiric Vancomycin discontinued on 02/13. Continued empiric IV Zosyn. Lactic acid has now normalized but she is still hypotensive. She is off Neosyneph but remains on Levophed. Stopped Solu-Cortef several days ago The last Hospitalist ordered IV albumin daily for 4 days, this started 02/16/23. EKG done yesterday 02/16, showed NSR, rate 71, inferior Q waves, anterolateral Q waves, prolonged QT, low voltage EKG. Since EKG from 06/15/2021, prolonged QT and low voltage were new. She also had an Echo done yesterday 02/16. This shows global LV hypokinesis with EF 30 to 35%. Plan: Weaning down Levophed, I changed parameter: keeping MAP >60. Remain in ICU while on pressors. Cont gentle iv fluids and iv Albumen daily for 3 more days, as previously ordered Awaiting TSH level to assure dose is adequate (2) Urinary tract infection Qualifiers: Urinary tract infection type: site unspecified Hematuria presence: without hematuria Qualified Code(s): N39.0 - Urinary tract infection, site not specified Assessment/Plan: Urine culture from 02/10 grew gram negative bacillus but the bacteria was not identified and no sens done. She had another ur cx done 02/15, and that one is growing a GPC Plan: Continue on IV Zosyn, which covers both GNR and GPC (3) Colitis Assessment/Plan: CT abd/pelvis showed evidence of colitis. Stool PCR is not resulted yet. Plan: Will de-escalate her diet from minced to pureed. (4) Ischemic cardiomyopathy Assessment/Plan: She has Hx of CABG. Her Echo in 06/2021 which showed LVEF of 55% and grade 1 diastolic dysfunction. She had an Echo done yesterday 02/16. This shows global LV hypokinesis with EF 30 to 35%. Plan: We are still holding all cardiac meds because she is still on vasopressors and is hypotensive. Continue aspirin and statin daily (5) Paroxysmal atrial fibrillation Assessment/Plan: She is currently in NSR. Plan: Continue to monitor on telemetry. She was restarted on oral Eliquis. I stopped the Eliquis given the finding of brain hematoma on this admission Holding metoprolol as she remains on pressors for hypotension. (6) Closed head injury Qualifiers: Encounter type: initial encounter Qualified Code(s): S09.90XA - Unspecified injury of head, initial encounter Assessment/Plan: Fall 1 week ago with a closed head injury. Her CT head done this admission showed no acute intracranial pathology, an old right occipital CVA, cerebral volume loss and small vessel ischemic changes and a left frontal contusion and hematoma She was resumed on Eliquis by the previous Hopsitalist. I stopped the Eliquis 02/16 Plan: Remain off Eliquis. Eliquis could be restarted in several weeks if she will be bedbound or she should no longer be on an anticoagulant if she has risk of falls Will order PT and OT when she is no longer hypotensive (7) Fall at home Qualifiers: Encounter type: initial encounter Qualified Code(s): W19.XXXA - Unspecified fall, initial encounter Plan: Will order orthostatic VS when she is OOB Will order PT and OT when she is no longer hypotensive (8) CVA (cerebral vascular accident) Assessment/Plan: History of CVA with residual right-sided deficits. She also had a cardiac arrest with resuscitation in 2021. I wonder if her altered mental status is fro m anoxic brain injury from that cardiac arrest event Currently resides at the [facility]. The last Hospitalist had several discussions regarding CODE STATUS with her medical power of commercial real estate attorney which is her as well as her son. They were agreed jointly to make her DNR. Plan: She is tolerating mechanical soft diabetic diet. No s/s aspiration. Continue aspirin and statin. Cont to feed the pt (9) Hypothyroid Assessment/Plan: I checked TSH to assure dose is adequate, TSH is 4.29 Plan: Continue Levothyroxine. (10) Type 2 diabetes mellitus Assessment/Plan: Plan: Continue sliding scale insulin. And home Lantus 10 units BID. (11) Severe protein calorie malnutrition Assessment/Plan: She has had very poor nutrition recently. 23 kg weight loss in 18 months was documented and she has sacral wounds (recently is essentially bedridden). Plan: Nutrition is following. Suppl calories ordered (12) RAGHAV (acute kidney injury) Assessment/Plan: Resolved. (13) Hypernatremia Assessment/Plan: Resolved.
[2023-02-17] MEDS: ALBUMIN 25% 12.5 GM/50 ML VIAL IV SCH (09:04)
[2023-02-17 09:34] LABS: MAGNESIUM 2.2 mg/dL (1.7-2.3); POTASSIUM 4.1 mmol/L (3.5-4.5)
[2023-02-17] MEDS: SODIUM CHLORIDE 0.45% 1,000 ML IV SCH (15:38)
[2023-02-17] MEDS: ATORVASTATIN 40 MG TABLET PO SCH (20:49)
[2023-02-17] MEDS: CARBOXYMETHYLCELLULOSE OPHTH DROPS EACHEYE SCH (20:55)
[2023-02-18] MEDS: PIPERACILLIN/TAZOBACTAM 3.375 GM in SODIUM CHLORIDE 0.9% MINIBAG 100 ML IV SCH ×3 (04:26→20:06)
[2023-02-18 05:01] LABS: CALCIUM, IONIZED 1.14 mmol/L (1.15-1.33); VBG PH 7.393 (7.31-7.41)
[2023-02-18 05:10] LABS: MAGNESIUM 1.8 mg/dL (1.7-2.3); PHOSPHORUS 3.2 mg/dL (2.5-5.0); POTASSIUM 3.4 mmol/L (3.5-4.5)
[2023-02-18] MEDS ORDERED: MAGNESIUM SULFATE 2 GRAM 2 GM/50 ML BAG IV ONE (05:25)
[2023-02-18] MEDS: POTASSIUM CHLOR 20 MEQ/100 ML 20 MEQ/100 ML BAG IV SCH ×2 (06:13→06:58)
[2023-02-18] MEDS: LEVOTHYROXINE 25 MCG TABLET PO SCH (06:13)
[2023-02-18] MEDS: MULTIVITAMIN TABLET PO SCH (07:46)
[2023-02-18] MEDS: INSULIN LISPRO 300 UNIT/3 ML PEN SUBQ SCH ×4 (07:46→21:20)
[2023-02-18] MEDS: INSULIN GLARGINE-YFGN 300 UNIT/3 ML PEN SUBQ SCH (07:47)
[2023-02-18 08:07] LABS: BASOPHILS % (AUTO) 0.2 %; EOSINOPHILS # (AUTO) 0.4 10^3/uL (0.0-0.7); HGB - HEMOGLOBIN 10.2 g/dL (12.0-16.0); LYMPHOCYTES # (AUTO) 2.7 10^3/uL (1.5-3.5); LYMPHOCYTES % (AUTO) 19.9 %; MEAN CORPUSCULAR HEMOGLOBIN 28.5 pg (27.0-31.0); MEAN CORPUSCULAR HGB CONC 30.9 g/dL (32.0-36.0); MEAN CORPUSCULAR VOLUME 92.2 fL (81.0-99.0); MEAN PLATELET VOLUME 13.4 fL (7.9-10.8); MONOCYTES # (AUTO) 0.7 10^3/uL (0.0-1.0); MONOCYTES % (AUTO) 5.4 %; NEUTROPHILS # (AUTO) 9.6 10^3/uL (1.5-6.6); NEUTROPHILS % (AUTO) 70.3 %; PLT - PLATELET COUNT 168 10^3/uL (130-450); RED BLOOD COUNT 3.58 10^6/uL (4.20-5.40); RED CELL DISTRIBUTION WIDTH 16.5 % (12.0-15.0); WHITE BLOOD COUNT 13.7 x10^3/uL (4.8-10.8)
[2023-02-18 08:14] LABS: CALCIUM 8.2 mg/dL (8.5-10.3); CREATININE 0.6 mg/dL (0.6-1.3); POTASSIUM 3.4 mmol/L (3.5-4.5)
[2023-02-18] MEDS: FAMOTIDINE 20 MG/2 ML VIAL IVP SCH ×2 (08:16→21:33)
[2023-02-18] MEDS: CHOLECALCIFEROL 25 MCG TABLET PO SCH (08:16)
[2023-02-18] MEDS: ALBUMIN 25% 12.5 GM/50 ML VIAL IV SCH (08:16)
[2023-02-18] MEDS: ASPIRIN CHEW 81 MG TABLET PO SCH (08:25)
[2023-02-18] MEDS: SERTRALINE 50 MG TABLET PO SCH (08:25)
[2023-02-18] MEDS: TIMOLOL 0.5% OPHTH DROPS EACHEYE SCH ×2 (08:27→21:55)
[2023-02-18 09:39] LABS: MAGNESIUM 2.4 mg/dL (1.7-2.3); POTASSIUM 4.1 mmol/L (3.5-4.5)
[2023-02-18] MEDS: BRIMONIDINE 0.2% OPHTH DROPS 5 ML EACHEYE SCH ×2 (12:05→21:55)
[2023-02-18] MEDS: SODIUM CHLORIDE 0.45% 1,000 ML IV SCH (12:43)
--- NOTE | 2023-02-18 15:51 | PROVIDER PROGRESS NOTE ---
Subjective - Subjective Pt reports feeling: Worse (Less interactive, mostly asleep, taking less of her diet) Objective - Vital Signs/Intake & Output Reviewed Vital Signs: Yes Vital Signs: Vital Signs Temp Pulse Resp BP Pulse Ox 02/18/23 15:22 66 93/48 L 02/18/23 15:00 54 L 15 103/47 L 100 02/18/23 14:00 63 14 101/44 L 100 02/18/23 13:57 55 L 103/44 L 02/18/23 13:00 36.5 C 52 L 10 L 103/43 L 100 02/18/23 12:33 54 L 104/42 L 02/18/23 12:24 53 L 115/51 L 02/18/23 12:00 36.4 C L 56 L 16 119/49 L 100 Intake & Output: Intake & Output 02/15/23 02/16/23 02/17/23 02/18/23 23:59 23:59 23:59 23:59 Intake Total 5201.403 2838.750 2358.989 1709.282 Output Total 5305 3948 1883 880 Balance -103.597 -1109.250 475.989 829.282 - Objective General Appearance: positive: Lethargic ([place] to eat, minimally interactive, sleeps most of the day) Eyes Bilateral: positive: No lid inflammation ENT: positive: No signs of dehydration Neck: positive: Nml inspection Respiratory: positive: No respiratory distress Cardiovascular: positive: Regular rate & rhythm, No murmur Abdomen: positive: Non-tender, Nml bowel sounds Skin: positive: Warm, Dry Extremities: positive: Non-tender, Other (1+ edema) Neurologic/Psychiatric: positive: Other (Lethargic, awakens to eat and swallow, minimally interactive, mostly sleeps all day, moves all extremities spontaneously) - Lab Results Fish Bones: 02/19/23 04:50 02/19/23 04:50 Other Labs: Lab Results x24hrs 02/18/23 02/18/23 02/18/23 Range/Units 11:38 09:10 07:40 WBC (4.8-10.8) x10^3/uL RBC (4.20-5.40) 10^6/uL Hgb (12.0-16.0) g/dL Hct (37.0-47.0) % MCV (81.0-99.0) fL MCH (27.0-31.0) pg MCHC (32.0-36.0) g/dL RDW (12.0-15.0) % Plt Count (130-450) 10^3/uL MPV (7.9-10.8) fL Neut # (Auto) (1.5-6.6) 10^3/uL Lymph # (Auto) (1.5-3.5) 10^3/uL [place] # (Auto) (0.0-1.0) 10^3/uL Eos # (Auto) (0.0-0.7) 10^3/uL Baso # (Auto) (0.0-0.1) 10^3/uL Absolute Nucleated RBC x10^3/uL Nucleated RBC % /100WBC VBG pH (7.31-7.41) Ionized Calcium (1.15-1.33) mmol/L Sodium (135-145) mmol/L Potassium 4.1 (3.5-4.5) mmol/L Chloride (101-111) mmol/L Carbon Dioxide (21-32) mmol/L Anion Gap (6-13) BUN (6-20) mg/dL Creatinine (0.6-1.3) mg/dL Estimated GFR (MDRD) (>89) Glucose (74-104) mg/dL POC Whole Bld Glucose 96 74 (70 - 100) mg/dL Calcium (8.5-10.3) mg/dL Phosphorus (2.5-5.0) mg/dL Magnesium 2.4 H (1.7-2.3) mg/dL 02/18/23 02/18/23 02/18/23 Range/Units 04:30 04:30 04:30 WBC 13.7 H (4.8-10.8) x10^3/uL RBC 3.58 L (4.20-5.40) 10^6/uL Hgb 10.2 L (12.0-16.0) g/dL Hct 33.0 L (37.0-47.0) % MCV 92.2 (81.0-99.0) fL MCH 28.5 (27.0-31.0) pg MCHC 30.9 L (32.0-36.0) g/dL RDW 16.5 H (12.0-15.0) % Plt Count 168 (130-450) 10^3/uL MPV 13.4 H (7.9-10.8) fL Neut # (Auto) 9.6 H (1.5-6.6) 10^3/uL Lymph # (Auto) 2.7 (1.5-3.5) 10^3/uL [place] # (Auto) 0.7 (0.0-1.0) 10^3/uL Eos # (Auto) 0.4 (0.0-0.7) 10^3/uL Baso # (Auto) 0.0 (0.0-0.1) 10^3/uL Absolute Nucleated RBC 0.00 x10^3/uL Nucleated RBC % 0.0 /100WBC VBG pH 7.393 (7.31-7.41) Ionized Calcium 1.14 L (1.15-1.33) mmol/L Sodium 138 (135-145) mmol/L Potassium 3.4 L (3.5-4.5) mmol/L Chloride 104 (101-111) mmol/L Carbon Dioxide 27 (21-32) mmol/L Anion Gap 7.0 (6-13) BUN 5 L (6-20) mg/dL Creatinine 0.6 (0.6-1.3) mg/dL Estimated GFR (MDRD) 96 (>89) Glucose 67 L (74-104) mg/dL POC Whole Bld Glucose (70 - 100) mg/dL Calcium 8.2 L (8.5-10.3) mg/dL Phosphorus (2.5-5.0) mg/dL Magnesium (1.7-2.3) mg/dL 02/18/23 02/18/23 02/17/23 Range/Units 04:30 01:13 20:29 WBC (4.8-10.8) x10^3/uL RBC (4.20-5.40) 10^6/uL Hgb (12.0-16.0) g/dL Hct (37.0-47.0) % MCV (81.0-99.0) fL MCH (27.0-31.0) pg MCHC (32.0-36.0) g/dL RDW (12.0-15.0) % Plt Count (130-450) 10^3/uL MPV (7.9-10.8) fL Neut # (Auto) (1.5-6.6) 10^3/uL Lymph # (Auto) (1.5-3.5) 10^3/uL [place] # (Auto) (0.0-1.0) 10^3/uL Eos # (Auto) (0.0-0.7) 10^3/uL Baso # (Auto) (0.0-0.1) 10^3/uL Absolute Nucleated RBC x10^3/uL Nucleated RBC % /100WBC VBG pH (7.31-7.41) Ionized Calcium (1.15-1.33) mmol/L Sodium (135-145) mmol/L Potassium 3.4 L (3.5-4.5) mmol/L Chloride (101-111) mmol/L Carbon Dioxide (21-32) mmol/L Anion Gap (6-13) BUN (6-20) mg/dL Creatinine (0.6-1.3) mg/dL Estimated GFR (MDRD) (>89) Glucose (74-104) mg/dL POC Whole Bld Glucose 94 77 (70 - 100) mg/dL Calcium (8.5-10.3) mg/dL Phosphorus 3.2 (2.5-5.0) mg/dL Magnesium 1.8 (1.7-2.3) mg/dL 02/17/23 Range/Units 16:46 WBC (4.8-10.8) x10^3/uL RBC (4.20-5.40) 10^6/uL Hgb (12.0-16.0) g/dL Hct (37.0-47.0) % MCV (81.0-99.0) fL MCH (27.0-31.0) pg MCHC (32.0-36.0) g/dL RDW (12.0-15.0) % Plt Count (130-450) 10^3/uL MPV (7.9-10.8) fL Neut # (Auto) (1.5-6.6) 10^3/uL Lymph # (Auto) (1.5-3.5) 10^3/uL [place] # (Auto) (0.0-1.0) 10^3/uL Eos # (Auto) (0.0-0.7) 10^3/uL Baso # (Auto) (0.0-0.1) 10^3/uL Absolute Nucleated RBC x10^3/uL Nucleated RBC % /100WBC VBG pH (7.31-7.41) Ionized Calcium (1.15-1.33) mmol/L Sodium (135-145) mmol/L Potassium (3.5-4.5) mmol/L Chloride (101-111) mmol/L Carbon Dioxide (21-32) mmol/L Anion Gap (6-13) BUN (6-20) mg/dL Creatinine (0.6-1.3) mg/dL Estimated GFR (MDRD) (>89) Glucose (74-104) mg/dL POC Whole Bld Glucose 83 (70 - 100) mg/dL Calcium (8.5-10.3) mg/dL Phosphorus (2.5-5.0) mg/dL Magnesium (1.7-2.3) mg/dL Sepsis Event Note (H) - Evaluation Current Stage of Sepsis: Septic shock Possible source of Sepsis: positive: GI tract/intra-abdominal, Genitourinary - Sepsis Criteria Sepsis Criteria: WBC count greater than 12,000 or less than 4000, MAP less than 65 mmHg, Metabolic: lactate > 2 mmol/L Assessment/Plan - Problem List (1) Hypotension Impression: Possible UTI was the cause of septic shock, with urine culture showing gram negative bacilli . Blood cultures are neg to date. CT abd/pelvis showed evidence of colitis. Stool PCR is not resulted yet. Empiric Vancomycin discontinued on 02/13. Continued empiric IV Zosyn. Lactic acid normalized but she is still hypotensive. She is off Neosyneph but remains on Levophed. Stopped Solu-Cortef The last Hospitalist ordered IV albumin daily for 4 days, this started 02/16/23. EKG done 02/16, showed NSR, rate 71, inferior Q waves, anterolateral Q waves, prolonged QT, low voltage EKG. Since EKG from 06/15/2021, prolonged QT and low voltage were new. She also had an Echo done 02/16. This shows global LV hypokinesis with EF 30 to 35%. TSH level was adequate at 4.29 I updated the at the bedside today, he completed a POLST, I repeated the discussion re DNR Plan: Weaning down Levophed, I changed parameter: keeping MAP >60 not 65. Remain in ICU while on pressors. Cont gentle iv fluids and iv Albumen daily for several more days, as previously ordered (2) Urinary tract infection Impression: Urine culture from 02/10 grew gram negative bacillus but the bacteria was not identified and no sens done. She had another ur cx done 02/15, and that one is growing a GPC Plan: Continue on IV Zosyn, which covers both GNR and GPC Qualifiers: Urinary tract infection type: site unspecified Hematuria presence: without hematuria Qualified Code(s): N39.0 - Urinary tract infection, site not specified (3) Colitis Impression: CT abd/pelvis showed evidence of colitis. Stool PCR is not resulted yet. Plan: I de-escalated her diet from minced to pureed. Will request Nutrition recommendations (4) Intraparenchymal hematoma of brain due to trauma Impression: Fall 1 week ago with a closed head injury. Her CT head done this admission showed an old right occipital CVA, cerebral volume loss and small vessel ischemic changes and a left frontal contusion and hematoma She was resumed on Eliquis by the previous Hopsitalist. I stopped the Eliquis 02/16 Plan: Remain off Eliquis. Eliquis could be restarted in several weeks if she will be bedbound or she should no longer be on an anticoagulant if she has risk of falls Will order PT and OT when she is no longer hypotensive (5) Type 2 diabetes mellitus Assessment/Plan: The last 2-3 days she is taking in less oral nutrition. She had a low glucose this morning (All labs were reviewed) Plan: Continue fingerstick checks and sliding scale insulin. Will stop the restarted Lantus 10 units BID. (6) Ischemic cardiomyopathy Assessment/Plan: She has Hx of CABG. Her Echo in 06/2021 which showed LVEF of 55% and grade 1 diastolic dysfunction. She had an Echo done yesterday 02/16. This shows global LV hypokinesis with EF 30 to 35%. Plan: We are still holding all cardiac meds because she is still on vasopressors and is hypotensive. Continue aspirin. I will stop the statin while she has trivial nutritional intake (7) Paroxysmal atrial fibrillation Assessment/Plan: She is currently in NSR. Plan: Continue to monitor on telemetry. She was restarted on oral Eliquis. I stopped the Eliquis given the finding of brain hematoma on this admission Holding metoprolol as she remains on pressors for hypotension. (8) CVA (cerebral vascular accident) Assessment/Plan: History of CVA with residual right-sided deficits. She also had a cardiac arrest with resuscitation in 2021. I wonder if her altered mental status is from anoxic brain injury from that cardiac arrest event Currently resides at the [facility]. The last Hospitalist had several discussions regarding CODE STATUS with her medical power of oil burner installer which is her as well as her son. They were agreed jointly to make her DNR. Plan: She is tolerating mechanical soft diabetic diet. No s/s aspiration. Continue aspirin and statin. Cont to feed the pt (9) Hypothyroid Assessment/Plan: I checked TSH to assure dose is adequate, TSH is 4.29 Plan: Continue Levothyroxine. (10) Severe protein calorie malnutrition Assessment/Plan: She has had very poor nutrition recently. 23 kg weight loss in 18 months was documented and she has sacral wounds (recently is essentially bedridden). Plan: Harness Rigger giving recommendations (11) Fall at home Qualifiers: Encounter type: initial encounter Qualified Code(s): W19.XXXA - Unspecified fall, initial encounter Plan: Will order orthostatic VS when she is OOB Will order PT and OT when she is no longer hypotensive (12) RAGHAV (acute kidney injury) Assessment/Plan: Resolved. (13) Hypernatremia Assessment/Plan: Resolved.
[2023-02-18] MEDS: SODIUM CHLORIDE 0.9% 500 ML IV PRN (17:05)
[2023-02-18] MEDS: ATORVASTATIN 40 MG TABLET PO SCH (21:48)
[2023-02-18] MEDS: CARBOXYMETHYLCELLULOSE OPHTH DROPS EACHEYE SCH (21:57)
[2023-02-19] MEDS: PIPERACILLIN/TAZOBACTAM 3.375 GM in SODIUM CHLORIDE 0.9% MINIBAG 100 ML IV SCH ×3 (04:39→21:08)
[2023-02-19 05:16] LABS: CALCIUM, IONIZED 1.15 mmol/L (1.15-1.33); VBG PH 7.379 (7.31-7.41)
[2023-02-19 05:18] LABS: BASOPHILS % (AUTO) 0.2 %; EOSINOPHILS # (AUTO) 0.2 10^3/uL (0.0-0.7); EOSINOPHILS % (AUTO) 2.8 %; HCT - HEMATOCRIT 29.4 % (37.0-47.0); HGB - HEMOGLOBIN 9.2 g/dL (12.0-16.0); LYMPHOCYTES # (AUTO) 1.9 10^3/uL (1.5-3.5); LYMPHOCYTES % (AUTO) 22.2 %; MEAN CORPUSCULAR HEMOGLOBIN 28.9 pg (27.0-31.0); MEAN CORPUSCULAR HGB CONC 31.3 g/dL (32.0-36.0); MEAN CORPUSCULAR VOLUME 92.5 fL (81.0-99.0); MEAN PLATELET VOLUME 12.9 fL (7.9-10.8); MONOCYTES # (AUTO) 0.6 10^3/uL (0.0-1.0); MONOCYTES % (AUTO) 7.2 %; NEUTROPHILS # (AUTO) 5.7 10^3/uL (1.5-6.6); NEUTROPHILS % (AUTO) 66.5 %; PLT - PLATELET COUNT 160 10^3/uL (130-450); RED BLOOD COUNT 3.18 10^6/uL (4.20-5.40); RED CELL DISTRIBUTION WIDTH 16.5 % (12.0-15.0); WHITE BLOOD COUNT 8.5 x10^3/uL (4.8-10.8)
[2023-02-19 05:32] LABS: MAGNESIUM 1.9 mg/dL (1.7-2.3)
[2023-02-19 05:58] LABS: CALCIUM 8.1 mg/dL (8.5-10.3); CREATININE 0.6 mg/dL (0.6-1.3); POTASSIUM 3.7 mmol/L (3.5-4.5)
[2023-02-19] MEDS ORDERED: POTASSIUM CHLOR 20 MEQ/100 ML 20 MEQ/100 ML BAG IV ONE ×2 (06:13→09:15)
[2023-02-19] MEDS: INSULIN LISPRO 300 UNIT/3 ML PEN SUBQ SCH ×4 (07:53→21:16)
[2023-02-19] MEDS: MULTIVITAMIN TABLET PO SCH (07:55)
[2023-02-19] MEDS: CHOLECALCIFEROL 25 MCG TABLET PO SCH (07:55)
[2023-02-19] MEDS: FAMOTIDINE 20 MG/2 ML VIAL IVP SCH ×2 (07:58→21:15)
[2023-02-19] MEDS: ALBUMIN 25% 12.5 GM/50 ML VIAL IV SCH (07:58)
[2023-02-19] MEDS: TIMOLOL 0.5% OPHTH DROPS EACHEYE SCH ×2 (08:21→21:15)
[2023-02-19] MEDS: SODIUM CHLORIDE FLUSH 0.9% 10 ML SYRINGE IVP PRN (08:33)
[2023-02-19] MEDS: DEXTROSE 5%-0.9% NACL 1,000 ML IV SCH (08:35)
[2023-02-19] MEDS: BRIMONIDINE 0.2% OPHTH DROPS 5 ML EACHEYE SCH ×2 (08:37→21:15)
[2023-02-19] MEDS: ZINC OXIDE 20% OINT 30 GM TUBE TOP PRN (11:20)
[2023-02-19] MEDS: ASPIRIN CHEW 81 MG TABLET PO SCH (14:21)
[2023-02-19] MEDS: LEVOTHYROXINE 25 MCG TABLET PO SCH (14:21)
[2023-02-19] MEDS: SERTRALINE 50 MG TABLET PO SCH (14:21)
--- NOTE | 2023-02-19 16:35 | PROVIDER PROGRESS NOTE ---
Subjective - Subjective Pt reports feeling: Improved (This morning, she was lethargic, refused breakfast. In the afternoon she was looking around purposefully, able to respond with the short sentence) Objective - Vital Signs/Intake & Output Reviewed Vital Signs: Yes Vital Signs: Vital Signs Temp Pulse Resp BP Pulse Ox 02/19/23 16:12 61 106/41 L 02/19/23 16:00 36.7 C 58 L 17 90/47 L 100 02/19/23 15:00 36.5 C 61 19 95/39 L 100 02/19/23 14:00 66 18 90/48 L 100 02/19/23 13:00 60 18 91/44 L 100 02/19/23 12:45 56 L 89/50 L Intake & Output: Intake & Output 02/16/23 02/17/23 02/18/23 02/19/23 23:59 23:59 23:59 23:59 Intake Total 2838.750 2358.989 1800.845 5550.742 Output Total 3948 1883 1203 1575 Balance -1109.250 475.989 692.972 411.742 - Objective General Appearance: positive: Lethargic Eyes Bilateral: positive: No lid inflammation, Other (Bruise above and lateral to L eye) ENT: positive: ENT inspection nml, No signs of dehydration Neck: positive: Nml inspection, No JVD Respiratory: positive: No respiratory distress, Breath sounds nml Cardiovascular: positive: Regular rate & rhythm, No murmur Abdomen: positive: Non-tender, No distention Skin: positive: Warm, Dry Extremities: positive: Non-tender, Other (2+ edema legs, 1+ edema hands) - Lab Results Fish Bones: 02/19/23 04:50 02/19/23 11:56 Other Labs: Lab Results x24hrs 02/19/23 02/19/23 02/19/23 Range/Units 11:56 11:55 08:33 WBC (4.8-10.8) x10^3/uL RBC (4.20-5.40) 10^6/uL Hgb (12.0-16.0) g/dL Hct (37.0-47.0) % MCV (81.0-99.0) fL MCH (27.0-31.0) pg MCHC (32.0-36.0) g/dL RDW (12.0-15.0) % Plt Count (130-450) 10^3/uL MPV (7.9-10.8) fL Neut # (Auto) (1.5-6.6) 10^3/uL Lymph # (Auto) (1.5-3.5) 10^3/uL [place] # (Auto) (0.0-1.0) 10^3/uL Eos # (Auto) (0.0-0.7) 10^3/uL Baso # (Auto) (0.0-0.1) 10^3/uL Absolute Nucleated RBC x10^3/uL Nucleated RBC % /100WBC VBG pH (7.31-7.41) Ionized Calcium (1.15-1.33) mmol/L Sodium (135-145) mmol/L Potassium 4.0 3.9 (3.5-4.5) mmol/L Chloride (101-111) mmol/L Carbon Dioxide (21-32) mmol/L Anion Gap (6-13) BUN (6-20) mg/dL Creatinine (0.6-1.3) mg/dL Estimated GFR (MDRD) (>89) Glucose (74-104) mg/dL POC Whole Bld Glucose 90 (70 - 100) mg/dL Calcium (8.5-10.3) mg/dL Phosphorus (2.5-5.0) mg/dL Magnesium (1.7-2.3) mg/dL 02/19/23 02/19/23 02/19/23 Range/Units 07:44 04:50 04:50 WBC (4.8-10.8) x10^3/uL RBC (4.20-5.40) 10^6/uL Hgb (12.0-16.0) g/dL Hct (37.0-47.0) % MCV (81.0-99.0) fL MCH (27.0-31.0) pg MCHC (32.0-36.0) g/dL RDW (12.0-15.0) % Plt Count (130-450) 10^3/uL MPV (7.9-10.8) fL Neut # (Auto) (1.5-6.6) 10^3/uL Lymph # (Auto) (1.5-3.5) 10^3/uL [place] # (Auto) (0.0-1.0) 10^3/uL Eos # (Auto) (0.0-0.7) 10^3/uL Baso # (Auto) (0.0-0.1) 10^3/uL Absolute Nucleated RBC x10^3/uL Nucleated RBC % /100WBC VBG pH 7.379 (7.31-7.41) Ionized Calcium 1.15 (1.15-1.33) mmol/L Sodium (135-145) mmol/L Potassium (3.5-4.5) mmol/L Chloride (101-111) mmol/L Carbon Dioxide (21-32) mmol/L Anion Gap (6-13) BUN (6-20) mg/dL Creatinine (0.6-1.3) mg/dL Estimated GFR (MDRD) (>89) Glucose (74-104) mg/dL POC Whole Bld Glucose 84 (70 - 100) mg/dL Calcium (8.5-10.3) mg/dL Phosphorus 3.0 (2.5-5.0) mg/dL Magnesium 1.9 (1.7-2.3) mg/dL 02/19/23 02/19/23 02/18/23 Range/Units 04:50 04:50 20:35 WBC 8.5 (4.8-10.8) x10^3/uL RBC 3.18 L (4.20-5.40) 10^6/uL Hgb 9.2 L (12.0-16.0) g/dL Hct 29.4 L (37.0-47.0) % MCV 92.5 (81.0-99.0) fL MCH 28.9 (27.0-31.0) pg MCHC 31.3 L (32.0-36.0) g/dL RDW 16.5 H (12.0-15.0) % Plt Count 160 (130-450) 10^3/uL MPV 12.9 H (7.9-10.8) fL Neut # (Auto) 5.7 (1.5-6.6) 10^3/uL Lymph # (Auto) 1.9 (1.5-3.5) 10^3/uL [place] # (Auto) 0.6 (0.0-1.0) 10^3/uL Eos # (Auto) 0.2 (0.0-0.7) 10^3/uL Baso # (Auto) 0.0 (0.0-0.1) 10^3/uL Absolute Nucleated RBC 0.00 x10^3/uL Nucleated RBC % 0.0 /100WBC VBG pH (7.31-7.41) Ionized Calcium (1.15-1.33) mmol/L Sodium 137 (135-145) mmol/L Potassium 3.7 (3.5-4.5) mmol/L Chloride 106 (101-111) mmol/L Carbon Dioxide 28 (21-32) mmol/L Anion Gap 3.0 L (6-13) BUN 5 L (6-20) mg/dL Creatinine 0.6 (0.6-1.3) mg/dL Estimated GFR (MDRD) 96 (>89) Glucose 82 (74-104) mg/dL POC Whole Bld Glucose 76 (70 - 100) mg/dL Calcium 8.1 L (8.5-10.3) mg/dL Phosphorus (2.5-5.0) mg/dL Magnesium (1.7-2.3) mg/dL 02/18/23 02/18/23 Range/Units 17:03 16:59 WBC (4.8-10.8) x10^3/uL RBC (4.20-5.40) 10^6/uL Hgb (12.0-16.0) g/dL Hct (37.0-47.0) % MCV (81.0-99.0) fL MCH (27.0-31.0) pg MCHC (32.0-36.0) g/dL RDW (12.0-15.0) % Plt Count (130-450) 10^3/uL MPV (7.9-10.8) fL Neut # (Auto) (1.5-6.6) 10^3/uL Lymph # (Auto) (1.5-3.5) 10^3/uL [place] # (Auto) (0.0-1.0) 10^3/uL Eos # (Auto) (0.0-0.7) 10^3/uL Baso # (Auto) (0.0-0.1) 10^3/uL Absolute Nucleated RBC x10^3/uL Nucleated RBC % /100WBC VBG pH (7.31-7.41) Ionized Calcium (1.15-1.33) mmol/L Sodium (135-145) mmol/L Potassium (3.5-4.5) mmol/L Chloride (101-111) mmol/L Carbon Dioxide (21-32) mmol/L Anion Gap (6-13) BUN (6-20) mg/dL Creatinine (0.6-1.3) mg/dL Estimated GFR (MDRD) (>89) Glucose (74-104) mg/dL POC Whole Bld Glucose 80 75 (70 - 100) mg/dL Calcium (8.5-10.3) mg/dL Phosphorus (2.5-5.0) mg/dL Magnesium (1.7-2.3) mg/dL Sepsis Event Note (H) - Evaluation Current Stage of Sepsis: Septic shock Possible source of Sepsis: positive: GI tract/intra-abdominal, Genitourinary - Sepsis Criteria Sepsis Criteria: WBC count greater than 12,000 or less than 4000, MAP less than 65 mmHg, Metabolic: lactate > 2 mmol/L Assessment/Plan - Problem List (1) Hypotension Impression: Possible UTI was the cause of septic shock, with urine culture showing gram negative bacilli . Blood cultures are neg to date. CT abd/pelvis showed evidence of colitis. Empiric Vancomycin discontinued on 02/13. Continued empiric IV Zosyn. Lactic acid normalized but she was still hypotensive. The last Hospitalist ordered IV albumin daily for 4 days, this started 02/16/23. EKG done 02/16, showed NSR, rate 71, inferior Q waves, anterolateral Q waves, prolonged QT, low voltage EKG. Since EKG from 06/15/2021, prolonged QT and low voltage were new. She also had an Echo done 02/16. This shows global LV hypokinesis with EF 30 to 35%. TSH level was adequate at 4.29 Levophed was weaned down to off, I changed parameter, keeping syst BP >95. She has been able to stay off Levophed all day Plan: Today is her first day off pressors, remain in ICU. Cont gentle iv fluids and iv Albumen daily for several more days, as previously ordered I will start resuming her cardiac meds slowly, 1 at a time, and staggered (2) Urinary tract infection Impression: Urine culture from 02/10 grew gram negative bacillus but the bacteria was not i dentified and no sens done. She had another ur cx done 02/15, and that one is growing a GPC Plan: Continue on IV Zosyn, which covers both GNR and GPC Qualifiers: Urinary tract infection type: site unspecified Hematuria presence: without hematuria Qualified Code(s): N39.0 - Urinary tract infection, site not specified (3) Colitis Impression: CT abd/pelvis showed evidence of colitis. Stool PCR is not resulted yet. Plan: She is more awake today since the last 3 days, continue with the pured diet. 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 Her CT head done this admission showed an old right occipital CVA, cerebral volume loss and small vessel ischemic changes and a left frontal contusion and hematoma She was resumed on Eliquis by the previous Hopsitalist. I stopped the Eliquis 02/16 She has a visible bruise around the L eye Plan: Remain off Eliquis. Eliquis could be restarted in several weeks only if she will be bedbound. Otherwise she should no longer be on an anticoagulant because of risk of falls Will order PT and OT (5) Type 2 diabetes mellitus Assessment/Plan: The last 2-3 days she is taking in less oral nutrition. She had a low glucose this morning (All labs were reviewed) Plan: Continue fingerstick checks and sliding scale insulin. I stopped the restarted Lantus 10 units BID. (6) Ischemic cardiomyopathy Assessment/Plan: She has Hx of CABG. Her Echo in 06/2021 which showed LVEF of 55% and grade 1 diastolic dysfunction. She had an Echo done yesterday 02/16. This shows global LV hypokinesis with EF 30 to 35%. Plan: We are still holding all cardiac meds because she was hypotensive. Continue aspirin. I will stop the statin while she has trivial nutritional intake (7) Paroxysmal atrial fibrillation Assessment/Plan: She is currently in NSR. Plan: Continue to monitor on telemetry. She was restarted on oral Eliquis. I stopped the Eliquis given the finding of brain hematoma on this admission. Eliquis could be restarted in several weeks only if she will be bedbound. Otherwise she should no longer be on an anticoagulant because of risk of falls Holding metoprolol as she remains on pressors for hypotension. (8) CVA (cerebral vascular accident) Assessment/Plan: History of CVA with residual right-sided deficits. She also had a cardiac arrest with resuscitation in 2021. I wonder if her altered mental status is from anoxic brain injury from that cardiac arrest event Currently resides at the formerly [facility]. The last Hospitalist had several discussions regarding CODE STATUS with her medical power of research attorney which is her as well as her son. They were agreed jointly to make her DNR. yesterday I reviewed a POLST form and signed that Plan: She was tolerating mechanical soft diabetic diet. No s/s aspiration. Will retry Continue aspirin Cont to feed the pt (9) Hypothyroid Assessment/Plan: I checked TSH to assure dose is adequate, TSH is 4.29 Plan: Continue Levothyroxine. (10) Severe protein calorie malnutrition Assessment/Plan: She has had very poor nutrition recently. 23 kg weight loss in 18 months was documented and she has sacral wounds (recently is essentially bedridden). Plan: Nutritional Chemist giving recommendations (11) Fall at home Qualifiers: Encounter type: initial encounter Qualified Code(s): W19.XXXA - Unspecified fall, initial encounter Plan: Will order orthostatic VS when she is OOB Will order PT and OT when she is no longer hypotensive (12) RAGHAV (acute kidney injury) Assessment/Plan: Resolved. (13) Hypernatremia Assessment/Plan: Resolved.
[2023-02-19] MEDS: CARBOXYMETHYLCELLULOSE OPHTH DROPS EACHEYE SCH (21:16)
[2023-02-20] MEDS: DEXTROSE 5%-0.9% NACL 1,000 ML IV SCH (03:50)
[2023-02-20] MEDS: PIPERACILLIN/TAZOBACTAM 3.375 GM in SODIUM CHLORIDE 0.9% MINIBAG 100 ML IV SCH ×3 (03:52→21:26)
[2023-02-20 04:48] LABS: BASOPHILS % (AUTO) 0.1 %; EOSINOPHILS # (AUTO) 0.2 10^3/uL (0.0-0.7); EOSINOPHILS % (AUTO) 2.4 %; HCT - HEMATOCRIT 29.4 % (37.0-47.0); HGB - HEMOGLOBIN 8.9 g/dL (12.0-16.0); LYMPHOCYTES # (AUTO) 1.7 10^3/uL (1.5-3.5); LYMPHOCYTES % (AUTO) 21.9 %; MEAN CORPUSCULAR HEMOGLOBIN 28.7 pg (27.0-31.0); MEAN CORPUSCULAR HGB CONC 30.3 g/dL (32.0-36.0); MEAN CORPUSCULAR VOLUME 94.8 fL (81.0-99.0); MEAN PLATELET VOLUME 12.6 fL (7.9-10.8); MONOCYTES # (AUTO) 0.6 10^3/uL (0.0-1.0); MONOCYTES % (AUTO) 8.1 %; NEUTROPHILS # (AUTO) 5.3 10^3/uL (1.5-6.6); NEUTROPHILS % (AUTO) 66.7 %; PLT - PLATELET COUNT 155 10^3/uL (130-450); WHITE BLOOD COUNT 7.9 x10^3/uL (4.8-10.8)
[2023-02-20 05:21] LABS: CALCIUM 8.1 mg/dL (8.5-10.3); CREATININE 0.6 mg/dL (0.6-1.3); POTASSIUM 3.6 mmol/L (3.5-4.5)
[2023-02-20 05:51] LABS: CALCIUM, IONIZED 1.16 mmol/L (1.15-1.33); VBG PH 7.353 (7.31-7.41)
[2023-02-20] MEDS: LEVOTHYROXINE 25 MCG TABLET PO SCH (06:22)
[2023-02-20] MEDS ORDERED: POTASSIUM CHLOR 20 MEQ/100 ML 20 MEQ/100 ML BAG IV ONE ×2 (06:44→22:43)
[2023-02-20] MEDS ORDERED: POTASSIUM CHLOR 20 MEQ/100 ML 20 MEQ/100 ML BAG IV SCH (07:00)
[2023-02-20] MEDS ORDERED: MAGNESIUM OXIDE 400 MG TABLET PO ONE ×2 (08:44→15:45)
[2023-02-20] MEDS: SERTRALINE 50 MG TABLET PO SCH (08:45)
[2023-02-20] MEDS: ASPIRIN CHEW 81 MG TABLET PO SCH (08:45)
[2023-02-20] MEDS: MULTIVITAMIN TABLET PO SCH (08:46)
[2023-02-20] MEDS: CHOLECALCIFEROL 25 MCG TABLET PO SCH (08:46)
[2023-02-20] MEDS: INSULIN LISPRO 300 UNIT/3 ML PEN SUBQ SCH ×4 (08:47→21:39)
[2023-02-20] MEDS: TIMOLOL 0.5% OPHTH DROPS EACHEYE SCH ×2 (09:02→21:30)
[2023-02-20] MEDS: BRIMONIDINE 0.2% OPHTH DROPS 5 ML EACHEYE SCH ×2 (09:05→21:29)
[2023-02-20] MEDS: FAMOTIDINE 20 MG/2 ML VIAL IVP SCH ×2 (09:06→21:29)
[2023-02-20] MEDS: SODIUM CHLORIDE FLUSH 0.9% 10 ML SYRINGE IVP PRN ×2 (15:06→17:00)
--- NOTE | 2023-02-20 15:07 | PROVIDER PROGRESS NOTE ---
Subjective - Subjective Pt reports feeling: Worse (She is again sleeping most of the day, eating very little. She was able to dangle first time today but only for 3 minutes and then had no trunk strength and fell asleep sitting up. Blood pressure 94/44 while sitting) Objective - Vital Signs/Intake & Output Vital Signs: Vital Signs Pulse Resp BP Pulse Ox 02/20/23 13:00 56 L 20 128/54 L 100 02/20/23 12:00 58 L 19 100/56 L 100 Intake & Output: Intake & Output 02/17/23 02/18/23 02/19/23 02/20/23 23:59 23:59 23:59 23:59 Intake Total 2358.989 1714.427 5887.742 1090.375 Output Total 1883 1203 2015 598 Balance 475.989 692.972 -28.258 492.375 - Objective General Appearance: positive: Lethargic Eyes Bilateral: positive: No lid inflammation ENT: positive: No signs of dehydration Neck: positive: Nml inspection Respiratory: positive: No respiratory distress, Breath sounds nml Cardiovascular: positive: Regular rate & rhythm, No murmur Abdomen: positive: Non-tender, Nml bowel sounds, No distention Skin: positive: Warm, Dry Extremities: positive: Non-tender, Other (1+ edema) Neurologic/Psychiatric: positive: Other (Lethargic, generalized weak, sleeping most of day, dangled for 3 min) - Lab Results Fish Bones: 02/21/23 04:55 02/21/23 04:55 Other Labs: Lab Results x24hrs 02/20/23 02/20/23 02/20/23 Range/Units 11:34 07:36 04:20 WBC (4.8-10.8) x10^3/uL RBC (4.20-5.40) 10^6/uL Hgb (12.0-16.0) g/dL Hct (37.0-47.0) % MCV (81.0-99.0) fL MCH (27.0-31.0) pg MCHC (32.0-36.0) g/dL RDW (12.0-15.0) % Plt Count (130-450) 10^3/uL MPV (7.9-10.8) fL Neut # (Auto) (1.5-6.6) 10^3/uL Lymph # (Auto) (1.5-3.5) 10^3/uL [place] # (Auto) (0.0-1.0) 10^3/uL Eos # (Auto) (0.0-0.7) 10^3/uL Baso # (Auto) (0.0-0.1) 10^3/uL Absolute Nucleated RBC x10^3/uL Nucleated RBC % /100WBC VBG pH (7.31-7.41) Ionized Calcium (1.15-1.33) mmol/L Sodium (135-145) mmol/L Potassium (3.5-4.5) mmol/L Chloride (101-111) mmol/L Carbon Dioxide (21-32) mmol/L Anion Gap (6-13) BUN (6-20) mg/dL Creatinine (0.6-1.3) mg/dL Estimated GFR (MDRD) (>89) Glucose (74-104) mg/dL POC Whole Bld Glucose 139 H 92 (70 - 100) mg/dL Calcium (8.5-10.3) mg/dL Phosphorus (2.5-5.0) mg/dL Magnesium 1.7 (1.7-2.3) mg/dL 02/20/23 02/20/23 02/20/23 Range/Units 04:20 04:20 04:20 WBC 7.9 (4.8-10.8) x10^3/uL RBC 3.10 L (4.20-5.40) 10^6/uL Hgb 8.9 L (12.0-16.0) g/dL Hct 29.4 L (37.0-47.0) % MCV 94.8 (81.0-99.0) fL MCH 28.7 (27.0-31.0) pg MCHC 30.3 L (32.0-36.0) g/dL RDW 17.0 H (12.0-15.0) % Plt Count 155 (130-450) 10^3/uL MPV 12.6 H (7.9-10.8) fL Neut # (Auto) 5.3 (1.5-6.6) 10^3/uL Lymph # (Auto) 1.7 (1.5-3.5) 10^3/uL [place] # (Auto) 0.6 (0.0-1.0) 10^3/uL Eos # (Auto) 0.2 (0.0-0.7) 10^3/uL Baso # (Auto) 0.0 (0.0-0.1) 10^3/uL Absolute Nucleated RBC 0.00 x10^3/uL Nucleated RBC % 0.0 /100WBC VBG pH 7.353 (7.31-7.41) Ionized Calcium 1.16 (1.15-1.33) mmol/L Sodium (135-145) mmol/L Potassium (3.5-4.5) mmol/L Chloride (101-111) mmol/L Carbon Dioxide (21-32) mmol/L Anion Gap (6-13) BUN (6-20) mg/dL Creatinine (0.6-1.3) mg/dL Estimated GFR (MDRD) (>89) Glucose (74-104) mg/dL POC Whole Bld Glucose (70 - 100) mg/dL Calcium (8.5-10.3) mg/dL Phosphorus 2.7 (2.5-5.0) mg/dL Magnesium (1.7-2.3) mg/dL 02/20/23 02/19/23 02/19/23 Range/Units 04:20 21:06 16:31 WBC (4.8-10.8) x10^3/uL RBC (4.20-5.40) 10^6/uL Hgb (12.0-16.0) g/dL Hct (37.0-47.0) % MCV (81.0-99.0) fL MCH (27.0-31.0) pg MCHC (32.0-36.0) g/dL RDW (12.0-15.0) % Plt Count (130-450) 10^3/uL MPV (7.9-10.8) fL Neut # (Auto) (1.5-6.6) 10^3/uL Lymph # (Auto) (1.5-3.5) 10^3/uL [place] # (Auto) (0.0-1.0) 10^3/uL Eos # (Auto) (0.0-0.7) 10^3/uL Baso # (Auto) (0.0-0.1) 10^3/uL Absolute Nucleated RBC x10^3/uL Nucleated RBC % /100WBC VBG pH (7.31-7.41) Ionized Calcium (1.15-1.33) mmol/L Sodium 140 (135-145) mmol/L Potassium 3.6 (3.5-4.5) mmol/L Chloride 110 (101-111) mmol/L Carbon Dioxide 25 (21-32) mmol/L Anion Gap 5.0 L (6-13) BUN 5 L (6-20) mg/dL Creatinine 0.6 (0.6-1.3) mg/dL Estimated GFR (MDRD) 96 (>89) Glucose 95 (74-104) mg/dL POC Whole Bld Glucose 97 92 (70 - 100) mg/dL Calcium 8.1 L (8.5-10.3) mg/dL Phosphorus (2.5-5.0) mg/dL Magnesium (1.7-2.3) mg/dL Sepsis Event Note (H) - Evaluation Current Stage of Sepsis: Septic shock Possible source of Sepsis: positive: GI tract/intra-abdominal, Genitourinary - Sepsis Criteria Sepsis Criteria: WBC count greater than 12,000 or less than 4000, MAP less than 65 mmHg, Metabolic: lactate > 2 mmol/L Assessment/Plan - Problem List (1) Hypotension Impression: She is again Hypotensive today, BP was <90 and Levophed was restarted Her inital hypotension we felt was from septic shock, Lactic acid normalized but she was still hypotensive. Her urine culture showing gram negative bacilli . Blood cultures are neg to date. CT abd/pelvis showed evidence of colitis. Empiric Vancomycin discontinued on 02/13. Continued on empiric IV Zosyn. She got IV albumin daily for several days, 02/16 -02/19 yesterday Echo done 02/16. This showed global LV hypokinesis with EF 30 to 35%. TSH level was adequate at 4.29 Plan: She is back on pressors, remain in ICU. I had wanted to start her on Lasix to help with the leg edema but since she is barely eating and has a low blood pressure we will cont gentle iv fluids I will consider more iv Albumen, as previously ordered If WBC increases, I will check a lactic acid level, repeat UA and CXR (2) Urinary tract infection Impression: Urine culture from 02/10 grew gram negative bacillus but the bacteria was not identified and no sens done. She had another ur cx done 02/15, and that one is growing a GPC Plan: Continue on IV Zosyn, which covers both GNR and GPC Qualifiers: Urinary tract infection type: site unspecified Hematuria presence: without hematuria Qualified Code(s): N39.0 - Urinary tract infection, site not sp ecified (3) Colitis Impression: CT abd/pelvis showed evidence of colitis. There are no signs of ischemic bowel. WBC improved. Plan: Continue with the pured diet. 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 Her CT head done this admission showed an old right occipital CVA, cerebral volume loss and small vessel is chemic changes and a left frontal contusion and hematoma She was resumed on Eliquis by the previous Hopsitalist. I stopped the Eliquis 02/16 She has a visible bruise around the L eye Plan: Remain off Eliquis. Eliquis could be restarted in several weeks only if she will be bedbound. Otherwise she should no longer be on an anticoagulant because of risk of falls Will order PT and OT (5) Type 2 diabetes mellitus Assessment/Plan: She is again taking in less oral nutrition. She had low glu when BID Lantus was tried Plan: Continue fingerstick checks and sliding scale insulin. I stopped the restarted Lantus 10 units BID. (6) Ischemic cardiomyopathy Assessment/Plan: She has Hx of CABG. Her Echo in 06/2021 which showed LVEF of 55% and grade 1 diastolic dysfunction. She had an Echo done yesterday 02/16. This shows global LV hypokinesis with EF 30 to 35%. Plan: We are still holding all cardiac meds because she was hypotensive. Continue aspirin. I will stop the statin while she has trivial nutritional intake (7) Paroxysmal atrial fibrillation Assessment/Plan: She is currently in NSR. Plan: Continue to monitor on telemetry. She was restarted on oral Eliquis. I stopped the Eliquis given the finding of brain hematoma on this admission. Eliquis could be restarted in several weeks only if she will be bedbound. O therwise she should no longer be on an anticoagulant because of risk of falls Holding metoprolol as she remains on pressors for hypotension. (8) CVA (cerebral vascular accident) Assessment/Plan: History of CVA with residual right-sided deficits. She also had a cardiac arrest with resuscitation in 2021. I wonder if her altered mental status is from anoxic brain injury from that cardiac arrest event Currently resides at the LT[facility], [facility]. The last Hospitalist had several discussions regarding CODE STATUS with her medical power of merit system director which is her as well as her son. They were agreed jointly to make her DNR. yesterday I reviewed a POLST form and signed that Plan: She was tolerating mechanical soft diabetic diet. No s/s aspiration. Will retry diet of pureed Continue aspirin Cont to feed the pt (9) Hypothyroid Assessment/Plan: I checked TSH to assure dose is adequate, TSH is 4.29 Plan: Continue Levothyroxine. (10) Severe protein calorie malnutrition Assessment/Plan: She has had very poor nutrition recently. 23 kg weight loss in 18 months was documented and she has sacral wounds (recently is essentially bedridden). Plan: Development Analyst giving recommendations Will retry diet of pureed (11) Fall at home Qualifiers: Encounter type: initial encounter Qualified Code(s): W19.XXXA - Unspecified fall, initial encounter Plan: Will order orthostatic VS when she is OOB Will order PT and OT when she is no longer hypotensive (12) RAGHAV (acute kidney injury) Assessment/Plan: Resolved. (13) Hypernatremia Assessment/Plan: Resolved.
[2023-02-20 15:29] LABS: MAGNESIUM 1.6 mg/dL (1.7-2.3); POTASSIUM 3.8 mmol/L (3.5-4.5)
[2023-02-20] MEDS ORDERED: POTASSIUM CHLORIDE 20 MEQ TABLET PO ONE ×2 (15:45→17:01)
[2023-02-20] MEDS: SODIUM CHLORIDE 0.9% 500 ML IV PRN (17:04)
[2023-02-20] MEDS: ZINC OXIDE 20% OINT 30 GM TUBE TOP PRN (17:48)
[2023-02-20] MEDS: CARBOXYMETHYLCELLULOSE OPHTH DROPS EACHEYE SCH (21:29)
[2023-02-20 22:35] LABS: MAGNESIUM 1.6 mg/dL (1.7-2.3); POTASSIUM 3.7 mmol/L (3.5-4.5)
[2023-02-20] MEDS ORDERED: MAGNESIUM SULFATE 2 GRAM 2 GM/50 ML BAG IV ONE (22:43)
[2023-02-21 05:10] LABS: CALCIUM, IONIZED 1.16 mmol/L (1.15-1.33); VBG PH 7.397 (7.31-7.41)
[2023-02-21] MEDS: DEXTROSE 5%-0.9% NACL 1,000 ML IV SCH (05:28)
[2023-02-21 05:29] LABS: BASOPHILS % (AUTO) 0.2 %; EOSINOPHILS # (AUTO) 0.1 10^3/uL (0.0-0.7); EOSINOPHILS % (AUTO) 1.4 %; HCT - HEMATOCRIT 27.5 % (37.0-47.0); HGB - HEMOGLOBIN 8.5 g/dL (12.0-16.0); LYMPHOCYTES # (AUTO) 1.2 10^3/uL (1.5-3.5); LYMPHOCYTES % (AUTO) 24.3 %; MEAN CORPUSCULAR HEMOGLOBIN 28.8 pg (27.0-31.0); MEAN CORPUSCULAR HGB CONC 30.9 g/dL (32.0-36.0); MEAN CORPUSCULAR VOLUME 93.2 fL (81.0-99.0); MEAN PLATELET VOLUME 12.7 fL (7.9-10.8); MONOCYTES # (AUTO) 0.5 10^3/uL (0.0-1.0); MONOCYTES % (AUTO) 9.6 %; NEUTROPHILS # (AUTO) 3.3 10^3/uL (1.5-6.6); NEUTROPHILS % (AUTO) 63.9 %; PLT - PLATELET COUNT 119 10^3/uL (130-450); RED BLOOD COUNT 2.95 10^6/uL (4.20-5.40); WHITE BLOOD COUNT 5.1 x10^3/uL (4.8-10.8)
[2023-02-21] MEDS: PIPERACILLIN/TAZOBACTAM 3.375 GM in SODIUM CHLORIDE 0.9% MINIBAG 100 ML IV SCH ×3 (05:32→20:52)
[2023-02-21 05:37] LABS: CREATININE 0.5 mg/dL (0.6-1.3); POTASSIUM 3.8 mmol/L (3.5-4.5)
[2023-02-21] MEDS: ZINC OXIDE 20% OINT 30 GM TUBE TOP PRN (05:37)
[2023-02-21] MEDS: LEVOTHYROXINE 25 MCG TABLET PO SCH (06:49)
[2023-02-21] MEDS ORDERED: POTASSIUM PHOSPHATE 15 MMOL in SODIUM CHLORIDE 0.9% 250 ML IV ONE (08:00)
[2023-02-21] MEDS: INSULIN LISPRO 300 UNIT/3 ML PEN SUBQ SCH ×4 (08:00→21:09)
[2023-02-21] MEDS: MULTIVITAMIN TABLET PO SCH (09:42)
[2023-02-21] MEDS: BRIMONIDINE 0.2% OPHTH DROPS 5 ML EACHEYE SCH ×2 (09:42→20:54)
[2023-02-21] MEDS: ASPIRIN CHEW 81 MG TABLET PO SCH (09:42)
[2023-02-21] MEDS: FAMOTIDINE 20 MG/2 ML VIAL IVP SCH ×2 (09:42→20:53)
[2023-02-21] MEDS: CHOLECALCIFEROL 25 MCG TABLET PO SCH (09:42)
[2023-02-21] MEDS: SERTRALINE 50 MG TABLET PO SCH (09:43)
[2023-02-21] MEDS: TIMOLOL 0.5% OPHTH DROPS EACHEYE SCH ×2 (09:43→20:53)
[2023-02-21] MEDS: NOREPINEPHRINE/0.9 % NS 8 MG/250 ML BAG IV SCH (12:00)
--- NOTE | 2023-02-21 12:09 | PROVIDER PROGRESS NOTE ---
Subjective - Subjective Pt reports feeling: Improved Subjective: She is more awake, she is OOB in a chair, she says she ahs no appetite but is awake, watching television Objective - Vital Signs/Intake & Output Reviewed Vital Signs: Yes Vital Signs: Vital Signs Pulse Resp BP Pulse Ox 02/21/23 11:00 70 18 97/56 L 100 02/21/23 10:00 72 18 96/51 L 100 02/21/23 09:00 82 17 113/52 L 100 Intake & Output: Intake & Output 02/18/23 02/19/23 02/20/23 02/21/23 23:59 23:59 23:59 23:59 Intake Total 4453.914 9236.742 1966.509 2560 Output Total 1203 2015 1138 1106 Balance 692.972 -28.258 288.229 244 - Objective General Appearance: positive: No acute distress Eyes Bilateral: positive: Other (Left is shut, she is squinting, large bruise above and lateral to left eye) ENT: positive: ENT inspection nml, No signs of dehydration Neck: positive: Nml inspection, No JVD Respiratory: positive: No respiratory distress, Breath sounds nml Cardiovascular: positive: Regular rate & rhythm, No murmur Abdomen: positive: Non-tender, No distention (soft. diminished bowel sounds) Skin: positive: Warm, Dry Extremities: positive: Non-tender, Other (1+pedal edema) Neurologic/Psychiatric: positive: Motor nml, Other (generalized weak) - Lab Results Fish Bones: 02/21/23 04:55 02/21/23 04:55 Other Labs: Lab Results x24hrs 02/21/23 02/21/23 02/21/23 Range/Units 11:36 07:41 04:55 WBC (4.8-10.8) x10^3/uL RBC (4.20-5.40) 10^6/uL Hgb (12.0-16.0) g/dL Hct (37.0-47.0) % MCV (81.0-99.0) fL MCH (27.0-31.0) pg MCHC (32.0-36.0) g/dL RDW (12.0-15.0) % Plt Count (130-450) 10^3/uL MPV (7.9-10.8) fL Neut # (Auto) (1.5-6.6) 10^3/uL Lymph # (Auto) (1.5-3.5) 10^3/uL [place] # (Auto) (0.0-1.0) 10^3/uL Eos # (Auto) (0.0-0.7) 10^3/uL Baso # (Auto) (0.0-0.1) 10^3/uL Absolute Nucleated RBC x10^3/uL Nucleated RBC % /100WBC VBG pH 7.397 (7.31-7.41) Ionized Calcium 1.16 (1.15-1.33) mmol/L Sodium (135-145) mmol/L Potassium (3.5-4.5) mmol/L Chloride (101-111) mmol/L Carbon Dioxide (21-32) mmol/L Anion Gap (6-13) BUN (6-20) mg/dL Creatinine (0.6-1.3) mg/dL Estimated GFR (MDRD) (>89) Glucose (74-104) mg/dL POC Whole Bld Glucose 119 H 93 (70 - 100) mg/dL Calcium (8.5-10.3) mg/dL Phosphorus (2.5-5.0) mg/dL Magnesium (1.7-2.3) mg/dL 02/21/23 02/21/23 02/21/23 Range/Units 04:55 04:55 04:55 WBC 5.1 (4.8-10.8) x10^3/uL RBC 2.95 L (4.20-5.40) 10^6/uL Hgb 8.5 L (12.0-16.0) g/dL Hct 27.5 L (37.0-47.0) % MCV 93.2 (81.0-99.0) fL MCH 28.8 (27.0-31.0) pg MCHC 30.9 L (32.0-36.0) g/dL RDW 17.0 H (12.0-15.0) % Plt Count 119 L (130-450) 10^3/uL MPV 12.7 H (7.9-10.8) fL Neut # (Auto) 3.3 (1.5-6.6) 10^3/uL Lymph # (Auto) 1.2 L (1.5-3.5) 10^3/uL [place] # (Auto) 0.5 (0.0-1.0) 10^3/uL Eos # (Auto) 0.1 (0.0-0.7) 10^3/uL Baso # (Auto) 0.0 (0.0-0.1) 10^3/uL Absolute Nucleated RBC 0.00 x10^3/uL Nucleated RBC % 0.0 /100WBC VBG pH (7.31-7.41) Ionized Calcium (1.15-1.33) mmol/L Sodium 139 (135-145) mmol/L Potassium 3.8 (3.5-4.5) mmol/L Chloride 111 (101-111) mmol/L Carbon Dioxide 27 (21-32) mmol/L Anion Gap 1.0 L (6-13) BUN 4 L (6-20) mg/dL Creatinine 0.5 L (0.6-1.3) mg/dL Estimated GFR (MDRD) 119 (>89) Glucose 112 H (74-104) mg/dL POC Whole Bld Glucose (70 - 100) mg/dL Calcium 8.0 L (8.5-10.3) mg/dL Phosphorus 2.0 L (2.5-5.0) mg/dL Magnesium 2.0 (1.7-2.3) mg/dL 02/20/23 02/20/23 02/20/23 Range/Units 21:55 21:01 17:06 WBC (4.8-10.8) x10^3/uL RBC (4.20-5.40) 10^6/uL Hgb (12.0-16.0) g/dL Hct (37.0-47.0) % MCV (81.0-99.0) fL MCH (27.0-31.0) pg MCHC (32.0-36.0) g/dL RDW (12.0-15.0) % Plt Count (130-450) 10^3/uL MPV (7.9-10.8) fL Neut # (Auto) (1.5-6.6) 10^3/uL Lymph # (Auto) (1.5-3.5) 10^3/uL [place] # (Auto) (0.0-1.0) 10^3/uL Eos # (Auto) (0.0-0.7) 10^3/uL Baso # (Auto) (0.0-0.1) 10^3/uL Absolute Nucleated RBC x10^3/uL Nucleated RBC % /100WBC VBG pH (7.31-7.41) Ionized Calcium (1.15-1.33) mmol/L Sodium (135-145) mmol/L Potassium 3.7 (3.5-4.5) mmol/L Chloride (101-111) mmol/L Carbon Dioxide (21-32) mmol/L Anion Gap (6-13) BUN (6-20) mg/dL Creatinine (0.6-1.3) mg/dL Estimated GFR (MDRD) (>89) Glucose (74-104) mg/dL POC Whole Bld Glucose 154 H 188 H (70 - 100) mg/dL Calcium (8.5-10.3) mg/dL Phosphorus (2.5-5.0) mg/dL Magnesium 1.6 L (1.7-2.3) mg/dL 02/20/23 Range/Units 15:05 WBC (4.8-10.8) x10^3/uL RBC (4.20-5.40) 10^6/uL Hgb (12.0-16.0) g/dL Hct (37.0-47.0) % MCV (81.0-99.0) fL MCH (27.0-31.0) pg MCHC (32.0-36.0) g/dL RDW (12.0-15.0) % Plt Count (130-450) 10^3/uL MPV (7.9-10.8) fL Neut # (Auto) (1.5-6.6) 10^3/uL Lymph # (Auto) (1.5-3.5) 10^3/uL [place] # (Auto) (0.0-1.0) 10^3/uL Eos # (Auto) (0.0-0.7) 10^3/uL Baso # (Auto) (0.0-0.1) 10^3/uL Absolute Nucleated RBC x10^3/uL Nucleated RBC % /100WBC VBG pH (7.31-7.41) Ionized Calcium (1.15-1.33) mmol/L Sodium (135-145) mmol/L Potassium 3.8 (3.5-4.5) mmol/L Chloride (101-111) mmol/L Carbon Dioxide (21-32) mmol/L Anion Gap (6-13) BUN (6-20) mg/dL Creatinine (0.6-1.3) mg/dL Estimated GFR (MDRD) (>89) Glucose (74-104) mg/dL POC Whole Bld Glucose (70 - 100) mg/dL Calcium (8.5-10.3) mg/dL Phosphorus (2.5-5.0) mg/dL Magnesium 1.6 L (1.7-2.3) mg/dL Sepsis Event Note (H) - Evaluation Current Stage of Sepsis: Septic shock Possible source of Sepsis: positive: GI tract/intra-abdominal, Genitourinary - Sepsis Criteria Sepsis Criteria: WBC count greater than 12,000 or less than 4000, MAP less than 65 mmHg, Metabolic: lactate > 2 mmol/L Assessment/Plan - Problem List (1) Hypotension Impression: Yesterday she was Hypotensive w/ BP was <90 and Levophed was restarted. Today she is off Levophed since midnite (~12 hours) Her inital hypotension we felt was from septic shock, Lactic acid normalized but she was still hypotensive. Her urine culture showing gram negative bacilli . Blood cultures are neg to date. CT abd/pelvis showed evidence of colitis. Empiric Vancomycin discontinued on 02/13. Continued on empiric IV Zosyn. She got IV albumin daily for several days, 02/16 -02/19 Echo done 02/16, it showed global LV hypokinesis with EF 30 to 35%. TSH level was adequate at 4.29 Plan: Remain in ICU. I had wanted to start her on Lasix to help with the leg edema but since she is barely eating and has a soft blood pressure we will cont gentle iv fluids I will consider more iv Albumen, as previously ordered If WBC increases, I will check a lactic acid level, repeat UA and CXR (2) Urinary tract infection Impression: Urine culture from 02/10 grew gram negative bacillus but the bacteria was not identified and no sens done. She had another ur cx done 02/15, and that one is growing a GPC Plan: Continue on IV Zosyn, which covers both GNR and GPC Qualifiers: Urinary tract infection type: site unspecified Hematuria presence: without hematuria Qualified Code(s): N39.0 - Urinary tract infection, site not specified (3) Colitis Impression: CT abd/pelvis at admission showed evidence of colitis. There are no signs of ischemic bowel. WBC improved. Plan: Continue with the pured diet. 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 Her CT head done this admission showed an old right occipital CVA, cerebral volume loss and small vessel ischemic changes and a left frontal contusion and hematoma She was resumed on Eliquis by the previous Hopsitalist. I stopped the Eliquis 02/16 She has a visible bruise around the L eye Plan: Remain off Eliquis. Eliquis could be restarted in several weeks only if she will be bedbound. Otherwise she should no longer be on an anticoagulant because of risk of falls I re-ordered PT and OT (5) Type 2 diabetes mellitus Assessment/Plan: She is again taking in less oral nutrition. She had low glu when BID Lantus was tried Plan: Continue fingerstick checks and sliding scale insulin. I stopped the restarted Lantus 10 units BID. (6) Ischemic cardiomyopathy Assessment/Plan: She has Hx of CABG. Her Echo in 06/2021 which showed LVEF of 55% and grade 1 diastolic dysfunction. She had an Echo done yesterday 02/16. This shows global LV hypokinesis with EF 30 to 35%. This is one of the reasons she has a "soft" blood pressure Plan: We are still holding all cardiac meds because she was hypotensive. Continue aspirin. I stopped the statin while she has trivial nutritional intake (7) Paroxysmal atrial fibrillation Assessment/Plan: She is currently in NSR. Plan: Continue to monitor on telemetry. She was restarted on oral Eliquis by the last Hospitalist. I stopped the Eliquis given the finding of brain hematoma on this admission. Eliquis could be restarted in several weeks only if she will be bedbound. Otherwise she should no longer be on an anticoagulant because of risk of falls Holding metoprolol due to low BP (8) CVA (cerebral vascular accident) Assessment/Plan: History of CVA with residual right-sided deficits. She also had a cardiac arrest with resuscitation in 2021. I wonder if her altered mental status is from anoxic brain injury from that cardiac arrest event Currently resides at the [facility]. The signed a POLST form Plan: She was tolerating mechanical soft diabetic diet. No s/s aspiration. We are encouraging diet of pureed Continue aspirin Cont to feed the pt (9) Hypothyroid Assessment/Plan: I checked TSH to assure dose is adequate, TSH is 4.29 Plan: Continue Levothyroxine. (10) Severe protein calorie malnutrition Assessment/Plan: She has had very poor nutrition recently. 23 kg weight loss in 18 months was documented and she has sacral wounds (recently is essentially bedridden). Plan: Distributor Operator giving recommendations Will retry diet of pureed (11) Fall at home Qualifiers: Encounter type: initial encounter Qualified Code(s): W19.XXXA - Unspecified fall, initial encounter Plan: Will order PT and OT to restart (12) RAGHAV (acute kidney injury) Assessment/Plan: Resolved. (13) Hypernatremia Assessment/Plan: Resolved.
[2023-02-21 15:13] LABS: POTASSIUM 4.3 mmol/L (3.5-4.5)
[2023-02-21] MEDS: SODIUM CHLORIDE 0.9% 500 ML IV PRN (19:03)
[2023-02-21] MEDS: CARBOXYMETHYLCELLULOSE OPHTH DROPS EACHEYE SCH (20:53)
[2023-02-22] MEDS: PIPERACILLIN/TAZOBACTAM 3.375 GM in SODIUM CHLORIDE 0.9% MINIBAG 100 ML IV SCH (03:55)
[2023-02-22] MEDS: LEVOTHYROXINE 25 MCG TABLET PO SCH (06:23)
[2023-02-22] MEDS: TIMOLOL 0.5% OPHTH DROPS EACHEYE SCH ×2 (08:23→20:35)
[2023-02-22] MEDS: SODIUM CHLORIDE FLUSH 0.9% 10 ML SYRINGE IVP PRN (08:23)
[2023-02-22] MEDS: BRIMONIDINE 0.2% OPHTH DROPS 5 ML EACHEYE SCH ×2 (08:24→20:35)
[2023-02-22] MEDS: INSULIN LISPRO 300 UNIT/3 ML PEN SUBQ SCH ×4 (08:24→20:36)
[2023-02-22] MEDS: FAMOTIDINE 20 MG/2 ML VIAL IVP SCH ×2 (08:24→20:35)
[2023-02-22 08:27] LABS: BASOPHILS % (AUTO) 0.1 %; EOSINOPHILS # (AUTO) 0.1 10^3/uL (0.0-0.7); EOSINOPHILS % (AUTO) 1.5 %; HCT - HEMATOCRIT 27.7 % (37.0-47.0); HGB - HEMOGLOBIN 8.5 g/dL (12.0-16.0); LYMPHOCYTES # (AUTO) 1.2 10^3/uL (1.5-3.5); LYMPHOCYTES % (AUTO) 16.9 %; MEAN CORPUSCULAR HEMOGLOBIN 28.8 pg (27.0-31.0); MEAN CORPUSCULAR HGB CONC 30.7 g/dL (32.0-36.0); MEAN CORPUSCULAR VOLUME 93.9 fL (81.0-99.0); MEAN PLATELET VOLUME 12.7 fL (7.9-10.8); MONOCYTES # (AUTO) 0.6 10^3/uL (0.0-1.0); NEUTROPHILS % (AUTO) 73.1 %; PLT - PLATELET COUNT 139 10^3/uL (130-450); RED BLOOD COUNT 2.95 10^6/uL (4.20-5.40); RED CELL DISTRIBUTION WIDTH 17.3 % (12.0-15.0); WHITE BLOOD COUNT 6.9 x10^3/uL (4.8-10.8)
[2023-02-22] MEDS: DEXTROSE 5%-0.9% NACL 1,000 ML IV SCH ×2 (08:29→11:01)
[2023-02-22 08:39] LABS: CALCIUM 8.1 mg/dL (8.5-10.3); CREATININE 0.5 mg/dL (0.6-1.3); POTASSIUM 3.6 mmol/L (3.5-4.5)
[2023-02-22] MEDS: POTASSIUM CHLOR 10 MEQ/100 ML 10 MEQ/100 ML BAG IV SCH ×2 (09:10→10:11)
[2023-02-22] MEDS: ASPIRIN CHEW 81 MG TABLET PO SCH (09:47)
[2023-02-22] MEDS: CHOLECALCIFEROL 25 MCG TABLET PO SCH (09:47)
[2023-02-22] MEDS: SERTRALINE 50 MG TABLET PO SCH (09:47)
[2023-02-22] MEDS: MULTIVITAMIN TABLET PO SCH (09:47)
[2023-02-22 13:35] LABS: CALCIUM, IONIZED 1.17 mmol/L (1.15-1.33); VBG PH 7.368 (7.31-7.41)
--- NOTE | 2023-02-22 15:19 | PROVIDER PROGRESS NOTE ---
Subjective - Subjective Pt reports feeling: Improved (More awake and alert and had an appetite by lunchtime) Objective - Vital Signs/Intake & Output Vital Signs: Vital Signs Pulse Resp BP Pulse Ox 02/22/23 14:00 82 23 140/83 H 100 02/22/23 13:00 82 23 141/72 H 100 02/22/23 12:00 74 18 155/69 H 100 Intake & Output: Intake & Output 02/19/23 02/20/23 02/21/23 02/22/23 23:59 23:59 23:59 23:59 Intake Total 2390.317 6903.229 2325 1704 Output Total 2014 1138 1403 865 Balance -28.258 288.229 922 839 - Objective General Appearance: positive: No acute distress, Alert, Other (Appears tired) Eyes Bilateral: positive: No lid inflammation, Other (L eye and L forehead have bruise, she is squinting with L eye) ENT: positive: No signs of dehydration Neck: positive: Nml inspection, No JVD Respiratory: positive: No respiratory distress, Breath sounds nml Cardiovascular: positive: Regular rate & rhythm, No murmur Abdomen: positive: Non-tender, Nml bowel sounds, No distention Skin: positive: Warm, Dry Extremities: positive: Non-tender, Other (2+ edema of legs up to thighs, 1+ edema of hands) Neurologic/Psychiatric: positive: Other (Generalized weakness, communicates very little, but is appropriate) - Lab Results Fish Bones: 02/22/23 08:00 02/22/23 13:00 Other Labs: Lab Results x24hrs 02/22/23 02/22/23 02/22/23 Range/Units 13:30 13:00 11:33 WBC (4.8-10.8) x10^3/uL RBC (4.20-5.40) 10^6/uL Hgb (12.0-16.0) g/dL Hct (37.0-47.0) % MCV (81.0-99.0) fL MCH (27.0-31.0) pg MCHC (32.0-36.0) g/dL RDW (12.0-15.0) % Plt Count (130-450) 10^3/uL MPV (7.9-10.8) fL Neut # (Auto) (1.5-6.6) 10^3/uL Lymph # (Auto) (1.5-3.5) 10^3/uL Bibb # (Auto) (0.0-1.0) 10^3/uL Eos # (Auto) (0.0-0.7) 10^3/uL Baso # (Auto) (0.0-0.1) 10^3/uL Absolute Nucleated RBC x10^3/uL Nucleated RBC % /100WBC VBG pH 7.368 (7.31-7.41) Ionized Calcium 1.17 (1.15-1.33) mmol/L Sodium (135-145) mmol/L Potassium 4.3 (3.5-4.5) mmol/L Chloride (101-111) mmol/L Carbon Dioxide (21-32) mmol/L Anion Gap (6-13) BUN (6-20) mg/dL Creatinine (0.6-1.3) mg/dL Estimated GFR (MDRD) (>89) Glucose (74-104) mg/dL POC Whole Bld Glucose 123 H (70 - 100) mg/dL Calcium (8.5-10.3) mg/dL Phosphorus (2.5-5.0) mg/dL 02/22/23 02/22/23 02/22/23 Range/Units 08:00 08:00 07:51 WBC 6.9 (4.8-10.8) x10^3/uL RBC 2.95 L (4.20-5.40) 10^6/uL Hgb 8.5 L (12.0-16.0) g/dL Hct 27.7 L (37.0-47.0) % MCV 93.9 (81.0-99.0) fL MCH 28.8 (27.0-31.0) pg MCHC 30.7 L (32.0-36.0) g/dL RDW 17.3 H (12.0-15.0) % Plt Count 139 (130-450) 10^3/uL MPV 12.7 H (7.9-10.8) fL Neut # (Auto) 5.0 (1.5-6.6) 10^3/uL Lymph # (Auto) 1.2 L (1.5-3.5) 10^3/uL Bibb # (Auto) 0.6 (0.0-1.0) 10^3/uL Eos # (Auto) 0.1 (0.0-0.7) 10^3/uL Baso # (Auto) 0.0 (0.0-0.1) 10^3/uL Absolute Nucleated RBC 0.00 x10^3/uL Nucleated RBC % 0.0 /100WBC VBG pH (7.31-7.41) Ionized Calcium (1.15-1.33) mmol/L Sodium 140 (135-145) mmol/L Potassium 3.6 (3.5-4.5) mmol/L Chloride 109 (101-111) mmol/L Carbon Dioxide 27 (21-32) mmol/L Anion Gap 4.0 L (6-13) BUN 4 L (6-20) mg/dL Creatinine 0.5 L (0.6-1.3) mg/dL Estimated GFR (MDRD) 119 (>89) Glucose 98 (74-104) mg/dL POC Whole Bld Glucose 85 (70 - 100) mg/dL Calcium 8.1 L (8.5-10.3) mg/dL Phosphorus (2.5-5.0) mg/dL 02/21/23 02/21/23 02/21/23 Range/Units 21:08 16:34 14:30 WBC (4.8-10.8) x10^3/uL RBC (4.20-5.40) 10^6/uL Hgb (12.0-16.0) g/dL Hct (37.0-47.0) % MCV (81.0-99.0) fL MCH (27.0-31.0) pg MCHC (32.0-36.0) g/dL RDW (12.0-15.0) % Plt Count (130-450) 10^3/uL MPV (7.9-10.8) fL Neut # (Auto) (1.5-6.6) 10^3/uL Lymph # (Auto) (1.5-3.5) 10^3/uL Bibb # (Auto) (0.0-1.0) 10^3/uL Eos # (Auto) (0.0-0.7) 10^3/uL Baso # (Auto) (0.0-0.1) 10^3/uL Absolute Nucleated RBC x10^3/uL Nucleated RBC % /100WBC VBG pH (7.31-7.41) Ionized Calcium (1.15-1.33) mmol/L Sodium (135-145) mmol/L Potassium 4.3 (3.5-4.5) mmol/L Chloride (101-111) mmol/L Carbon Dioxide (21-32) mmol/L Anion Gap (6-13) BUN (6-20) mg/dL Creatinine (0.6-1.3) mg/dL Estimated GFR (MDRD) (>89) Glucose (74-104) mg/dL POC Whole Bld Glucose 138 H 115 H (70 - 100) mg/dL Calcium (8.5-10.3) mg/dL Phosphorus 3.0 (2.5-5.0) mg/dL Sepsis Event Note (H) - Evaluation Current Stage of Sepsis: Septic shock Possible source of Sepsis: positive: GI tract/intra-abdominal, Genitourinary - Sepsis Criteria Sepsis Criteria: WBC count greater than 12,000 or less than 4000, MAP less than 65 mmHg, Metabolic: lactate > 2 mmol/L Assessment/Plan - Problem List (1) Hypotension Impression: She has been up and down with hypotension w/ BP was <90 and Levophed was restarted, stopped, restarted. She is off Levophed ~24 hours this time. Her inital hypotension we felt was from septic shock, Lactic acid normalized but she was still hypotensive. She got IV albumin daily for several days, 02/16 -02/19 Echo done 02/16, showed global LV hypokinesis with newly depressed EF of 30 to 35%. TSH level was adequate at 4.29 Plan: Remain in ICU today, in case Levophed again needed. If BP normal overnight, she can be moved out of ICU tomorrow. Then will start gentle daily diuresis (2) Urinary tract infection Impression: Urine culture from 02/10 grew gram negative bacillus but the bacteria was not identified and no sens done. She had another ur cx done 02/15, and that one was initially growing a GPC, but final resukt said yeast Plan: I will stop the empiric IV Zosyn, which she got for 12 days Qualifiers: Urinary tract infection type: site unspecified Hematuria presence: without hematuria Qualified Code(s): N39.0 - Urinary tract infection, site not specifi ed (3) Colitis Impression: CT abd/pelvis at admission showed evidence of colitis. There are no signs of ischemic bowel, not a surgical abdomen. WBC improved. Plan: Continue with the pured diet. 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 Her CT head done this admission showed an old right occipital CVA, cerebral volume loss and small vessel ischemic changes and a left frontal contusion and hematoma She was resumed on Eliquis by the previous Hopsitalist. I stopped the Eliquis 02/16 She has a visible bruise around the L eye Plan: Remain off Eliquis. Eliquis could be restarted in several weeks-mos, after all bruising resolves, only if she will be bedbound. Otherwise she should no longer be on an anticoagulant because of risk of falls I re-ordered PT and OT (5) Type 2 diabetes mellitus Assessment/Plan: She is again taking in less oral nutrition. She had low glu when BID Lantus was tried Plan: Continue fingerstick checks and sliding scale insulin. I stopped the restarted Lantus 10 units BID. (6) Ischemic cardiomyopathy Assessment/Plan: She has Hx of CABG. Her Echo in 06/2021 which showed LVEF of 55% and grade 1 diastolic dysfunction. She had an Echo done yesterday 02/16. This shows global LV hypokinesis with EF 30 to 35%. This is a new finding for her. This is one of the reasons she has a "soft" blood pressure Plan: We are still holding all cardiac meds because she was hypotensive. These need to be resumed at low doses and staggered Continue aspirin. I stopped the statin while she has trivial nutritional intake (7) Paroxysmal atrial fibrillation Assessment/Plan: She is currently in NSR. Plan: Continue to monitor on telemetry. She was restarted on oral Eliquis by the last Hospitalist. I stopped the Eliquis given the finding of brain hematoma on this admission. Eliquis could be restarted in several weeks-mos only if she will be bedbound. Otherwise she should no longer be on an anticoagulant because of risk of falls We were holding metoprolol due to low BP (8) CVA (cerebral vascular accident) Assessment/Plan: History of CVA with residual right-sided deficits. She also had a cardiac arrest with resuscitation in 2021. I wonder if her altered mental status is from anoxic brain injury from that cardiac arrest event Currently resides at the [facility]. The signed a POLST form during this admission, for her to be DNR Plan: She was tolerating mechanical soft diabetic diet. No s/s aspiration. We are encouraging diet of pureed Continue aspirin Cont to feed the pt (9) Hypothyroid Assessment/Plan: I checked TSH to assure dose is adequate, TSH is 4.29 Plan: Continue Levothyroxine. (10) Severe protein calorie malnutrition Assessment/Plan: She has had very poor nutrition recently. 23 kg weight loss in 18 months was documented and she has sacral wounds (recently is essentially bedridden). Plan: Kettle Firer giving recommendations Will retry diet of pureed (11) Fall at home Qualifiers: Encounter type: initial encounter Qualified Code(s): W19.XXXA - Unspecified fall, initial encounter Plan: I ordered PT and OT to restart (12) RAGHAV (acute kidney injury) Assessment/Plan: Resolved. (13) Hypernatremia Assessment/Plan: Resolved.
[2023-02-22] MEDS: CARBOXYMETHYLCELLULOSE OPHTH DROPS EACHEYE SCH (20:35)
[2023-02-23] MEDS: NOREPINEPHRINE/0.9 % NS 8 MG/250 ML BAG IV SCH (00:11)
[2023-02-23 04:58] LABS: BASOPHILS % (AUTO) 0.3 %; EOSINOPHILS # (AUTO) 0.1 10^3/uL (0.0-0.7); EOSINOPHILS % (AUTO) 1.8 %; HCT - HEMATOCRIT 27.8 % (37.0-47.0); HGB - HEMOGLOBIN 8.3 g/dL (12.0-16.0); LYMPHOCYTES # (AUTO) 1.8 10^3/uL (1.5-3.5); MEAN CORPUSCULAR HEMOGLOBIN 28.6 pg (27.0-31.0); MEAN CORPUSCULAR HGB CONC 29.9 g/dL (32.0-36.0); MEAN CORPUSCULAR VOLUME 95.9 fL (81.0-99.0); MEAN PLATELET VOLUME 12.9 fL (7.9-10.8); MONOCYTES # (AUTO) 0.6 10^3/uL (0.0-1.0); MONOCYTES % (AUTO) 7.6 %; NEUTROPHILS # (AUTO) 5.1 10^3/uL (1.5-6.6); NEUTROPHILS % (AUTO) 66.8 %; PLT - PLATELET COUNT 137 10^3/uL (130-450); RED CELL DISTRIBUTION WIDTH 17.9 % (12.0-15.0); WHITE BLOOD COUNT 7.6 x10^3/uL (4.8-10.8)
[2023-02-23 05:23] LABS: CALCIUM 8.1 mg/dL (8.5-10.3); CREATININE 0.5 mg/dL (0.6-1.3); MAGNESIUM 1.5 mg/dL (1.7-2.3); PHOSPHORUS 2.3 mg/dL (2.5-5.0); POTASSIUM 3.8 mmol/L (3.5-4.5)
[2023-02-23] MEDS ORDERED: MAGNESIUM SULFATE 2 GRAM 2 GM/50 ML BAG IV ONE (05:27)
[2023-02-23 05:37] LABS: CALCIUM, IONIZED 1.17 mmol/L (1.15-1.33); VBG PH 7.391 (7.31-7.41)
[2023-02-23] MEDS: LEVOTHYROXINE 25 MCG TABLET PO SCH (06:01)
[2023-02-23] MEDS: INSULIN LISPRO 300 UNIT/3 ML PEN SUBQ SCH ×2 (07:40→11:52)
[2023-02-23] MEDS ORDERED: POTASSIUM PHOSPHATE 15 MMOL in SODIUM CHLORIDE 0.9% 250 ML IV ONE (08:00)
[2023-02-23] MEDS: BRIMONIDINE 0.2% OPHTH DROPS 5 ML EACHEYE SCH (08:40)
[2023-02-23] MEDS: FAMOTIDINE 20 MG/2 ML VIAL IVP SCH (08:40)
[2023-02-23] MEDS: TIMOLOL 0.5% OPHTH DROPS EACHEYE SCH (08:41)
[2023-02-23] MEDS: ASPIRIN CHEW 81 MG TABLET PO SCH (10:18)
[2023-02-23] MEDS: CHOLECALCIFEROL 25 MCG TABLET PO SCH (10:18)
[2023-02-23] MEDS: MULTIVITAMIN TABLET PO SCH (10:19)
[2023-02-23] MEDS: SERTRALINE 50 MG TABLET PO SCH (10:19)
[2023-02-23] MEDS: DEXTROSE 5%-0.9% NACL 1,000 ML IV SCH (10:31)
--- NOTE | 2023-02-23 11:46 | Discharge Plan ---
"Discharge Plan for SNF / [facility] - Discharge Plan And Transition Orders Problem Reviewed?: Yes Disposition: 01 Home, Self Care Condition: Stable Allergies and Adverse Reactions: Allergies Allergy/AdvReac Type Severity Reaction Status Date / Time Sulfa (Sulfonamide Allergy Mild Nausea Verified 02/10/23 17:48 Antibiotics) epinephrine AdvReac Unknown Verified 02/10/23 17:48 Health Concerns: 77-year-old female with PMH of CABG, stroke, A-fib, type 2 diabetes mellitus who presented to the emergency room with altered mental status. Found to have UTI and colitis causing septic shock. Placed in ICU and given antibiotics, pressors. Is chronically bedbound, mainly nonverbal due to her history of stroke with right-sided deficit. She has been off pressors since February 21. PT and OT have seen her but this patient is bedbound and there is no real practical progress we anticipate as such that will be discontinued. She is eating a pured diet but could most likely be advanced to soft mechanical diet at the [facility]. Still has edema of legs because of third spacing. Has completed treatment for colitis, and UTI. Off Eliquis because of left frontal contusion and hematoma. Resume Eliquis in the next 2 weeks at the discretion of retirement facility provider. Current echo has global LV hypokinesis with an EF of 30 to 35%. This is a new finding for her were in June 2021 echo had an LVEF of 55% and grade 1 diastolic dysfunction. Preadmission medications of metoprolol, Entresto, and spironolactone should be resumed. Plan of Treatment: 1. Monitor fluid balance very carefully. Do daily weights, salt restriction and make sure that Lasix does not need to be increased. 2. Monitor BMP weekly until fluid balance stabilized 3. Advance diet 4. Consider having family discussions that would transition patient to palliative care model and eventual hospice Care Goals: To resume permanent placement in her retirement facility. Stabilize acute on chronic CHF. - SNF / [facility] Transition Orders Admit to (Facility): [facility] Discharge Diagnosis: 1. Septic shock 2. Hypotension 3. Gram-negative UTI 4. Colitis, probable ischemic due to hypotension 5. Intraparenchymal hematoma of brain due to trauma (fall at retirement facility 1 week prior to admission) 6. Type 2 diabetes mellitus 7. Ischemic cardiomyopathy 8. Paroxysmal atrial fibrillation 9. History of stroke with residual right-sided deficits 10. Hypothyroid 11. Severe protein calorie malnutrition (23 kg weight loss in 18 months with sacral wounds) 12. Acute kidney injury resolved 13. Hypernatremia resolved Medicare Certification Statement: Notify PCP of admission and forward orders to primary provider for signature. Weight on admission and: Daily Call PCP immediately if weight increases by: 2 kg Other Notification Orders: Call PCP immediately if patient develops dyspnea, chest pain/tightness or edema. House Bowel Program: Yes Additional Bowel Program Orders: If no BM after 2 days, nurse may give M.O.M. 30ml PO PRN and/or ducolax Supp 1 [place] and/or CINDY 250mg P.O., and/or senna 1-2 tabs PO. On day 3 nurse may give repeat above order until residents constipation is resolved. Annual Influenza Vaccine (between Dec 04 and July 03): Yes Two-step PPD per [facility] [id number] or approved exception documents: Yes Lab Tests or X-ray Orders: BMP on 02/26 , 03/05, 03/12 Medication Orders: PLEASE REFER TO THE DISCHARGE MEDICATION LIST. Insulin Orders?: No - Medications New Prescriptions: Furosemide [Lasix] 20 mg PO DAILY #7 tablet - Diet Type: Geriatric Texture: Puree Liquids: Thin May have monthly special meal: Yes - Therapies | Activity Rehabilitation Potential: Maintain present ADL Functional Activity: Activity as Tolerated Weight Bearing: Full Weight Assistance Devices: Wheelchair (and lift)"
[2023-02-23 13:06] VITALS: BP 107/45; O2SAT 96
--- NOTE | 2023-02-23 14:09 | DISCHARGE SUMMARY ---
Discharge Summary Admit Date: 02/10/23 Discharge Date: 02/23/23 Discharging Provider: Juliana Pascual MD Primary Care Provider: [facility] @ [facility] Code Status: Do Not Attempt Resuscitation Condition at Discharge: Stable Discharge Disposition: 01 Home, Self Care - DIAGNOSES Discharge Diagnoses with Status of Each Condition: 1. Septic shock 2. Hypotension 3. Gram-negative UTI 4. Colitis, probable ischemic due to hypotension 5. Intraparenchymal hematoma of brain due to trauma (fall at senior care facility 1 week prior to admission) 6. Type 2 diabetes mellitus 7. Ischemic cardiomyopathy 8. Paroxysmal atrial fibrillation 9. History of stroke with residual right-sided deficits 10. Hypothyroid 11. Severe protein calorie malnutrition (23 kg weight loss in 18 months with sacral wounds) 12. Acute kidney injury resolved 13. Hypernatremia resolved - HPI History of Present Illness: Patient is a 77-year-old female brought in to the emergency department from [facility]. The patient is unable to give any history. She apparently is nonverbal at baseline. Per EMS they found the patient unresponsive this afternoon in her bed. She did have a fall about a week ago. She is reportedly on blood thinners. She felt warm to the touch to EMS. No reported fevers from the residential. No reported vomiting, cough, diarrhea or constipation. Patient does not ambulate at baseline. She is reportedly full code. Patient is non verbal and unable to give any history so all the history obtained by discussion with Dr Gallego and review of records, no family present at bedside - Past Medical History Cardiovascular: reports: Hypertension, High cholesterol, Coronary artery disease, Atrial fibrillation, Other Respiratory: reports: None Neuro: reports: CVA Endocrine/Autoimmune: reports: Type 2 diabetes GI: reports: None AIRLINE DISPATCHER: reports: None : reports: None HEENT: reports: None Psych: reports: Depression, Bipolar disorder Musculoskeletal: reports: Osteoarthritis Derm: reports: None MRSA Hx?: No - Past Surgical History General: reports: Cholecystectomy Ortho: reports: Carpal Tunnel surgery, Other /AIRLINE DISPATCHER: reports: Hysterectomy Cardiovascular: reports: CABG - CONSULTS | PROCEDURES Procedures: 1. Echocardiogram with ejection fraction 30 to 35%. Grade 1 diastolic dysfunction. Right ventricle normal size with slightly impaired systolic function. No significant valvular heart disease. 2. Blood cultures February 10 negative 3. Urine culture with gram-negative bacilli and yeast 4. Repeat blood culture February 11 negative 5. Repeat urine culture February 15 with yeast 6. Multiple chest x-rays. Heart size was normal, moderate vascular congestion. No consolidations. Placement of a right IJ catheter noted and removed. 7. Chest CT with trace pleural effusions. No evidence of pulmonary infection. 8. Abdomen pelvis CT with fluid and air within the vaginal vault. Wall striation and mucosal hyperemia of the vagina. Infection versus trauma. No fistula. Liver, gallbladder and biliary tree unremarkable with the gallbladder absent. Bowel and peritoneum with abnormal bowel wall thickening of the transverse and descending colon but under distended. Subacute to chronic compression of L1 vertebral body. - HOSPITAL COURSE Hospital Course: Found to have UTI and colitis causing septic shock. Placed in ICU and given antibiotics, pressors. Is chronically bedbound, mainly nonverbal due to her history of stroke with right-sided deficit. She has been off pressors since February 21. PT and OT have seen her but this patient is bedbound and there is no real practical progress we anticipate as such that order was discontinued. She was eating a pured diet but could most likely be advanced to soft mechanical diet at the residential. Still has edema of legs because of third spacing. Has completed treatment for colitis, and UTI. Off Eliquis because of left frontal contusion and hematoma. Resume Eliquis in the next 2 weeks at the discretion of senior care facility provider. Current echo has global LV hypokinesis with an EF of 30 to 35%. This is a new finding for her were in June 2021 echo had an LVEF of 55% and grade 1 diastolic dysfunction. Preadmission medications of metoprolol, Entresto, and spironolactone should be resumed. Plan of Treatment: 1. Monitor fluid balance very carefully. Do daily weights, salt restriction and make sure that Lasix does not need to be increased. 2. Monitor BMP weekly until fluid balance stabilized 3. Advance diet 4. Consider having family discussions that would transition patient to palliative care model and eventual hospice On examination she is a nonverbal elderly female with eyes open. Intermittently follows command. Resolving bruise on the left quaker, left forehead, and periorbital skin.She does move her hands purposefully to rearrange bed sheets or to grab the side of the bed. She does withdraw to pain. She has slow shallow respiration. Unlabored. Diminished at bases. Regular rate and rhythm. And abdomen is soft, nontender. Last bowel movements were February 22. Shafer catheter had clear yellow urine. She has mild nonpitting edema. She has some resolving Anel intertrigo that was getting nystatin while here.She would intermittently eat. Sometimes a few bites. Sometimes up to 25% of her food. The day before discharge she ate all of her lunch and all of her dinner. On the day of discharge she refused breakfast. Greater than 30 minutes was spent coordinating dischare. This patient is a resident of a senior care facility. Physical therapy and Occupational Therapy do not feel that she is an appropriate candidate for rehab since she is, at baseline, a bedbound or wheelchair patient. As such she has been returned to her "home situation". This document was made in part using voice recognition software. While efforts are made to proofread this document, sound alike and grammatical errors may occur. - ALLERGIES Allergies/Adverse Reactions: Allergies Allergy/AdvReac Type Severity Reaction Status Date / Time Sulfa (Sulfonamide Allergy Mild Nausea Verified 02/10/23 17:48 Antibiotics) epinephrine AdvReac Unknown Verified 02/10/23 17:48 - MEDICATIONS Home Medications: Ambulatory Orders Medication Instructions Recorded Confirmed Canagliflozin [Invokana] 100 mg PO DAILY 06/15/21 02/11/23 Insulin Glargine [Lantus Solostar] 10 units SUBQ BID 06/15/21 02/11/23 Metoprolol Succinate [Toprol Xl] 50 mg PO QPM 06/15/21 02/11/23 Sacubitril/Valsartan [Entresto 24 1 tab PO QPM 06/15/21 02/11/23 mg-26 mg Tablet] Calcium Carbonate [Tums (Calcium 1,000 mg PO Q8H PRN 06/16/21 02/11/23 Carbonate 500mg)] Insulin Regular Human [Humulin R] 3 unit SUBQ AC 06/16/21 02/11/23 Spironolactone [Aldactone] 25 mg PO DAILY 02/10/23 02/11/23 Acetaminophen [Tylenol] 650 mg PO Q6H PRN 02/11/23 02/11/23 Atorvastatin Calcium [Lipitor] 80 mg PO QPM 02/11/23 02/11/23 Sacubitril/Valsartan [Entresto 24 2 tab PO DAILY 02/11/23 02/11/23 mg-26 mg Tablet] Aspirin Chewable [St [place] 81 mg PO DAILY #0 02/23/23 02/11/23 Aspirin] Brimonidine Tartrate/Timolol 1 drops EACHEYE BID #0 02/23/23 02/11/23 [Combigan 0.2%-0.5% Eye Drops] Carboxymethylcellulose Sodium 1 applic EACHEYE QPM #0 02/23/23 02/11/23 Cholecalciferol (Vitamin D3) 50 mcg PO DAILY #0 02/23/23 02/11/23 [Vitamin D3] Furosemide [Lasix] 20 mg PO DAILY #7 tablet 02/23/23 Levothyroxine Sodium 50 mcg PO QDAC #0 02/23/23 02/11/23 Multivitamin 1 tab PO DAILY #0 02/23/23 02/11/23 Pantoprazole [Protonix] 40 mg PO BIDAC #0 02/23/23 02/11/23 Sertraline [Zoloft] 50 mg PO DAILY #0 02/23/23 02/11/23 Timolol 0.5% Ophth Drops [Timoptic 1 drops EACHEYE BID each 02/23/23 0.5% Ophth Drops] - LABS Result Diagrams: 02/23/23 04:15 02/23/23 04:15 - SEPSIS Current Stage of Sepsis: Septic shock Possible source of Sepsis: GI tract/intra-abdominal, Genitourinary Sepsis Criteria: WBC count greater than 12,000 or less than 4000, MAP less than 65 mmHg, Metabolic: lactate > 2 mmol/L
== END 2023-02-23 14:05 | disposition home or self-care (01) | DRG 871 ==
LOC: EDUNIT# → ED 17:34 → ICU 20:41
PROVIDERS: ADMIT Internal Medicine; ATTEND Specialist
PROC: 02HV33Z Insertion of Infusion Device into Superior Vena Cava, Percutaneous Approach (ICD-10-PCS; principal; 2023-02-12)
DX: A41.9 Sepsis, unspecified organism (principal); A41.59 Other Gram-negative sepsis; R65.20 Severe sepsis without septic shock; E11.00 Type 2 diabetes mellitus with hyperosmolarity without nonketotic hyperglycemic-hyperosmolar coma (NKHHC); E87.1 Hypo-osmolality and hyponatremia; E43 Unspecified severe protein-calorie malnutrition; Z91.81 History of falling; E11.9 Type 2 diabetes mellitus without complications; G93.41 Metabolic encephalopathy; R65.21 Severe sepsis with septic shock; I48.91 Unspecified atrial fibrillation; F32.A Depression, unspecified; S06.2XAA Diffuse traumatic brain injury with loss of consciousness status unknown, initial encounter; N39.0 Urinary tract infection, site not specified; N17.9 Acute kidney failure, unspecified; R41.82 Altered mental status, unspecified; Z86.73 Personal history of transient ischemic attack (TIA), and cerebral infarction without residual deficits; K55.9 Vascular disorder of intestine, unspecified; I69.351 Hemiplegia and hemiparesis following cerebral infarction affecting right dominant side; Z79.4 Long term (current) use of insulin; I25.5 Ischemic cardiomyopathy; I25.10 Atherosclerotic heart disease of native coronary artery without angina pectoris; I10 Essential (primary) hypertension; I48.0 Paroxysmal atrial fibrillation; Z79.01 Long term (current) use of anticoagulants; I69.320 Aphasia following cerebral infarction; E03.9 Hypothyroidism, unspecified; Z74.01 Bed confinement status; Z68.20 Body mass index [BMI] 20.0-20.9, adult; E86.0 Dehydration; Z66 Do not resuscitate; W19.XXXA Unspecified fall, initial encounter; Y92.199 Unspecified place in other specified residential institution as the place of occurrence of the external cause; E78.00 Pure hypercholesterolemia, unspecified; B37.2 Candidiasis of skin and nail; Z95.1 Presence of aortocoronary bypass graft; F31.9 Bipolar disorder, unspecified; R60.0 Localized edema; S31.000A Unspecified open wound of lower back and pelvis without penetration into retroperitoneum, initial encounter; X58.XXXA Exposure to other specified factors, initial encounter
CPT/HCPCS: 36415; 70450; 71045; 71260; 74177; 80048; 80053; 81001; 82330; 83036; 83605; 83690; 83735; 84100; 84132; 84443; 85025; 85610; 85730; 87040; 87086; 87150; 87633; 93005; 93306; 96361; 96374; 99285; A9270; J0131; J1650; J1815; J3370; P9047; Q9967; 81003; 87507

== ENCOUNTER 2023-02-23 14:07 | Outpatient (CLI) | payer MEDICARE, BC | END 2023-02-23 14:08 | LOC: EMS 14:07 | PROVIDERS: ATTEND Specialist | DX: I63.9 Cerebral infarction, unspecified (principal); Z74.01 Bed confinement status | CPT/HCPCS: A0425; A0428 ==

== ENCOUNTER 2023-03-15 08:00 | Outpatient (CLI) | payer MEDICARE, BC ==
[2023-03-15 19:22] LABS: BASOPHILS % (AUTO) 0.5 %; EOSINOPHILS % (AUTO) 0.1 %; HCT - HEMATOCRIT 33.2 % (37.0-47.0); HGB - HEMOGLOBIN 10.1 g/dL (12.0-16.0); LYMPHOCYTES % (AUTO) 3.9 %; MEAN CORPUSCULAR HGB CONC 30.4 g/dL (32.0-36.0); MEAN PLATELET VOLUME 13.2 fL (7.9-10.8); MONOCYTES % (AUTO) 5.1 %; NEUTROPHILS % (AUTO) 89.6 %; PLT - PLATELET COUNT 246 10^3/uL (130-450); RED BLOOD COUNT 3.61 10^6/uL (4.20-5.40); RED CELL DISTRIBUTION WIDTH 17.7 % (12.0-15.0); WHITE BLOOD COUNT 21.8 x10^3/uL (4.8-10.8)
[2023-03-15 19:23] LABS: ABNORMAL LYMPHS % (MANUAL) 0 %
[2023-03-15 19:35] LABS: ALBUMIN 2.9 g/dL (3.2-5.5); BILIRUBIN,TOTAL 0.6 mg/dL (0.2-1.0); CALCIUM 9.8 mg/dL (8.5-10.3); CREATININE 1.2 mg/dL (0.6-1.3); POTASSIUM 3.9 mmol/L (3.5-4.5); TOTAL PROTEIN 5.8 g/dL (6.4-8.9)
[2023-03-15 19:44] LABS: BAND NEUTROPHILS % (MANUAL) 11 %; EOSINOPHILS # (MANUAL) 0.2 10^3/uL (0-0.7); LYMPHOCYTES # (MANUAL) 0.7 10^3/uL (1.5-3.5); LYMPHOCYTES % (MANUAL) 3 %; MONOCYTES # (MANUAL) 0.9 10^3/uL (0.0-1.0); NEUTROPHILS # (MANUAL) 20.1 10^3/uL (1.5-6.6); PLATELET ESTIMATE, MANUAL NORMAL (130-450,000) (NORMAL); PLATELET MORPHOLOGY NORMAL APPEARANCE (NORMAL); RBC MORPHOLOGY (MULTIPLE) NORMAL APPEARANCE (NORMAL); WBC MORPHOLOGY (MULTIPLE) NORMAL APPEARANCE (NORMAL)
[2023-03-15 19:45] LABS: DIFFERENTIAL COMMENT MANUAL DIFFERENTIAL
[2023-03-16 15:00] LABS: CLARITY,URINE CLEAR (CLEAR); LEUKOCYTE ESTERASE, URINE NEGATIVE (NEGATIVE); NITRITE,URINE NEGATIVE (NEGATIVE)
[2023-03-16 15:01] LABS: BACTERIA,URINE Few /HPF (None Seen); BILIRUBIN,URINE NEGATIVE (NEGATIVE); GLUCOSE, URINE (UA) >=1000 mg/dL (NEGATIVE); KETONES,URINE (UA) NEGATIVE (NEGATIVE); OCCULT BLOOD,URINE NEGATIVE (NEGATIVE); PH,URINE 5.5 PH (5.0-7.5); PROTEIN,URINE TRACE mg/dL (NEGATIVE); RBC,URINE 0-5 /HPF (0-5); SQUAMOUS EPITHELIAL CELL,UR FEW Squamous (<= Few); UROBILINOGEN,URINE 0.2 (NORMAL) E.U./dL (NORMAL); WBC,URINE 0-3 /HPF (0-5); YEAST,URINE PRESENT
== END 2023-03-15 23:59 | disposition home or self-care (01) ==
LOC: LAB.R 08:00
DX: R79.9 Abnormal finding of blood chemistry, unspecified (principal); Z13.228 Encounter for screening for other metabolic disorders
CPT/HCPCS: 36415; 80053; 81001; 85025; 87086

== ENCOUNTER 2023-03-16 15:25 | Outpatient (CLI) | payer MEDICARE, BC | END 2023-03-16 15:26 | disposition home or self-care (01) | LOC: LAB.R 15:25 | PROVIDERS: ATTEND Registered Nurse | DX: R79.82 Elevated C-reactive protein (CRP) (principal); R70.0 Elevated erythrocyte sedimentation rate; M86.10 Other acute osteomyelitis, unspecified site | CPT/HCPCS: 85651; 86140 ==

== ENCOUNTER 2023-03-16 17:19 | Outpatient (CLI) | payer MEDICARE, BC | END 2023-03-16 17:20 | disposition critical access hospital (66) | LOC: EMS 17:19 | DX: R46.4 Slowness and poor responsiveness (principal); R50.9 Fever, unspecified; I95.9 Hypotension, unspecified; R00.0 Tachycardia, unspecified; L98.419 Non-pressure chronic ulcer of buttock with unspecified severity | CPT/HCPCS: A0425; A0429 ==

== ENCOUNTER 2023-03-16 17:28 | Inpatient (IN) | payer MEDICARE, BC ==
[2023-03-16] MEDS ORDERED: SODIUM CHLORIDE 0.9% 1,000 ML IV STA ×3 (17:44→20:59)
--- NOTE | 2023-03-16 17:47 | ED Physician Documentation ---
History of Present Illness - Stated complaint Stated Complaint: AMS - Chief complaint Chief Complaint: Neuro - History obtained from History obtained from: EMS - History of Present Illness Timing: Today Pain level max: 0 Pain level now: 0 - Additonal information Additional information: Patient is a 77-year-old female brought from [facility] for altered mental status. Reportedly had a fever for the past 2 days. Had a recent white blood cell count of 20,000. Has a chronic sacral decubitus ulcer that has been worsening. She is DNR, limited interventions. She is nonverbal at this time. Unable to give any history. 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 DEALER: None : None HEENT: None Psych: Depression, Bipolar disorder Musculoskeletal: Osteoarthritis Derm: None - Past Surgical History Past Surgical History: Yes General: Cholecystectomy Ortho: Carpal Tunnel surgery, Other /LIVESTOCK DEALER: Hysterectomy Cardiovascular: CABG - Present Medications Home Medications: Ambulatory Orders Medication Instructions Recorded Confirmed Canagliflozin [Invokana] 100 mg PO DAILY 06/15/21 03/16/23 Insulin Glargine [Lantus Solostar] 10 units SUBQ BID 06/15/21 03/16/23 Metoprolol Succinate [Toprol Xl] 50 mg PO QPM 06/15/21 03/16/23 Sacubitril/Valsartan [Entresto 24 1 tab PO QPM 06/15/21 03/16/23 mg-26 mg Tablet] Calcium Carbonate [Tums (Calcium 1,000 mg PO Q8H PRN 06/16/21 03/16/23 Carbonate 500mg)] Insulin Regular Human [Humulin R] 3 unit SUBQ AC 06/16/21 03/16/23 Spironolactone [Aldactone] 25 mg PO DAILY 02/10/23 03/16/23 Acetaminophen [Tylenol] 650 mg PO Q6H PRN 02/11/23 03/16/23 Atorvastatin Calcium [Lipitor] 80 mg PO QPM 02/11/23 03/16/23 Sacubitril/Valsartan [Entresto 24 2 tab PO DAILY 02/11/23 03/16/23 mg-26 mg Tablet] Aspirin Chewable [St Orlando 81 mg PO DAILY #0 02/23/23 03/16/23 Aspirin] Brimonidine Tartrate/Timolol 1 drops EACHEYE BID #0 02/23/23 03/16/23 [Combigan 0.2%-0.5% Eye Drops] Carboxymethylcellulose Sodium 1 applic EACHEYE QPM #0 02/23/23 03/16/23 Cholecalciferol (Vitamin D3) 50 mcg PO DAILY #0 02/23/23 03/16/23 [Vitamin D3] Furosemide [Lasix] 20 mg PO DAILY #7 tablet 02/23/23 03/16/23 Levothyroxine Sodium 50 mcg PO QDAC #0 02/23/23 03/16/23 Multivitamin 1 tab PO DAILY #0 02/23/23 03/16/23 Pantoprazole [Protonix] 40 mg PO BIDAC #0 02/23/23 03/16/23 Sertraline [Zoloft] 50 mg PO DAILY #0 02/23/23 03/16/23 Timolol 0.5% Ophth Drops [Timoptic 1 drops EACHEYE BID each 02/23/23 03/16/23 0.5% Ophth Drops] Bisacodyl Supp [Dulcolax Supp] 10 mg [place] DAILY PRN 03/16/23 03/16/23 Mineral Oil [Mineral Oil Enema] 1 ea RC DAILY PRN 03/16/23 03/16/23 Sennosides [Senna] 2 tab PO DAILY PRN 03/16/23 03/16/23 polyethylene glycoL 3350 [Miralax] 17 gm PO DAILY PRN 03/16/23 03/16/23 - Allergies Allergies/Adverse Reactions: Allergies Allergy/AdvReac Type Severity Reaction Status Date / Time Sulfa (Sulfonamide Allergy Mild Nausea Verified 02/10/23 17:48 Antibiotics) omeprazole Allergy Unknown Verified 03/16/23 17:31 epinephrine AdvReac Unknown Verified 02/10/23 17:48 - Social History Does the pt smoke?: No Smoking Status: Never smoker Does the pt drink ETOH?: Yes Does the pt have substance abuse?: No - Immunizations Immunizations are current?: Yes Immunizations: TDAP current <10years - POLST Patient has POLST: Yes POLST Status: Full Code PD ED PE NORMAL - Vitals Vital signs reviewed: Yes - General General: Other (Drowsy, arousable, will open eyes to voice but is not verbal at this time) - HEENT HEENT: Other (Dry lips and tongue) - Neck Neck: Supple, no meningeal sign - Cardiac Cardiac: Other (Tachycardic, irregular) - Respiratory Respiratory: No respiratory distress, Clear bilaterally - Abdomen Abdomen: Soft, Non tender - Back Back: No spinal TTP, Other (Large sacral decubitus ulcer) - Derm Derm: Warm and dry - Extremities Extremities: No calf tenderness / cord - Neuro Eye Opening: To Voice Motor: Withdraws to Pain Verbal: Incomprehensible GCS Score: 9 Results - Vitals Vitals: Vital Signs - 24 hr 03/16/23 03/16/23 03/16/23 17:31 18:01 18:40 Temperature 37.3 C 38.3 C H 38.1 C H Heart Rate 121 H 121 H 99 Respiratory 33 H 18 14 Rate Blood Pressure 98/58 L 98/45 L O2 Saturation 98 97 96 03/16/23 03/16/23 03/16/23 19:00 19:30 20:00 Temperature 37.5 C 37.4 C Heart Rate 91 91 89 Respiratory 26 H 20 22 Rate Blood Pressure 98/39 L 93/40 L 103/52 L O2 Saturation 93 93 92 03/16/23 20:30 Temperature Heart Rate 88 Respiratory 20 Rate Blood Pressure 92/51 L O2 Saturation 94 Oxygen O2 Source Room air - Labs Labs: Microbiology 03/16/23 18:00 Wound Culture - Preliminary Buttock - Right Laboratory Tests 03/16/23 03/16/23 03/16/23 17:45 17:45 17:45 WBC 20.1 H RBC 4.02 L Hgb 11.1 L Hct 37.3 MCV 92.8 MCH 27.6 MCHC 29.8 L RDW 17.9 H Plt Count 206 MPV 12.8 H Neut # (Auto) Not Reportable Lymph # (Auto) Not Reportable [place] # (Auto) Not Reportable Eos # (Auto) Not Reportable Baso # (Auto) Not Reportable Absolute Nucleated RBC Not Reportable Total Counted 100 Band Neuts % (Manual) 2 Abnorm Lymph % (Manual) 0 Metamyelocytes % 1 H Nucleated RBC % Not Reportable Neutrophils # (Manual) 17.7 H Lymphocytes # (Manual) 1.2 L Monocytes # (Manual) 1.0 Eosinophils # (Manual) 0.0 Basophils # (Manual) 0.0 Differential Comment MANUAL DIFFERENTIAL Platelet Estimate NORMAL (130-450,000) Platelet Morphology NORMAL APPEARANCE RBC Morph Micro Appear NORMAL APPEARANCE PT 12.3 INR 1.1 APTT 20.5 L Sodium 148 H Potassium 3.6 Chloride 108 Carbon Dioxide 34 H Anion Gap 6.0 BUN 38 H Creatinine 0.8 Estimated GFR (MDRD) 69 L Glucose 106 H Lactic Acid Calcium 10.6 H Total Bilirubin 0.6 AST 55 H ALT 27 Alkaline Phosphatase 99 Total Protein 6.4 Albumin 3.1 L Globulin 3.3 Albumin/Globulin Ratio 0.9 L Lipase 20 Urine Color Urine Clarity Urine pH Ur Specific [place] Urine Protein Urine Glucose (UA) Urine Ketones Urine Occult Blood Urine Nitrite Urine Bilirubin Urine Urobilinogen Ur Leukocyte Esterase Urine RBC Urine WBC Ur Squamous Epith Cells Urine Bacteria Urine Yeast Ur Microscopic Review Urine Culture Comments 03/16/23 03/16/23 17:45 17:55 WBC RBC Hgb Hct MCV MCH MCHC RDW Plt Count MPV Neut # (Auto) Lymph # (Auto) [place] # (Auto) Eos # (Auto) Baso # (Auto) Absolute Nucleated RBC Total Counted Band Neuts % (Manual) Abnorm Lymph % (Manual) Metamyelocytes % Nucleated RBC % Neutrophils # (Manual) Lymphocytes # (Manual) Monocytes # (Manual) Eosinophils # (Manual) Basophils # (Manual) Differential Comment Platelet Estimate Platelet Morphology RBC Morph Micro Appear PT INR APTT Sodium Potassium Chloride Carbon Dioxide Anion Gap BUN Creatinine Estimated GFR (MDRD) Glucose Lactic Acid 1.1 Calcium Total Bilirubin AST ALT Alkaline Phosphatase Total Protein Albumin Globulin Albumin/Globulin Ratio Lipase Urine Color YELLOW Urine Clarity HAZY Urine pH 5.5 Ur Specific [place] 1.010 Urine Protein TRACE Urine Glucose (UA) >=1000 H Urine Ketones NEGATIVE Urine Occult Blood TRACE-INTA Urine Nitrite POSITIVE H Urine Bilirubin NEGATIVE Urine Urobilinogen 0.2 (NORMAL) Ur Leukocyte Esterase SMALL H Urine RBC 0-5 Urine WBC >25 H Ur Squamous Epith Cells FEW Squamous Urine Bacteria Moderate H Urine Yeast PRESENT Ur Microscopic Review INDICATED Urine Culture Comments INDICATED PD Medical Decision Making - ED course Complexity details: reviewed results, re-evaluated patient, considered differential, d/w mental health consultant ED course: Patient with urosepsis versus cellulitis with potential sepsis from her sacral ulcer. Patient was given IV Zosyn and vancomycin. Blood cultures drawn. IV fluids given. Heart rate decreased to under 100. Blood pressure improved. Patient will need ongoing IV antibiotics and admission. She is DNR, limited interventions. Discussed the case with the nighttime hospitalist who accepts. This document was made in part using voice recognition software. While efforts are made to proofread this document, sound alike and grammatical errors may occur. - Critical Care Time(min): 35 Time Includes: Direct patient care, See progress note Data interpretation: See progress note Procedures included in critical care time: See progress note Procedures excluded from critical care time: See progress note - Sepsis Event Sepsis Onset Date: 03/16/23 Sepsis Onset Time: 20:00 Current Stage of Sepsis: Sepsis Initial Hypotension: Not hypotensive (not more than 40 point drop) Possible source of Sepsis: Genitourinary, Skin/soft tissue Mental/Cognitive Status: Lethargic, Change from baseline Reason for not giving 30ml/kg crystalloid fluids: Not in septic shock, Fluid overload potential Capillary refill: Less than 2 seconds Peripheral Pulse Strength: 2+ Slightly Diminished Peripheral Pulse Location: Radial Bedside ultrasound performed: No Departure - Departure Disposition: 66 [facility] DC/Xfer Clinical Impression: Tachycardia Sacral ulcer Qualifiers: Non-pressure ulcer stage: unspecified non-pressure ulcer stage Qualified Code(s): L98.429 - Non-pressure chronic ulcer of back with unspecified severity Fever Qualifiers: Fever type: unspecified Qualified Code(s): R50.9 - Fever, unspecified UTI (urinary tract infection) Qualifiers: Urinary tract infection type: site unspecified Hematuria presence: without hematuria Qualified Code(s): N39.0 - Urinary tract infection, site not specified Altered mental status Qualifiers: Altered mental status type: unspecified Qualified Code(s): R41.82 - Altered mental status, unspecified Hypotension Qualifiers: Hypotension type: unspecified hypotension type Qualified Code(s): I95.9 - Hypotension, unspecified Sepsis Qualifiers: Sepsis type: sepsis due to unspecified organism Sepsis acute organ dysfunction status: with acute organ dysfunction Severe sepsis acute organ dysfunction type: acute renal failure Acute renal failure type: unspecified Severe sepsis shock status: without septic shock Qualified Code(s): A41.9 - Sepsis, unspecified organism Condition: Serious
[2023-03-16 17:57] LABS: BASOPHILS % (AUTO) 0.2 %; EOSINOPHILS % (AUTO) 0.1 %; HCT - HEMATOCRIT 37.3 % (37.0-47.0); HGB - HEMOGLOBIN 11.1 g/dL (12.0-16.0); LYMPHOCYTES % (AUTO) 4.8 %; MEAN CORPUSCULAR HEMOGLOBIN 27.6 pg (27.0-31.0); MEAN CORPUSCULAR HGB CONC 29.8 g/dL (32.0-36.0); MEAN CORPUSCULAR VOLUME 92.8 fL (81.0-99.0); MEAN PLATELET VOLUME 12.8 fL (7.9-10.8); MONOCYTES % (AUTO) 4.9 %; NEUTROPHILS % (AUTO) 88.9 %; PLT - PLATELET COUNT 206 10^3/uL (130-450); RED BLOOD COUNT 4.02 10^6/uL (4.20-5.40); RED CELL DISTRIBUTION WIDTH 17.9 % (12.0-15.0); WHITE BLOOD COUNT 20.1 x10^3/uL (4.8-10.8)
[2023-03-16 18:00] LABS: ABNORMAL LYMPHS % (MANUAL) 0 %
[2023-03-16 18:05] LABS: PARTIAL THROMBOPLASTIN TIME 20.5 secs (24.9-33.3)
[2023-03-16 18:10] LABS: INR 1.1 (0.8-1.2); PT - PROTHROMBIN TIME 12.3 secs (9.9-12.6)
[2023-03-16 18:12] LABS: ALBUMIN 3.1 g/dL (3.2-5.5); ALBUMIN/GLOBULIN RATIO 0.9 (1.0-2.2); BILIRUBIN,TOTAL 0.6 mg/dL (0.2-1.0); CALCIUM 10.6 mg/dL (8.5-10.3); CREATININE 0.8 mg/dL (0.6-1.3); POTASSIUM 3.6 mmol/L (3.5-4.5); TOTAL PROTEIN 6.4 g/dL (6.4-8.9)
[2023-03-16] MEDS ORDERED: VANCOMYCIN INJ 1 GM in SODIUM CHLORIDE 0.9% 500 ML IV STA (18:12)
[2023-03-16] MEDS ORDERED: PIPERACILLIN/TAZOBACTAM 4.5 GM in SODIUM CHLORIDE 0.9% MINIBAG 100 ML IV STA (18:12)
[2023-03-16 18:24] LABS: BILIRUBIN,URINE NEGATIVE (NEGATIVE); GLUCOSE, URINE (UA) >=1000 mg/dL (NEGATIVE); KETONES,URINE (UA) NEGATIVE (NEGATIVE); LEUKOCYTE ESTERASE, URINE SMALL (NEGATIVE); NITRITE,URINE POSITIVE (NEGATIVE); OCCULT BLOOD,URINE TRACE-INTA (NEGATIVE); PH,URINE 5.5 PH (5.0-7.5); PROTEIN,URINE TRACE mg/dL (NEGATIVE); UROBILINOGEN,URINE 0.2 (NORMAL) E.U./dL (NORMAL)
--- NOTE | 2023-03-16 18:25 | XRAY Report ---
PROCEDURE: Chest 1 View X-Ray INDICATIONS: dyspnea TECHNIQUE: One view of the chest was acquired. COMPARISON: CT chest, 02/11/2023. Chest x-ray, 02/14/2023 FINDINGS: Surgical changes and devices: Sternotomy and CABG. Lungs and pleura: No pleural effusions or pneumothorax. Mild pulmonary interstitial prominence. No focal consolidation. Mediastinum: Mediastinal contours appear normal. Heart size is normal. Bones and chest wall: No suspicious bony lesions. Overlying soft tissues appear unremarkable. IMPRESSION: No acute cardiopulmonary process. Reviewed by: Parag Sharif MD on 03/16/2023 6:23 PM PST Approved by: Parag Sharif MD on 03/16/2023 6:23 PM PST Station ID: [id number]
[2023-03-16 18:26] LABS: CLARITY,URINE HAZY (CLEAR)
[2023-03-16 18:41] LABS: BAND NEUTROPHILS % (MANUAL) 2 %; DIFFERENTIAL COMMENT MANUAL DIFFERENTIAL; LYMPHOCYTES # (MANUAL) 1.2 10^3/uL (1.5-3.5); LYMPHOCYTES % (MANUAL) 6 %; METAMYELOCYTES % (MANUAL) 1 %; NEUTROPHILS # (MANUAL) 17.7 10^3/uL (1.5-6.6); PLATELET ESTIMATE, MANUAL NORMAL (130-450,000) (NORMAL); PLATELET MORPHOLOGY NORMAL APPEARANCE (NORMAL); RBC MORPHOLOGY (MULTIPLE) NORMAL APPEARANCE (NORMAL)
[2023-03-16 18:48] LABS: BACTERIA,URINE Moderate /HPF (None Seen); RBC,URINE 0-5 /HPF (0-5); SQUAMOUS EPITHELIAL CELL,UR FEW Squamous (<= Few); WBC,URINE >25 /HPF (0-5)
[2023-03-16 18:49] LABS: YEAST,URINE PRESENT
--- NOTE | 2023-03-16 21:08 | HISTORY & PHYSICAL EXAMINATION ---
Chief Complaint - Chief Complaint Chief Complaint: AMS, Fever History of Present Illness - Admitted From Admitted From:: ER - History Obtained From Records Reviewed: Yes History obtained from: Staff, chart Exam Limitations: Pt is nonverbal, virtual exam - History of Present Illness HPI Comment/Other: H&P was conducted via video remotely, using Access Cart. Patient is in [place]. Physician is in [place]. No one is at bedside. Unable to obtain history from pt d/t pt's clinical condition. History obtained from staff, chart. 77 yo F with PMH of HTN, AFib, HLD, CAD, CHF/Isch CMP, CVA with residual R sided HP, DM type 2, Hypothyroid, Glaucoma, Bipolar D/o, Severe protein calorie malnutrition, non-verbal, sacral pressure sores and DJD presented to the ER from [place] for c/o 2 day h/o AMS, Fever. Pt was hospitalized from 02/10-02/23/23 for AMS, Sepsis, UTI, Colitis, RAGHAV and also had Intraparenchymal hematoma of brain due to trauma s/p fall at [facility] facility 1 week prior to that admission. Pt does not answer questions. Per staff, pt's NH had noted that she appeared more confused than her baseline, she had a fever and she had a WBC of 22. In the ER, HR 120s then 90s, Na 148, U/A: Nitr LE WBC Bacteria, BC and UC pending. CXR: NAD Pt was given IVF, Zosyn/Vanco in the ER. History - Past Medical History Cardiovascular: reports: Hypertension, High cholesterol, Coronary artery disease, Atrial fibrillation, Other Respiratory: reports: None Neuro: reports: CVA Endocrine/Autoimmune: reports: Type 2 diabetes GI: reports: None NEW ACCOUNT INTERVIEWER: reports: None : reports: None HEENT: reports: None Psych: reports: Depression, Bipolar disorder Musculoskeletal: reports: Osteoarthritis Derm: reports: None MRSA Hx?: No - Past Surgical History General: reports: Cholecystectomy Ortho: reports: Carpal Tunnel surgery, Other /NEW ACCOUNT INTERVIEWER: reports: Hysterectomy Cardiovascular: reports: CABG - Family & Social History Family History Comment/Other: Unable to obtian family history at this time - Substance History Use: Uses substance without health or social issues: NONE - POLST Patient has POLST: Yes POLST Status: Full Code Meds/Allgy - Home Medications Home Medications: Ambulatory Orders Medication Instructions Recorded Confirmed Canagliflozin [Invokana] 100 mg PO DAILY 06/15/21 03/16/23 Insulin Glargine [Lantus Solostar] 10 units SUBQ BID 06/15/21 03/16/23 Metoprolol Succinate [Toprol Xl] 50 mg PO QPM 06/15/21 03/16/23 Sacubitril/Valsartan [Entresto 24 1 tab PO QPM 06/15/21 03/16/23 mg-26 mg Tablet] Calcium Carbonate [Tums (Calcium 1,000 mg PO Q8H PRN 06/16/21 03/16/23 Carbonate 500mg)] Insulin Regular Human [Humulin R] 3 unit SUBQ AC 06/16/21 03/16/23 Spironolactone [Aldactone] 25 mg PO DAILY 02/10/23 03/16/23 Acetaminophen [Tylenol] 650 mg PO Q6H PRN 02/11/23 03/16/23 Atorvastatin Calcium [Lipitor] 80 mg PO QPM 02/11/23 03/16/23 Sacubitril/Valsartan [Entresto 24 2 tab PO DAILY 02/11/23 03/16/23 mg-26 mg Tablet] Aspirin Chewable [St Orlando 81 mg PO DAILY #0 02/23/23 03/16/23 Aspirin] Brimonidine Tartrate/Timolol 1 drops EACHEYE BID #0 02/23/23 03/16/23 [Combigan 0.2%-0.5% Eye Drops] Carboxymethylcellulose Sodium 1 applic EACHEYE QPM #0 02/23/23 03/16/23 Cholecalciferol (Vitamin D3) 50 mcg PO DAILY #0 02/23/23 03/16/23 [Vitamin D3] Furosemide [Lasix] 20 mg PO DAILY #7 tablet 02/23/23 03/16/23 Levothyroxine Sodium 50 mcg PO QDAC #0 02/23/23 03/16/23 Multivitamin 1 tab PO DAILY #0 02/23/23 03/16/23 Pantoprazole [Protonix] 40 mg PO BIDAC #0 02/23/23 03/16/23 Sertraline [Zoloft] 50 mg PO DAILY #0 02/23/23 03/16/23 Timolol 0.5% Ophth Drops [Timoptic 1 drops EACHEYE BID each 02/23/23 03/16/23 0.5% Ophth Drops] Bisacodyl Supp [Dulcolax Supp] 10 mg [place] DAILY PRN 03/16/23 03/16/23 Mineral Oil [Mineral Oil Enema] 1 ea RC DAILY PRN 03/16/23 03/16/23 Sennosides [Senna] 2 tab PO DAILY PRN 03/16/23 03/16/23 polyethylene glycoL 3350 [Miralax] 17 gm PO DAILY PRN 03/16/23 03/16/23 - Allergies Allergies/Adverse Reactions: Allergies Allergy/AdvReac Type Severity Reaction Status Date / Time Sulfa (Sulfonamide Allergy Mild Nausea Verified 02/10/23 17:48 Antibiotics) omeprazole Allergy Unknown Verified 03/16/23 17:31 epinephrine AdvReac Unknown Verified 02/10/23 17:48 Review of Systems - All Other Systems All Other Systems: reports: Other (Unable to obtain d/t patient's clinical condition) Exam - Vital Signs Reviewed Vital Signs: Yes Vital Signs: Vital Signs x48h Temp Pulse Resp BP Pulse Ox 03/16/23 20:30 88 20 92/51 L 94 03/16/23 20:00 37.4 C 89 22 103/52 L 92 03/16/23 19:30 37.5 C 91 20 93/40 L 93 03/16/23 19:00 91 26 H 98/39 L 93 03/16/23 18:40 38.1 C H 99 14 98/45 L 96 03/16/23 18:01 38.3 C H 121 H 18 97 03/16/23 17:31 37.3 C 121 H 33 H 98/58 L 98 - Physical Exam General Appearance: positive: No acute distress Eyes Bilateral: positive: EOMI, No scleral icterus ENT: positive: Dry mucous membranes Respiratory: positive: Other (Resp: Access cart stethoscope not working; per ER Provider: CTA B/L) Cardiovascular: positive: Other (CVS: Access cart stethoscope not working; per ER Provider: Irreg Irreg, tachy, no murmurs) Abdomen: positive: Other (Abdo: per ER Provider: non-distended, NT, Soft) Skin: positive: Decubitus, Other (See photo under notes. Large sacral necrotic decubitus ulcer with small opening) Neurologic/Psychiatric: positive: Other (Drowsy, awake, opens eyes to voice but is not verbal at this time, not following commands) Conclusion/Plan - Problem List (1) Sepsis Conclusion/Plan: Sepsis AMS Hypotension Tachycardia Fever Leukocytosis Sacral Decub Ulcer UTI -HR 120s then 90s, U/A: Nitr LE WBC Bacteria, BC and UC pending. -CXR: NAD -Pt was given IVF, Zosyn/Vanco in the ER. -admit to Med Surg with Tele -continue IVF -continue Zosyn/Vanco IV -F/U BC and UC -Wound Care consult -hold home medications: Invokana d/t recurrent UTIs; recommend not restarting -hold home medications: Lasix, Metoprolol, Entresto, Spironolactone d/t Hypotension Hypernatremia Dehydration -Na 148 -given IVF in the ER -recheck Na now -continue IVF HTN AFib HLD CAD CHF/Isch CMP -Echo 02/2023: EF 30-35% -continue home medications: ASA, Statin -hold home medications: Lasix, Metoprolol, Entresto, Spironolactone d/t Hypotension -off AC s/p Intraparenchymal hematoma of brain due to trauma s/p fall CVA with residual R sided HP Non-verbal -continue home medications: ASA, Statin -supportive care DM type 2 -accuchecks, SS Insulin, Hypoglycemic protocol -hold home medications: Invokana, Lantus -check Hgba1c -would recommend keeping pt off Invokana d/t recurrent UTIs, as this is a common SE Hypothyroid -continue home medications: Levothyroxine -check TSH Glaucoma -continue home medications: eye drops Bipolar D/o -continue home medications: Zoloft Severe protein calorie malnutrition -Nutrition consult VTE Prophylaxis: SCDs only d/t recent Intraparenchymal hematoma of brain Code Status: per staff, NH paperwork says that pt is DNR/DNI ~Mercedes Dave MD Hospitalist Qualifiers: Sepsis type: sepsis due to unspecified organism Sepsis acute organ dysfunction status: with acute organ dysfunction Severe sepsis acute organ dysfunction type: acute renal failure Acute renal failure type: unspecified Severe sepsis shock status: without septic shock Qualified Code(s): A41.9 - Sepsis, unspecified organism; R65.20 - Severe sepsis without septic shock; N17.9 - Acute kidney failure, unspecified - Lab Results Lab results reviewed: Yes Fish Bones: 03/16/23 17:45 03/16/23 17:45
[2023-03-16] MEDS ORDERED: SENNA 8.6 MG TABLET PO PRN (21:17)
[2023-03-16] MEDS ORDERED: ACETAMINOPHEN 325 MG TABLET PO PRN (21:17)
[2023-03-16] MEDS ORDERED: polyethylene glycoL 3350 17 GM PACKET PO PRN (21:17)
[2023-03-16] MEDS ORDERED: BISACODYL 10 MG SUPP PR PRN (21:17)
[2023-03-16] MEDS ORDERED: CALCIUM CARBONATE CHEW 500 MG TABLET PO PRN (21:17)
[2023-03-16] MEDS ORDERED: SODIUM CHLORIDE FLUSH 0.9% 10 ML SYRINGE IVP PRN (21:20)
[2023-03-16] MEDS ORDERED: ONDANSETRON 4 MG/2 ML VIAL IVP PRN (21:20)
[2023-03-16] MEDS ORDERED: ONDANSETRON ODT 4 MG TABLET TL PRN (21:20)
[2023-03-16] MEDS ORDERED: oxyCODONE 5 MG TABLET PO PRN (21:20)
[2023-03-16] MEDS: PIPERACILLIN/TAZOBACTAM 4.5 GM in SODIUM CHLORIDE 0.9% MINIBAG 100 ML IV SCH (23:53)
[2023-03-16] MEDS: LACTATED RINGERS 1,000 ML IV SCH (23:57)
[2023-03-17] MEDS: SODIUM CHLORIDE FLUSH 0.9% 10 ML SYRINGE IVP SCH ×3 (04:00→16:08)
[2023-03-17 05:20] LABS: BASOPHILS % (AUTO) 0.3 %; EOSINOPHILS # (AUTO) 0.1 10^3/uL (0.0-0.7); EOSINOPHILS % (AUTO) 0.3 %; HCT - HEMATOCRIT 30.8 % (37.0-47.0); HGB - HEMOGLOBIN 9.1 g/dL (12.0-16.0); LYMPHOCYTES # (AUTO) 1.3 10^3/uL (1.5-3.5); LYMPHOCYTES % (AUTO) 8.7 %; MEAN CORPUSCULAR HEMOGLOBIN 27.4 pg (27.0-31.0); MEAN CORPUSCULAR HGB CONC 29.5 g/dL (32.0-36.0); MEAN CORPUSCULAR VOLUME 92.8 fL (81.0-99.0); MEAN PLATELET VOLUME 12.9 fL (7.9-10.8); MONOCYTES # (AUTO) 0.9 10^3/uL (0.0-1.0); MONOCYTES % (AUTO) 5.8 %; NEUTROPHILS # (AUTO) 12.3 10^3/uL (1.5-6.6); NEUTROPHILS % (AUTO) 83.7 %; PLT - PLATELET COUNT 179 10^3/uL (130-450); RED BLOOD COUNT 3.32 10^6/uL (4.20-5.40); RED CELL DISTRIBUTION WIDTH 17.7 % (12.0-15.0); WHITE BLOOD COUNT 14.8 x10^3/uL (4.8-10.8)
[2023-03-17] MEDS: LEVOTHYROXINE 25 MCG TABLET PO SCH (05:26)
[2023-03-17] MEDS: PANTOPRAZOLE 40 MG TABLET PO SCH ×2 (05:26→16:08)
[2023-03-17] MEDS: PIPERACILLIN/TAZOBACTAM 4.5 GM in SODIUM CHLORIDE 0.9% MINIBAG 100 ML IV SCH ×3 (05:57→22:14)
[2023-03-17] MEDS ORDERED: LEVOTHYROXINE SODIUM 50 MCG PO SCH (07:00)
[2023-03-17] MEDS ORDERED: DEXTROSE 50% ABBOJECT 25 GM/50 ML SYRINGE IVP ONE (07:30)
[2023-03-17] MEDS ORDERED: INSULIN LISPRO 300 UNIT/3 ML PEN SUBQ SCH (08:00)
--- NOTE | 2023-03-17 08:26 | PROVIDER PROGRESS NOTE ---
Assessment/Plan - Problem List (1) Septic shock Assessment/Plan: She presented with shock, tachycardia, hypotension, elevated white count and new obtundation. Source appears to be a UTI or possibly her very large sacral decubitus Pt was given IVF, Zosyn/Vanco in the ER. She is minimally more awake today. WBC 20>> 14 today (all labs were reviewed) Plan: Continue with supportive care, empiric IV antibiotics as ordered by admitting Telemedicine provider, cont IV fluids Follow CBC daily (2) Bacteremia due to Proteus species Assessment/Plan: Her bld cx has quickly turned pos and been identified by PCR as Proteus Later today lab also reported a Staph species, but that could be a contaminant Plan: Await the Proteus' sens to adjust antibx Cont empiric iv antibx (3) Urinary tract infection Qualifiers: Urinary tract infection type: site unspecified Hematuria presence: without hematuria Qualified Code(s): N39.0 - Urinary tract infection, site not specified Assessment/Plan: Her U/A was abnormal at adm Plan: Cont with empiric iv Pip/TAzo Tailor antibx based on sens (4) Sacral ulcer Qualifiers: Qualified Code(s): L98.429 - Non-pressure chronic ulcer of back with unspecified severity Assessment/Plan: She has a very large, dark ulcer, larger than when she last was here. Plan: General Surgery consult placed for evaluating this and probable debridement and to give further recommendations for its management I suspect she will need special wound care (5) Hypoglycemia associated with type 2 diabetes mellitus Assessment/Plan: This morning her glucose before breakfast was 61. The patient's baseline status is being nonverbal, she was able to open her eyes. She was given D50 abject push. She was then started on D5W at TKO because she was too somnolent to swallow Plan: I will adjust her sliding scale insulin and her scheduled insulin doses Continue with hypoglycemia protocol (6) Prerenal azotemia Assessment/Plan: Her urine output has been only 150 cc/ first shift today. Her iv LR is running at 75 cc/hr, no faster, so as not to put her into pulm edema. She is too obtunded to even try a swallowing eval by RN Plan: Cont moderate iv infusion rate Avoid nephrotoxins Follow BMP daily (7) Severe protein calorie malnutrition Assessment/Plan: She has had very poor nutrition recently. 23 kg weight loss in 18 months was documented and she has sacral wounds, and is bedridden. Plan: Radio Talk Show Host to give recommendations (8) Ischemic cardiomyopathy Assessment/Plan: She has Hx of CABG. Her Echo in 06/2021 which showed LVEF of 55%. Her Echo done 02/16 at the last admission showed global LV hypokinesis with EF 30 to 35%, a new finding for her. She was not on a statin due to trivial nutritional intake. She was discharged to SNF on cardiac meds Plan: All her cardiac meds are currently on hold because of hypotension from septic shock Awaiting her reconciled med list (9) Paroxysmal atrial fibrillation Assessment/Plan: Plan: Continue to monitor on telemetry. Cardiac meds on hold due to low blood pressure No anticoagulation due to recent brain bleed (10) CVA (cerebral vascular accident) Assessment/Plan: History of CVA with residual right-sided deficits. 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 Head CT then showed a left frontal con tusion and hematoma. She had a large bruise around the L eye at the last admission here 3 weeks ago Plan: Remain off Eliquis. Eliquis could be restarted eventually only if she will be bedbound. Otherwise she will no longer be on an anticoagulant because of fall and brain bleed - Current Meds Current Meds: Current Medications Generic Name Dose Route Start Last Admin Trade Name Freq PRN Reason Stop Dose Admin Lactated Ringer's 1,000 mls @ 75 mls/hr 03/16/23 22:00 03/16/23 23:57 Lr IV 75 mls/hr .[id number] ELIZABETH Administration Piperacillin Sod/Tazobactam 100 mls @ 25 mls/hr 03/16/23 22:00 03/17/23 05:57 Sod 4.5 gm/ Sodium Chloride IV 25 mls/hr Q8H ELIZABETH Administration Levothyroxine Sodium 50 mcg 03/17/23 07:00 03/17/23 05:26 Levothyroxine 25 Mcg Tablet PO Not Given QDAC ELIZABETH Pantoprazole Sodium 40 mg 03/17/23 07:00 03/17/23 05:26 Pantoprazole 40 Mg Tablet PO Not Given BIDAC ELIZABETH Sodium Chloride 10 ml 03/16/23 21:20 03/17/23 05:57 Sodium Chloride Flush 0.9% 10 Ml Syringe IVP 10 ml PRN PRN Administration NEEDED PER PROVIDER ORDERS Sodium Chloride 10 ml 03/17/23 01:00 03/17/23 04:00 Sodium Chloride Flush 0.9% 10 Ml Syringe IVP 10 ml 0100,0900,1700 ELIZABETH Administration - Lab Result Fish Bone Diagrams: 03/18/23 05:19 03/18/23 05:19 - Additional Planning My Orders: My Active Orders 03/17/23 05:00 LIPID Panel [CHEM] Routine 03/17/23 08:20 Swallow Screen - Nursing [RC] ONCE 03/17/23 09:00 D5W @ 30mls/hr (TKO) Dextrose 5% [D5w] 1,000 ml IV TKO Sertraline [Zoloft] 50 mg PO DAILY Objective Vital Signs: Vital Signs - 24 hr 03/16/23 03/16/23 03/16/23 17:31 18:01 18:40 Temperature 37.3 C 38.3 C H 38.1 C H Heart Rate 121 H 121 H 99 Heart Rate [ Brachial] Respiratory 33 H 18 14 Rate Blood Pressure 98/58 L 98/45 L Blood Pressure [Left Brachial artery] O2 Saturation 98 97 96 03/16/23 03/16/23 03/16/23 19:00 19:30 20:00 Temperature 37.5 C 37.4 C Heart Rate 91 91 89 Heart Rate [ Brachial] Respiratory 26 H 20 22 Rate Blood Pressure 98/39 L 93/40 L 103/52 L Blood Pressure [Left Brachial artery] O2 Saturation 93 93 92 03/16/23 03/16/23 03/16/23 20:30 21:00 22:00 Temperature Heart Rate 88 97 84 Heart Rate [ Brachial] Respiratory 20 22 20 Rate Blood Pressure 92/51 L 91/42 L 109/47 L Blood Pressure [Left Brachial artery] O2 Saturation 94 94 97 03/16/23 03/17/23 03/17/23 22:58 04:35 07:30 Temperature 36.6 C 36.7 C 36.6 C Heart Rate Heart Rate [ 86 85 84 Brachial] Respiratory 16 16 16 Rate Blood Pressure Blood Pressure 115/50 L 110/49 L 103/40 L [Left Brachial artery] O2 Saturation 97 98 96 Oxygen O2 Source Room air I&O (Last 24 Hrs): Intake and Output Totals x24h 03/15/23 03/16/23 03/17/23 23:59 23:59 23:59 Intake Total 1600 2060 Output Total 700 250 Balance 900 1810 General: Other (Lethargic. Cachectic) HEENT: Mucous membr. moist/pink Neck: Supple Neuro: Non Focal, Other (Lethargic) Cardiovascular: Other (Irreg irreg) Respiratory: No respiratory distress Abdomen: Soft Extremities: No clubbing, No edema - Results Results: Laboratory Results WBC 14.8 x10^3/uL (4.8-10.8) H 03/17/23 04:48 RBC 3.32 10^6/uL (4.20-5.40) L 03/17/23 04:48 Hgb 9.1 g/dL (12.0-16.0) L 03/17/23 04:48 Hct 30.8 % (37.0-47.0) L 03/17/23 04:48 MCV 92.8 fL (81.0-99.0) 03/17/23 04:48 MCH 27.4 pg (27.0-31.0) 03/17/23 04:48 MCHC 29.5 g/dL (32.0-36.0) L 03/17/23 04:48 RDW 17.7 % (12.0-15.0) H 03/17/23 04:48 Plt Count 179 10^3/uL (130-450) 03/17/23 04:48 MPV 12.9 fL (7.9-10.8) H 03/17/23 04:48 Neut # (Auto) 12.3 10^3/uL (1.5-6.6) H 03/17/23 04:48 Lymph # (Auto) 1.3 10^3/uL (1.5-3.5) L 03/17/23 04:48 [place] # (Auto) 0.9 10^3/uL (0.0-1.0) 03/17/23 04:48 Eos # (Auto) 0.1 10^3/uL (0.0-0.7) 03/17/23 04:48 Baso # (Auto) 0.0 10^3/uL (0.0-0.1) 03/17/23 04:48 Absolute Nucleated RBC 0.00 x10^3/uL 03/17/23 04:48 Total Counted 100 03/16/23 17:45 Band Neuts % (Manual) 2 % (0-10) 03/16/23 17:45 Abnorm Lymph % (Manual) 0 % 03/16/23 17:45 Metamyelocytes % 1 % (-0) H 03/16/23 17:45 Nucleated RBC % 0.0 /100WBC 03/17/23 04:48 Neutrophils # (Manual) 17.7 10^3/uL (1.5-6.6) H 03/16/23 17:45 Lymphocytes # (Manual) 1.2 10^3/uL (1.5-3.5) L 03/16/23 17:45 Monocytes # (Manual) 1.0 10^3/uL (0.0-1.0) 03/16/23 17:45 Eosinophils # (Manual) 0.0 10^3/uL (0-0.7) 03/16/23 17:45 Basophils # (Manual) 0.0 10^3/uL (0-0.1) 03/16/23 17:45 Differential Comment MANUAL DIFFERENTIAL 03/16/23 17:45 Platelet Estimate NORMAL (130-450,000) (NORMAL) 03/16/23 17:45 Platelet Morphology NORMAL APPEARANCE (NORMAL) 03/16/23 17:45 RBC Morph Micro Appear NORMAL APPEARANCE (NORMAL) 03/16/23 17:45 PT 12.3 secs (9.9-12.6) 03/16/23 17:45 INR 1.1 (0.8-1.2) 03/16/23 17:45 APTT 20.5 secs (24.9-33.3) L 03/16/23 17:45 Sodium 150 mmol/L (135-145) H 03/16/23 23:18 Potassium 3.6 mmol/L (3.5-4.5) 03/16/23 17:45 Chloride 108 mmol/L (101-111) 03/16/23 17:45 Carbon Dioxide 34 mmol/L (21-32) H 03/16/23 17:45 Anion Gap 6.0 (6-13) 03/16/23 17:45 BUN 38 mg/dL (6-20) H 03/16/23 17:45 Creatinine 0.8 mg/dL (0.6-1.3) 03/16/23 17:45 Estimated GFR (MDRD) 69 (>89) L 03/16/23 17:45 Glucose 106 mg/dL (74-104) H 03/16/23 17:45 POC Whole Bld Glucose 111 mg/dL (70 - 100) H 03/17/23 07:54 Lactic Acid 1.1 mmol/L (0.5-2.2) 03/16/23 17:45 Calcium 10.6 mg/dL (8.5-10.3) H 03/16/23 17:45 Total Bilirubin 0.6 mg/dL (0.2-1.0) 03/16/23 17:45 AST 55 IU/L (10-42) H 03/16/23 17:45 ALT 27 IU/L (10-60) 03/16/23 17:45 Alkaline Phosphatase 99 IU/L (42-121) 03/16/23 17:45 Total Protein 6.4 g/dL (6.4-8.9) 03/16/23 17:45 Albumin 3.1 g/dL (3.2-5.5) L 03/16/23 17:45 Globulin 3.3 g/dL (2.1-4.2) 03/16/23 17:45 Albumin/Globulin Ratio 0.9 (1.0-2.2) L 03/16/23 17:45 Lipase 20 U/L (11-82) 03/16/23 17:45 Urine Color YELLOW 03/16/23 17:55 Urine Clarity HAZY (CLEAR) 03/16/23 17:55 Urine pH 5.5 PH (5.0-7.5) 03/16/23 17:55 Ur Specific [place] 1.010 (1.002-1.030) 03/16/23 17:55 Urine Protein TRACE mg/dL (NEGATIVE) 03/16/23 17:55 Urine Glucose (UA) >=1000 mg/dL (NEGATIVE) H 03/16/23 17:55 Urine Ketones NEGATIVE mg/dL (NEGATIVE) 03/16/23 17:55 Urine Occult Blood TRACE-INTA (NEGATIVE) 03/16/23 17:55 Urine Nitrite POSITIVE (NEGATIVE) H 03/16/23 17:55 Urine Bilirubin NEGATIVE (NEGATIVE) 03/16/23 17:55 Urine Urobilinogen 0.2 (NORMAL) E.U./dL (NORMAL) 03/16/23 17:55 Ur Leukocyte Esterase SMALL (NEGATIVE) H 03/16/23 17:55 Urine RBC 0-5 /HPF (0-5) 03/16/23 17:55 Urine WBC >25 /HPF (0-5) H 03/16/23 17:55 Ur Squamous Epith Cells FEW Squamous (<= Few) 03/16/23 17:55 Urine Bacteria Moderate /HPF (None Seen) H 03/16/23 17:55 Urine Yeast PRESENT 03/16/23 17:55 Ur Microscopic Review INDICATED 03/16/23 17:55 Urine Culture Comments INDICATED 03/16/23 17:55 - Procedures Procedures: Procedures INSERTION OF INFUSION DEV INTO SUP VENA CAVA, PERC APPROACH (02/10/23) Sepsis Event Note (H) - Evaluation Possible source of Sepsis: positive: Genitourinary, Skin/soft tissue
[2023-03-17 08:40] LABS: CHOL/HDL RATIO 5.3 (<4.4); CHOLESTEROL 69 mg/dL; HDL CHOLESTEROL 13 mg/dL; LDL CHOLESTEROL,CALCULATED 26 mg/dL; TRIGLYCERIDES 150 mg/dL (48-352); VLDL CHOLESTEROL 30 mg/dL
[2023-03-17] MEDS ORDERED: DEXTROSE 5% 1,000 ML IV SCH (09:00)
[2023-03-17] MEDS ORDERED: CHOLECALCIFEROL 50 MCG PO SCH (09:00)
[2023-03-17] MEDS ORDERED: NON FORMULARY MED (Multivitamin [Multivitamin] 1 EACH Tablet) PO SCH (09:00)
[2023-03-17] MEDS ORDERED: SERTRALINE 50 MG TABLET PO SCH (09:00)
[2023-03-17 11:27] LABS: ESTIMATED AVERAGE GLUCOSE 120 mg/dL (70-100); HEMOGLOBIN A1c% 5.8 % (4.27-6.07)
[2023-03-17] MEDS: ASPIRIN CHEW 81 MG TABLET PO SCH (11:27)
[2023-03-17] MEDS: MULTIVITAMIN TABLET PO SCH (11:27)
[2023-03-17] MEDS: CHOLECALCIFEROL 25 MCG TABLET PO SCH (11:28)
[2023-03-17] MEDS: COMBIGAN EACHEYE SCH ×2 (11:28→22:15)
[2023-03-17] MEDS: SERTRALINE 50 MG TABLET PO SCH (11:28)
[2023-03-17] MEDS: EYE EACHEYE SCH ×2 (11:28→22:15)
[2023-03-17] MEDS: LACTATED RINGERS 1,000 ML IV SCH (14:34)
[2023-03-17] MEDS: TIMOLOL 0.5% OPHTH DROPS EACHEYE SCH ×2 (14:35→22:14)
[2023-03-17] MEDS ORDERED: HYDROmorphone 0.5 MG/0.5 ML SYRINGE IVP ONE (15:47)
[2023-03-17] MEDS ORDERED: HYDROmorphone 0.5 MG/0.5 ML SYRINGE IVP PRN (15:54)
--- NOTE | 2023-03-17 16:06 | CONSULTATION NOTE ---
Referring Provider Name of Referring Provider:: Hospitalist Azalea) Consult Date: 03/17/23 Chief Complaint - Chief Complaint Chief Complaint: sacral wound History of Present Illness - Admitted From Admitted From:: ED - History Obtained From Records Reviewed: yes History obtained from: patient, family, chart, primary team Exam Limitations: patient only able to whisper 1-2 word replies to questions - History of Present Illness HPI Comment/Other: Patient has been bed bound and has had a wound on her sacrum for at least the last 2 weeks. During this time, the wound has worsened. The patient denies pain at the time of my visit. The patient's is concerned as she was admitted here last week with signs of sepsis, treated with antibiotics and improved. She was then discharged to a SNF where she rapidly declined and required readmission. When she presented to the ED, the patient had a report of fever and was nonverbal which is worse than her baseline function. Her is very concerned about his 's health and the plan moving forward. The patient is DNR. History - Past Medical History Cardiovascular: reports: Hypertension, High cholesterol, Coronary artery disease, Atrial fibrillation, Other Respiratory: reports: None Neuro: reports: CVA Endocrine/Autoimmune: reports: Type 2 diabetes GI: reports: None EMR TRAINER: reports: None : reports: None HEENT: reports: None Psych: reports: Depression, Bipolar disorder Musculoskeletal: reports: Osteoarthritis Derm: reports: None MRSA Hx?: No - Past Surgical History General: reports: Cholecystectomy Ortho: reports: Carpal Tunnel surgery, Other /EMR TRAINER: reports: Hysterectomy Cardiovascular: reports: CABG - Family & Social History Family History Comment/Other: Unable to obtian family history at this time - Substance History Use: Uses substance without health or social issues: NONE - POLST Patient has POLST: Yes POLST Status: Limited Interventions Meds/Allgy - Home Medications Home Medications: Ambulatory Orders Medication Instructions Recorded Confirmed Canagliflozin [Invokana] 100 mg PO DAILY 06/15/21 03/16/23 Insulin Glargine [Lantus Solostar] 10 units SUBQ BID 06/15/21 03/16/23 Metoprolol Succinate [Toprol Xl] 50 mg PO QPM 06/15/21 03/16/23 Sacubitril/Valsartan [Entresto 24 1 tab PO QPM 06/15/21 03/16/23 mg-26 mg Tablet] Calcium Carbonate [Tums (Calcium 1,000 mg PO Q8H PRN 06/16/21 03/16/23 Carbonate 500mg)] Insulin Regular Human [Humulin R] 3 unit SUBQ AC 06/16/21 03/16/23 Spironolactone [Aldactone] 25 mg PO DAILY 02/10/23 03/16/23 Acetaminophen [Tylenol] 650 mg PO Q6H PRN 02/11/23 03/16/23 Atorvastatin Calcium [Lipitor] 80 mg PO QPM 02/11/23 03/16/23 Sacubitril/Valsartan [Entresto 24 2 tab PO DAILY 02/11/23 03/16/23 mg-26 mg Tablet] Aspirin Chewable [[place] 81 mg PO DAILY #0 02/23/23 03/16/23 Aspirin] Brimonidine Tartrate/Timolol 1 drops EACHEYE BID #0 02/23/23 03/16/23 [Combigan 0.2%-0.5% Eye Drops] Carboxymethylcellulose Sodium 1 applic EACHEYE QPM #0 02/23/23 03/16/23 Cholecalciferol (Vitamin D3) 50 mcg PO DAILY #0 02/23/23 03/16/23 [Vitamin D3] Furosemide [Lasix] 20 mg PO DAILY #7 tablet 02/23/23 03/16/23 Levothyroxine Sodium 50 mcg PO QDAC #0 02/23/23 03/16/23 Multivitamin 1 tab PO DAILY #0 02/23/23 03/16/23 Pantoprazole [Protonix] 40 mg PO BIDAC #0 02/23/23 03/16/23 Sertraline [Zoloft] 50 mg PO DAILY #0 02/23/23 03/16/23 Timolol 0.5% Ophth Drops [Timoptic 1 drops EACHEYE BID each 02/23/23 03/16/23 0.5% Ophth Drops] Bisacodyl Supp [Dulcolax Supp] 10 mg [place] DAILY PRN 03/16/23 03/16/23 Mineral Oil [Mineral Oil Enema] 1 ea RC DAILY PRN 03/16/23 03/16/23 Sennosides [Senna] 2 tab PO DAILY PRN 03/16/23 03/16/23 polyethylene glycoL 3350 [Miralax] 17 gm PO DAILY PRN 03/16/23 03/16/23 - Allergies Allergies/Adverse Reactions: Allergies Allergy/AdvReac Type Severity Reaction Status Date / Time Sulfa (Sulfonamide Allergy Mild Nausea Verified 02/10/23 17:48 Antibiotics) omeprazole Allergy Unknown Verified 03/16/23 17:31 epinephrine AdvReac Unknown Verified 02/10/23 17:48 Review of Systems - Constitutional Constitutional: reports: Other (As per HPI and PMH.) Exam - Vital Signs Vital Signs: Vital Signs x48h Temp Pulse Resp BP Pulse Ox 03/17/23 11:08 36.7 C 84 18 120/49 L 95 - Physical Exam General Appearance: positive: No acute distress, Alert Eyes Bilateral: positive: PERRL ENT: positive: Dry mucous membranes, Other (poor oral hygiene) Neck: positive: Trachea midline Respiratory: positive: No respiratory distress Cardiovascular: positive: Regular rate & rhythm Peripheral Pulses: positive: 2+ Abdomen: positive: No distention. negative: Tenderness, Guarding, Rebound Back: positive: Other (Large, 8x10cm sacral ulcer, unstagable with extensive necrotic eschar, foul odor, second 1x1.5 cm right ischial wound without necrosis.) Skin: positive: Decubitus (see above) Neurologic/Psychiatric: positive: Slurred/abnml speech (patient whispers 1-2 word replies to some questions, appears to hear well and understand conversation) Conclusion and Plan - Lab Results Microbiology Results 03/16/23 17:45 Blood - Right Hand Blood Culture (PCR) - Final Laboratory Results 03/17/23 11:03: POC Whole Bld Glucose 82 03/17/23 07:54: POC Whole Bld Glucose 111 H 03/17/23 07:27: POC Whole Bld Glucose 61 L 03/17/23 04:48: Triglycerides 150, Cholesterol 69, LDL Cholesterol, Calc 26, VLDL Cholesterol 30, HDL Cholesterol 13 L, LDL/HDL Ratio 2.0, Cholesterol/HDL Ratio 5.3 03/17/23 04:48: Estimat Average Glucose 120 H, Hemoglobin A1c % 5.8 03/17/23 04:48: WBC 14.8 H, RBC 3.32 L, Hgb 9.1 L, Hct 30.8 L, MCV 92.8, MCH 27.4, MCHC 29.5 L, RDW 17.7 H, Plt Count 179, MPV 12.9 H, Neut # (Auto) 12.3 H, Lymph # (Auto) 1.3 L, [place] # (Auto) 0.9, Eos # (Auto) 0.1, Baso # (Auto) 0.0, Absolute Nucleated RBC 0.00, Nucleated RBC % 0.0 03/16/23 23:18: Sodium 150 H 03/16/23 17:55: Urine Color YELLOW, Urine Clarity HAZY, Urine pH 5.5, Ur Specific [place] 1.010, Urine Protein TRACE, Urine Glucose (UA) >=1000 H, Urine Ketones NEGATIVE, Urine Occult Blood TRACE-INTA, Urine Nitrite POSITIVE H, Urine Bilirubin NEGATIVE, Urine Urobilinogen 0.2 (NORMAL), Ur Leukocyte Esterase SMALL H, Urine RBC 0-5, Urine WBC >25 H, Ur Squamous Epith Cells FEW Squamous, Urine Bacteria Moderate H, Urine Yeast PRESENT, Ur Microscopic Review INDICATED, Urine Culture Comments INDICATED 03/16/23 17:45: Lactic Acid 1.1 03/16/23 17:45: Sodium 148 H, Potassium 3.6, Chloride 108, Carbon Dioxide 34 H, Anion Gap 6.0, BUN 38 H, Creatinine 0.8, Estimated GFR (MDRD) 69 L, Glucose 106 H, Calcium 10.6 H, Total Bilirubin 0.6, AST 55 H, ALT 27, Alkaline Phosphatase 99, Total Protein 6.4, Albumin 3.1 L, Globulin 3.3, Albumin/Globulin Ratio 0.9 L, Lipase 20 03/16/23 17:45: PT 12.3, INR 1.1, APTT 20.5 L 03/16/23 17:45: WBC 20.1 H, RBC 4.02 L, Hgb 11.1 L, Hct 37.3, MCV 92.8, MCH 27.6, MCHC 29.8 L, RDW 17.9 H, Plt Count 206, MPV 12.8 H, Neut # (Auto) Not Reportable, Lymph # (Auto) Not Reportable, [place] # (Auto) Not Reportable, Eos # (Auto) Not Reportable, Baso # (Auto) Not Reportable, Absolute Nucleated RBC Not Reportable, Total Counted 100, Band Neuts % (Manual) 2, Abnorm Lymph % (Manual) 0, Metamyelocytes % 1 H, Nucleated RBC % Not Reportable, Neutrophils # (Manual) 17.7 H, Lymphocytes # (Manual) 1.2 L, Monocytes # (Manual) 1.0, Eosinophils # (Manual) 0.0, Basophils # (Manual) 0.0, Differential Comment MANUAL DIFFERENTIAL, Platelet Estimate NORMAL (130-450,000), Platelet Morphology NORMAL APPEARANCE, RBC Morph Micro Appear NORMAL APPEARANCE - Consultation Note Consultation Note: 77 y/o F with: 1. large sacral decubitus ulcer - at least stage III - necrotic eschar sharply debrided at bedside. Aerobic and anaerobic cultures collected, and ordered. I agree with current abx, recommend deescalation pending culture results. - recommend (and ordered) BID dressing changes with damp to dry gauze, ABD. The patient might benefit from NPWT (wound vac) when wound is clean and if a plan for wound care can be arranged. This patient will require at least twice daily attentive wound care for several months if she has any hope of healing this wound. She will need to follow with a wound clinic on discharge. - recommend nutrition evaluation and recommendations given patient's history of malnutrition. Her nutrition will need to improve in order for her to heal this wound. DM II, HTN, HPL, A fib, ,CAD, CHF, h/o CVA, hypothyroidism, glaucoma, bipolar disorder, DJD - as per primary team - The patient's multiple comorbidities, especially her history of stroke which limits her mobility decrease her chances of successfully healing this would. Thank you for consulting me in the care of this patient! I will continue to follow with you to determine if further debridement is needed in the coming days.
--- NOTE | 2023-03-17 16:25 | POST OP PROGRESS NOTE ---
Subjective - General Admit Date: 03/16/23 Procedure Date: 03/17/23 Post Op Days: 0 Procedure Performed: bedside debridement of sacral decubitus ulcer - Review of Systems Wound/Incisions: positive: Decubitis All Other Systems: positive: Other (Unable to obtain d/t patient's clinical condition) - Other Other Information/Narrative: Patient admitted with sepsis of undetermined origin. Patient has a large, unstaged, sacral wound which has worsened over the last couple of weeks. She also has a UTI. I discussed debriding the wound with the patent and her at bedside and they agreed. The procedure was preformed in the patient's room. Sharp debridement with a scalpel of necrotic eschar overlying a 8x10 cm wound on the patient's sacrum was performed. Aerobic and anerobic cultures were collected. The wound appeared to be at least stage III. Wound edges were debrided to sensate or bleeding tissue, whichever was encountered first. Sterile saline soaked 4x4s were used to cleanse the wound. Damp to dry dressing was placed. The patient tolerated the procedure well and there were no immediate complications.
[2023-03-17] MEDS ORDERED: ATORVASTATIN 40 MG TABLET PO SCH (21:00)
[2023-03-17] MEDS ORDERED: NON FORMULARY MED (Atorvastatin Calcium [Lipitor] 80 MG Tablet) PO SCH (21:00)
[2023-03-17] MEDS: CARBOXYMETHYLCELLULOSE OPHTH DROPS EACHEYE SCH (22:15)
[2023-03-18] MEDS: SODIUM CHLORIDE FLUSH 0.9% 10 ML SYRINGE IVP SCH ×3 (00:25→17:56)
[2023-03-18] MEDS: LACTATED RINGERS 1,000 ML IV SCH (03:53)
[2023-03-18] MEDS: PIPERACILLIN/TAZOBACTAM 4.5 GM in SODIUM CHLORIDE 0.9% MINIBAG 100 ML IV SCH ×3 (05:33→23:09)
[2023-03-18 05:49] LABS: BASOPHILS # (AUTO) 0.1 10^3/uL (0.0-0.1); BASOPHILS % (AUTO) 0.3 %; EOSINOPHILS # (AUTO) 0.1 10^3/uL (0.0-0.7); EOSINOPHILS % (AUTO) 0.7 %; HCT - HEMATOCRIT 30.6 % (37.0-47.0); LYMPHOCYTES # (AUTO) 1.9 10^3/uL (1.5-3.5); LYMPHOCYTES % (AUTO) 9.4 %; MEAN CORPUSCULAR HGB CONC 29.4 g/dL (32.0-36.0); MEAN CORPUSCULAR VOLUME 95.3 fL (81.0-99.0); MEAN PLATELET VOLUME 12.9 fL (7.9-10.8); MONOCYTES # (AUTO) 0.8 10^3/uL (0.0-1.0); MONOCYTES % (AUTO) 4.2 %; NEUTROPHILS # (AUTO) 16.6 10^3/uL (1.5-6.6); NEUTROPHILS % (AUTO) 83.9 %; PLT - PLATELET COUNT 175 10^3/uL (130-450); RED BLOOD COUNT 3.21 10^6/uL (4.20-5.40); RED CELL DISTRIBUTION WIDTH 18.1 % (12.0-15.0); WHITE BLOOD COUNT 19.7 x10^3/uL (4.8-10.8)
[2023-03-18 06:13] LABS: CALCIUM 9.2 mg/dL (8.5-10.3); CREATININE 0.6 mg/dL (0.6-1.3)
[2023-03-18] MEDS: LEVOTHYROXINE 25 MCG TABLET PO SCH (06:36)
[2023-03-18] MEDS: PANTOPRAZOLE 40 MG TABLET PO SCH ×2 (06:37→17:56)
[2023-03-18] MEDS: MULTIVITAMIN TABLET PO SCH (08:46)
[2023-03-18] MEDS: SERTRALINE 50 MG TABLET PO SCH (08:46)
[2023-03-18] MEDS: CHOLECALCIFEROL 25 MCG TABLET PO SCH (08:47)
[2023-03-18] MEDS: ASPIRIN CHEW 81 MG TABLET PO SCH (08:47)
[2023-03-18] MEDS: DEXTROSE 5%-0.45% NACL 1,000 ML IV SCH ×2 (08:49→11:43)
[2023-03-18] MEDS: TIMOLOL 0.5% OPHTH DROPS EACHEYE SCH ×2 (08:50→21:01)
--- NOTE | 2023-03-18 12:54 | PROVIDER PROGRESS NOTE ---
Subjective - General Admit Date: 03/16/23 Procedure Date: 03/17/23 Post Op Days: 1 Procedure Performed: bedside debridement of sacral decubitus ulcer - Review of Systems Wound/Incisions: positive: Decubitis All Other Systems: positive: Other (Unable to obtain d/t patient's clinical condition) - Other Other Information/Narrative: Patient remains minimally conversant. Not able to eat much. No fevers overnight. Objective - Patient Data Vital Signs: Vital Signs x48h Temp Pulse Resp BP Pulse Ox 03/18/23 07:30 36.7 C 88 18 116/49 L 92 Weight: Weight 03/16/23 03/17/23 03/18/23 23:59 23:59 23:59 Weight (kg) 60 kg Intake & Output: Intake and Output Totals x24h 03/16/23 03/17/23 03/18/23 23:59 23:59 23:59 Intake Total 1600 3260 2228.25 Output Total 700 650 200 Balance 900 2610 2028.25 - Lab Results Lab Results: 03/18/23 05:19 03/18/23 05:19 Other Lab Results: Lab Results x24hrs 03/18/23 03/18/23 03/18/23 Range/Units 11:26 07:29 05:19 WBC (4.8-10.8) x10^3/uL RBC (4.20-5.40) 10^6/uL Hgb (12.0-16.0) g/dL Hct (37.0-47.0) % MCV (81.0-99.0) fL MCH (27.0-31.0) pg MCHC (32.0-36.0) g/dL RDW (12.0-15.0) % Plt Count (130-450) 10^3/uL MPV (7.9-10.8) fL Neut # (Auto) (1.5-6.6) 10^3/uL Lymph # (Auto) (1.5-3.5) 10^3/uL [place] # (Auto) (0.0-1.0) 10^3/uL Eos # (Auto) (0.0-0.7) 10^3/uL Baso # (Auto) (0.0-0.1) 10^3/uL Absolute Nucleated RBC x10^3/uL Nucleated RBC % /100WBC Sodium 148 H (135-145) mmol/L Potassium 3.0 L (3.5-4.5) mmol/L Chloride 114 H (101-111) mmol/L Carbon Dioxide 28 (21-32) mmol/L Anion Gap 6.0 (6-13) BUN 21 H (6-20) mg/dL Creatinine 0.6 (0.6-1.3) mg/dL Estimated GFR (MDRD) 96 (>89) Glucose 121 H (74-104) mg/dL POC Whole Bld Glucose 128 H 119 H (70 - 100) mg/dL Calcium 9.2 (8.5-10.3) mg/dL 03/18/23 03/17/23 03/17/23 Range/Units 05:19 20:34 16:10 WBC 19.7 H (4.8-10.8) x10^3/uL RBC 3.21 L (4.20-5.40) 10^6/uL Hgb 9.0 L (12.0-16.0) g/dL Hct 30.6 L (37.0-47.0) % MCV 95.3 (81.0-99.0) fL MCH 28.0 (27.0-31.0) pg MCHC 29.4 L (32.0-36.0) g/dL RDW 18.1 H (12.0-15.0) % Plt Count 175 (130-450) 10^3/uL MPV 12.9 H (7.9-10.8) fL Neut # (Auto) 16.6 H (1.5-6.6) 10^3/uL Lymph # (Auto) 1.9 (1.5-3.5) 10^3/uL [place] # (Auto) 0.8 (0.0-1.0) 10^3/uL Eos # (Auto) 0.1 (0.0-0.7) 10^3/uL Baso # (Auto) 0.1 (0.0-0.1) 10^3/uL Absolute Nucleated RBC 0.00 x10^3/uL Nucleated RBC % 0.0 /100WBC Sodium (135-145) mmol/L Potassium (3.5-4.5) mmol/L Chloride (101-111) mmol/L Carbon Dioxide (21-32) mmol/L Anion Gap (6-13) BUN (6-20) mg/dL Creatinine (0.6-1.3) mg/dL Estimated GFR (MDRD) (>89) Glucose (74-104) mg/dL POC Whole Bld Glucose 101 H 77 (70 - 100) mg/dL Calcium (8.5-10.3) mg/dL - Current Medications Current Medications: Current Medications Generic Name Dose Route Start Last Admin Trade Name Ambrosioq PRN Reason Stop Dose Admin Aspirin 81 mg 03/17/23 09:00 03/18/23 08:47 Aspirin Chew 81 Mg Tablet PO 81 mg DAILY ELIZABETH Administration Carboxymethylcellulose 1 drops 03/17/23 21:00 03/17/23 22:15 Carboxymethylcellulose Ophth Drops EACHEYE Not Given QPM ELIZABETH Cholecalciferol 50 mcg 03/17/23 09:00 03/18/23 08:47 Cholecalciferol 25 Mcg Tablet PO 50 mcg DAILY ELIZABETH Administration Piperacillin Sod/Tazobactam 100 mls @ 25 mls/hr 03/16/23 22:00 03/18/23 05:33 Sod 4.5 gm/ Sodium Chloride IV 25 mls/hr Q8H ELIZABETH Administration Dextrose/Sodium Chloride 1,000 mls @ 83.333 mls/hr 03/18/23 09:00 03/18/23 11:43 D5.45ns IV 83.333 mls/hr .Q12H ELIZABETH Administration Levothyroxine Sodium 50 mcg 03/17/23 07:00 03/18/23 06:36 Levothyroxine 25 Mcg Tablet PO Not Given QDAC [facility] Multivitamins 1 tab 03/17/23 08:00 03/18/23 08:46 Multivitamin Tablet PO 1 tab DAILYWM ELIZABETH Administration Pantoprazole Sodium 40 mg 03/17/23 07:00 03/18/23 06:37 Pantoprazole 40 Mg Tablet PO Not Given BIDAC [facility] Patient Own Med ( 1 each 03/17/23 09:00 03/17/23 22:15 Combigan 0.2%-0.5% EACHEYE Not Given Eye Drops) BID ELIZABETH Sertraline HCl 50 mg 03/17/23 09:00 03/18/23 08:46 Sertraline 50 Mg Tablet PO 50 mg DAILY ELIZABETH Administration Sodium Chloride 10 ml 03/16/23 21:20 03/17/23 05:57 Sodium Chloride Flush 0.9% 10 Ml Syringe IVP 10 ml PRN PRN Administration NEEDED PER PROVIDER ORDERS Sodium Chloride 10 ml 03/17/23 01:00 03/18/23 08:50 Sodium Chloride Flush 0.9% 10 Ml Syringe IVP 10 ml 0100,0900,1700 ELIZABETH Administration Timolol Maleate 1 drops 03/17/23 09:00 03/18/23 08:50 Timolol 0.5% Ophth Drops EACHEYE 1 drops BID ELIZABETH Administration - Physical Exam Wound/Incisions: positive: Decubitis (odor persists. necrotic tissue debrided from wound bed) General Appearance: positive: No acute distress Eyes Bilateral: positive: PERRL ENT: positive: No signs of dehydration Neck: positive: Trachea midline Respiratory: positive: No respiratory distress Cardiovascular: positive: Regular rate & rhythm Abdomen: positive: No distention. negative: Tenderness, Guarding, Rebound Impression/Plan - Problem List Problem List: 77 y/o F with: 1. large sacral decubitus ulcer - at least stage III, CT pelvis with contrast to be ordered by primary team to r/o ostemyelitis of sacrum - necrotic eschar sharply debrided at bedside 03/17, additional necrotic tissue debrided at bedside today (03/18). Aerobic and anaerobic cultures collected, pending. I agree with current abx, recommend deescalation pending culture results. - recommend (and ordered) BID dressing changes with damp to dry gauze, ABD. The patient might benefit from NPWT (wound vac) when wound is clean and if a plan for wound care can be arranged. This patient will require at least twice daily attentive wound care (without a wound vac and three times per week with a wound vac) for several months if she has any hope of healing this wound. She will need to follow with a wound clinic on discharge. - recommend nutrition evaluation and recommendations given patient's history of malnutrition. Her nutrition will need to improve in order for her to heal this wound. Patient decline a feeding tube initially and then agreed that speaking with her family may be helpful. I would like to see the patient making progress with a temporary feeding tube prior to placing a permanent tube (such as a PEG). DM II, HTN, HPL, A fib, ,CAD, CHF, h/o CVA, hypothyroidism, glaucoma, bipolar disorder, DJD - as per primary team - The patient's multiple comorbidities, especially her history of stroke which limits her mobility decrease her chances of successfully healing this would. - she is very debilitated and appears to be nearing end of life. Consider discussion with hospice if patient does not wish to continue aggressive t reatment. Thank you for consulting me in the care of this patient! I will continue to follow with you to determine if further debridement is needed in the coming days.
--- NOTE | 2023-03-18 13:55 | XRAY Report ---
PROCEDURE: Pelvis 1 View INDICATIONS: Suspect osteomyelitis from lg sacral decub wound TECHNIQUE: 1 view(s) of the pelvis acquired. COMPARISON: None. FINDINGS: Bones: No fractures or dislocations. No suspicious bony lesions. Articular osteophyte formation a t the bilateral hip joints. Soft tissues: Visualized bowel gas pattern is normal. No suspicious soft tissue calcifications. IMPRESSION: No acute fracture. No osseous lesion. If symptoms and/or clinical suspicion for pathology continue, f urther assessment with repeat plain films, or advanced imaging (e.g., CT, MRI, or bone scan) is recom mended for further assessment. Reviewed by: Letitia Olivera MD on 03/18/2023 1:54 PM PST Approved by: Letitia Olivera MD on 03/18/2023 1:54 PM PST Station ID: [id number]
--- NOTE | 2023-03-18 14:22 | PROVIDER PROGRESS NOTE ---
Assessment/Plan - Problem List (1) Bacteremia due to Proteus species Assessment/Plan: Her bld cx has quickly turned pos and been identified by PCR as Proteus Later today lab also reported a Staph species, but that could be a contaminant Plan: Await the Proteus' sens to adjust antibx Cont empiric iv antibx (2) Urinary tract infection Qualifiers: Urinary tract infection type: site unspecified Hematuria presence: without hematuria Qualified Code(s): N39.0 - Urinary tract infection, site not specified Assessment/Plan: Her U/A was abnormal at adm Plan: Cont with empiric iv Pip/TAzo Tailor antibx based on sens (3) Sacral ulcer Assessment/Plan: She has a very large, dark decubitus, pressure ulcer, larger than when she last was here. Appreciate General Surgery doing consult and bedside debridement Plan: Await results of sample sent for cx Obtain XRay pelvis to eval for osteo (as per CT protocol), then if needed will get CT pelvis since Gen Surg Dr Reza spoke to me today and suspects she may have osteomyelitis Start Vano iv (was not ordered by admitting telemedicine provider) (4) Hypoglycemia associated with type 2 diabetes mellitus Assessment/Plan: On 03/17 her glucose before breakfast was 61. She was treated as per Hypoglycemia protocol Plan: Cont the adjusted sliding scale insulin and lower scheduled insulin doses Continue with hypoglycemia protocol (5) Severe protein calorie malnutrition Assessment/Plan: She has a documented weight loss of 30 kg in 19 months, sacral wound and is now bedridden from her weakness I discussed possible nutrition with support Ryann who recommends NG feeds. Ryann also asked the if he would agree to a feeding PEG tube and he cannot decide. Plan: I have asked Dr. Reza to insert Dobbhoff tube. Tube feeds to be started later today via Dobhoff IV fluids will then be decreased when tube feeds start I will order a Palliative Care consult, to assist the and making decisions for her since she is critically ill, malnourished and has a very poor prognosis (6) Ischemic cardiomyopathy Assessment/Plan: At her admission here 1 month ago her echo showed an EF of 30 to 35% which is a new finding for her. She was taken off her statin due to malnutrition but discharged to SNF on cardiac meds Plan: All her cardiac meds are currently on hold because of hypotension from septic shock Awaiting her reconciled med list (7) Paroxysmal atrial fibrillation Assessment/Plan: Plan: Continue to monitor on telemetry. Cardiac meds on hold due to low blood pressure No anticoagulation due to recent brain bleed (8) Prerenal azotemia Assessment/Plan: RESOLVED BUN/creatinine have improved from 21/0.6 to 13/0.6 today (all labs reviewed), she was on LR then on NS Plan: Cont iv infusion at lower rate when starts ng feeds Avoid nephrotoxins Follow BMP daily (9) CVA (cerebral vascular accident) Assessment/Plan: History of CVA with residual right-sided deficits. 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 Head CT then showed a left frontal contusion and hematoma. She had a large bruise around the L eye at the last admission here 3 weeks ago Plan: Remain off Eliquis. Eliquis could be restarted eventually only if she will be bedbound and if no co ntraindications. Otherwise she will no longer be on an anticoagulant because of fall and brain bleed (12) Septic shock Assessment/Plan: Hypotension has RESOLVED She presented with shock, tachycardia, hypotension, elevated white count and new obtundation. Source appears to be a UTI or possibly her very large sacral decubitus Pt was given IVF, Zosyn/Vanco in the ER. She is minimally more awake today. WBC 20>> 14 today (all labs were reviewed) Plan: Continue with supportive care, empiric IV antibiotics as ordered by admitting Telemedicine provider, cont IV fluids Follow CBC daily - Current Meds Current Meds: Current Medications Generic Name Dose Route Start Last Admin Trade Name Freq PRN Reason Stop Dose Admin Aspirin 81 mg 03/17/23 09:00 03/18/23 08:47 Aspirin Chew 81 Mg Tablet PO 81 mg DAILY ELIZABETH Administration Carboxymethylcellulose 1 drops 03/17/23 21:00 03/17/23 22:15 Carboxymethylcellulose Ophth Drops EACHEYE Not Given QPM ELIZABETH Cholecalciferol 50 mcg 03/17/23 09:00 03/18/23 08:47 Cholecalciferol 25 Mcg Tablet PO 50 mcg DAILY ELIZABETH Administration Piperacillin Sod/Tazobactam 100 mls @ 25 mls/hr 03/16/23 22:00 03/18/23 05:33 Sod 4.5 gm/ Sodium Chloride IV 25 mls/hr Q8H ELIZABETH Administration Dextrose/Sodium Chloride 1,000 mls @ 83.333 mls/hr 03/18/23 09:00 03/18/23 11:43 D5.45ns IV 83.333 mls/hr .Q12H ELIZABETH Administration Levothyroxine Sodium 50 mcg 03/17/23 07:00 03/18/23 06:36 Levothyroxine 25 Mcg Tablet PO Not Given QDAC ELIZABETH Multivitamins 1 tab 03/17/23 08:00 03/18/23 08:46 Multivitamin Tablet PO 1 tab DAILYWM ELIZABETH Administration Pantoprazole Sodium 40 mg 03/17/23 07:00 03/18/23 06:37 Pantoprazole 40 Mg Tablet PO Not Given BIDAC ELIZABETH Patient Own Med ( 1 each 03/17/23 09:00 03/17/23 22:15 Combigan 0.2%-0.5% EACHEYE Not Given Eye Drops) BID [facility] Sertraline HCl 50 mg 03/17/23 09:00 03/18/23 08:46 Sertraline 50 Mg Tablet PO 50 mg DAILY ELIZABETH Administration Sodium Chloride 10 ml 03/16/23 21:20 03/17/23 05:57 Sodium Chloride Flush 0.9% 10 Ml Syringe IVP 10 ml PRN PRN Administration NEEDED PER PROVIDER ORDERS Sodium Chloride 10 ml 03/17/23 01:00 03/18/23 08:50 Sodium Chloride Flush 0.9% 10 Ml Syringe IVP 10 ml 0100,0900,1700 ELIZABETH Administration Timolol Maleate 1 drops 03/17/23 09:00 03/18/23 08:50 Timolol 0.5% Ophth Drops EACHEYE 1 drops BID ELIZABETH Administration - Lab Result Fish Bone Diagrams: 03/20/23 05:30 03/20/23 05:30 - Additional Planning My Orders: My Active Orders 03/18/23 09:00 Dextrose 5%-0.45% NaCl [D5.45ns] 1,000 ml IV 83.333 mls/hr 03/18/23 14:21 PELVIS WO [CT] Stat Subjective - Subjective Patient Reports: Resting Comfortably Objective Vital Signs: Vital Signs - 24 hr 03/17/23 03/17/23 03/18/23 16:00 20:36 00:00 Temperature 36.9 C 37.0 C 36.9 C Heart Rate [ 73 92 92 Brachial] Respiratory 20 20 20 Rate Blood Pressure 123/51 L 107/48 L 103/44 L [Left Brachial artery] O2 Saturation 97 96 94 03/18/23 07:30 Temperature 36.7 C Heart Rate [ 88 Brachial] Respiratory 18 Rate Blood Pressure 116/49 L [Left Brachial artery] O2 Saturation 92 Oxygen O2 Source Room air I&O (Last 24 Hrs): Intake and Output Totals x24h 03/16/23 03/17/23 03/18/23 23:59 23:59 23:59 Intake Total 1600 3260 2428.25 Output Total 700 650 450 Balance 900 2610 1978.25 General: Other (Obtunded, opens eyes, swallows, moves spontaneously, does not speak) HEENT: Mucous membr. moist/pink Neck: Supple Neuro: Other (Obtunded, moves spont, opens eyes to voice) Cardiovascular: Regular rate Respiratory: No respiratory distress Abdomen: Soft, No tenderness Genitourinary: Other (sacral wound) Extremities: No clubbing, Other (muscle wasting) - Results Results: Laboratory Results WBC 19.7 x10^3/uL (4.8-10.8) H 03/18/23 05:19 RBC 3.21 10^6/uL (4.20-5.40) L 03/18/23 05:19 Hgb 9.0 g/dL (12.0-16.0) L 03/18/23 05:19 Hct 30.6 % (37.0-47.0) L 03/18/23 05:19 MCV 95.3 fL (81.0-99.0) 03/18/23 05:19 MCH 28.0 pg (27.0-31.0) 03/18/23 05:19 MCHC 29.4 g/dL (32.0-36.0) L 03/18/23 05:19 RDW 18.1 % (12.0-15.0) H 03/18/23 05:19 Plt Count 175 10^3/uL (130-450) 03/18/23 05:19 MPV 12.9 fL (7.9-10.8) H 03/18/23 05:19 Neut # (Auto) 16.6 10^3/uL (1.5-6.6) H 03/18/23 05:19 Lymph # (Auto) 1.9 10^3/uL (1.5-3.5) 03/18/23 05:19 [place] # (Auto) 0.8 10^3/uL (0.0-1.0) 03/18/23 05:19 Eos # (Auto) 0.1 10^3/uL (0.0-0.7) 03/18/23 05:19 Baso # (Auto) 0.1 10^3/uL (0.0-0.1) 03/18/23 05:19 Absolute Nucleated RBC 0.00 x10^3/uL 03/18/23 05:19 Total Counted 100 03/16/23 17:45 Band Neuts % (Manual) 2 % (0-10) 03/16/23 17:45 Abnorm Lymph % (Manual) 0 % 03/16/23 17:45 Metamyelocytes % 1 % (-0) H 03/16/23 17:45 Nucleated RBC % 0.0 /100WBC 03/18/23 05:19 Neutrophils # (Manual) 17.7 10^3/uL (1.5-6.6) H 03/16/23 17:45 Lymphocytes # (Manual) 1.2 10^3/uL (1.5-3.5) L 03/16/23 17:45 Monocytes # (Manual) 1.0 10^3/uL (0.0-1.0) 03/16/23 17:45 Eosinophils # (Manual) 0.0 10^3/uL (0-0.7) 03/16/23 17:45 Basophils # (Manual) 0.0 10^3/uL (0-0.1) 03/16/23 17:45 Differential Comment MANUAL DIFFERENTIAL 03/16/23 17:45 Platelet Estimate NORMAL (130-450,000) (NORMAL) 03/16/23 17:45 Platelet Morphology NORMAL APPEARANCE (NORMAL) 03/16/23 17:45 RBC Morph Micro Appear NORMAL APPEARANCE (NORMAL) 03/16/23 17:45 PT 12.3 secs (9.9-12.6) 03/16/23 17:45 INR 1.1 (0.8-1.2) 03/16/23 17:45 APTT 20.5 secs (24.9-33.3) L 03/16/23 17:45 Sodium 148 mmol/L (135-145) H 03/18/23 05:19 Potassium 3.0 mmol/L (3.5-4.5) L 03/18/23 05:19 Chloride 114 mmol/L (101-111) H 03/18/23 05:19 Carbon Dioxide 28 mmol/L (21-32) 03/18/23 05:19 Anion Gap 6.0 (6-13) 03/18/23 05:19 BUN 21 mg/dL (6-20) H 03/18/23 05:19 Creatinine 0.6 mg/dL (0.6-1.3) 03/18/23 05:19 Estimated GFR (MDRD) 96 (>89) 03/18/23 05:19 Glucose 121 mg/dL (74-104) H 03/18/23 05:19 POC Whole Bld Glucose 128 mg/dL (70 - 100) H 03/18/23 11:26 Estimat Average Glucose 120 mg/dL (70-100) H 03/17/23 04:48 Hemoglobin A1c % 5.8 % (4.27-6.07) 03/17/23 04:48 Lactic Acid 1.1 mmol/L (0.5-2.2) 03/16/23 17:45 Calcium 9.2 mg/dL (8.5-10.3) 03/18/23 05:19 Total Bilirubin 0.6 mg/dL (0.2-1.0) 03/16/23 17:45 AST 55 IU/L (10-42) H 03/16/23 17:45 ALT 27 IU/L (10-60) 03/16/23 17:45 Alkaline Phosphatase 99 IU/L (42-121) 03/16/23 17:45 Total Protein 6.4 g/dL (6.4-8.9) 03/16/23 17:45 Albumin 3.1 g/dL (3.2-5.5) L 03/16/23 17:45 Globulin 3.3 g/dL (2.1-4.2) 03/16/23 17:45 Albumin/Globulin Ratio 0.9 (1.0-2.2) L 03/16/23 17:45 Triglycerides 150 mg/dL (48-352) 03/17/23 04:48 Cholesterol 69 mg/dL (-200) 03/17/23 04:48 LDL Cholesterol, Calc 26 mg/dL (-129) 03/17/23 04:48 VLDL Cholesterol 30 mg/dL 03/17/23 04:48 HDL Cholesterol 13 mg/dL (60-) L 03/17/23 04:48 LDL/HDL Ratio 2.0 (<4.4) 03/17/23 04:48 Cholesterol/HDL Ratio 5.3 (<4.4) 03/17/23 04:48 Lipase 20 U/L (11-82) 03/16/23 17:45 Urine Color YELLOW 03/16/23 17:55 Urine Clarity HAZY (CLEAR) 03/16/23 17:55 Urine pH 5.5 PH (5.0-7.5) 03/16/23 17:55 Ur Specific Hyrum 1.010 (1.002-1.030) 03/16/23 17:55 Urine Protein TRACE mg/dL (NEGATIVE) 03/16/23 17:55 Urine Glucose (UA) >=1000 mg/dL (NEGATIVE) H 03/16/23 17:55 Urine Ketones NEGATIVE mg/dL (NEGATIVE) 03/16/23 17:55 Urine Occult Blood TRACE-INTA (NEGATIVE) 03/16/23 17:55 Urine Nitrite POSITIVE (NEGATIVE) H 03/16/23 17:55 Urine Bilirubin NEGATIVE (NEGATIVE) 03/16/23 17:55 Urine Urobilinogen 0.2 (NORMAL) E.U./dL (NORMAL) 03/16/23 17:55 Ur Leukocyte Esterase SMALL (NEGATIVE) H 03/16/23 17:55 Urine RBC 0-5 /HPF (0-5) 03/16/23 17:55 Urine WBC >25 /HPF (0-5) H 03/16/23 17:55 Ur Squamous Epith Cells FEW Squamous (<= Few) 03/16/23 17:55 Urine Bacteria Moderate /HPF (None Seen) H 03/16/23 17:55 Urine Yeast PRESENT 03/16/23 17:55 Ur Microscopic Review INDICATED 03/16/23 17:55 Urine Culture Comments INDICATED 03/16/23 17:55 - Procedures Procedures: Procedures INSERTION OF INFUSION DEV INTO SUP VENA CAVA, PERC APPROACH (02/10/23) Sepsis Event Note (H) - Evaluation Possible source of Sepsis: positive: Genitourinary, Skin/soft tissue
[2023-03-18] MEDS: COMBIGAN EACHEYE SCH ×2 (14:34→21:02)
[2023-03-18] MEDS: EYE EACHEYE SCH ×2 (14:34→21:02)
--- NOTE | 2023-03-18 15:40 | PHARMACY PROGRESS NOTE ---
- Best Possible Medication History Admit Date and Time: 03/16/232119 Processed by: Pharmacy Medication History completed: Yes Patient Interview: Pt unable to participate Secondary Source(s): Facility MAR as ONLY source (I [facility] 2 [facility], on the and [facility] and called again on 03/18 and finally got a 34 page MAR. I could not find any ASA 81mg on it and removed it from home med. There's pending iron sulfate order for 03/17 start for anemia. Hgb/hct has been declining (11-9). Con't.) As the person ultimately responsible for medication therapy, providers are able to order a medication from an existing home medication list in [facility] via the "Reconcile Routine" prior to Confirmation of that medication by underwriting support manager. Such practice is discouraged except when the physician, in their clinical judgment, deems that a medical need exists for a medication without regard to previous use.
[2023-03-18] MEDS ORDERED: LIDOCAINE VISCOUS 2% 15 ML ORAL SYRINGE MM STA (16:19)
--- NOTE | 2023-03-18 17:28 | XRAY Report ---
PROCEDURE: Chest for Line Placement INDICATIONS: feeding tube placement, verify position TECHNIQUE: One view of the chest was acquired. COMPARISON: Chest x-ray 03/16/2023. FINDINGS: Surgical changes and devices: Median sternotomy wires. Interval placement of weighted tip feeding tu be which projects over the stomach. Right upper quadrant surgical clips.. Lungs and pleura: No pleural effusions or pneumothorax. Lungs are clear. Mediastinum: Mediastinal contours appear normal. Heart size is normal. Bones and chest wall: No suspicious bony lesions. Overlying soft tissues appear unremarkable. IMPRESSION: No acute cardiopulmonary process. Interval placement of feeding tube with tip projecting over the sto mach. Reviewed by: Cleve Springer MD on 03/18/2023 5:27 PM PST Approved by: Cleve Springer MD on 03/18/2023 5:27 PM PST Station ID: [id number]
[2023-03-18] MEDS ORDERED: DEXTROSE 5%-0.45% NACL 1,000 ML IV SCH (19:14)
--- NOTE | 2023-03-18 19:22 | CT Report ---
PROCEDURE: PELVIS WO INDICATIONS: Concern for osteomyelitis TECHNIQUE: Noncontrast 3 mm axial sections acquired through the bony pelvis, with coronal and sagittal reformatt ing. For radiation dose reduction, the following was used: automated exposure control, adjustment of mA and/or kV according to patient size. COMPARISON: None. FINDINGS: Image quality: Excellent. Bones: Evaluation is limited secondary to decreased osseous mineralization. Within the sacrum in the area of the decubitus ulcer, there appears to be loss of cortex and mild irregularity. Soft tissues: Sacral decubitus ulcer is noted with soft tissue defect and subcutaneous gas extending to the sacrum. Extensive atherosclerotic vascular calcifications. Shafer catheter in place. Small air within the urinary bladder. Urine is seen within the gallbladder, correlate with Shafer catheter func tion. Mild anasarca. IMPRESSION: Large sacral decubitus ulcer with skin defect and subcutaneous gas extending to the sacrum. Evaluatio n is limited secondary to decreased osseous mineralization. There appears to be loss of cortex with s ome irregularity, concerning for osteomyelitis. MRI can be obtained for further evaluation as clinica lly indicated. Reviewed by: Cleve Springer MD on 03/18/2023 7:21 PM PST Approved by: Cleve Springer MD on 03/18/2023 7:21 PM PST Station ID: [id number]
[2023-03-18] MEDS: CARBOXYMETHYLCELLULOSE OPHTH DROPS EACHEYE SCH (21:01)
[2023-03-18] MEDS ORDERED: VANCOMYCIN INJ 1.25 GM in SODIUM CHLORIDE 0.9% 250 ML IV ONE (22:00)
[2023-03-19] MEDS: SODIUM CHLORIDE FLUSH 0.9% 10 ML SYRINGE IVP SCH ×3 (01:23→19:30)
[2023-03-19 05:32] LABS: BASOPHILS # (AUTO) 0.1 10^3/uL (0.0-0.1); BASOPHILS % (AUTO) 0.3 %; EOSINOPHILS # (AUTO) 0.1 10^3/uL (0.0-0.7); EOSINOPHILS % (AUTO) 0.7 %; HCT - HEMATOCRIT 32.1 % (37.0-47.0); HGB - HEMOGLOBIN 9.7 g/dL (12.0-16.0); LYMPHOCYTES # (AUTO) 1.6 10^3/uL (1.5-3.5); LYMPHOCYTES % (AUTO) 7.7 %; MEAN CORPUSCULAR HEMOGLOBIN 27.8 pg (27.0-31.0); MEAN CORPUSCULAR HGB CONC 30.2 g/dL (32.0-36.0); MONOCYTES # (AUTO) 0.7 10^3/uL (0.0-1.0); MONOCYTES % (AUTO) 3.3 %; NEUTROPHILS # (AUTO) 17.7 10^3/uL (1.5-6.6); NEUTROPHILS % (AUTO) 85.5 %; PLT - PLATELET COUNT 237 10^3/uL (130-450); RED BLOOD COUNT 3.49 10^6/uL (4.20-5.40); RED CELL DISTRIBUTION WIDTH 17.9 % (12.0-15.0); WHITE BLOOD COUNT 20.7 x10^3/uL (4.8-10.8)
[2023-03-19] MEDS: PIPERACILLIN/TAZOBACTAM 4.5 GM in SODIUM CHLORIDE 0.9% MINIBAG 100 ML IV SCH ×3 (05:44→22:13)
[2023-03-19 05:51] LABS: ALBUMIN 2.3 g/dL (3.2-5.5); ALBUMIN/GLOBULIN RATIO 0.8 (1.0-2.2); BILIRUBIN,TOTAL 0.5 mg/dL (0.2-1.0); CREATININE 0.6 mg/dL (0.6-1.3); MAGNESIUM 1.4 mg/dL (1.7-2.3); PHOSPHORUS 2.1 mg/dL (2.5-5.0); POTASSIUM 2.6 mmol/L (3.5-4.5); TOTAL PROTEIN 5.2 g/dL (6.4-8.9)
[2023-03-19] MEDS: LEVOTHYROXINE 25 MCG TABLET PO SCH (06:29)
[2023-03-19] MEDS: PANTOPRAZOLE 40 MG TABLET PO SCH ×2 (06:29→19:19)
[2023-03-19 07:28] LABS: DIFFERENTIAL COMMENT MANUAL=AUTO DIFF; PLATELET ESTIMATE, MANUAL NORMAL (130-450,000) (NORMAL); PLATELET MORPHOLOGY NORMAL APPEARANCE (NORMAL)
[2023-03-19] MEDS: CHOLECALCIFEROL 25 MCG TABLET PO SCH (08:17)
[2023-03-19] MEDS: MULTIVITAMIN W/MINERALS TABLET PO SCH (08:17)
[2023-03-19] MEDS: SERTRALINE 50 MG TABLET PO SCH (08:17)
[2023-03-19] MEDS: TIMOLOL 0.5% OPHTH DROPS EACHEYE SCH ×2 (08:18→21:28)
[2023-03-19] MEDS: ASPIRIN CHEW 81 MG TABLET PO SCH (08:18)
[2023-03-19] MEDS: ASCORBIC ACID 500 MG TABLET PO SCH (08:18)
[2023-03-19] MEDS: ZINC SULFATE 220 MG CAPSULE PO SCH (08:18)
[2023-03-19] MEDS: EYE EACHEYE SCH ×2 (08:31→21:28)
[2023-03-19] MEDS: COMBIGAN EACHEYE SCH ×2 (08:31→21:28)
[2023-03-19] MEDS ORDERED: MAGNESIUM SULFATE 2 GRAM 2 GM/50 ML BAG IV ONE (10:35)
--- NOTE | 2023-03-19 10:39 | PHARMACY PROGRESS NOTE ---
- Therapy Status Vancomycin regimen day #: 1 Therapy status: Awaiting steady state Basis for treatment: Empirical Treatment indication: OSTEOMYELITIS Trough goal: 15-20, AUC/DONTAE 596 (BETWEEN 400-600) Concurrent antibiotics: ZOSYN - RAGHAV Risk Risk level for Acute Kidney Injury: High Acute Kidney Injury risk factors: Other nephrotoxic agents, Piperacillin /Tozobactam, Duration >7 days, Goal trough >15 - Monitoring and Recommendation Clinical response to treatment: I&O Previous 24 hours 03/17/23 03/18/23 03/19/23 23:59 23:59 23:59 Intake Total 3260 3934.247 611.503 Output Total 650 930 225 Balance 2610 3004.247 386.503 Lab Results 03/19/23 03/18/23 03/16/23 05:06 05:19 17:45 BUN 13 21 H 38 H Creatinine 0.6 0.6 0.8 Estimated GFR (MDRD) 96 96 69 L Cultures 03/17/23 15:45 Back - Lower Wound Culture - Preliminary 03/16/23 18:00 Buttock - Right Wound Culture - Preliminary 03/16/23 17:45 Blood - Right Hand Blood Culture - Preliminary 03/16/23 18:25 Blood - Left Arm Blood Culture - Preliminary 03/16/23 17:55 Urine,Catheterized Urine Culture - Final Escherichia Coli 03/16/23 17:45 Hand - Right Blood Culture (PCR) - Final 03/16/23 17:45 Blood - Right Hand Blood Culture (PCR) - Final Monitoring plan: Daily serum creatinine Next trough due prior to maintenance dose #: 4 (DUE 03/21/23 @1999) Next trough due (date/time): 03/21/23 @1999 Areas for additional monitoring: IV to PO when appropriate, Therapy de- escalation based on culture results (I ROUNDED PT'S SCR TO 1.0 BEING SHE'S 74 YEARS OLD, QUITE ILL, AND FRAGILE. DOSE AT HIGHER RANGE FOR OSTEOMEYLITIS AT 1.25G Q24H FOR TARGET OF 596 AUC/DONTAE. EST CLCR~40ML/MIN, IBW~63KG. PT IS 60KG.)
[2023-03-19] MEDS ORDERED: IRON DEXTRAN 1,000 MG in SODIUM CHLORIDE 0.9% 250 ML IV ONE ×2 (11:00→18:00)
--- NOTE | 2023-03-19 11:13 | PROVIDER PROGRESS NOTE ---
Subjective - General Admit Date: 03/16/23 Procedure Date: 03/17/23 Post Op Days: 2 Procedure Performed: bedside debridement of sacral decubitus ulcer - Review of Systems Wound/Incisions: positive: Decubitis (Persistently malodorous. Sacrum (bone) visible. Necrotic nonviable tissue at the base and surrounding the sacrum.) General: positive: Other (Patient is nonresponsive - withdraws to pain.) HEENT: positive: Other (Cannot evaluate secondary to unresponsiveness.) Pulmonary: positive: Other (Cannot evaluate secondary to unresponsiveness.) Cardiovascular: positive: Other (Cannot evaluate secondary to unresponsiveness.) Gastrointestinal: positive: Other (Cannot evaluate secondary to unresponsiveness.) Genitourinary: positive: Other (Cannot evaluate secondary to unresponsiveness.) Musculoskeletal: positive: Other (Cannot evaluate secondary to unresponsiveness.) Skin: positive: Other (Cannot evaluate secondary to unresponsiveness.) Psychiatric: positive: Other (Cannot evaluate secondary to unresponsiveness.) All Other Systems: positive: Other (Unable to obtain d/t patient's clinical condition.) Objective - Patient Data Reviewed Vital Signs: Yes Vital Signs: Vital Signs x48h Temp Pulse Resp BP Pulse Ox 03/19/23 08:00 37.4 C 90 18 84/52 L 96 Weight: Weight 03/17/23 03/18/23 03/19/23 23:59 23:59 23:59 Weight (kg) 60 kg Intake & Output: Intake and Output Totals x24h 03/17/23 03/18/23 03/19/23 23:59 23:59 23:59 Intake Total 3260 3934.247 611.503 Output Total 650 930 225 Balance 2610 3004.247 386.503 - Lab Results Lab Results: 03/19/23 05:06 03/19/23 05:06 Other Lab Results: Lab Results x24hrs 03/19/23 03/19/23 03/19/23 Range/Units 08:22 05:06 05:06 WBC 20.7 H (4.8-10.8) x10^3/uL RBC 3.49 L (4.20-5.40) 10^6/uL Hgb 9.7 L (12.0-16.0) g/dL Hct 32.1 L (37.0-47.0) % MCV 92.0 (81.0-99.0) fL MCH 27.8 (27.0-31.0) pg MCHC 30.2 L (32.0-36.0) g/dL RDW 17.9 H (12.0-15.0) % Plt Count 237 (130-450) 10^3/uL MPV 13.0 H (7.9-10.8) fL Neut # (Auto) 17.7 H (1.5-6.6) 10^3/uL Lymph # (Auto) 1.6 (1.5-3.5) 10^3/uL Spencer # (Auto) 0.7 (0.0-1.0) 10^3/uL Eos # (Auto) 0.1 (0.0-0.7) 10^3/uL Baso # (Auto) 0.1 (0.0-0.1) 10^3/uL Absolute Nucleated RBC 0.00 x10^3/uL Band Neuts % (Manual) Not Reportable Abnorm Lymph % (Manual) Not Reportable Nucleated RBC % 0.0 /100WBC Neutrophils # (Manual) Not Reportable Lymphocytes # (Manual) Not Reportable Monocytes # (Manual) Not Reportable Eosinophils # (Manual) Not Reportable Basophils # (Manual) Not Reportable Differential Comment MANUAL=AUTO DIFF Platelet Estimate NORMAL (130-450,000) (NORMAL) Platelet Morphology NORMAL APPEARANCE (NORMAL) Sodium 147 H (135-145) mmol/L Potassium 2.6 L (3.5-4.5) mmol/L Chloride 113 H (101-111) mmol/L Carbon Dioxide 29 (21-32) mmol/L Anion Gap 5.0 L (6-13) BUN 13 (6-20) mg/dL Creatinine 0.6 (0.6-1.3) mg/dL Estimated GFR (MDRD) 96 (>89) Glucose 191 H (74-104) mg/dL POC Whole Bld Glucose 193 H (70 - 100) mg/dL Calcium 9.0 (8.5-10.3) mg/dL Phosphorus 2.1 L (2.5-5.0) mg/dL Magnesium 1.4 L (1.7-2.3) mg/dL Iron 15 L (50-212) ug/dL TIBC 109 L (250-450) ug/dL % Saturation 14 L (20-50) % Transferrin 78 L (203-362) mg/dL Total Bilirubin 0.5 (0.2-1.0) mg/dL AST 20 (10-42) IU/L ALT 14 (10-60) IU/L Alkaline Phosphatase 73 (42-121) IU/L Total Protein 5.2 L (6.4-8.9) g/dL Albumin 2.3 L (3.2-5.5) g/dL Globulin 2.9 (2.1-4.2) g/dL Albumin/Globulin Ratio 0.8 L (1.0-2.2) Prealbumin 3 L (17-34) mg/dL 03/18/23 03/18/23 03/18/23 Range/Units 20:29 17:36 11:26 WBC (4.8-10.8) x10^3/uL RBC (4.20-5.40) 10^6/uL Hgb (12.0-16.0) g/dL Hct (37.0-47.0) % MCV (81.0-99.0) fL MCH (27.0-31.0) pg MCHC (32.0-36.0) g/dL RDW (12.0-15.0) % Plt Count (130-450) 10^3/uL MPV (7.9-10.8) fL Neut # (Auto) (1.5-6.6) 10^3/uL Lymph # (Auto) (1.5-3.5) 10^3/uL Spencer # (Auto) (0.0-1.0) 10^3/uL Eos # (Auto) (0.0-0.7) 10^3/uL Baso # (Auto) (0.0-0.1) 10^3/uL Absolute Nucleated RBC x10^3/uL Band Neuts % (Manual) Abnorm Lymph % (Manual) Nucleated RBC % /100WBC Neutrophils # (Manual) Lymphocytes # (Manual) Monocytes # (Manual) Eosinophils # (Manual) Basophils # (Manual) Differential Comment Platelet Estimate (NORMAL) Platelet Morphology (NORMAL) Sodium (135-145) mmol/L Potassium (3.5-4.5) mmol/L Chloride (101-111) mmol/L Carbon Dioxide (21-32) mmol/L Anion Gap (6-13) BUN (6-20) mg/dL Creatinine (0.6-1.3) mg/dL Estimated GFR (MDRD) (>89) Glucose (74-104) mg/dL POC Whole Bld Glucose 140 H 152 H 128 H (70 - 100) mg/dL Calcium (8.5-10.3) mg/dL Phosphorus (2.5-5.0) mg/dL Magnesium (1.7-2.3) mg/dL Iron (50-212) ug/dL TIBC (250-450) ug/dL % Saturation (20-50) % Transferrin (203-362) mg/dL Total Bilirubin (0.2-1.0) mg/dL AST (10-42) IU/L ALT (10-60) IU/L Alkaline Phosphatase (42-121) IU/L Total Protein (6.4-8.9) g/dL Albumin (3.2-5.5) g/dL Globulin (2.1-4.2) g/dL Albumin/Globulin Ratio (1.0-2.2) Prealbumin (17-34) mg/dL - Current Medications Current Medications: Current Medications Generic Name Dose Route Start Last Admin Trade Name Freq PRN Reason Stop Dose Admin Ascorbic Acid 500 mg 03/19/23 09:00 03/19/23 08:18 Ascorbic Acid 500 Mg Tablet PO 500 mg DAILY ELIZABETH Administration Aspirin 81 mg 03/17/23 09:00 03/19/23 08:18 Aspirin Chew 81 Mg Tablet PO 81 mg DAILY ELIZABETH Administration Carboxymethylcellulose 1 drops 03/17/23 21:00 03/18/23 21:01 Carboxymethylcellulose Ophth Drops EACHEYE 1 drops QPM ELIZABETH Administration Cholecalciferol 50 mcg 03/17/23 09:00 03/19/23 08:17 Cholecalciferol 25 Mcg Tablet PO 50 mcg DAILY ELIZABETH Administration Piperacillin Sod/Tazobactam 100 mls @ 25 mls/hr 03/16/23 22:00 03/19/23 05:44 Sod 4.5 gm/ Sodium Chloride IV 25 mls/hr Q8H ELIZABETH Administration Levothyroxine Sodium 50 mcg 03/17/23 07:00 03/19/23 06:29 Levothyroxine 25 Mcg Tablet PO 50 mcg QDAC ELIZABETH Administration Multivitamins/Minerals 1 tab 03/19/23 08:00 03/19/23 08:17 Multivitamin W/Minerals Tablet PO 1 tab DAILYWM ELIZABETH Administration Pantoprazole Sodium 40 mg 03/17/23 07:00 03/19/23 06:29 Pantoprazole 40 Mg Tablet PO 40 mg BIDAC ELIZABETH Administration Patient Own Med ( 1 each 03/17/23 09:00 03/19/23 08:31 Combigan 0.2%-0.5% EACHEYE Not Given Eye Drops) BID ELIZABETH Sertraline HCl 50 mg 03/17/23 09:00 03/19/23 08:17 Sertraline 50 Mg Tablet PO 50 mg DAILY ELIZABETH Administration Sodium Chloride 10 ml 03/16/23 21:20 03/17/23 05:57 Sodium Chloride Flush 0.9% 10 Ml Syringe IVP 10 ml PRN PRN Administration NEEDED PER PROVIDER ORDERS Sodium Chloride 10 ml 03/17/23 01:00 03/19/23 08:18 Sodium Chloride Flush 0.9% 10 Ml Syringe IVP 10 ml 0100,0900,1700 ELIZABETH Administration Timolol Maleate 1 drops 03/17/23 09:00 03/19/23 08:18 Timolol 0.5% Ophth Drops EACHEYE 1 drops BID ELIZABETH Administration Zinc Sulfate 220 mg 03/19/23 09:00 03/19/23 08:18 Zinc Sulfate 220 Mg Capsule PO 220 mg DAILY ELIZABETH Administration - Physical Exam Wound/Incisions: positive: Decubitis (Persistently malodorous. Sacrum (bone) visible. Necrotic nonviable tissue at the base and surrounding the sacrum. 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.) General Appearance: positive: Other (Patient withdraws to painotherwise uncommunicative.) Eyes Bilateral: positive: No lid inflammation, Conjunctivae nml, No scleral icterus ENT: positive: Dry mucous membranes (Mouth is persistently open and consequently dry.) Neck: positive: Trachea midline Respiratory: positive: Breath sounds nml Cardiovascular: positive: Regular rate & rhythm Abdomen: positive: Non-tender, Nml bowel sounds Skin: positive: Warm, Dry, Other (Anasarca.) Extremities: positive: Other (Anasarca.) Neurologic/Psychiatric: positive: Other (Patient withdraws to painotherwise noncommunicative.) ABX Reporting Has patient been on IV antibiotics over the past 48 hours?: Yes Impression/Plan - Problem List Problem List: Assessment: Unfortunate 77-year-old female with multiple life-threatening comorbidities to include hypertension, atrial fibrillation, coronary artery disease, congestive heart failure with ischemic cardiomyopathy, 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 It should absolutely be noted that these comorbidities also significantly affect any perceived quality of life. Plan: There is absolutely no reasonable chance of return to a quality of life in this patient. From a theoretical standpoint her nutrition would need to be good to excellent in order to heal wounds and her prealbumin is 3. With aggressive feeding which would need to be done either through a Dobbhoff feeding tube or through a PEG this will take months to achieve. Once this is achieved then her decubitus would have some chance of healing (albeit small as she is bedbound). In addition her osteomyelitis would need to be treated with 6 to 8 weeks of antibiotics considering her malnourished state. If all this was accomplished over months to a year it would still not make her conversant or mobile. After an objective review of her clinical status I believe that a discussion with palliative care and transitioning to palliation is probably the most sheri ropriate course moving forward. If the aforementioned aggressive therapy with regards to nutrition, antibiotics, and wound care are desired this would likely best be achieved by transfer of her care to a center that has the requisite services. I am of the opinion that either "full-court press" or "no court press" are the best approaches to this patient's care. I think that doing something "[facility]" would not accomplish either of the aforementioned goals. I look forward to having such conversation with the patient's should he wish to do so. Well over 60 minutes were spent on chart review, examination and evaluation and determination of patient's status. I am not the admitting or initially consulting physician. CPT 63570
[2023-03-19] MEDS: POTASSIUM CHLOR 10 MEQ/100 ML 10 MEQ/100 ML BAG IV SCH ×4 (11:31→14:52)
--- NOTE | 2023-03-19 11:50 | CONSULTATION NOTE ---
Palliative Care Consultation - Referral Referring Provider: Dr. Sujatha Markham Time of Visit: 10:30-11:45 am; 3:30-3:45 Referral setting: Hospitalized patient Referral Reason: Goals of Care; Failure to Thrive - Information Sources Records reviewed: RN notes reviewed, Previous records reviewed History/Review of Systems obtained from: Nursing, Other (chart) Exam limitations: Clinical condition - History of Present Illness Brief History of Present Illness: This is an unfortunate 77-year-old woman who was admitted to the ED on 03/16 for worsening altered mental status, fever for past 2 days, and increased white blo od cell count of 20,000. She has a significantly worsening chronic sacral decub, that appears to be a New ulcer at this point. It is needing debridement, further surgery, and in consult with surgeon visit, most likely has osteomyelitis which has significant implications with needing 6-8 weeks of antibiotics IV, as well as most likely explained more extensive surgery and management. Patient's severe protein calorie malnutrition, has been significant and declining over the last couple years, more significantly over the last several months. She was just hospitalized 02/10/2023 to 02/23/2023 with septic shock, hypotension, gram-negative UTI, probable ischemic colitis, ischemic cardiomyopathy, and severe protein calorie malnutrition at that time. She has multiple co-morbidities that add to the concern of moving forward with aggressive care. She has had a 23 kg weight loss in 18 months. She has been able to take small amounts of food and fluid, I did speak with staff from the SNF, they have had conference very recently regarding patient's ongoing decline, worsening status, and concerns for has been understanding the context of the patient's imminent decline. Their recommendations had been to consider hospice for comfort focused care, he has been somewhat resistant to this. Despite patient's failure to thrive, we are at a juncture as far as decision making. Had attempted to arrange a palliative care consult today, was not available until 5:30-6 PM caterina, reports he had an important business meeting. I have reached out several times so far to try and get hold of him by phone to discuss decisions that are pending, IV AB, surgical debridement including intubation, continued feeding tube as having complications with it today, and my recommendation which is to consider transitioning to comfort focused care. 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 Staff who are familiar with her report she can interact but only socially appropriate responses occasionally, no indepth meaningful conversation. She has been mostly nonverbal here. Patient does have a POLST with DNAR and selective treatments.. 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: reports: None : reports: None HEENT: reports: None Psych: reports: Depression, Bipolar disorder Musculoskeletal: reports: Osteoarthritis Derm: reports: None MRSA Hx?: No - Past Surgical History General: reports: Cholecystectomy Ortho: reports: Carpal Tunnel surgery, Other /CAMPGROUND CLEANING ATTENDANT: reports: Hysterectomy Cardiovascular: reports: CABG - Substance History Use: Uses substance without health or social issues: NONE Social History - Living Situation Living arrangement: [facility] (has been at [facility] for 2 years) Medications/Allergies - Medications Active Medication List: Active Medications Acetaminophen (Acetaminophen 325 Mg Tablet) 650 mg PO Q6H PRN PRN Reason: PRN MILD PAIN &/OR FEVER Ascorbic Acid (Ascorbic Acid 500 Mg Tablet) 500 mg PO DAILY [facility] Last Admin: 03/19/23 08:18 Dose: 500 mg Aspirin (Aspirin Chew 81 Mg Tablet) 81 mg PO DAILY [facility] Last Admin: 03/19/23 08:18 Dose: 81 mg Bisacodyl (Bisacodyl 10 Mg Supp) 10 mg TN DAILY PRN PRN Reason: Constipation Calcium Carbonate/Glycine (Calcium Carbonate Chew 500 Mg Tablet) 1,000 mg PO Q8H PRN PRN Reason: Heartburn Carboxymethylcellulose (Carboxymethylcellulose Ophth Drops) 1 drops EACHEYE QPM [facility] Last Admin: 03/18/23 21:01 Dose: 1 drops Cholecalciferol (Cholecalciferol 25 Mcg Tablet) 50 mcg PO DAILY [facility] Last Admin: 03/19/23 08:17 Dose: 50 mcg Piperacillin Sod/Tazobactam (Sod 4.5 gm/ Sodium Chloride) 100 mls @ 25 mls/hr IV Q8H [facility] Last Admin: 03/19/23 05:44 Dose: 25 mls/hr Iron Dextran 1,000 mg/ Sodium (Chloride) 270 mls @ 270 mls/hr IV ONCE ONE Stop: 03/19/23 11:59 Dextrose/Sodium Chloride (D5.45ns) 1,000 mls @ 30 mls/hr IV .[id number] [facility] Potassium Chloride (Potassium Chloride) 10 meq in 100 mls @ 100 mls/hr IV Q1H [facility] Stop: 03/19/23 14:59 Last Admin: 03/19/23 11:31 Dose: 100 mls/hr Vancomycin HCl 1 gm/Vancomycin HCl 250 mg/ Sodium Chloride 265 mls @ 166.667 mls/hr IV Q24H [facility] Potassium Phosphate 15 mmol/ (Sodium Chloride) 255 mls @ 42.5 mls/hr IV ONCE ONE Stop: 03/19/23 17:01 Levothyroxine Sodium (Levothyroxine 25 Mcg Tablet) 50 mcg PO QDAC [facility] Last Admin: 03/19/23 06:29 Dose: 50 mcg Multivitamins/Minerals (Multivitamin W/Minerals Tablet) 1 tab PO DAILYWM [facility] Last Admin: 03/19/23 08:17 Dose: 1 tab Ondansetron HCl (Ondansetron Odt 4 Mg Tablet) 4 mg TL Q6HR PRN PRN Reason: Nausea / Vomiting Ondansetron HCl (Ondansetron 4 Mg/2 Ml Vial) 4 mg IVP Q6HR PRN PRN Reason: Nausea / Vomiting Pantoprazole Sodium (Pantoprazole 40 Mg Tablet) 40 mg PO BIDAC [facility] Last Admin: 03/19/23 06:29 Dose: 40 mg Patient Own Med ( Combigan 0.2%-0.5% Eye Drops) 1 each EACHEYE BID [facility] Last Admin: 03/19/23 08:31 Dose: Not Given Polyethylene Glycol (Polyethylene Glycol 3350 17 Gm Packet) 17 gm PO DAILY PRN PRN Reason: Constipation Senna (Senna 8.6 Mg Tablet) 17.2 mg PO DAILY PRN PRN Reason: Constipation Sertraline HCl (Sertraline 50 Mg Tablet) 50 mg PO DAILY [facility] Last Admin: 03/19/23 08:17 Dose: 50 mg Sodium Chloride (Sodium Chloride Flush 0.9% 10 Ml Syringe) 10 ml IVP PRN PRN PRN Reason: NEEDED PER PROVIDER ORDERS Last Admin: 03/17/23 05:57 Dose: 10 ml Sodium Chloride (Sodium Chloride Flush 0.9% 10 Ml Syringe) 10 ml IVP 0100,0900,1700 [facility] Last Admin: 03/19/23 08:18 Dose: 10 ml Timolol Maleate (Timolol 0.5% Ophth Drops) 1 drops EACHEYE BID [facility] Last Admin: 03/19/23 08:18 Dose: 1 drops Zinc Sulfate (Zinc Sulfate 220 Mg Capsule) 220 mg PO DAILY [facility] Last Admin: 03/19/23 08:18 Dose: 220 mg Canagliflozin [Invokana] 100 mg PO DAILY 06/15/21 Insulin Glargine [Lantus Solostar] 10 units SUBQ BID 06/15/21 Metoprolol Succinate [Toprol Xl] 50 mg PO QPM 06/15/21 Sacubitril/Valsartan [Entresto 24 mg-26 mg Tablet] 1 tab PO QPM 06/15/21 Calcium Carbonate [Tums (Calcium Carbonate 500mg)] 1,000 mg PO Q8H PRN 06/16/21 Insulin Regular Human [Humulin R] 3 unit SUBQ AC 06/16/21 Spironolactone [Aldactone] 25 mg PO DAILY 02/10/23 Acetaminophen [Tylenol] 650 mg PO Q6H PRN 02/11/23 Atorvastatin Calcium [Lipitor] 80 mg PO QPM 02/11/23 Sacubitril/Valsartan [Entresto 24 mg-26 mg Tablet] 2 tab PO DAILY 02/11/23 Bisacodyl Supp [Dulcolax Supp] 10 mg TN DAILY PRN 03/16/23 Mineral Oil [Mineral Oil Enema] 1 ea RC DAILY PRN 03/16/23 Sennosides [Senna] 2 tab PO DAILY PRN 03/16/23 polyethylene glycoL 3350 [Miralax] 17 gm PO DAILY PRN 03/16/23 - Allergies Allergies/Adverse Reactions: Allergies Allergy/AdvReac Type Severity Reaction Status Date / Time Sulfa (Sulfonamide Allergy Mild Nausea Verified 02/10/23 17:48 Antibiotics) omeprazole Allergy Unknown Verified 03/16/23 17:31 epinephrine AdvReac Unknown Verified 02/10/23 17:48 Review of Systems - Constitutional Constitutional: reports: Weight loss - Cardiovascular Cardiovascular: reports: Edema - Gastrointestinal Gastrointestinal: reports: Other (has been eating with feeding small bites; does have swallow; pureed diet) - Genitourinary Genitourinary: reports: Other (has metcalf catheter) - Integumentary Integumentary: reports: Other (chronic sacral ulcer; "exploded" over last few days; appears to be New) Physical Exam - Vital Signs Vital Signs: Vital Signs x48h Temp Pulse Resp BP Pulse Ox 03/19/23 08:00 37.4 C 90 18 84/52 L 96 - Physical Exam General Appearance: positive: Moderate distress (with turning and movement; appears uncomfortable), Other (did not respond verbally; squeezed my hand few times) Eyes Bilateral: positive: Other (left eye closed; right eye followed movement in room) ENT: positive: Dry mucous membranes Cardiovascular: positive: Regular rate & rhythm Respiratory: positive: Other (shallow breaths) Abdomen: positive: Soft Skin: positive: Pressure wound (observed with surgeon Dr. Perera; foul smelling necrotic; bone) Extremities: positive: Other (anasarc) Neurologic/Psychiatric: positive: Flat affect, Other (unable to engage) Palliative Care - POLST Patient has POLST: Yes POLST Status: DNR, Selective Treatment (Reminder on the POLST selective treatment goals are treating medical decisions while avoiding invasive measures whenever possible, including DO NOT INTUBATE.) Results - Lab Results Lab results reviewed: Yes Fish Bones: 03/19/23 05:06 03/19/23 05:06 Lab and Imaging Results: Lab Results x24hrs 03/19/23 03/19/23 03/19/23 Range/Units 08:22 05:06 05:06 WBC 20.7 H (4.8-10.8) x10^3/uL RBC 3.49 L (4.20-5.40) 10^6/uL Hgb 9.7 L (12.0-16.0) g/dL Hct 32.1 L (37.0-47.0) % MCV 92.0 (81.0-99.0) fL MCH 27.8 (27.0-31.0) pg MCHC 30.2 L (32.0-36.0) g/dL RDW 17.9 H (12.0-15.0) % Plt Count 237 (130-450) 10^3/uL MPV 13.0 H (7.9-10.8) fL Neut # (Auto) 17.7 H (1.5-6.6) 10^3/uL Lymph # (Auto) 1.6 (1.5-3.5) 10^3/uL Camp # (Auto) 0.7 (0.0-1.0) 10^3/uL Eos # (Auto) 0.1 (0.0-0.7) 10^3/uL Baso # (Auto) 0.1 (0.0-0.1) 10^3/uL Absolute Nucleated RBC 0.00 x10^3/uL Band Neuts % (Manual) Not Reportable Abnorm Lymph % (Manual) Not Reportable Nucleated RBC % 0.0 /100WBC Neutrophils # (Manual) Not Reportable Lymphocytes # (Manual) Not Reportable Monocytes # (Manual) Not Reportable Eosinophils # (Manual) Not Reportable Basophils # (Manual) Not Reportable Differential Comment MANUAL=AUTO DIFF Platelet Estimate NORMAL (130-450,000) (NORMAL) Platelet Morphology NORMAL APPEARANCE (NORMAL) Sodium 147 H (135-145) mmol/L Potassium 2.6 L (3.5-4.5) mmol/L Chloride 113 H (101-111) mmol/L Carbon Dioxide 29 (21-32) mmol/L Anion Gap 5.0 L (6-13) BUN 13 (6-20) mg/dL Creatinine 0.6 (0.6-1.3) mg/dL Estimated GFR (MDRD) 96 (>89) Glucose 191 H (74-104) mg/dL POC Whole Bld Glucose 193 H (70 - 100) mg/dL Calcium 9.0 (8.5-10.3) mg/dL Phosphorus 2.1 L (2.5-5.0) mg/dL Magnesium 1.4 L (1.7-2.3) mg/dL Iron 15 L (50-212) ug/dL TIBC 109 L (250-450) ug/dL % Saturation 14 L (20-50) % Transferrin 78 L (203-362) mg/dL Total Bilirubin 0.5 (0.2-1.0) mg/dL AST 20 (10-42) IU/L ALT 14 (10-60) IU/L Alkaline Phosphatase 73 (42-121) IU/L Total Protein 5.2 L (6.4-8.9) g/dL Albumin 2.3 L (3.2-5.5) g/dL Globulin 2.9 (2.1-4.2) g/dL Albumin/Globulin Ratio 0.8 L (1.0-2.2) Prealbumin 3 L (17-34) mg/dL 03/18/23 03/18/23 Range/Units 20:29 17:36 WBC (4.8-10.8) x10^3/uL RBC (4.20-5.40) 10^6/uL Hgb (12.0-16.0) g/dL Hct (37.0-47.0) % MCV (81.0-99.0) fL MCH (27.0-31.0) pg MCHC (32.0-36.0) g/dL RDW (12.0-15.0) % Plt Count (130-450) 10^3/uL MPV (7.9-10.8) fL Neut # (Auto) (1.5-6.6) 10^3/uL Lymph # (Auto) (1.5-3.5) 10^3/uL Camp # (Auto) (0.0-1.0) 10^3/uL Eos # (Auto) (0.0-0.7) 10^3/uL Baso # (Auto) (0.0-0.1) 10^3/uL Absolute Nucleated RBC x10^3/uL Band Neuts % (Manual) Abnorm Lymph % (Manual) Nucleated RBC % /100WBC Neutrophils # (Manual) Lymphocytes # (Manual) Monocytes # (Manual) Eosinophils # (Manual) Basophils # (Manual) Differential Comment Platelet Estimate (NORMAL) Platelet Morphology (NORMAL) Sodium (135-145) mmol/L Potassium (3.5-4.5) mmol/L Chloride (101-111) mmol/L Carbon Dioxide (21-32) mmol/L Anion Gap (6-13) BUN (6-20) mg/dL Creatinine (0.6-1.3) mg/dL Estimated GFR (MDRD) (>89) Glucose (74-104) mg/dL POC Whole Bld Glucose 140 H 152 H (70 - 100) mg/dL Calcium (8.5-10.3) mg/dL Phosphorus (2.5-5.0) mg/dL Magnesium (1.7-2.3) mg/dL Iron (50-212) ug/dL TIBC (250-450) ug/dL % Saturation (20-50) % Transferrin (203-362) mg/dL Total Bilirubin (0.2-1.0) mg/dL AST (10-42) IU/L ALT (10-60) IU/L Alkaline Phosphatase (42-121) IU/L Total Protein (6.4-8.9) g/dL Albumin (3.2-5.5) g/dL Globulin (2.1-4.2) g/dL Albumin/Globulin Ratio (1.0-2.2) Prealbumin (17-34) mg/dL Impression and Recommendations - Palliative Care Impression: This is a 77-year-old woman who has had an unfortunate turn of events, She presents with severe protein calorie malnutrition, albumin 2.3, prealbumin 3, has been eating to small amounts. She has a stage IV decub, most likely osteomyelitis, has deteriorated quite quickly in alignment with a New ulcer. She appears uncomfortable, minimally responsive, though has been wakeful enough for feeding. Goal had been to try and meet with regarding fairly urgent need to define goals of care. Have left messages, will plan to follow up on Wednesday. Patient though presents with poor prognosis and prognostic variables. When speaking with SNF staff, I am wondering about reaching out to other family members, I believe there is a son who has further insight into patient's condition and may be able to support father and decision making. Recommendations/Counseling Done: 1.Advanced care planning. Patient unfortunately presents with failure to thrive, with low prealbumin, has severe sacral decub, osteomyelitis, and limited ability for recovery of severe calorie protein malnutrition. Patient is not decisional, have unable to meet or talk with the who is the decision- maker. Patient presents with poor prognostic variables of low albumin, declining functional and cognitive status over the last several months and more acutely over the last several weeks. Patient now with a New ulcer, which is often a indication of imminent demise. For patient to be go through aggressive care, would most likely experience increased suffering, patient does already seem uncomfortable with any kind of movement or hands-on care. My recommendation would be to consider in the context of quality and quantity of life, focusing on comfort, with comfort feedings, aggressive pain management, and defining how best to support patient and in transitioning to comfort care/hospice. Patient would meet hospice criteria, did follow-up with hospice team, they would have an opening on Wednesday if she would return to [facility]. 90 minutes with review of chart, coordination of care with hospitalist, surgeon, follow-up with hospice regarding availability and willingness to accept patient. Unfortunately unable to make contact with , will follow-up on Wednesday, if goals not further defined by team and/or support of and patient.
--- NOTE | 2023-03-19 11:51 | CONSULTATION NOTE ---
Consultation Report: I was requested by hospitalist to place PICC line, however unable to reach for consent. Message left at [phone] 03/19/23.
[2023-03-19] MEDS: DEXTROSE 5%-0.45% NACL 1,000 ML IV SCH (12:36)
[2023-03-19] MEDS ORDERED: SODIUM CHLORIDE 0.9% 250 ML IV ONE (14:36)
[2023-03-19] MEDS ORDERED: POTASSIUM PHOSPHATE 15 MMOL in SODIUM CHLORIDE 0.9% 250 ML IV ONE (15:00)
--- NOTE | 2023-03-19 16:28 | PROVIDER PROGRESS NOTE ---
Assessment/Plan - Problem List (1) Osteomyelitis of sacrum Assessment/Plan: Debridement of the sacral wound, done by surgery, revealed her wound is down to the bone. Sacral x-ray done which was unremarkable. CT of pelvis then done which does show osteomyelitis Plan: The patient will need PICC tube line inserted and 6 weeks of IV antibiotics I ordered a PICC line placed. Anesthesia and general surgery spoke to the today regarding duration of treatment needed and that it may be futile because of her underlying malnutrition and overall bedridden condition. The wants to think about the PICC line. Continue with empiric IV Vanco and IV Zosyn (2) Bacteremia due to Proteus species Assessment/Plan: Her bld cx quickly turned pos and been identified by PCR as Proteus She has been on Pip?Tazo Plan Await the Proteus' sens to adjust antibx Cont empiric iv Zosyn (3) Bacteremia due to Staph Lab also reported a Staph species Vanco was resumed yesterday, given the other potential source of sepsis being her sacral wound Plan: Cont iv Vanco Await Staph identification and sensitivities to adjust meds (4) Sacral ulcer Assessment/Plan: She has a very large, dark decubitus, pressure ulcer, larger than when she last was here. Appreciate General Surgery debridement and dressing changes Plan: Await results of sample sent for cx Start Vano iv (was not ordered by admitting telemedicine provider) Cont dressings and topical management as per Gen Surg. I spoke to Dr Perera today (5) E coli Urinary tract infection Qualifiers: Urinary tract infection type: site unspecified Hematuria presence: without hematuria Qualified Code(s): N39.0 - Urinary tract infection, site not specified Assessment/Plan: Her U/A was abnormal at adm. Urine cx has grown out a centeno-sens E coli Plan: Cont with iv Pip/TAzo (6) Type 2 diabetes mellitus Assessment/Plan: On 03/17 her glucose before breakfast was 61. She was treated as per Hypogl ycemia protocol Now on ng tube feeds her glu are running 170-190 today Plan: Cont Dobhoff feeds and is also swallowing around the feeding tube. Cont sliding scale insulin and scheduled insulin doses Continue with hypoglycemia protocol (7) Severe protein calorie malnutrition Assessment/Plan: She has a documented weight loss of 30 kg in 19 months, sacral wound and is now bedridden from her weakness Dr. Reza inserted Dobbhoff tube and tube feeds were started yesterday 12.14 via Dobhoff Pt also swallows around the Dobhoff tube and said she "likes to chew", but must be fed. Plan: IV fluids down to TKO today Palliative Care to see her today, to assist the and making decisions for her since she is critically ill, malnourished and has a very poor prognosis. I spoke to Palliative care provider CAMP COORDINATOR Shruthi Russ today I also spoke to Speech Therapist who did a swallow eval today, and pt does not aspirate. ST told me she has been seen while at [facility] for weeks and was only taking shakes, and that ST already tried to explain poor prognosis with who did not want to stop with aggressive management then. (8) Ischemic cardiomyopathy Assessment/Plan: At her admission here 1 month ago her echo showed an EF of 30 to 35% which is a new finding for her. She was taken off her statin due to malnutrition but discharged to SNF on cardiac meds Plan: All her cardiac meds were on hold because of hypotension from septic shock Will resume cardiac meds (9) Paroxysmal atrial fibrillation Assessment/Plan: Plan: Continue to monitor on telemetry. Cardiac meds on hold due to low blood pressure No anticoagulation due to recent brain bleed (10) Hypothyroid Assessment/Plan: TSH was just checked at last admission and TSH was 4.29 Plan: Continue her Levothyroxine when she is able to swallow (11) CVA (cerebral vascular accident) Assessment/Plan: History of CVA with residual right-sided deficits. 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 Head CT then showed a left frontal cont usion and hematoma. She had a large bruise around the L eye at the last admission here 3 weeks ago Plan: Remain off Eliquis. Eliquis could be restarted eventually only if she will be bedbound and if no contraindications. Otherwise she will no longer be on an anticoagulant because of fall and brain bleed (13) Septic shock Assessment/Plan: Hypotension has RESOLVED She presented with shock, tachycardia, hypotension, elevated white count and new obtundation. Source appears to be a UTI or possibly her very large sacral decubitus Pt was given IVF, Zosyn/Vanco in the ER. She is minimally more awake today. WBC 20>> 14 today (all labs were reviewed) Plan: Continue with supportive care, empiric IV antibiotics as ordered by admitting Telemedicine provider, cont IV fluids Follow CBC daily (14) Prerenal azotemia Assessment/Plan: RESOLVED BUN/creatinine have normalized with iv fluids (all labs reviewed) Plan: Cont iv infusion at TKO plus ng feeds Follow BMP daily - Current Meds Current Meds: Current Medications Generic Name Dose Route Start Last Admin Trade Name Freq PRN Reason Stop Dose Admin Ascorbic Acid 500 mg 03/19/23 09:00 03/19/23 08:18 Ascorbic Acid 500 Mg Tablet PO 500 mg DAILY ELIZABETH Administration Aspirin 81 mg 03/17/23 09:00 03/19/23 08:18 Aspirin Chew 81 Mg Tablet PO 81 mg DAILY ELIZABETH Administration Carboxymethylcellulose 1 drops 03/17/23 21:00 03/18/23 21:01 Carboxymethylcellulose Ophth Drops EACHEYE 1 drops QPM ELIZABETH Administration Cholecalciferol 50 mcg 03/17/23 09:00 03/19/23 08:17 Cholecalciferol 25 Mcg Tablet PO 50 mcg DAILY ELIZABETH Administration Piperacillin Sod/Tazobactam 100 mls @ 25 mls/hr 03/16/23 22:00 03/19/23 13:21 Sod 4.5 gm/ Sodium Chloride IV 25 mls/hr Q8H ELIZABETH Administration Dextrose/Sodium Chloride 1,000 mls @ 30 mls/hr 03/19/23 10:35 03/19/23 12:36 D5.45ns IV Not Given .[id number] ELIZABETH Potassium Phosphate 15 mmol/ 255 mls @ 42.5 mls/hr 03/19/23 15:00 03/19/23 14:52 Sodium Chloride IV 03/19/23 20:59 42.5 mls/hr ONCE ONE Administration Levothyroxine Sodium 50 mcg 03/17/23 07:00 03/19/23 06:29 Levothyroxine 25 Mcg Tablet PO 50 mcg QDAC ELIZABETH Administration Multivitamins/Minerals 1 tab 03/19/23 08:00 03/19/23 08:17 Multivitamin W/Minerals Tablet PO 1 tab DAILYWM ELIZABETH Administration Pantoprazole Sodium 40 mg 03/17/23 07:00 03/19/23 06:29 Pantoprazole 40 Mg Tablet PO 40 mg BIDAC ELIZABETH Administration Patient Own Med ( 1 each 03/17/23 09:00 03/19/23 08:31 Combigan 0.2%-0.5% EACHEYE Not Given Eye Drops) BID ELIZABETH Sertraline HCl 50 mg 03/17/23 09:00 03/19/23 08:17 Sertraline 50 Mg Tablet PO 50 mg DAILY ELIZABETH Administration Sodium Chloride 10 ml 03/16/23 21:20 03/17/23 05:57 Sodium Chloride Flush 0.9% 10 Ml Syringe IVP 10 ml PRN PRN Administration NEEDED PER PROVIDER ORDERS Sodium Chloride 10 ml 03/17/23 01:00 03/19/23 08:18 Sodium Chloride Flush 0.9% 10 Ml Syringe IVP 10 ml 0100,0900,1700 ELIZABETH Administration Timolol Maleate 1 drops 03/17/23 09:00 03/19/23 08:18 Timolol 0.5% Ophth Drops EACHEYE 1 drops BID ELIZABETH Administration Zinc Sulfate 220 mg 03/19/23 09:00 03/19/23 08:18 Zinc Sulfate 220 Mg Capsule PO 220 mg DAILY ELIZABETH Administration - Lab Result Fish Bone Diagrams: 03/20/23 05:30 03/20/23 05:30 - Additional Planning My Orders: My Active Orders 03/19/23 08:00 Multivitamin W/Minerals [Theragran M] 1 tab PO DAILYWM 03/19/23 09:00 Ascorbic Acid [Vitamin C] 500 mg PO DAILY Zinc Sulfate 220 mg PO DAILY 03/19/23 10:34 PICC Line Care [RC] Q4H PICC Line Insert [RC] .ONCE 03/19/23 10:35 Dextrose 5%-0.45% NaCl [D5.45ns] 1,000 ml IV 30 mls/hr 03/19/23 15:00 Potassium Phosphate 15 mmol Sodium Chloride 0.9% [Normal Saline 0.9%] 250 ml IV ONCE 03/19/23 Dinner Dysphagia - Puree [DIET] 03/19/23 18:00 Iron Dextran [Infed] 1,000 mg Sodium Chloride 0.9% [Normal Saline 0.9%] 250 ml IV ONCE 03/19/23 21:00 Vancomycin Inj [Vancomycin] 1 gm Vancomycin Inj [Vancomycin Hcl] 250 mg Sodium Chloride 0.9% [Normal Saline 0.9%] 250 ml IV Q24H 03/20/23 05:00 CBC - COMP BLD CT W/AUTO DIFF [HEME] DAILYLAB MAGNESIUM [CHEM] DAILYLAB 03/21/23 05:00 CBC - COMP BLD CT W/AUTO DIFF [HEME] DAILYLAB COMPREHENSIVE METABOLIC PANEL [CHEM] Timed MAGNESIUM [CHEM] Timed PHOSPHORUS [CHEM] Timed PREALBUMIN [CHEM] Timed 03/21/23 20:00 VANCOMYCIN TROUGH [CHEM] Timed 03/22/23 05:00 CBC - COMP BLD CT W/AUTO DIFF [HEME] DAILYLAB 03/23/23 05:00 CBC - COMP BLD CT W/AUTO DIFF [HEME] DAILYLAB 03/24/23 05:00 CBC - COMP BLD CT W/AUTO DIFF [HEME] DAILYLAB COMPREHENSIVE METABOLIC PANEL [CHEM] Timed MAGNESIUM [CHEM] Timed PHOSPHORUS [CHEM] Timed PREALBUMIN [CHEM] Timed Subjective - Subjective Patient Reports: Resting Comfortably Objective Vital Signs: Vital Signs - 24 hr 03/19/23 03/19/23 03/19/23 00:00 08:00 16:00 Temperature 36.9 C 37.4 C 37.0 C Heart Rate [ 82 90 92 Brachial] Respiratory 18 18 24 Rate Blood Pressure 120/51 L 123/56 L [Left Brachial artery] Blood Pressure 84/52 L [Right Femoral artery] O2 Saturation 93 96 97 Oxygen O2 Source Room air I&O (Last 24 Hrs): Intake and Output Totals x24h 03/17/23 03/18/23 03/19/23 23:59 23:59 23:59 Intake Total 3260 3934.247 1090.503 Output Total 650 930 450 Balance 2610 3004.247 640.503 General: Other (Lethargic, opens eyes and follows) HEENT: Mucous membr. moist/pink, Other (Disheveld, greasy skin of face) Neck: No JVD Neuro: Other (Obtunded, moves spontaneously, is not speaking, follows with eyes) Cardiovascular: No murmurs Respiratory: No respiratory distress Abdomen: Soft, No tenderness Rectal: Other (sacral wound is dressed) Extremities: No tenderness/swelling, Other (Trace pre-tibial edema) - Results Results: Laboratory Results WBC 20.7 x10^3/uL (4.8-10.8) H 03/19/23 05:06 RBC 3.49 10^6/uL (4.20-5.40) L 03/19/23 05:06 Hgb 9.7 g/dL (12.0-16.0) L 03/19/23 05:06 Hct 32.1 % (37.0-47.0) L 03/19/23 05:06 MCV 92.0 fL (81.0-99.0) 03/19/23 05:06 MCH 27.8 pg (27.0-31.0) 03/19/23 05:06 MCHC 30.2 g/dL (32.0-36.0) L 03/19/23 05:06 RDW 17.9 % (12.0-15.0) H 03/19/23 05:06 Plt Count 237 10^3/uL (130-450) 03/19/23 05:06 MPV 13.0 fL (7.9-10.8) H 03/19/23 05:06 Neut # (Auto) 17.7 10^3/uL (1.5-6.6) H 03/19/23 05:06 Lymph # (Auto) 1.6 10^3/uL (1.5-3.5) 03/19/23 05:06 [place]royo # (Auto) 0.7 10^3/uL (0.0-1.0) 03/19/23 05:06 Eos # (Auto) 0.1 10^3/uL (0.0-0.7) 03/19/23 05:06 Baso # (Auto) 0.1 10^3/uL (0.0-0.1) 03/19/23 05:06 Absolute Nucleated RBC 0.00 x10^3/uL 03/19/23 05:06 Total Counted 100 03/16/23 17:45 Band Neuts % (Manual) Not Reportable 03/19/23 05:06 Abnorm Lymph % (Manual) Not Reportable 03/19/23 05:06 Metamyelocytes % 1 % (-0) H 03/16/23 17:45 Nucleated RBC % 0.0 /100WBC 03/19/23 05:06 Neutrophils # (Manual) Not Reportable 03/19/23 05:06 Lymphocytes # (Manual) Not Reportable 03/19/23 05:06 Monocytes # (Manual) Not Reportable 03/19/23 05:06 Eosinophils # (Manual) Not Reportable 03/19/23 05:06 Basophils # (Manual) Not Reportable 03/19/23 05:06 Differential Comment MANUAL=AUTO DIFF 03/19/23 05:06 Platelet Estimate NORMAL (130-450,000) (NORMAL) 03/19/23 05:06 Platelet Morphology NORMAL APPEARANCE (NORMAL) 03/19/23 05:06 RBC Morph Micro Appear NORMAL APPEARANCE (NORMAL) 03/16/23 17:45 PT 12.3 secs (9.9-12.6) 03/16/23 17:45 INR 1.1 (0.8-1.2) 03/16/23 17:45 APTT 20.5 secs (24.9-33.3) L 03/16/23 17:45 Sodium 147 mmol/L (135-145) H 03/19/23 05:06 Potassium 2.6 mmol/L (3.5-4.5) L 03/19/23 05:06 Chloride 113 mmol/L (101-111) H 03/19/23 05:06 Carbon Dioxide 29 mmol/L (21-32) 03/19/23 05:06 Anion Gap 5.0 (6-13) L 03/19/23 05:06 BUN 13 mg/dL (6-20) 03/19/23 05:06 Creatinine 0.6 mg/dL (0.6-1.3) 03/19/23 05:06 Estimated GFR (MDRD) 96 (>89) 03/19/23 05:06 Glucose 191 mg/dL (74-104) H 03/19/23 05:06 POC Whole Bld Glucose 172 mg/dL (70 - 100) H 03/19/23 16:19 Estimat Average Glucose 120 mg/dL (70-100) H 03/17/23 04:48 Hemoglobin A1c % 5.8 % (4.27-6.07) 03/17/23 04:48 Lactic Acid 1.1 mmol/L (0.5-2.2) 03/16/23 17:45 Calcium 9.0 mg/dL (8.5-10.3) 03/19/23 05:06 Phosphorus 2.1 mg/dL (2.5-5.0) L 03/19/23 05:06 Magnesium 1.4 mg/dL (1.7-2.3) L 03/19/23 05:06 Iron 15 ug/dL (50-212) L 03/19/23 05:06 TIBC 109 ug/dL (250-450) L 03/19/23 05:06 % Saturation 14 % (20-50) L 03/19/23 05:06 Transferrin 78 mg/dL (203-362) L 03/19/23 05:06 Total Bilirubin 0.5 mg/dL (0.2-1.0) 03/19/23 05:06 AST 20 IU/L (10-42) 03/19/23 05:06 ALT 14 IU/L (10-60) 03/19/23 05:06 Alkaline Phosphatase 73 IU/L (42-121) 03/19/23 05:06 Total Protein 5.2 g/dL (6.4-8.9) L 03/19/23 05:06 Albumin 2.3 g/dL (3.2-5.5) L 03/19/23 05:06 Globulin 2.9 g/dL (2.1-4.2) 03/19/23 05:06 Albumin/Globulin Ratio 0.8 (1.0-2.2) L 03/19/23 05:06 Prealbumin 3 mg/dL (17-34) L 03/19/23 05:06 Triglycerides 150 mg/dL (48-352) 03/17/23 04:48 Cholesterol 69 mg/dL (-200) 03/17/23 04:48 LDL Cholesterol, Calc 26 mg/dL (-129) 03/17/23 04:48 VLDL Cholesterol 30 mg/dL 03/17/23 04:48 HDL Cholesterol 13 mg/dL (60-) L 03/17/23 04:48 LDL/HDL Ratio 2.0 (<4.4) 03/17/23 04:48 Cholesterol/HDL Ratio 5.3 (<4.4) 03/17/23 04:48 Lipase 20 U/L (11-82) 03/16/23 17:45 Urine Color YELLOW 03/16/23 17:55 Urine Clarity HAZY (CLEAR) 03/16/23 17:55 Urine pH 5.5 PH (5.0-7.5) 03/16/23 17:55 Ur Specific [place] 1.010 (1.002-1.030) 03/16/23 17:55 Urine Protein TRACE mg/dL (NEGATIVE) 03/16/23 17:55 Urine Glucose (UA) >=1000 mg/dL (NEGATIVE) H 03/16/23 17:55 Urine Ketones NEGATIVE mg/dL (NEGATIVE) 03/16/23 17:55 Urine Occult Blood TRACE-INTA (NEGATIVE) 03/16/23 17:55 Urine Nitrite POSITIVE (NEGATIVE) H 03/16/23 17:55 Urine Bilirubin NEGATIVE (NEGATIVE) 03/16/23 17:55 Urine Urobilinogen 0.2 (NORMAL) E.U./dL (NORMAL) 03/16/23 17:55 Ur Leukocyte Esterase SMALL (NEGATIVE) H 03/16/23 17:55 Urine RBC 0-5 /HPF (0-5) 03/16/23 17:55 Urine WBC >25 /HPF (0-5) H 03/16/23 17:55 Ur Squamous Epith Cells FEW Squamous (<= Few) 03/16/23 17:55 Urine Bacteria Moderate /HPF (None Seen) H 03/16/23 17:55 Urine Yeast PRESENT 03/16/23 17:55 Ur Microscopic Review INDICATED 03/16/23 17:55 Urine Culture Comments INDICATED 03/16/23 17:55 - Procedures Procedures: Procedures INSERTION OF INFUSION DEV INTO SUP VENA CAVA, PERC APPROACH (02/10/23) Sepsis Event Note (H) - Evaluation Possible source of Sepsis: positive: Genitourinary, Skin/soft tissue
--- NOTE | 2023-03-19 18:31 | CONSULTATION NOTE ---
Consultation Report: Dr. Perera and myself had a long discussion with patients regarding plan of care. wishes to talk to his son and take some time to think about whether or not to proceed with PICC line for roasterman antibiotic therapy.
[2023-03-19] MEDS ORDERED: VANCOMYCIN 500 MG VIAL ONE (21:23)
[2023-03-19] MEDS: VANCOMYCIN INJ 1 GM, VANCOMYCIN INJ 250 MG in SODIUM CHLORIDE 0.9% 250 ML IV SCH (21:28)
[2023-03-19] MEDS: CARBOXYMETHYLCELLULOSE OPHTH DROPS EACHEYE SCH (21:28)
[2023-03-19] MEDS ORDERED: VANCOMYCIN INJ 1 GM in SODIUM CHLORIDE 0.9% 250 ML IV SCH (22:00)
[2023-03-20] MEDS: SODIUM CHLORIDE FLUSH 0.9% 10 ML SYRINGE IVP SCH ×3 (03:36→16:05)
[2023-03-20] MEDS: PIPERACILLIN/TAZOBACTAM 4.5 GM in SODIUM CHLORIDE 0.9% MINIBAG 100 ML IV SCH ×3 (05:45→22:37)
[2023-03-20] MEDS: LEVOTHYROXINE 25 MCG TABLET PO SCH (05:46)
[2023-03-20] MEDS: PANTOPRAZOLE 40 MG TABLET PO SCH ×2 (05:47→16:05)
[2023-03-20 06:04] LABS: BASOPHILS # (AUTO) 0.1 10^3/uL (0.0-0.1); BASOPHILS % (AUTO) 0.3 %; EOSINOPHILS # (AUTO) 0.1 10^3/uL (0.0-0.7); EOSINOPHILS % (AUTO) 0.6 %; HCT - HEMATOCRIT 29.4 % (37.0-47.0); HGB - HEMOGLOBIN 8.9 g/dL (12.0-16.0); LYMPHOCYTES # (AUTO) 1.8 10^3/uL (1.5-3.5); LYMPHOCYTES % (AUTO) 7.6 %; MEAN CORPUSCULAR HEMOGLOBIN 27.3 pg (27.0-31.0); MEAN CORPUSCULAR HGB CONC 30.3 g/dL (32.0-36.0); MEAN CORPUSCULAR VOLUME 90.2 fL (81.0-99.0); MONOCYTES # (AUTO) 0.8 10^3/uL (0.0-1.0); MONOCYTES % (AUTO) 3.3 %; NEUTROPHILS # (AUTO) 19.9 10^3/uL (1.5-6.6); NEUTROPHILS % (AUTO) 84.8 %; NRBC ABSOLUTE COUNT (AUTO) 0.02 x10^3/uL; NUCLEATED RED BLOOD CELLS AUTO 0.1 /100WBC; PLT - PLATELET COUNT 233 10^3/uL (130-450); RED BLOOD COUNT 3.26 10^6/uL (4.20-5.40); RED CELL DISTRIBUTION WIDTH 17.8 % (12.0-15.0); WHITE BLOOD COUNT 23.4 x10^3/uL (4.8-10.8)
[2023-03-20 06:26] LABS: MAGNESIUM 1.7 mg/dL (1.7-2.3)
[2023-03-20 06:32] LABS: CALCIUM 8.8 mg/dL (8.5-10.3); CREATININE 0.5 mg/dL (0.6-1.3); POTASSIUM 3.9 mmol/L (3.5-4.5)
[2023-03-20 07:39] LABS: PLATELET ESTIMATE, MANUAL NORMAL (130-450,000) (NORMAL); PLATELET MORPHOLOGY NORMAL APPEARANCE (NORMAL)
[2023-03-20 07:40] LABS: DIFFERENTIAL COMMENT MANUAL=AUTO DIFF
[2023-03-20] MEDS: TIMOLOL 0.5% OPHTH DROPS EACHEYE SCH ×2 (09:23→21:16)
[2023-03-20] MEDS: SERTRALINE 50 MG TABLET PO SCH (09:24)
[2023-03-20] MEDS: ZINC SULFATE 220 MG CAPSULE PO SCH (09:24)
[2023-03-20] MEDS: ASCORBIC ACID 500 MG TABLET PO SCH (09:24)
[2023-03-20] MEDS: MULTIVITAMIN W/MINERALS TABLET PO SCH (09:24)
[2023-03-20] MEDS: CHOLECALCIFEROL 25 MCG TABLET PO SCH (09:24)
[2023-03-20] MEDS: COMBIGAN EACHEYE SCH ×2 (09:25→21:16)
[2023-03-20] MEDS: EYE EACHEYE SCH ×2 (09:25→21:16)
[2023-03-20] MEDS: ASPIRIN CHEW 81 MG TABLET PO SCH (09:25)
--- NOTE | 2023-03-20 10:33 | PROVIDER PROGRESS NOTE ---
Assessment/Plan - Problem List (1) Osteomyelitis of sacrum Assessment/Plan: Debridement of the sacral wound, done by surgery 3 days ago, revealed her wound is down to the bone. Sacral x-ray done which was unremarkable. CT of pelvis then done which does show osteomyelitis Plan: The patient will need PICC tube line inserted and 6 weeks of IV antibiotics I ordered a PICC line placed yesterday 03/19. Anesthesia and general surgery spoke to the regarding duration of treatment needed and that it may be futile because of her underlying malnutrition and overall bedridden condition. The yesterday said he wanted to think about the PICC line and speak to his son. (He has answered this same way when in discussion with ST at [facility], and then never responded to attempts at contacting him). Continue with IV Vanco and IV Zosyn (2) Bacteremia due to Proteus species Assessment/Plan: Her bld cx quickly turned pos and been identified by PCR as Proteus mirabilis She has been on Pip/Tazo The sens are back and the Proteus mirabilus is resistant to fluoroquinolones. Plan Cont iv Zosyn (3) Bacteremia due to Staph Lab also reported (+) blood cx growing Staph Anginosus Vanco was resumed 03/18, given the other potential source of sepsis being her s acral wound The sens are back and the Staph Anginosus is resistant to tetracycline only Plan: Cont iv Vanco (4) Sacral ulcer Assessment/Plan: She has a very large, dark decubitus, pressure ulcer, larger than when she last was here. Appreciate General Surgery consult and debridement several days ago The wound cx is resulted and is growing Proteus mirabilis, E coli, Ebnterococcus fecalis and Strep Anginosus. The Proteus is resistant to floroquinolones.The E. coli is pansensitive. The Enterococcus faecalis is resistant to tetracycline only Plan: Cont Vano and Pip/Tazo iv Cont dressings BID by nursing now, and topical management as per Gen Surg. I spoke to Dr Perera today (5) E coli Urinary tract infection Qualifiers: Urinary tract infection type: site unspecified Hematuria presence: without hematuria Qualified Code(s): N39.0 - Urinary tract infection, site not specified Assessment/Plan: Her U/A was abnormal at adm. Urine cx has grown out a centeno-sens E coli Plan: Cont with iv Pip/TAzo (6) Type 2 diabetes mellitus Assessment/Plan: On 03/17 her glucose before breakfast was 61. She was treated as per Hypoglycemia protocol Now on ng tube feeds her glu are running 240 today Plan: Cont Dobhoff feeds and is also swallowing around the feeding tube. Cont sliding scale insulin and I aileen adjust her scheduled insulin doses Continue with hypoglycemia protocol (7) Severe protein calorie malnutrition Assessment/Plan: She has a documented weight loss of 30 kg in 19 months, sacral wound and is now bedridden from her weakness Dr. Reza inserted Dobbhoff tube and tube feeds were started yesterday 12.14 via Dobhoff Pt also swallows around the Dobhoff tube and said she "likes to chew", but must be fed. Plan: IV fluids down to TKO and Dobhoff feeds continue. She also swallows around the tube, but must be fed Palliative Care to see her today, to assist the and making decisions for her since she is critically ill, malnourished and has a very poor prognosis. I spoke to Palliative care provider [employer] Shruthi Russ today I also spoke to Speech Therapist who did a swallow eval today, and pt does not aspirate. ST told me she has been seen while at [facility] for weeks and was only taking shakes, and that ST already tried to explain poor prognosis with who did not want to stop with aggressive management then. (8) Ischemic cardiomyopathy Assessment/Plan: At her admission here 1 month ago her echo showed an EF of 30 to 35% which is a new finding for her. She was taken off her statin due to malnutrition but discharged to SNF on cardiac meds Plan: All her cardiac meds were on hold because of hypotension from septic shock Will resume cardiac meds (9) Paroxysmal atrial fibrillation Assessment/Plan: Plan: Continue to monitor on telemetry. Cardiac meds on hold due to low blood pressure No anticoagulation due to recent brain bleed (10) Hypothyroid Assessment/Plan: TSH was just checked at last admission and TSH was 4.29 Plan: Continue her Levothyroxine when she is able to swallow (11) CVA (cerebral vascular accident) Assessment/Plan: History of CVA with residual right-sided deficits. 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 Head CT then showed a left frontal contusion and hematoma. She had a large bruise around the L eye at the last admission here 3 weeks ago Plan: Remain off Eliquis. Eliquis could be restarted eventually only if she will be bedbound and if no contraindications. Otherwise she will no longer be on an anticoagulant because of fall and brain bleed (13) Septic shock Assessment/Plan: Hypotension has RESOLVED She presented with shock, tachycardia, hypotension, elevated white count and new obtundation. Source appears to be a UTI or possibly her very large sacral decubitus Pt was given IVF, Zosyn/Vanco in the ER. She is minimally more awake today. WBC 20>> 14 today (all labs were reviewed) Plan: Continue with supportive care, empiric IV antibiotics as ordered by admitting Telemedicine provider, cont IV fluids Follow CBC daily (14) Prerenal azotemia Assessment/Plan: RESOLVED BUN/creatinine have normalized with iv fluids (all labs reviewed) Plan: Cont iv infusion at TKO plus ng feeds Follow BMP daily - Current Meds Current Meds: Current Medications Generic Name Dose Route Start Last Admin Trade Name Ambrosioq PRN Reason Stop Dose Admin Ascorbic Acid 500 mg 03/19/23 09:00 03/20/23 09:24 Ascorbic Acid 500 Mg Tablet PO 500 mg DAILY ELIZABETH Administration Aspirin 81 mg 03/17/23 09:00 03/20/23 09:25 Aspirin Chew 81 Mg Tablet PO 81 mg DAILY ELIZABETH Administration Carboxymethylcellulose 1 drops 03/17/23 21:00 03/19/23 21:28 Carboxymethylcellulose Ophth Drops EACHEYE 1 drops QPM ELIZABETH Administration Cholecalciferol 50 mcg 03/17/23 09:00 03/20/23 09:24 Cholecalciferol 25 Mcg Tablet PO 50 mcg DAILY ELIZABETH Administration Piperacillin Sod/Tazobactam 100 mls @ 25 mls/hr 03/16/23 22:00 03/20/23 09:55 Sod 4.5 gm/ Sodium Chloride IV Infused Q8H ELIZABETH Infusion Dextrose/Sodium Chloride 1,000 mls @ 30 mls/hr 03/19/23 10:35 03/19/23 12:36 D5.45ns IV Not Given .[id number] ELIZABETH Vancomycin HCl 1 gm/ 265 mls @ 166.667 mls/hr 03/19/23 21:00 03/20/23 10:17 Vancomycin HCl 250 mg/ Sodium IV Infused Chloride Q24H ELIZABETH Infusion Levothyroxine Sodium 50 mcg 03/17/23 07:00 03/20/23 05:46 Levothyroxine 25 Mcg Tablet PO Not Given QDAC ELIZABETH Multivitamins/Minerals 1 tab 03/19/23 08:00 03/20/23 09:24 Multivitamin W/Minerals Tablet PO 1 tab DAILYWM ELIZABETH Administration Pantoprazole Sodium 40 mg 03/17/23 07:00 03/20/23 05:47 Pantoprazole 40 Mg Tablet PO Not Given BIDAC ELIZABETH Patient Own Med ( 1 each 03/17/23 09:00 03/20/23 09:25 Combigan 0.2%-0.5% EACHEYE Not Given Eye Drops) BID ELIZABETH Sertraline HCl 50 mg 03/17/23 09:00 03/20/23 09:24 Sertraline 50 Mg Tablet PO 50 mg DAILY ELIZABETH Administration Sodium Chloride 10 ml 03/16/23 21:20 03/17/23 05:57 Sodium Chloride Flush 0.9% 10 Ml Syringe IVP 10 ml PRN PRN Administration NEEDED PER PROVIDER ORDERS Sodium Chloride 10 ml 03/17/23 01:00 03/20/23 09:25 Sodium Chloride Flush 0.9% 10 Ml Syringe IVP Not Given 0100,0900,1700 ELIZABETH Timolol Maleate 1 drops 03/17/23 09:00 03/20/23 09:23 Timolol 0.5% Ophth Drops EACHEYE 1 drops BID ELIZABETH Administration Zinc Sulfate 220 mg 03/19/23 09:00 03/20/23 09:24 Zinc Sulfate 220 Mg Capsule PO 220 mg DAILY ELIZABETH Administration - Lab Result Fish Bone Diagrams: 03/20/23 05:30 03/20/23 05:30 - Additional Planning My Orders: My Active Orders 03/19/23 10:34 PICC Line Care [RC] Q4H PICC Line Insert [RC] .ONCE 03/19/23 10:35 Dextrose 5%-0.45% NaCl [D5.45ns] 1,000 ml IV 30 mls/hr 03/19/23 Dinner Dysphagia - Puree [DIET] 03/19/23 21:00 Vancomycin Inj [Vancomycin] 1 gm Vancomycin Inj [Vancomycin Hcl] 250 mg Sodium Chloride 0.9% [Normal Saline 0.9%] 250 ml IV Q24H 03/20/23 21:00 Insulin Glargine-Yfgn [Semglee] 5 unit SUBQ BID 03/21/23 05:00 CBC - COMP BLD CT W/AUTO DIFF [HEME] DAILYLAB COMPREHENSIVE METABOLIC PANEL [CHEM] Timed MAGNESIUM [CHEM] Timed PHOSPHORUS [CHEM] Timed PREALBUMIN [CHEM] Timed 03/21/23 20:00 VANCOMYCIN TROUGH [CHEM] Timed 03/22/23 05:00 CBC - COMP BLD CT W/AUTO DIFF [HEME] DAILYLAB 03/23/23 05:00 CBC - COMP BLD CT W/AUTO DIFF [HEME] DAILYLAB 03/24/23 05:00 CBC - COMP BLD CT W/AUTO DIFF [HEME] DAILYLAB COMPREHENSIVE METABOLIC PANEL [CHEM] Timed MAGNESIUM [CHEM] Timed PHOSPHORUS [CHEM] Timed PREALBUMIN [CHEM] Timed Subjective - Subjective Patient Reports: Resting Comfortably Nursing Reports: Other (swallows w/out aspirating, chews a long time) Objective Vital Signs: Vital Signs - 24 hr 03/19/23 03/19/23 03/20/23 16:00 23:42 07:25 Temperature 37.0 C 37.2 C 37 C Heart Rate [ 92 101 H 98 Brachial] Respiratory 24 18 24 Rate Blood Pressure 123/56 L 136/63 H 105/53 L [Left Brachial artery] O2 Saturation 97 92 94 Oxygen O2 Source Room air I&O (Last 24 Hrs): Intake and Output Totals x24h 03/18/23 03/19/23 03/20/23 23:59 23:59 23:59 Intake Total 3934.247 3040.503 1903 Output Total 930 625 650 Balance 3004.247 2415.503 1253 General: Other (Lethargic, grimaces to pain, not speaking, able to chew and swallow but needs to be fed) HEENT: Mucous membr. moist/pink, Other (Disheveled and greasy face. Has Dobhoff tube in place) Neck: No JVD Neuro: Other (Lethargic, does not speak, opens eyes spont) Cardiovascular: Regular rate Respiratory: No respiratory distress Abdomen: Soft Extremities: No clubbing, No edema, No tenderness/swelling - Results Results: Laboratory Results WBC 23.4 x10^3/uL (4.8-10.8) H 03/20/23 05:30 RBC 3.26 10^6/uL (4.20-5.40) L 03/20/23 05:30 Hgb 8.9 g/dL (12.0-16.0) L 03/20/23 05:30 Hct 29.4 % (37.0-47.0) L 03/20/23 05:30 MCV 90.2 fL (81.0-99.0) 03/20/23 05:30 MCH 27.3 pg (27.0-31.0) 03/20/23 05:30 MCHC 30.3 g/dL (32.0-36.0) L 03/20/23 05:30 RDW 17.8 % (12.0-15.0) H 03/20/23 05:30 Plt Count 233 10^3/uL (130-450) 03/20/23 05:30 MPV 13.0 fL (7.9-10.8) H 03/20/23 05:30 Neut # (Auto) 19.9 10^3/uL (1.5-6.6) H 03/20/23 05:30 Lymph # (Auto) 1.8 10^3/uL (1.5-3.5) 03/20/23 05:30 [place] # (Auto) 0.8 10^3/uL (0.0-1.0) 03/20/23 05:30 Eos # (Auto) 0.1 10^3/uL (0.0-0.7) 03/20/23 05:30 Baso # (Auto) 0.1 10^3/uL (0.0-0.1) 03/20/23 05:30 Absolute Nucleated RBC 0.02 x10^3/uL 03/20/23 05:30 Total Counted 100 03/16/23 17:45 Band Neuts % (Manual) Not Reportable 03/20/23 05:30 Abnorm Lymph % (Manual) Not Reportable 03/20/23 05:30 Metamyelocytes % 1 % (-0) H 03/16/23 17:45 Nucleated RBC % 0.1 /100WBC 03/20/23 05:30 Neutrophils # (Manual) Not Reportable 03/20/23 05:30 Lymphocytes # (Manual) Not Reportable 03/20/23 05:30 Monocytes # (Manual) Not Reportable 03/20/23 05:30 Eosinophils # (Manual) Not Reportable 03/20/23 05:30 Basophils # (Manual) Not Reportable 03/20/23 05:30 Differential Comment MANUAL=AUTO DIFF 03/20/23 05:30 Platelet Estimate NORMAL (130-450,000) (NORMAL) 03/20/23 05:30 Platelet Morphology NORMAL APPEARANCE (NORMAL) 03/20/23 05:30 RBC Morph Micro Appear NORMAL APPEARANCE (NORMAL) 03/16/23 17:45 PT 12.3 secs (9.9-12.6) 03/16/23 17:45 INR 1.1 (0.8-1.2) 03/16/23 17:45 APTT 20.5 secs (24.9-33.3) L 03/16/23 17:45 Sodium 145 mmol/L (135-145) 03/20/23 05:30 Potassium 3.9 mmol/L (3.5-4.5) 03/20/23 05:30 Chloride 113 mmol/L (101-111) H 03/20/23 05:30 Carbon Dioxide 26 mmol/L (21-32) 03/20/23 05:30 Anion Gap 6.0 (6-13) 03/20/23 05:30 BUN 12 mg/dL (6-20) 03/20/23 05:30 Creatinine 0.5 mg/dL (0.6-1.3) L 03/20/23 05:30 Estimated GFR (MDRD) 119 (>89) 03/20/23 05:30 Glucose 270 mg/dL (74-104) H 03/20/23 05:30 POC Whole Bld Glucose 245 mg/dL (70 - 100) H 03/20/23 07:22 Estimat Average Glucose 120 mg/dL (70-100) H 03/17/23 04:48 Hemoglobin A1c % 5.8 % (4.27-6.07) 03/17/23 04:48 Lactic Acid 1.1 mmol/L (0.5-2.2) 03/16/23 17:45 Calcium 8.8 mg/dL (8.5-10.3) 03/20/23 05:30 Phosphorus 2.2 mg/dL (2.5-5.0) L 03/20/23 05:30 Magnesium 1.7 mg/dL (1.7-2.3) 03/20/23 05:30 Iron 15 ug/dL (50-212) L 03/19/23 05:06 TIBC 109 ug/dL (250-450) L 03/19/23 05:06 % Saturation 14 % (20-50) L 03/19/23 05:06 Transferrin 78 mg/dL (203-362) L 03/19/23 05:06 Total Bilirubin 0.5 mg/dL (0.2-1.0) 03/19/23 05:06 AST 20 IU/L (10-42) 03/19/23 05:06 ALT 14 IU/L (10-60) 03/19/23 05:06 Alkaline Phosphatase 73 IU/L (42-121) 03/19/23 05:06 Total Protein 5.2 g/dL (6.4-8.9) L 03/19/23 05:06 Albumin 2.3 g/dL (3.2-5.5) L 03/19/23 05:06 Globulin 2.9 g/dL (2.1-4.2) 03/19/23 05:06 Albumin/Globulin Ratio 0.8 (1.0-2.2) L 03/19/23 05:06 Prealbumin 3 mg/dL (17-34) L 03/19/23 05:06 Triglycerides 150 mg/dL (48-352) 03/17/23 04:48 Cholesterol 69 mg/dL (-200) 03/17/23 04:48 LDL Cholesterol, Calc 26 mg/dL (-129) 03/17/23 04:48 VLDL Cholesterol 30 mg/dL 03/17/23 04:48 HDL Cholesterol 13 mg/dL (60-) L 03/17/23 04:48 LDL/HDL Ratio 2.0 (<4.4) 03/17/23 04:48 Cholesterol/HDL Ratio 5.3 (<4.4) 03/17/23 04:48 Lipase 20 U/L (11-82) 03/16/23 17:45 Urine Color YELLOW 03/16/23 17:55 Urine Clarity HAZY (CLEAR) 03/16/23 17:55 Urine pH 5.5 PH (5.0-7.5) 03/16/23 17:55 Ur Specific [place] 1.010 (1.002-1.030) 03/16/23 17:55 Urine Protein TRACE mg/dL (NEGATIVE) 03/16/23 17:55 Urine Glucose (UA) >=1000 mg/dL (NEGATIVE) H 03/16/23 17:55 Urine Ketones NEGATIVE mg/dL (NEGATIVE) 03/16/23 17:55 Urine Occult Blood TRACE-INTA (NEGATIVE) 03/16/23 17:55 Urine Nitrite POSITIVE (NEGATIVE) H 03/16/23 17:55 Urine Bilirubin NEGATIVE (NEGATIVE) 03/16/23 17:55 Urine Urobilinogen 0.2 (NORMAL) E.U./dL (NORMAL) 03/16/23 17:55 Ur Leukocyte Esterase SMALL (NEGATIVE) H 03/16/23 17:55 Urine RBC 0-5 /HPF (0-5) 03/16/23 17:55 Urine WBC >25 /HPF (0-5) H 03/16/23 17:55 Ur Squamous Epith Cells FEW Squamous (<= Few) 03/16/23 17:55 Urine Bacteria Moderate /HPF (None Seen) H 03/16/23 17:55 Urine Yeast PRESENT 03/16/23 17:55 Ur Microscopic Review INDICATED 03/16/23 17:55 Urine Culture Comments INDICATED 03/16/23 17:55 - Procedures Procedures: Procedures INSERTION OF INFUSION DEV INTO SUP VENA CAVA, PERC APPROACH (02/10/23) Sepsis Event Note (H) - Evaluation Possible source of Sepsis: positive: Genitourinary, Skin/soft tissue
[2023-03-20] MEDS: NEUTRA-PHOS 250 MG TABLET PO SCH (12:09)
[2023-03-20] MEDS: DEXTROSE 5%-0.45% NACL 1,000 ML IV SCH (12:21)
--- NOTE | 2023-03-20 13:32 | PROVIDER PROGRESS NOTE ---
Subjective - General Admit Date: 03/16/23 Procedure Date: 03/17/23 Post Op Days: 3 Procedure Performed: bedside debridement of sacral decubitus ulcer - Review of Systems Wound/Incisions: positive: Decubitis (Persistently malodorous. Sacrum (bone) visible. Necrotic nonviable tissue at the base and surrounding the sacrum. Sprayed with wound rope cleaner and redressed.) General: positive: Other (Slightly more responsive today. Opened her eyes initially.) HEENT: positive: Other (Cannot evaluate secondary to unresponsiveness.) Pulmonary: positive: Other (Cannot evaluate secondary to unresponsiveness.) Cardiovascular: positive: Other (Cannot evaluate secondary to unresponsiveness.) Gastrointestinal: positive: Other (Cannot evaluate secondary to unresponsiveness.) Genitourinary: positive: Other (Cannot evaluate secondary to unresponsiveness.) Musculoskeletal: positive: Other (Cannot evaluate secondary to unresponsiveness.) Skin: positive: Other (Cannot evaluate secondary to unresponsiveness.) Psychiatric: positive: Other (Cannot evaluate secondary to unresponsiveness.) All Other Systems: positive: Other (Unable to obtain d/t patient's clinical con dition.) Objective - Patient Data Reviewed Vital Signs: Yes Vital Signs: Vital Signs x48h Temp Pulse Resp BP Pulse Ox 03/20/23 07:25 37 C 98 24 105/53 L 94 Weight: Weight 03/18/23 03/19/23 03/20/23 23:59 23:59 23:59 Weight (kg) 60 kg 62 kg 66 kg Intake & Output: Intake and Output Totals x24h 03/18/23 03/19/23 03/20/23 23:59 23:59 23:59 Intake Total 3934.247 3040.503 2028 Output Total 930 625 650 Balance 3004.247 2415.503 1378 - Lab Results Lab Results: 03/20/23 05:30 03/20/23 05:30 Other Lab Results: Lab Results x24hrs 03/20/23 03/20/23 03/20/23 Range/Units 11:09 07:22 05:30 WBC (4.8-10.8) x10^3/uL RBC (4.20-5.40) 10^6/uL Hgb (12.0-16.0) g/dL Hct (37.0-47.0) % MCV (81.0-99.0) fL MCH (27.0-31.0) pg MCHC (32.0-36.0) g/dL RDW (12.0-15.0) % Plt Count (130-450) 10^3/uL MPV (7.9-10.8) fL Neut # (Auto) (1.5-6.6) 10^3/uL Lymph # (Auto) (1.5-3.5) 10^3/uL [place] # (Auto) (0.0-1.0) 10^3/uL Eos # (Auto) (0.0-0.7) 10^3/uL Baso # (Auto) (0.0-0.1) 10^3/uL Absolute Nucleated RBC x10^3/uL Band Neuts % (Manual) Abnorm Lymph % (Manual) Nucleated RBC % /100WBC Neutrophils # (Manual) Lymphocytes # (Manual) Monocytes # (Manual) Eosinophils # (Manual) Basophils # (Manual) Differential Comment Platelet Estimate (NORMAL) Platelet Morphology (NORMAL) Sodium (135-145) mmol/L Potassium (3.5-4.5) mmol/L Chloride (101-111) mmol/L Carbon Dioxide (21-32) mmol/L Anion Gap (6-13) BUN (6-20) mg/dL Creatinine (0.6-1.3) mg/dL Estimated GFR (MDRD) (>89) Glucose (74-104) mg/dL POC Whole Bld Glucose 255 H 245 H (70 - 100) mg/dL Calcium (8.5-10.3) mg/dL Phosphorus 2.2 L (2.5-5.0) mg/dL Magnesium (1.7-2.3) mg/dL 03/20/23 03/20/23 03/19/23 Range/Units 05:30 05:30 20:32 WBC 23.4 H (4.8-10.8) x10^3/uL RBC 3.26 L (4.20-5.40) 10^6/uL Hgb 8.9 L (12.0-16.0) g/dL Hct 29.4 L (37.0-47.0) % MCV 90.2 (81.0-99.0) fL MCH 27.3 (27.0-31.0) pg MCHC 30.3 L (32.0-36.0) g/dL RDW 17.8 H (12.0-15.0) % Plt Count 233 (130-450) 10^3/uL MPV 13.0 H (7.9-10.8) fL Neut # (Auto) 19.9 H (1.5-6.6) 10^3/uL Lymph # (Auto) 1.8 (1.5-3.5) 10^3/uL [place] # (Auto) 0.8 (0.0-1.0) 10^3/uL Eos # (Auto) 0.1 (0.0-0.7) 10^3/uL Baso # (Auto) 0.1 (0.0-0.1) 10^3/uL Absolute Nucleated RBC 0.02 x10^3/uL Band Neuts % (Manual) Not Reportable Abnorm Lymph % (Manual) Not Reportable Nucleated RBC % 0.1 /100WBC Neutrophils # (Manual) Not Reportable Lymphocytes # (Manual) Not Reportable Monocytes # (Manual) Not Reportable Eosinophils # (Manual) Not Reportable Basophils # (Manual) Not Reportable Differential Comment MANUAL=AUTO DIFF Platelet Estimate NORMAL (130-450,000) (NORMAL) Platelet Morphology NORMAL APPEARANCE (NORMAL) Sodium 145 (135-145) mmol/L Potassium 3.9 (3.5-4.5) mmol/L Chloride 113 H (101-111) mmol/L Carbon Dioxide 26 (21-32) mmol/L Anion Gap 6.0 (6-13) BUN 12 (6-20) mg/dL Creatinine 0.5 L (0.6-1.3) mg/dL Estimated GFR (MDRD) 119 (>89) Glucose 270 H (74-104) mg/dL POC Whole Bld Glucose 189 H (70 - 100) mg/dL Calcium 8.8 (8.5-10.3) mg/dL Phosphorus (2.5-5.0) mg/dL Magnesium 1.7 (1.7-2.3) mg/dL 03/19/23 Range/Units 16:19 WBC (4.8-10.8) x10^3/uL RBC (4.20-5.40) 10^6/uL Hgb (12.0-16.0) g/dL Hct (37.0-47.0) % MCV (81.0-99.0) fL MCH (27.0-31.0) pg MCHC (32.0-36.0) g/dL RDW (12.0-15.0) % Plt Count (130-450) 10^3/uL MPV (7.9-10.8) fL Neut # (Auto) (1.5-6.6) 10^3/uL Lymph # (Auto) (1.5-3.5) 10^3/uL [place] # (Auto) (0.0-1.0) 10^3/uL Eos # (Auto) (0.0-0.7) 10^3/uL Baso # (Auto) (0.0-0.1) 10^3/uL Absolute Nucleated RBC x10^3/uL Band Neuts % (Manual) Abnorm Lymph % (Manual) Nucleated RBC % /100WBC Neutrophils # (Manual) Lymphocytes # (Manual) Monocytes # (Manual) Eosinophils # (Manual) Basophils # (Manual) Differential Comment Platelet Estimate (NORMAL) Platelet Morphology (NORMAL) Sodium (135-145) mmol/L Potassium (3.5-4.5) mmol/L Chloride (101-111) mmol/L Carbon Dioxide (21-32) mmol/L Anion Gap (6-13) BUN (6-20) mg/dL Creatinine (0.6-1.3) mg/dL Estimated GFR (MDRD) (>89) Glucose (74-104) mg/dL POC Whole Bld Glucose 172 H (70 - 100) mg/dL Calcium (8.5-10.3) mg/dL Phosphorus (2.5-5.0) mg/dL Magnesium (1.7-2.3) mg/dL - Current Medications Current Medications: Current Medications Generic Name Dose Route Start Last Admin Trade Name Annika PRN Reason Stop Dose Admin Ascorbic Acid 500 mg 03/19/23 09:00 03/20/23 09:24 Ascorbic Acid 500 Mg Tablet PO 500 mg DAILY ELIZABETH Administration Aspirin 81 mg 03/17/23 09:00 03/20/23 09:25 Aspirin Chew 81 Mg Tablet PO 81 mg DAILY ELIZABETH Administration Carboxymethylcellulose 1 drops 03/17/23 21:00 03/19/23 21:28 Carboxymethylcellulose Ophth Drops EACHEYE 1 drops QPM ELIZABETH Administration Cholecalciferol 50 mcg 03/17/23 09:00 03/20/23 09:24 Cholecalciferol 25 Mcg Tablet PO 50 mcg DAILY ELIZABETH Administration Piperacillin Sod/Tazobactam 100 mls @ 25 mls/hr 03/16/23 22:00 03/20/23 09:55 Sod 4.5 gm/ Sodium Chloride IV Infused Q8H ELIZABETH Infusion Dextrose/Sodium Chloride 1,000 mls @ 30 mls/hr 03/19/23 10:35 03/20/23 12:21 D5.45ns IV 30 mls/hr .[id number] ELIZABETH Administration Vancomycin HCl 1 gm/ 265 mls @ 166.667 mls/hr 03/19/23 21:00 03/20/23 10:17 Vancomycin HCl 250 mg/ Sodium IV Infused Chloride Q24H ELIZABETH Infusion Levothyroxine Sodium 50 mcg 03/17/23 07:00 03/20/23 05:46 Levothyroxine 25 Mcg Tablet PO Not Given QDAC [facility] Multivitamins/Minerals 1 tab 03/19/23 08:00 03/20/23 09:24 Multivitamin W/Minerals Tablet PO 1 tab DAILYWM ELIZABETH Administration Pantoprazole Sodium 40 mg 03/17/23 07:00 03/20/23 05:47 Pantoprazole 40 Mg Tablet PO Not Given BIDAC [facility] Patient Own Med ( 1 each 03/17/23 09:00 03/20/23 09:25 Combigan 0.2%-0.5% EACHEYE Not Given Eye Drops) BID [facility] Sertraline HCl 50 mg 03/17/23 09:00 03/20/23 09:24 Sertraline 50 Mg Tablet PO 50 mg DAILY ELIZABETH Administration Sodium Chloride 10 ml 03/16/23 21:20 03/17/23 05:57 Sodium Chloride Flush 0.9% 10 Ml Syringe IVP 10 ml PRN PRN Administration NEEDED PER PROVIDER ORDERS Sodium Chloride 10 ml 03/17/23 01:00 03/20/23 09:25 Sodium Chloride Flush 0.9% 10 Ml Syringe IVP Not Given 0100,0900,1700 [facility] Sodium Phosphate 250 mg 03/20/23 12:00 03/20/23 12:09 Neutra-Phos 250 Mg Tablet PO 250 mg DAILYWM ELIZABETH Administration Timolol Maleate 1 drops 03/17/23 09:00 03/20/23 09:23 Timolol 0.5% Ophth Drops EACHEYE 1 drops BID ELIZABETH Administration Zinc Sulfate 220 mg 03/19/23 09:00 03/20/23 09:24 Zinc Sulfate 220 Mg Capsule PO 220 mg DAILY ELIZABETH Administration - Physical Exam Wound/Incisions: positive: Decubitis (Necrosis and exposed bone.) General Appearance: positive: Other (Minimal response to verbal and tactile stimuli) Eyes Bilateral: positive: No lid inflammation, Conjunctivae nml, No scleral icterus ENT: positive: Dry mucous membranes (Mouth consistently open.) Respiratory: positive: Chest non-tender, No respiratory distress, Breath sounds nml Cardiovascular: positive: Regular rate & rhythm, No murmur Abdomen: positive: Non-tender, Nml bowel sounds Skin: positive: Color nml, Warm, Dry Extremities: positive: Other (Mildly improved anasarca.) Neurologic/Psychiatric: positive: Other (Minimal response to verbal or tactile stimuli.) ABX Reporting Has patient been on IV antibiotics over the past 48 hours?: Yes Impression/Plan - Problem List Problem List: Plan: There is no doubt that the patient is mentally a bit more responsive today but I cannot get her to either squeeze my hand in response to questions or verbalize. 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 This is in contrast to what his heart is telling him that he is not willing to let her go. He wished to meet today around noon but it is now 1:30 in the afternoon and he has not arrived. White blood cell count is elevated again today. There is nothing that is saying that anything needs to be done emergently today. I tried asking her if she wished to continue living if living meant living exactly like this and I could not get her to answer that question. With the passage of time I become more and more convinced that palliative care is the appropriate approach in this patient. Again I am not the admitting physician. CPT 00350
--- NOTE | 2023-03-20 19:27 | PROVIDER PROGRESS NOTE ---
Subjective - General Admit Date: 03/16/23 Procedure Date: 03/17/23 Post Op Days: 3 Procedure Performed: bedside debridement of sacral decubitus ulcer - Review of Systems Wound/Incisions: positive: Decubitis (Necrosis and exposed bone.) General: positive: Other (Slightly more responsive today. Opened her eyes initially.) HEENT: positive: Other (Cannot evaluate secondary to unresponsiveness.) Pulmonary: positive: Other (Cannot evaluate secondary to unresponsiveness.) Cardiovascular: positive: Other (Cannot evaluate secondary to unresponsiveness.) Gastrointestinal: positive: Other (Cannot evaluate secondary to unresponsiveness.) Genitourinary: positive: Other (Cannot evaluate secondary to unresponsiveness.) Musculoskeletal: positive: Other (Cannot evaluate secondary to unresponsiveness.) Skin: positive: Other (Cannot evaluate secondary to unresponsiveness.) Psychiatric: positive: Other (Cannot evaluate secondary to unresponsiveness.) All Other Systems: positive: Other (Unable to obtain d/t patient's clinical condition.) Objective - Patient Data Vital Signs: Vital Signs x48h Temp Pulse Resp BP Pulse Ox 03/20/23 16:00 36.2 C L 96 24 117/50 L 94 Weight: Weight 03/18/23 03/19/23 03/20/23 23:59 23:59 23:59 Weight (kg) 60 kg 62 kg 66 kg Intake & Output: Intake and Output Totals x24h 03/18/23 03/19/23 03/20/23 23:59 23:59 23:59 Intake Total 3934.247 3040.503 2492 Output Total 344 015 3606 Balance 3004.247 2415.503 692 - Lab Results Lab Results: 03/20/23 05:30 03/20/23 05:30 Other Lab Results: Lab Results x24hrs 03/20/23 03/20/23 03/20/23 Range/Units 16:37 11:09 07:22 WBC (4.8-10.8) x10^3/uL RBC (4.20-5.40) 10^6/uL Hgb (12.0-16.0) g/dL Hct (37.0-47.0) % MCV (81.0-99.0) fL MCH (27.0-31.0) pg MCHC (32.0-36.0) g/dL RDW (12.0-15.0) % Plt Count (130-450) 10^3/uL MPV (7.9-10.8) fL Neut # (Auto) (1.5-6.6) 10^3/uL Lymph # (Auto) (1.5-3.5) 10^3/uL [place] # (Auto) (0.0-1.0) 10^3/uL Eos # (Auto) (0.0-0.7) 10^3/uL Baso # (Auto) (0.0-0.1) 10^3/uL Absolute Nucleated RBC x10^3/uL Band Neuts % (Manual) Abnorm Lymph % (Manual) Nucleated RBC % /100WBC Neutrophils # (Manual) Lymphocytes # (Manual) Monocytes # (Manual) Eosinophils # (Manual) Basophils # (Manual) Differential Comment Platelet Estimate (NORMAL) Platelet Morphology (NORMAL) Sodium (135-145) mmol/L Potassium (3.5-4.5) mmol/L Chloride (101-111) mmol/L Carbon Dioxide (21-32) mmol/L Anion Gap (6-13) BUN (6-20) mg/dL Creatinine (0.6-1.3) mg/dL Estimated GFR (MDRD) (>89) Glucose (74-104) mg/dL POC Whole Bld Glucose 269 H 255 H 245 H (70 - 100) mg/dL Calcium (8.5-10.3) mg/dL Phosphorus (2.5-5.0) mg/dL Magnesium (1.7-2.3) mg/dL 03/20/23 03/20/23 03/20/23 Range/Units 05:30 05:30 05:30 WBC 23.4 H (4.8-10.8) x10^3/uL RBC 3.26 L (4.20-5.40) 10^6/uL Hgb 8.9 L (12.0-16.0) g/dL Hct 29.4 L (37.0-47.0) % MCV 90.2 (81.0-99.0) fL MCH 27.3 (27.0-31.0) pg MCHC 30.3 L (32.0-36.0) g/dL RDW 17.8 H (12.0-15.0) % Plt Count 233 (130-450) 10^3/uL MPV 13.0 H (7.9-10.8) fL Neut # (Auto) 19.9 H (1.5-6.6) 10^3/uL Lymph # (Auto) 1.8 (1.5-3.5) 10^3/uL [place] # (Auto) 0.8 (0.0-1.0) 10^3/uL Eos # (Auto) 0.1 (0.0-0.7) 10^3/uL Baso # (Auto) 0.1 (0.0-0.1) 10^3/uL Absolute Nucleated RBC 0.02 x10^3/uL Band Neuts % (Manual) Not Reportable Abnorm Lymph % (Manual) Not Reportable Nucleated RBC % 0.1 /100WBC Neutrophils # (Manual) Not Reportable Lymphocytes # (Manual) Not Reportable Monocytes # (Manual) Not Reportable Eosinophils # (Manual) Not Reportable Basophils # (Manual) Not Reportable Differential Comment MANUAL=AUTO DIFF Platelet Estimate NORMAL (130-450,000) (NORMAL) Platelet Morphology NORMAL APPEARANCE (NORMAL) Sodium 145 (135-145) mmol/L Potassium 3.9 (3.5-4.5) mmol/L Chloride 113 H (101-111) mmol/L Carbon Dioxide 26 (21-32) mmol/L Anion Gap 6.0 (6-13) BUN 12 (6-20) mg/dL Creatinine 0.5 L (0.6-1.3) mg/dL Estimated GFR (MDRD) 119 (>89) Glucose 270 H (74-104) mg/dL POC Whole Bld Glucose (70 - 100) mg/dL Calcium 8.8 (8.5-10.3) mg/dL Phosphorus 2.2 L (2.5-5.0) mg/dL Magnesium 1.7 (1.7-2.3) mg/dL 03/19/23 Range/Units 20:32 WBC (4.8-10.8) x10^3/uL RBC (4.20-5.40) 10^6/uL Hgb (12.0-16.0) g/dL Hct (37.0-47.0) % MCV (81.0-99.0) fL MCH (27.0-31.0) pg MCHC (32.0-36.0) g/dL RDW (12.0-15.0) % Plt Count (130-450) 10^3/uL MPV (7.9-10.8) fL Neut # (Auto) (1.5-6.6) 10^3/uL Lymph # (Auto) (1.5-3.5) 10^3/uL [place] # (Auto) (0.0-1.0) 10^3/uL Eos # (Auto) (0.0-0.7) 10^3/uL Baso # (Auto) (0.0-0.1) 10^3/uL Absolute Nucleated RBC x10^3/uL Band Neuts % (Manual) Abnorm Lymph % (Manual) Nucleated RBC % /100WBC Neutrophils # (Manual) Lymphocytes # (Manual) Monocytes # (Manual) Eosinophils # (Manual) Basophils # (Manual) Differential Comment Platelet Estimate (NORMAL) Platelet Morphology (NORMAL) Sodium (135-145) mmol/L Potassium (3.5-4.5) mmol/L Chloride (101-111) mmol/L Carbon Dioxide (21-32) mmol/L Anion Gap (6-13) BUN (6-20) mg/dL Creatinine (0.6-1.3) mg/dL Estimated GFR (MDRD) (>89) Glucose (74-104) mg/dL POC Whole Bld Glucose 189 H (70 - 100) mg/dL Calcium (8.5-10.3) mg/dL Phosphorus (2.5-5.0) mg/dL Magnesium (1.7-2.3) mg/dL - Current Medications Current Medications: Current Medications Generic Name Dose Route Start Last Admin Trade Name Freq PRN Reason Stop Dose Admin Ascorbic Acid 500 mg 03/19/23 09:00 03/20/23 09:24 Ascorbic Acid 500 Mg Tablet PO 500 mg DAILY ELIZABETH Administration Aspirin 81 mg 03/17/23 09:00 03/20/23 09:25 Aspirin Chew 81 Mg Tablet PO 81 mg DAILY ELIZABETH Administration Carboxymethylcellulose 1 drops 03/17/23 21:00 03/19/23 21:28 Carboxymethylcellulose Ophth Drops EACHEYE 1 drops QPM ELIZABETH Administration Cholecalciferol 50 mcg 03/17/23 09:00 03/20/23 09:24 Cholecalciferol 25 Mcg Tablet PO 50 mcg DAILY ELIZABETH Administration Piperacillin Sod/Tazobactam 100 mls @ 25 mls/hr 03/16/23 22:00 03/20/23 14:09 Sod 4.5 gm/ Sodium Chloride IV 25 mls/hr Q8H ELIZABETH Administration Dextrose/Sodium Chloride 1,000 mls @ 30 mls/hr 03/19/23 10:35 03/20/23 14:15 D5.45ns IV 0 mls/hr .[id number] ELIZABETH Infusion Vancomycin HCl 1 gm/ 265 mls @ 166.667 mls/hr 03/19/23 21:00 03/20/23 10:17 Vancomycin HCl 250 mg/ Sodium IV Infused Chloride Q24H ELIZABETH Infusion Levothyroxine Sodium 50 mcg 03/17/23 07:00 03/20/23 05:46 Levothyroxine 25 Mcg Tablet PO Not Given QDAC ELIZABETH Multivitamins/Minerals 1 tab 03/19/23 08:00 03/20/23 09:24 Multivitamin W/Minerals Tablet PO 1 tab DAILYWM ELIZABETH Administration Pantoprazole Sodium 40 mg 03/17/23 07:00 03/20/23 16:05 Pantoprazole 40 Mg Tablet PO 40 mg BIDAC ELIZABETH Administration Patient Own Med ( 1 each 03/17/23 09:00 03/20/23 09:25 Combigan 0.2%-0.5% EACHEYE Not Given Eye Drops) BID ELIZABETH Sertraline HCl 50 mg 03/17/23 09:00 03/20/23 09:24 Sertraline 50 Mg Tablet PO 50 mg DAILY ELIZABETH Administration Sodium Chloride 10 ml 03/16/23 21:20 03/17/23 05:57 Sodium Chloride Flush 0.9% 10 Ml Syringe IVP 10 ml PRN PRN Administration NEEDED PER PROVIDER ORDERS Sodium Chloride 10 ml 03/17/23 01:00 03/20/23 16:05 Sodium Chloride Flush 0.9% 10 Ml Syringe IVP 10 ml 0100,0900,1700 ELIZABETH Administration Sodium Phosphate 250 mg 03/20/23 12:00 03/20/23 12:09 Neutra-Phos 250 Mg Tablet PO 250 mg DAILYWM ELIZABETH Administration Timolol Maleate 1 drops 03/17/23 09:00 03/20/23 09:23 Timolol 0.5% Ophth Drops EACHEYE 1 drops BID ELIZABETH Administration Zinc Sulfate 220 mg 03/19/23 09:00 03/20/23 09:24 Zinc Sulfate 220 Mg Capsule PO 220 mg DAILY ELIZABETH Administration Impression/Plan - Problem List Problem List: Called in because again the is not vocalizing an appropriate understanding of the patient's condition - he thinks that antibiotics can solve the issue. I reoriented him about the challenges that his faces. She is not ambulatory, has extremely poor nutrition, has a large necrotic sacral decubitus with osteomyelitis and has a worsening WBC despite antibiotics. She is essentially non-verbal and has suffered a significant brain injury and stroke in addition to heart disease. There is no possibility that this sacral dec ubitus will heal. She would need excellent nutrition, she would need to be ambulatory and she would need fpc antibiotics to help her already compromised immune system. This is not a realistic expectation and I explained that to him. I explained that I needed his "engineering brain" to do the thinking and not his heart. He told me that he wants his son involved in the decision making and I explained that I was waiting for them this afternoon. I made it very clear that nothing is more important than his and his son active involvement in the end of life care issues of his . They need to be here for her. I stated that it was an honor meeting them and being involved in her care. Please let me know if I can be of any further help. All of this conversation was in the presence of Cal Hdz (nurse).
[2023-03-20] MEDS: CARBOXYMETHYLCELLULOSE OPHTH DROPS EACHEYE SCH (21:15)
[2023-03-20] MEDS: VANCOMYCIN INJ 1 GM, VANCOMYCIN INJ 250 MG in SODIUM CHLORIDE 0.9% 250 ML IV SCH (21:16)
[2023-03-20] MEDS: INSULIN GLARGINE-YFGN 300 UNIT/3 ML PEN SUBQ SCH (21:18)
[2023-03-21] MEDS: SODIUM CHLORIDE FLUSH 0.9% 10 ML SYRINGE IVP SCH ×3 (05:43→16:09)
[2023-03-21 05:55] LABS: BASOPHILS % (AUTO) 0.2 %; EOSINOPHILS # (AUTO) 0.1 10^3/uL (0.0-0.7); EOSINOPHILS % (AUTO) 0.7 %; HCT - HEMATOCRIT 27.8 % (37.0-47.0); HGB - HEMOGLOBIN 8.3 g/dL (12.0-16.0); LYMPHOCYTES % (AUTO) 10.1 %; MEAN CORPUSCULAR HEMOGLOBIN 27.5 pg (27.0-31.0); MEAN CORPUSCULAR HGB CONC 29.9 g/dL (32.0-36.0); MEAN CORPUSCULAR VOLUME 92.1 fL (81.0-99.0); MEAN PLATELET VOLUME 12.7 fL (7.9-10.8); MONOCYTES # (AUTO) 0.8 10^3/uL (0.0-1.0); MONOCYTES % (AUTO) 3.8 %; NEUTROPHILS # (AUTO) 16.1 10^3/uL (1.5-6.6); NEUTROPHILS % (AUTO) 80.9 %; NRBC ABSOLUTE COUNT (AUTO) 0.02 x10^3/uL; NUCLEATED RED BLOOD CELLS AUTO 0.1 /100WBC; PLT - PLATELET COUNT 246 10^3/uL (130-450); RED BLOOD COUNT 3.02 10^6/uL (4.20-5.40); RED CELL DISTRIBUTION WIDTH 18.1 % (12.0-15.0); WHITE BLOOD COUNT 19.9 x10^3/uL (4.8-10.8)
[2023-03-21] MEDS: PIPERACILLIN/TAZOBACTAM 4.5 GM in SODIUM CHLORIDE 0.9% MINIBAG 100 ML IV SCH ×3 (05:56→22:39)
[2023-03-21] MEDS: PANTOPRAZOLE 40 MG TABLET PO SCH ×2 (06:00→16:09)
[2023-03-21] MEDS: LEVOTHYROXINE 25 MCG TABLET PO SCH (06:00)
[2023-03-21 06:09] LABS: ALBUMIN 2.3 g/dL (3.2-5.5); MAGNESIUM 1.7 mg/dL (1.7-2.3); PHOSPHORUS 1.6 mg/dL (2.5-5.0)
[2023-03-21 06:32] LABS: DIFFERENTIAL COMMENT MANUAL=AUTO DIFF; PLATELET ESTIMATE, MANUAL NORMAL (130-450,000) (NORMAL); PLATELET MORPHOLOGY NORMAL APPEARANCE (NORMAL)
[2023-03-21 06:41] LABS: ALBUMIN/GLOBULIN RATIO 0.8 (1.0-2.2); BILIRUBIN,TOTAL 0.3 mg/dL (0.2-1.0); CALCIUM 8.7 mg/dL (8.5-10.3); CREATININE 0.5 mg/dL (0.6-1.3); POTASSIUM 4.3 mmol/L (3.5-4.5); TOTAL PROTEIN 5.3 g/dL (6.4-8.9)
[2023-03-21] MEDS ORDERED: HYDROmorphone 0.5 MG/0.5 ML SYRINGE IVP PRN (07:14)
[2023-03-21] MEDS: INSULIN GLARGINE-YFGN 300 UNIT/3 ML PEN SUBQ SCH ×2 (08:58→21:25)
[2023-03-21] MEDS: TIMOLOL 0.5% OPHTH DROPS EACHEYE SCH ×2 (08:58→21:25)
[2023-03-21] MEDS: SERTRALINE 50 MG TABLET PO SCH (08:58)
[2023-03-21] MEDS: METOPROLOL TARTRATE 25 MG TABLET PO SCH ×2 (08:59→21:22)
[2023-03-21] MEDS ORDERED: METOPROLOL SUCCINATE 25 MG TABLET PO SCH (09:00)
[2023-03-21] MEDS: SPIRONOLACTONE 25 MG TABLET PO SCH (09:04)
[2023-03-21] MEDS: CHOLECALCIFEROL 25 MCG TABLET PO SCH (09:04)
[2023-03-21] MEDS: ASCORBIC ACID 500 MG TABLET PO SCH (09:05)
[2023-03-21] MEDS: MULTIVITAMIN W/MINERALS TABLET PO SCH (09:05)
[2023-03-21] MEDS: ZINC SULFATE 220 MG CAPSULE PO SCH (09:06)
[2023-03-21] MEDS: EYE EACHEYE SCH ×2 (09:06→21:23)
[2023-03-21] MEDS: COMBIGAN EACHEYE SCH ×2 (09:06→21:23)
[2023-03-21] MEDS: ASPIRIN CHEW 81 MG TABLET PO SCH (09:06)
[2023-03-21] MEDS: NEUTRA-PHOS 250 MG TABLET PO SCH (09:06)
--- NOTE | 2023-03-21 15:45 | PROVIDER PROGRESS NOTE ---
Assessment/Plan - Problem List (1) Osteomyelitis of sacrum Assessment/Plan: Debridement of the sacral wound, done by surgery several days ago, revealed her wound is down to the bone. Sacral x-ray done which was unremarkable. CT of pelvis then done which does show osteomyelitis Plan: The patient will need PICC tube line inserted and 6 weeks of IV antibiotics, if the wishes full treatment I ordered a PICC line be placed 03/19. Anesthesia and general surgery spoke to the regarding this may be futile because of her underlying malnutrition and overall bedridden condition. The today said he wants a meeting with all departments to decide about possibly withdrawing care. Palliative Care has been trying to reach him since they were requested in consult on Wed (today is Sun) Continue with IV Vanco and IV Zosyn (2) Bacteremia due to Proteus species Assessment/Plan: Her bld cx quickly turned pos and been identified by PCR as Proteus mirabilis She has been on Pip/Tazo The sens are back and the Proteus mirabilus is resistant to fluoroquinolones. Plan Cont iv Zosyn (3) Bacteremia due to Staph Lab also reported (+) blood cx growing Staph Anginosus Vanco was resumed 03/18, given the other potential source of sepsis being her sacral wound The sens are back and the Staph Anginosus is resistant to tetracycline only Plan: Cont iv Vanco (4) Sacral ulcer Assessment/Plan: She has a very large, deep sacral decubitus, pressure ulcer, larger than when she last was here. Appreciate General Surgery consult and debridement several days ago The wound cx is resulted and is growing Proteus mirabilis, E coli, Ebnterococcus fecalis and Strep Anginosus. The Proteus is resistant to floroquinolones.The E. coli is pansensitive. The Enterococcus faecalis is resistant to tetracycline o nly Plan: Cont Vano and Pip/Tazo iv Cont dressings BID by nursing now, and topical management as per Gen Surg. (5) E coli Urinary tract infection Qualifiers: Urinary tract infection type: site unspecified Hematuria presence: without hematuria Qualified Code(s): N39.0 - Urinary tract infection, site not specified Assessment/Plan: Her U/A was abnormal at adm. Urine cx has grown out a centeno-sens E coli Plan: Cont with iv Pip/TAzo (6) Type 2 diabetes mellitus Assessment/Plan: On 03/17 her glucose before breakfast was 61. She was treated as per Hypoglycemia protocol Now on ng tube feeds her glu are running in 200's Plan: Cont Dobhoff feeds and is also swallowing around the feeding tube. Cont sliding scale insulin and I aileen adjust her scheduled insulin doses Continue with hypoglycemia protocol (7) Severe protein calorie malnutrition Assessment/Plan: She has a documented weight loss of 30 kg in 19 months, sacral wound and is now bedridden from her weakness Dr. Reza inserted Dobbhoff tube and tube feeds were started 03/18 Pt also swallows around the Dobhoff tube and said she "likes to chew", but must be fed. On 03/20, I spoke to Speech Therapist who did a swallow eval that day, and pt does not aspirate. ST told me that ST has been seeing her while at [facility] for weeks and was only taking shakes, and that ST already tried to explain poor prognosis with who did not want to stop with aggressive management then. Plan: IV fluids down to TKO and Dobhoff feeds continue. She also swallows around the tube, but must be fed Palliative Care was requested to assist the and making decisions for her since she is critically ill, malnourished and has a very poor prognosis. Hi=band wants a "conference" on 03/22 at noon (8) Ischemic cardiomyopathy Assessment/Plan: At her admission here 1 month ago her echo showed an EF of 30 to 35% which is a new finding for her. She was taken off her statin due to malnutrition but discharged to SNF on cardiac meds Plan: Cardiac meds resumed (9) Paroxysmal atrial fibrillation Assessment/Plan: Plan: Continue to monitor on telemetry. Meds resumed but no anticoagulation due to recent brain bleed (10) Hypothyroid Assessment/Plan: TSH was just checked at last admission and TSH was 4.29 Plan: Continue her Levothyroxine (11) CVA (cerebral vascular accident) Assessment/Plan: History of CVA with residual right-sided deficits. 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 Head CT then showed a left frontal contusion and hematoma. She had a large bruise around the L eye at the last admission here 3 weeks ago Plan: Remain off Eliquis. Eliquis could be restarted eventually only if she will be bedbound and if no contraindications. Otherwise she will no longer be on an anticoagulant because of fall and brain bleed (13) Septic shock Assessment/Plan: Hypotension has RESOLVED She presented with shock, tachycardia, hypotension, elevated white count and new obtundation. Source appears to be a UTI or possibly her very large sacral decubitus Pt was given IVF, Zosyn/Vanco in the ER. She is minimally more awake today. WBC 20>> 14 today (all labs were reviewed) Plan: Continue with supportive care, empiric IV antibiotics as ordered by admitting Telemedicine provider, cont IV fluids Follow CBC daily (14) Prerenal azotemia Assessment/Plan: RESOLVED BUN/creatinine have normalized with iv fluids (all labs reviewed) Plan: Cont iv infusion at TKO plus ng feeds Follow BMP daily - Current Meds Current Meds: Current Medications Generic Name Dose Route Start Last Admin Trade Name Freq PRN Reason Stop Dose Admin Acetaminophen 650 mg 03/16/23 21:17 03/21/23 09:05 Acetaminophen 325 Mg Tablet PO 650 mg Q6H PRN Administration PRN MILD PAIN &/OR FEVER Ascorbic Acid 500 mg 03/19/23 09:00 03/21/23 09:05 Ascorbic Acid 500 Mg Tablet PO 500 mg DAILY ELIZABETH Administration Aspirin 81 mg 03/17/23 09:00 03/21/23 09:06 Aspirin Chew 81 Mg Tablet PO 81 mg DAILY ELIZABETH Administration Carboxymethylcellulose 1 drops 03/17/23 21:00 03/20/23 21:15 Carboxymethylcellulose Ophth Drops EACHEYE 1 drops QPM ELIZABETH Administration Cholecalciferol 50 mcg 03/17/23 09:00 03/21/23 09:04 Cholecalciferol 25 Mcg Tablet PO 50 mcg DAILY ELIZABETH Administration Hydromorphone HCl 0.5 mg 03/21/23 07:14 03/21/23 13:38 Hydromorphone 0.5 Mg/0.5 Ml Syringe IVP 0.5 mg Q6H PRN Administration Severe Pain (Level 7-10) Piperacillin Sod/Tazobactam 100 mls @ 25 mls/hr 03/16/23 22:00 03/21/23 14:18 Sod 4.5 gm/ Sodium Chloride IV 25 mls/hr Q8H ELIZABETH Administration Dextrose/Sodium Chloride 1,000 mls @ 30 mls/hr 03/19/23 10:35 03/20/23 16:00 D5.45ns IV 30 mls/hr .[id number] ELIZABETH Infusion Vancomycin HCl 1 gm/ 265 mls @ 166.667 mls/hr 03/19/23 21:00 03/20/23 22:37 Vancomycin HCl 250 mg/ Sodium IV Infused Chloride Q24H ELIZABETH Infusion Insulin Glargine-yfgn 5 unit 03/20/23 21:00 03/21/23 08:58 Insulin Glargine-Yfgn 300 Unit/3 Ml Pen SUBQ 5 unit BID ELIZABETH Administration Levothyroxine Sodium 50 mcg 03/17/23 07:00 03/21/23 06:00 Levothyroxine 25 Mcg Tablet PO 50 mcg QDAC ELIZABETH Administration Metoprolol Tartrate 12.5 mg 03/21/23 09:00 03/21/23 08:59 Metoprolol Tartrate 25 Mg Tablet PO 12.5 mg BID ELIZABETH Administration Multivitamins/Minerals 1 tab 03/19/23 08:00 03/21/23 09:05 Multivitamin W/Minerals Tablet PO 1 tab DAILYWM ELIZABETH Administration Pantoprazole Sodium 40 mg 03/17/23 07:00 03/21/23 06:00 Pantoprazole 40 Mg Tablet PO Not Given BIDAC ELIZABETH Patient Own Med ( 1 each 03/17/23 09:00 03/21/23 09:06 Combigan 0.2%-0.5% EACHEYE Not Given Eye Drops) BID ELIZABETH Polyethylene Glycol 17 gm 03/16/23 21:17 03/21/23 08:58 Polyethylene Glycol 3350 17 Gm Packet PO 17 gm DAILY PRN Administration Constipation Sertraline HCl 50 mg 03/17/23 09:00 03/21/23 08:58 Sertraline 50 Mg Tablet PO 50 mg DAILY ELIZABETH Administration Sodium Chloride 10 ml 03/16/23 21:20 03/17/23 05:57 Sodium Chloride Flush 0.9% 10 Ml Syringe IVP 10 ml PRN PRN Administration NEEDED PER PROVIDER ORDERS Sodium Chloride 10 ml 03/17/23 01:00 03/21/23 09:07 Sodium Chloride Flush 0.9% 10 Ml Syringe IVP Not Given 0100,0900,1700 ELIZABETH Sodium Phosphate 250 mg 03/20/23 12:00 03/21/23 09:06 Neutra-Phos 250 Mg Tablet PO 250 mg DAILYWM ELIZABETH Administration Spironolactone 12.5 mg 03/21/23 09:00 03/21/23 09:04 Spironolactone 25 Mg Tablet PO 12.5 mg DAILY ELIZABETH Administration Timolol Maleate 1 drops 03/17/23 09:00 03/21/23 08:58 Timolol 0.5% Ophth Drops EACHEYE 1 drops BID ELIZABETH Administration Zinc Sulfate 220 mg 03/19/23 09:00 03/21/23 09:06 Zinc Sulfate 220 Mg Capsule PO 220 mg DAILY ELIZABETH Administration - Lab Result Fish Bone Diagrams: 03/21/23 05:12 03/21/23 05:12 - Additional Planning My Orders: My Active Orders 03/20/23 21:00 Insulin Glargine-Yfgn [Semglee] 5 unit SUBQ BID 03/21/23 07:14 HYDROmorphone 0.5MG SYRINGE [Dilaudid 0.5MG Syringe] 0.5 mg IVP Q6H PRN 03/21/23 07:52 Miscellaenous Nursing Order [RC] QSHIFT 03/21/23 09:00 Metoprolol Tartrate [Lopressor] 12.5 mg PO BID Spironolactone [Aldactone] 12.5 mg PO DAILY 03/21/23 10:02 Shafer Continuation and Care [RC] QSHIFT Shafer Insertion [RC] QSHIFT 03/21/23 20:00 VANCOMYCIN TROUGH [CHEM] Timed 03/22/23 05:00 CBC - COMP BLD CT W/AUTO DIFF [HEME] DAILYLAB 03/23/23 05:00 CBC - COMP BLD CT W/AUTO DIFF [HEME] DAILYLAB 03/24/23 05:00 CBC - COMP BLD CT W/AUTO DIFF [HEME] DAILYLAB COMPREHENSIVE METABOLIC PANEL [CHEM] Timed MAGNESIUM [CHEM] Timed PHOSPHORUS [CHEM] Timed PREALBUMIN [CHEM] Timed Subjective - Subjective Nursing Reports: Other (Mostly sleeps) Objective Vital Signs: Vital Signs - 24 hr 03/20/23 03/21/23 03/21/23 16:00 00:23 07:59 Temperature 36.2 C L 37.3 C 37.1 C Heart Rate [ 96 105 H 101 H Brachial] Respiratory 24 20 22 Rate Blood Pressure Blood Pressure 117/50 L 115/44 L 128/52 L [Left Brachial artery] O2 Saturation 94 94 93 03/21/23 08:59 Temperature Heart Rate [ Brachial] Respiratory Rate Blood Pressure 128/52 L Blood Pressure [Left Brachial artery] O2 Saturation Oxygen O2 Source Room air I&O (Last 24 Hrs): Intake and Output Totals x24h 03/19/23 03/20/23 03/21/23 23:59 23:59 23:59 Intake Total 3040.503 2932 2325 Output Total 625 2250 450 Balance 2415.776 515 2523 General: Other (Lethargic, awakens briefly, does not speak) HEENT: Other (sunken eyes) Neuro: Other (Lethargic, awaknes to touch, is able to chew slowly and to swallo w) Cardiovascular: Regular rate Respiratory: No respiratory distress Abdomen: Soft Rectal: Other (Large deep sacral decubitus wound down to bone, non-malodorous) Extremities: No edema, No tenderness/swelling - Results Results: Laboratory Results WBC 19.9 x10^3/uL (4.8-10.8) H 03/21/23 05:12 RBC 3.02 10^6/uL (4.20-5.40) L 03/21/23 05:12 Hgb 8.3 g/dL (12.0-16.0) L 03/21/23 05:12 Hct 27.8 % (37.0-47.0) L 03/21/23 05:12 MCV 92.1 fL (81.0-99.0) 03/21/23 05:12 MCH 27.5 pg (27.0-31.0) 03/21/23 05:12 MCHC 29.9 g/dL (32.0-36.0) L 03/21/23 05:12 RDW 18.1 % (12.0-15.0) H 03/21/23 05:12 Plt Count 246 10^3/uL (130-450) 03/21/23 05:12 MPV 12.7 fL (7.9-10.8) H 03/21/23 05:12 Neut # (Auto) 16.1 10^3/uL (1.5-6.6) H 03/21/23 05:12 Lymph # (Auto) 2.0 10^3/uL (1.5-3.5) 03/21/23 05:12 [place] # (Auto) 0.8 10^3/uL (0.0-1.0) 03/21/23 05:12 Eos # (Auto) 0.1 10^3/uL (0.0-0.7) 03/21/23 05:12 Baso # (Auto) 0.0 10^3/uL (0.0-0.1) 03/21/23 05:12 Absolute Nucleated RBC 0.02 x10^3/uL 03/21/23 05:12 Total Counted 100 03/16/23 17:45 Band Neuts % (Manual) Not Reportable 03/21/23 05:12 Abnorm Lymph % (Manual) Not Reportable 03/21/23 05:12 Metamyelocytes % 1 % (-0) H 03/16/23 17:45 Nucleated RBC % 0.1 /100WBC 03/21/23 05:12 Neutrophils # (Manual) Not Reportable 03/21/23 05:12 Lymphocytes # (Manual) Not Reportable 03/21/23 05:12 Monocytes # (Manual) Not Reportable 03/21/23 05:12 Eosinophils # (Manual) Not Reportable 03/21/23 05:12 Basophils # (Manual) Not Reportable 03/21/23 05:12 Differential Comment MANUAL=AUTO DIFF 03/21/23 05:12 Platelet Estimate NORMAL (130-450,000) (NORMAL) 03/21/23 05:12 Platelet Morphology NORMAL APPEARANCE (NORMAL) 03/21/23 05:12 RBC Morph Micro Appear NORMAL APPEARANCE (NORMAL) 03/16/23 17:45 PT 12.3 secs (9.9-12.6) 03/16/23 17:45 INR 1.1 (0.8-1.2) 03/16/23 17:45 APTT 20.5 secs (24.9-33.3) L 03/16/23 17:45 Sodium 146 mmol/L (135-145) H 03/21/23 05:12 Potassium 4.3 mmol/L (3.5-4.5) 03/21/23 05:12 Chloride 113 mmol/L (101-111) H 03/21/23 05:12 Carbon Dioxide 29 mmol/L (21-32) 03/21/23 05:12 Anion Gap 4.0 (6-13) L 03/21/23 05:12 BUN 13 mg/dL (6-20) 03/21/23 05:12 Creatinine 0.5 mg/dL (0.6-1.3) L 03/21/23 05:12 Estimated GFR (MDRD) 119 (>89) 03/21/23 05:12 Glucose 279 mg/dL (74-104) H 03/21/23 05:12 POC Whole Bld Glucose 288 mg/dL (70 - 100) H 03/21/23 11:11 Estimat Average Glucose 120 mg/dL (70-100) H 03/17/23 04:48 Hemoglobin A1c % 5.8 % (4.27-6.07) 03/17/23 04:48 Lactic Acid 1.1 mmol/L (0.5-2.2) 03/16/23 17:45 Calcium 8.7 mg/dL (8.5-10.3) 03/21/23 05:12 Phosphorus 1.6 mg/dL (2.5-5.0) L 03/21/23 05:12 Magnesium 1.7 mg/dL (1.7-2.3) 03/21/23 05:12 Iron 15 ug/dL (50-212) L 03/19/23 05:06 TIBC 109 ug/dL (250-450) L 03/19/23 05:06 % Saturation 14 % (20-50) L 03/19/23 05:06 Transferrin 78 mg/dL (203-362) L 03/19/23 05:06 Total Bilirubin 0.3 mg/dL (0.2-1.0) 03/21/23 05:12 AST 12 IU/L (10-42) 03/21/23 05:12 ALT 10 IU/L (10-60) 03/21/23 05:12 Alkaline Phosphatase 71 IU/L (42-121) 03/21/23 05:12 Total Protein 5.3 g/dL (6.4-8.9) L 03/21/23 05:12 Albumin 2.3 g/dL (3.2-5.5) L 03/21/23 05:12 Globulin 3.0 g/dL (2.1-4.2) 03/21/23 05:12 Albumin/Globulin Ratio 0.8 (1.0-2.2) L 03/21/23 05:12 Prealbumin 5 mg/dL (17-34) L 03/21/23 05:12 Triglycerides 150 mg/dL (48-352) 03/17/23 04:48 Cholesterol 69 mg/dL (-200) 03/17/23 04:48 LDL Cholesterol, Calc 26 mg/dL (-129) 03/17/23 04:48 VLDL Cholesterol 30 mg/dL 03/17/23 04:48 HDL Cholesterol 13 mg/dL (60-) L 03/17/23 04:48 LDL/HDL Ratio 2.0 (<4.4) 03/17/23 04:48 Cholesterol/HDL Ratio 5.3 (<4.4) 03/17/23 04:48 Lipase 20 U/L (11-82) 03/16/23 17:45 Urine Color YELLOW 03/16/23 17:55 Urine Clarity HAZY (CLEAR) 03/16/23 17:55 Urine pH 5.5 PH (5.0-7.5) 03/16/23 17:55 Ur Specific [place] 1.010 (1.002-1.030) 03/16/23 17:55 Urine Protein TRACE mg/dL (NEGATIVE) 03/16/23 17:55 Urine Glucose (UA) >=1000 mg/dL (NEGATIVE) H 03/16/23 17:55 Urine Ketones NEGATIVE mg/dL (NEGATIVE) 03/16/23 17:55 Urine Occult Blood TRACE-INTA (NEGATIVE) 03/16/23 17:55 Urine Nitrite POSITIVE (NEGATIVE) H 03/16/23 17:55 Urine Bilirubin NEGATIVE (NEGATIVE) 03/16/23 17:55 Urine Urobilinogen 0.2 (NORMAL) E.U./dL (NORMAL) 03/16/23 17:55 Ur Leukocyte Esterase SMALL (NEGATIVE) H 03/16/23 17:55 Urine RBC 0-5 /HPF (0-5) 03/16/23 17:55 Urine WBC >25 /HPF (0-5) H 03/16/23 17:55 Ur Squamous Epith Cells FEW Squamous (<= Few) 03/16/23 17:55 Urine Bacteria Moderate /HPF (None Seen) H 03/16/23 17:55 Urine Yeast PRESENT 03/16/23 17:55 Ur Microscopic Review INDICATED 03/16/23 17:55 Urine Culture Comments INDICATED 03/16/23 17:55 - Procedures Procedures: Procedures INSERTION OF INFUSION DEV INTO SUP VENA CAVA, PERC APPROACH (02/10/23) Sepsis Event Note (H) - Evaluation Possible source of Sepsis: positive: Genitourinary, Skin/soft tissue
[2023-03-21] MEDS: DEXTROSE 5%-0.45% NACL 1,000 ML IV SCH (18:46)
[2023-03-21 20:42] LABS: VANCOMYCIN,TROUGH 4.1 ug/mL
[2023-03-21] MEDS: CARBOXYMETHYLCELLULOSE OPHTH DROPS EACHEYE SCH (21:22)
[2023-03-21] MEDS: VANCOMYCIN INJ 1 GM, VANCOMYCIN INJ 250 MG in SODIUM CHLORIDE 0.9% 250 ML IV SCH (21:23)
[2023-03-22] MEDS: PIPERACILLIN/TAZOBACTAM 4.5 GM in SODIUM CHLORIDE 0.9% MINIBAG 100 ML IV SCH ×2 (06:00→14:53)
[2023-03-22] MEDS: SODIUM CHLORIDE FLUSH 0.9% 10 ML SYRINGE IVP SCH ×3 (06:00→16:22)
[2023-03-22 07:22] LABS: BASOPHILS % (AUTO) 0.2 %; EOSINOPHILS % (AUTO) 1.4 %; HCT - HEMATOCRIT 28.1 % (37.0-47.0); HGB - HEMOGLOBIN 8.4 g/dL (12.0-16.0); LYMPHOCYTES % (AUTO) 10.2 %; MEAN CORPUSCULAR HEMOGLOBIN 27.8 pg (27.0-31.0); MEAN CORPUSCULAR HGB CONC 29.9 g/dL (32.0-36.0); MEAN PLATELET VOLUME 12.4 fL (7.9-10.8); MONOCYTES % (AUTO) 3.5 %; NEUTROPHILS % (AUTO) 79.5 %; PLT - PLATELET COUNT 224 10^3/uL (130-450); RED BLOOD COUNT 3.02 10^6/uL (4.20-5.40); RED CELL DISTRIBUTION WIDTH 18.2 % (12.0-15.0); WHITE BLOOD COUNT 20.1 x10^3/uL (4.8-10.8)
[2023-03-22 07:31] LABS: SLIDE REVIEW? Indicated
[2023-03-22] MEDS: PANTOPRAZOLE 40 MG TABLET PO SCH ×2 (07:43→16:22)
[2023-03-22] MEDS: LEVOTHYROXINE 25 MCG TABLET PO SCH (07:44)
[2023-03-22 08:09] LABS: ABNORMAL LYMPHS % (MANUAL) 0 %; BAND NEUTROPHILS % (MANUAL) 0 %
[2023-03-22 08:48] LABS: CALCIUM 8.9 mg/dL (8.5-10.3); CREATININE 0.4 mg/dL (0.6-1.3); POTASSIUM 4.7 mmol/L (3.5-4.5)
[2023-03-22] MEDS: NEUTRA-PHOS 250 MG TABLET PO SCH (08:54)
[2023-03-22] MEDS: MULTIVITAMIN W/MINERALS TABLET PO SCH (08:54)
[2023-03-22] MEDS: COMBIGAN EACHEYE SCH ×2 (08:55→21:48)
[2023-03-22] MEDS: EYE EACHEYE SCH ×2 (08:55→21:48)
[2023-03-22 09:48] LABS: EOSINOPHILS # (MANUAL) 0.4 10^3/uL (0-0.7); LYMPHOCYTES % (MANUAL) 10 %; METAMYELOCYTES % (MANUAL) 2 %; MONOCYTES # (MANUAL) 0.8 10^3/uL (0.0-1.0); NEUTROPHILS # (MANUAL) 16.5 10^3/uL (1.5-6.6)
[2023-03-22] MEDS: INSULIN GLARGINE-YFGN 300 UNIT/3 ML PEN SUBQ SCH ×2 (09:53→21:47)
[2023-03-22 09:54] LABS: DIFFERENTIAL COMMENT MANUAL DIFFERENTIAL; PLATELET ESTIMATE, MANUAL NORMAL (130-450,000) (NORMAL); PLATELET MORPHOLOGY NORMAL APPEARANCE (NORMAL); RBC MORPHOLOGY (MULTIPLE) NORMAL APPEARANCE (NORMAL)
[2023-03-22] MEDS: CHOLECALCIFEROL 25 MCG TABLET PO SCH (09:58)
[2023-03-22] MEDS: ZINC SULFATE 220 MG CAPSULE PO SCH (09:58)
[2023-03-22] MEDS: ASPIRIN CHEW 81 MG TABLET PO SCH (09:58)
[2023-03-22] MEDS: SPIRONOLACTONE 25 MG TABLET PO SCH (09:58)
[2023-03-22] MEDS: ASCORBIC ACID 500 MG TABLET PO SCH (09:58)
[2023-03-22] MEDS: SERTRALINE 50 MG TABLET PO SCH (09:58)
[2023-03-22] MEDS: METOPROLOL TARTRATE 25 MG TABLET PO SCH ×2 (09:59→21:47)
[2023-03-22] MEDS: TIMOLOL 0.5% OPHTH DROPS EACHEYE SCH ×2 (09:59→21:48)
[2023-03-22] MEDS ORDERED: VANCOMYCIN INJ 1 GM in SODIUM CHLORIDE 0.9% 250 ML IV SCH (10:00)
--- NOTE | 2023-03-22 17:14 | CONSULTATION NOTE ---
Palliative Care Follow Up - Referral Referring Provider: Dr. Sujatha Markham Time of Visit: 12:00 - 13:00 pm Referral setting: Hospitalized patient Referral Reason: Goals of care Family conference - Information Sources Records reviewed: RN notes reviewed, Previous records reviewed - History of Present Illness Update Brief HPI Update: This is an unfortunate 77-year-old woman who presented to the ED 03/16 with infection, fever, increased white blood cell count and worsening sacral decub. Patient was found to have osteomyelitis, severe protein malnutrition, which had again progressed, large sacral decub in context of most likely a New ulcer, declining her altered mental status from her compromised baseline, and concern regarding level of intervention needed for the severity of her complex issues.There have been multiple conversations over the weekend with her , regarding what would be needed including aggressive debridement and surgery, aggressive tube feeding involving yet another surgery for feedings and nutritional status, as well as PICC line placement for IV antibiotics. In the context of this most likely again would have a poor likelihood of a good outcome, and high risk for further complications, and prolong suffering.Recommendations for a palliative approach have been made, and today's meeting for family care conference, was to decide and define goals of care given her current situation.Has been a difficult decision particular for the , Basilio his son who is here, does help advocate and navigate these issues for his mother and supports his stepfather, and given the complexity of the situation, her declining status, and concern for prolonging suffering, decision has been made to transition to hospice and comfort focused care.The other decision which was quite complicated and on the table, was to have patient return to [facility] for end-of-life care, please see palliative care discussion for details. Present for family conference was palliative care nurse practitioner myself and logistics team leader Mark GORDON, Stas patient's son, Tyler patient's and Dr. Joe with us at beginning to answer questions regarding medical care and decisions. Past Medical History: See note from 03/19 for more information gathered from chart and team members. Social History - Living Situation Living arrangement: senior care (has been at [facility] for 2 years) Support System: Patient and have been for 45 years, they have a blended family, Basilio is patient's son, her daughter of cervical cancer at their home with hospice in 1997, clem Mcclelland was main caregiver and has had experience as a young person with and hospice. Both describe patient is quite stubborn, and a difficult transition over the last 2 years, with multiple healthcare problems. 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 Medications/Allergies - Medications Active Medication List: Active Medications Acetaminophen (Acetaminophen 325 Mg Tablet) 650 mg PO Q6H PRN PRN Reason: PRN MILD PAIN &/OR FEVER Last Admin: 03/21/23 09:05 Dose: 650 mg Ascorbic Acid (Ascorbic Acid 500 Mg Tablet) 500 mg PO DAILY [facility] Last Admin: 03/22/23 09:58 Dose: 500 mg Aspirin (Aspirin Chew 81 Mg Tablet) 81 mg PO DAILY [facility] Last Admin: 03/22/23 09:58 Dose: 81 mg Bisacodyl (Bisacodyl 10 Mg Supp) 10 mg CA DAILY PRN PRN Reason: Constipation Calcium Carbonate/Glycine (Calcium Carbonate Chew 500 Mg Tablet) 1,000 mg PO Q8H PRN PRN Reason: Heartburn Carboxymethylcellulose (Carboxymethylcellulose Ophth Drops) 1 drops EACHEYE QPM [facility] Last Admin: 03/21/23 21:22 Dose: 1 drops Cholecalciferol (Cholecalciferol 25 Mcg Tablet) 50 mcg PO DAILY [facility] Last Admin: 03/22/23 09:58 Dose: 50 mcg Hydromorphone HCl (Hydromorphone 0.5 Mg/0.5 Ml Syringe) 0.5 mg IVP Q6H PRN PRN Reason: Severe Pain (Level 7-10) Last Admin: 03/21/23 13:38 Dose: 0.5 mg Piperacillin Sod/Tazobactam (Sod 4.5 gm/ Sodium Chloride) 100 mls @ 25 mls/hr IV Q8H [facility] Last Infusion: 03/22/23 10:53 Dose: Infused Dextrose/Sodium Chloride (D5.45ns) 1,000 mls @ 30 mls/hr IV .[id number] [facility] Last Infusion: 03/22/23 10:54 Dose: 0 mls/hr Vancomycin HCl 1 gm/ Sodium (Chloride) 250 mls @ 167 mls/hr IV Q12H [facility] Last Admin: 03/22/23 10:53 Dose: 167 mls/hr Insulin Glargine-yfgn (Insulin Glargine-Yfgn 300 Unit/3 Ml Pen) 5 unit SUBQ BID [facility] Last Admin: 03/22/23 09:53 Dose: 5 unit Levothyroxine Sodium (Levothyroxine 25 Mcg Tablet) 50 mcg PO QDAC [facility] Last Admin: 03/22/23 07:44 Dose: 50 mcg Metoprolol Tartrate (Metoprolol Tartrate 25 Mg Tablet) 12.5 mg PO BID [facility] Last Admin: 03/22/23 09:59 Dose: 12.5 mg Multivitamins/Minerals (Multivitamin W/Minerals Tablet) 1 tab PO DAILYWM [facility] Last Admin: 03/22/23 08:54 Dose: 1 tab Ondansetron HCl (Ondansetron Odt 4 Mg Tablet) 4 mg TL Q6HR PRN PRN Reason: Nausea / Vomiting Ondansetron HCl (Ondansetron 4 Mg/2 Ml Vial) 4 mg IVP Q6HR PRN PRN Reason: Nausea / Vomiting Pantoprazole Sodium (Pantoprazole 40 Mg Tablet) 40 mg PO BIDAC [facility] Last Admin: 03/22/23 07:43 Dose: 40 mg Patient Own Med ( Combigan 0.2%-0.5% Eye Drops) 1 each EACHEYE BID [facility] Last Admin: 03/22/23 08:55 Dose: Not Given Polyethylene Glycol (Polyethylene Glycol 3350 17 Gm Packet) 17 gm PO DAILY PRN PRN Reason: Constipation Last Admin: 03/21/23 08:58 Dose: 17 gm Senna (Senna 8.6 Mg Tablet) 17.2 mg PO DAILY PRN PRN Reason: Constipation Sertraline HCl (Sertraline 50 Mg Tablet) 50 mg PO DAILY [facility] Last Admin: 03/22/23 09:58 Dose: 50 mg Sodium Chloride (Sodium Chloride Flush 0.9% 10 Ml Syringe) 10 ml IVP PRN PRN PRN Reason: NEEDED PER PROVIDER ORDERS Last Admin: 03/17/23 05:57 Dose: 10 ml Sodium Chloride (Sodium Chloride Flush 0.9% 10 Ml Syringe) 10 ml IVP 0100,0900,1700 [facility] Last Admin: 03/22/23 09:53 Dose: Not Given Sodium Phosphate (Neutra-Phos 250 Mg Tablet) [facility] Last Admin: 03/22/23 08:54 Dose: 250 mg Spironolactone (Spironolactone 25 Mg Tablet) 12.5 mg PO DAILY [facility] Last Admin: 03/22/23 09:58 Dose: 12.5 mg Timolol Maleate (Timolol 0.5% Ophth Drops) 1 drops EACHEYE BID [facility] Last Admin: 03/22/23 09:59 Dose: 1 drops Zinc Sulfate (Zinc Sulfate 220 Mg Capsule) 220 mg PO DAILY [facility] Last Admin: 03/22/23 09:58 Dose: 220 mg Canagliflozin [Invokana] 100 mg PO DAILY 06/15/21 Insulin Glargine [Lantus Solostar] 10 units SUBQ BID 06/15/21 Metoprolol Succinate [Toprol Xl] 50 mg PO QPM 06/15/21 Sacubitril/Valsartan [Entresto 24 mg-26 mg Tablet] 1 tab PO QPM 06/15/21 Calcium Carbonate [Tums (Calcium Carbonate 500mg)] 1,000 mg PO Q8H PRN 06/16/21 Insulin Regular Human [Humulin R] 3 unit SUBQ AC 06/16/21 Spironolactone [Aldactone] 25 mg PO DAILY 02/10/23 Acetaminophen [Tylenol] 650 mg PO Q6H PRN 02/11/23 Atorvastatin Calcium [Lipitor] 80 mg PO QPM 02/11/23 Sacubitril/Valsartan [Entresto 24 mg-26 mg Tablet] 2 tab PO DAILY 02/11/23 Bisacodyl Supp [Dulcolax Supp] 10 mg CA DAILY PRN 03/16/23 Mineral Oil [Mineral Oil Enema] 1 ea RC DAILY PRN 03/16/23 Sennosides [Senna] 2 tab PO DAILY PRN 03/16/23 polyethylene glycoL 3350 [Miralax] 17 gm PO DAILY PRN 03/16/23 - Allergies Allergies/Adverse Reactions: Allergies Allergy/AdvReac Type Severity Reaction Status Date / Time Sulfa (Sulfonamide Allergy Mild Nausea Verified 02/10/23 17:48 Antibiotics) omeprazole Allergy Unknown Verified 03/16/23 17:31 epinephrine AdvReac Unknown Verified 02/10/23 17:48 Review of Systems - Constitutional Constitutional: reports: Weight loss - Cardiovascular Cardiovascular: reports: Edema - Gastrointestinal Gastrointestinal: reports: Other (has been eating with feeding small bites; does have swallow; pureed diet) - Genitourinary Genitourinary: reports: Other (has metcalf catheter) - Integumentary Integumentary: reports: Other (chronic sacral ulcer; "exploded" over last few days; appears to be New) Physical Exam - Vital Signs Vital Signs: Vital Signs x48h Temp Pulse Resp BP BP Pulse Ox 03/22/23 09:59 120/57 L 03/22/23 08:00 36.4 C L 88 16 124/55 L 93 Palliative Care - POLST Patient has POLST: Yes POLST Status: DNR, Comfort Measures (completed at visit) - Palliative Care Discussion: Reynold have had some hard conversations over the weekend regarding how best to proceed. We did share the difficult journey she has been on over the last 2 years, and concern for her decline over the last several months. Basilio was able to reflect on discussions he had with his mother previously, about what she would want to not want in the context of her wishes. He is quite sure she would "not want to be hooked up", or prolong losing smith, or her suffering. He is appropriately anxious in the context of making the decision, without her being able to participate, but do understand she most likely would not make it through even with interventions if were to proceed.Basilio is reflective of his journey with his sister who at home of cervical cancer, he was 26 as a caregiver, and does understand and felt supported by hospice team at that time. The bigger concern and part of the conversation was how best and where to have her be at this point for transition to comfort and hospice care.He is concerned about her returning to [facility], particularly in light of her deterioration, as well as where she has been in a fairly dark room. We did discuss in the context of reaching out to [facility] as patient is transitioning to hospice if there may be a more acceptable room or setting for her care. He is concerned about taking her home, the impact it would have on the , he would not be able to care for her, Stas willing if need be to take time to be caregiver, but worried a bout giving his mother her dignity needing to clean her and provide personal care. Stas is also concerned about the toll it might have on Tyler having her at home, and needing to be their consistently. They have support of her sisters, there are two other sons of Suki, and family and friends that Stas is planning to further reach out to for support. Counseling provided regarding what hospice can provide, in the context of transitioning to comfort care, this means stopping feedings, would offer oral feedings for comfort, stop antibiotics, and focus on just managing the ulcer for comfort. When patient is uncomfortable or is suffering, would use medications for comfort. We also talked about in the context of prognosis, most likely days to weeks at the most, we did complete a POLST with comfort focused care and DNAR/allowed natural . Tyler is at high risk for needing further bereavement support, as well as Basilio who is still processing now the of his sister bringing this up again around decision making. Results - Lab Results Lab results reviewed: Yes Fish Bones: 03/22/23 07:13 03/22/23 07:13 Lab and Imaging Results: Lab Results x24hrs 03/22/23 03/22/23 03/22/23 Range/Units 11:03 08:08 07:13 WBC (4.8-10.8) x10^3/uL RBC (4.20-5.40) 10^6/uL Hgb (12.0-16.0) g/dL Hct (37.0-47.0) % MCV (81.0-99.0) fL MCH (27.0-31.0) pg MCHC (32.0-36.0) g/dL RDW (12.0-15.0) % Plt Count (130-450) 10^3/uL MPV (7.9-10.8) fL Neut # (Auto) Lymph # (Auto) [place] # (Auto) Eos # (Auto) Baso # (Auto) Absolute Nucleated RBC Total Counted Band Neuts % (Manual) (0 - 10) % Abnorm Lymph % (Manual) % Metamyelocytes % ( - 0) % Nucleated RBC % Neutrophils # (Manual) (1.5-6.6) 10^3/uL Lymphocytes # (Manual) (1.5-3.5) 10^3/uL Monocytes # (Manual) (0.0-1.0) 10^3/uL Eosinophils # (Manual) (0-0.7) 10^3/uL Basophils # (Manual) (0-0.1) 10^3/uL Differential Comment Manual Slide Review Platelet Estimate (NORMAL) Platelet Morphology (NORMAL) RBC Morph Micro Appear (NORMAL) Sodium 142 (135-145) mmol/L Potassium 4.7 H (3.5-4.5) mmol/L Chloride 110 (101-111) mmol/L Carbon Dioxide 29 (21-32) mmol/L Anion Gap 3.0 L (6-13) BUN 16 (6-20) mg/dL Creatinine 0.4 L (0.6-1.3) mg/dL Estimated GFR (MDRD) 154 (>89) Glucose 266 H (74-104) mg/dL POC Whole Bld Glucose 231 H 234 H (70 - 100) mg/dL Calcium 8.9 (8.5-10.3) mg/dL Last Dose Date Last Dose Time Vancomycin Trough ug/mL 03/22/23 03/21/23 03/21/23 Range/Units 07:13 20:27 20:02 WBC 20.1 H (4.8-10.8) x10^3/uL RBC 3.02 L (4.20-5.40) 10^6/uL Hgb 8.4 L (12.0-16.0) g/dL Hct 28.1 L (37.0-47.0) % MCV 93.0 (81.0-99.0) fL MCH 27.8 (27.0-31.0) pg MCHC 29.9 L (32.0-36.0) g/dL RDW 18.2 H (12.0-15.0) % Plt Count 224 (130-450) 10^3/uL MPV 12.4 H (7.9-10.8) fL Neut # (Auto) RESPIRATORY CLINICIAN Lymph # (Auto) RESPIRATORY CLINICIAN [place] # (Auto) RESPIRATORY CLINICIAN Eos # (Auto) RESPIRATORY CLINICIAN Baso # (Auto) RESPIRATORY CLINICIAN Absolute Nucleated RBC RESPIRATORY CLINICIAN Total Counted 100 Band Neuts % (Manual) 0 (0 - 10) % Abnorm Lymph % (Manual) 0 % Metamyelocytes % 2 H ( - 0) % Nucleated RBC % RESPIRATORY CLINICIAN Neutrophils # (Manual) 16.5 H (1.5-6.6) 10^3/uL Lymphocytes # (Manual) 2.0 (1.5-3.5) 10^3/uL Monocytes # (Manual) 0.8 (0.0-1.0) 10^3/uL Eosinophils # (Manual) 0.4 (0-0.7) 10^3/uL Basophils # (Manual) 0.0 (0-0.1) 10^3/uL Differential Comment MANUAL DIFFERENTIAL Manual Slide Review Indicated Platelet Estimate NORMAL (130-450,000) (NORMAL) Platelet Morphology NORMAL APPEARANCE (NORMAL) RBC Morph Micro Appear NORMAL APPEARANCE (NORMAL) Sodium (135-145) mmol/L Potassium (3.5-4.5) mmol/L Chloride (101-111) mmol/L Carbon Dioxide (21-32) mmol/L Anion Gap (6-13) BUN (6-20) mg/dL Creatinine (0.6-1.3) mg/dL Estimated GFR (MDRD) (>89) Glucose (74-104) mg/dL POC Whole Bld Glucose 266 H (70 - 100) mg/dL Calcium (8.5-10.3) mg/dL Last Dose Date 03/20/23 Last Dose Time 223 Vancomycin Trough 4.1 ug/mL 03/21/23 Range/Units 16:38 WBC (4.8-10.8) x10^3/uL RBC (4.20-5.40) 10^6/uL Hgb (12.0-16.0) g/dL Hct (37.0-47.0) % MCV (81.0-99.0) fL MCH (27.0-31.0) pg MCHC (32.0-36.0) g/dL RDW (12.0-15.0) % Plt Count (130-450) 10^3/uL MPV (7.9-10.8) fL Neut # (Auto) Lymph # (Auto) [place] # (Auto) Eos # (Auto) Baso # (Auto) Absolute Nucleated RBC Total Counted Band Neuts % (Manual) (0 - 10) % Abnorm Lymph % (Manual) % Metamyelocytes % ( - 0) % Nucleated RBC % Neutrophils # (Manual) (1.5-6.6) 10^3/uL Lymphocytes # (Manual) (1.5-3.5) 10^3/uL Monocytes # (Manual) (0.0-1.0) 10^3/uL Eosinophils # (Manual) (0-0.7) 10^3/uL Basophils # (Manual) (0-0.1) 10^3/uL Differential Comment Manual Slide Review Platelet Estimate (NORMAL) Platelet Morphology (NORMAL) RBC Morph Micro Appear (NORMAL) Sodium (135-145) mmol/L Potassium (3.5-4.5) mmol/L Chloride (101-111) mmol/L Carbon Dioxide (21-32) mmol/L Anion Gap (6-13) BUN (6-20) mg/dL Creatinine (0.6-1.3) mg/dL Estimated GFR (MDRD) (>89) Glucose (74-104) mg/dL POC Whole Bld Glucose 243 H (70 - 100) mg/dL Calcium (8.5-10.3) mg/dL Last Dose Date Last Dose Time Vancomycin Trough ug/mL Impression and Recommendations - Palliative Care Impression: This is a 77-year-old woman who has had an unfortunate turn of events, presenting with severe protein calorie malnutrition, stage IV decub with osteomyelitis, worsening and complex care needs. In the context of most likely a very poor outcome and prolong suffering, decision has been made to focus on comfort and transition to hospice/comfort care.At this point, goal will be to transition her back to [facility] for her end-of-life, did explore option of caring for her at home, and at this time did not seem best option. Recommendations/Counseling Done: 1. 1. Failure to thrive. Patient presents with protein calorie malnutrition, sacral decub, osteomyelitis, and declining functional and cognitive status over the last several months and more acutely over the last several weeks. Family meeting today to discuss further goals of care, goal is to focus on comfort, transition to hospice on discharge, and a comfortable and dignified . POLST is completed to reflect new goals, has been remains overwhelmed, discussed Basilio being point of contact [phone] to help facilitate transitions. Follow-up with Dr. Joe for final decision, will transition to comfort care and follow-up with [facility]. Referral to hospice made. 60 minutes with review of goals of care, discharge, family conference, counseling regarding hospice benefit, anticipatory guidance, and psychosocial support provided
[2023-03-22] MEDS ORDERED: MORPHINE 2 MG/ML CARPUJECT IVP PRN (18:45)
--- NOTE | 2023-03-22 18:57 | PROVIDER PROGRESS NOTE ---
Assessment/Plan - Problem List (1) Osteomyelitis of sacrum Assessment/Plan: Debridement of the sacral wound, done by surgery several days ago, revealed her wound is down to the bone. Sacral x-ray done which was unremarkable. CT of pelvis then done which does show osteomyelitis Plan: The patient would have needed a PICC line inserted and 6 weeks of IV antibiotics. THis was discussed with the and son today (2) Comfort measures only status Assessment/Plan: The requested to have a meeting to hear all his options. The patient and and son Basilio was also at the meeting along with myself and the palliative care HOUSE CALLS NURSE Shruthi Russ The and son have decided to withdraw treatment and put her on comfort measures and to return back to [facility] under hospice care Plan: Comfort care will be ordered and meds stopped, labs stopped, just daily vital signs measured, comfort eating, but Dobhoff feeds stopped and tube removed (3) Bacteremia due to Proteus species Assessment/Plan: Her bld cx quickly turned pos and been identified by PCR as Proteus mirabilis She has been on Pip/Tazo The sens are back and the Proteus mirabilus is resistant to fluoroquinolones. Plan Comfort care and antibx stopped (4) Bacteremia due to Staph Lab also reported (+) blood cx growing Staph Anginosus Vanco was resumed 03/18, given the other potential source of sepsis being her sacral wound The sens are back and the Staph Anginosus is resistant to tetracycline only Plan: Comfort care and antibx stopped (5) Sacral ulcer Assessment/Plan: She has a very large, deep sacral decubitus, pressure ulcer, larger than when she last was here. Appreciate General Surgery consult and debridement several days ago The wound cx is resulted and is growing Proteus mirabilis, E coli, Ebnterococcus fecalis and Strep Anginosus. The Proteus is resistant to floroquinolones.The E. coli is pansensitive. The Enterococcus faecalis is resistant to tetracycline onl y Plan: Comfort care and stop dressing changes and add Morphine for pain control (5) E coli Urinary tract infection Qualifiers: Urinary tract infection type: site unspecified Hematuria presence: without hematuria Qualified Code(s): N39.0 - Urinary tract infection, site not specified Assessment/Plan: Her U/A was abnormal at adm. Urine cx has grown out a centeno-sens E coli Plan: Comfort care and antibx stopped (6) Type 2 diabetes mellitus Assessment/Plan: On 03/17 her glucose before breakfast was 61. She was treated as per Hypoglycemia protocol Now on ng tube feeds her glu are running in 200's Plan: Comfort eating allowed and will stop fingerstick checks (7) Severe protein calorie malnutrition Assessment/Plan: She has a documented weight loss of 30 kg in 19 months, sacral wound and is now bedridden from her weakness Dr. Reza inserted Dobbhoff tube and tube feeds were started 03/18 Pt also swallows around the Dobhoff tube and said she "likes to chew", but must be fed. On 03/20, I spoke to Speech Therapist who did a swallow eval that day, and pt does not aspirate. ST told me that ST has been seeing her while at [facility] for weeks and was only taking shakes, and that ST already tried to explain poor prognosis with who did not want to stop with aggressive management then. Plan: No Dobbhoff tube feeds, tube will be removed (8) Ischemic cardiomyopathy Assessment/Plan: At her admission here 1 month ago her echo showed an EF of 30 to 35% which is a new finding for her. She was taken off her statin due to malnutrition but discharged to SNF on cardiac meds Plan: Cardiac meds may continue if she swallows, to keep her out of pulm edema (9) Paroxysmal atrial fibrillation Assessment/Plan: Plan: I will stop telemetry monitoring (10) Hypothyroid Assessment/Plan: TSH was just checked at last admission and TSH was 4.29 Plan: Will stop her Levothyroxine (11) CVA (cerebral vascular accident) Assessment/Plan: History of CVA with residual right-sided deficits. 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 Head CT then showed a left frontal contusion and hematoma. She had a large bruise around the L eye at the last admission here 3 weeks ago Plan: Remain off Eliquis. (13) Septic shock Assessment/Plan: Hypotension has RESOLVED She presented with shock, tachycardia, hypotension, elevated white count and new obtundation. Source appears to be a UTI or possibly her very large sacral decubitus Pt was given IVF, Zosyn/Vanco in the ER. She is minimally more awake today. WBC 20>> 14 today (all labs were reviewed) Plan: Continue with supportive care (14) Prerenal azotemia Assessment/Plan: RESOLVED BUN/creatinine have normalized with iv fluids (all labs reviewed) Plan: No further lab draws - Current Meds Current Meds: Current Medications Generic Name Dose Route Start Last Admin Trade Name Freq PRN Reason Stop Dose Admin Acetaminophen 650 mg 03/16/23 21:17 03/21/23 09:05 Acetaminophen 325 Mg Tablet PO 650 mg Q6H PRN Administration PRN MILD PAIN &/OR FEVER Ascorbic Acid 500 mg 03/19/23 09:00 03/22/23 09:58 Ascorbic Acid 500 Mg Tablet PO 500 mg DAILY ELIZABETH Administration Aspirin 81 mg 03/17/23 09:00 03/22/23 09:58 Aspirin Chew 81 Mg Tablet PO 81 mg DAILY ELIZABETH Administration Carboxymethylcellulose 1 drops 03/17/23 21:00 03/21/23 21:22 Carboxymethylcellulose Ophth Drops EACHEYE 1 drops QPM ELIZABETH Administration Cholecalciferol 50 mcg 03/17/23 09:00 03/22/23 09:58 Cholecalciferol 25 Mcg Tablet PO 50 mcg DAILY ELIZABETH Administration Hydromorphone HCl 0.5 mg 03/21/23 07:14 03/21/23 13:38 Hydromorphone 0.5 Mg/0.5 Ml Syringe IVP 0.5 mg Q6H PRN Administration Severe Pain (Level 7-10) Insulin Glargine-yfgn 5 unit 03/20/23 21:00 03/22/23 09:53 Insulin Glargine-Yfgn 300 Unit/3 Ml Pen SUBQ 5 unit BID ELIZABETH Administration Levothyroxine Sodium 50 mcg 03/17/23 07:00 03/22/23 07:44 Levothyroxine 25 Mcg Tablet PO 50 mcg QDAC ELIZABETH Administration Metoprolol Tartrate 12.5 mg 03/21/23 09:00 03/22/23 09:59 Metoprolol Tartrate 25 Mg Tablet PO 12.5 mg BID ELIZABETH Administration Multivitamins/Minerals 1 tab 03/19/23 08:00 03/22/23 08:54 Multivitamin W/Minerals Tablet PO 1 tab DAILYWM ELIZABETH Administration Pantoprazole Sodium 40 mg 03/17/23 07:00 03/22/23 16:22 Pantoprazole 40 Mg Tablet PO Not Given BIDAC [facility] Patient Own Med ( 1 each 03/17/23 09:00 03/22/23 08:55 Combigan 0.2%-0.5% EACHEYE Not Given Eye Drops) BID ELIZABETH Polyethylene Glycol 17 gm 03/16/23 21:17 03/21/23 08:58 Polyethylene Glycol 3350 17 Gm Packet PO 17 gm DAILY PRN Administration Constipation Sertraline HCl 50 mg 03/17/23 09:00 03/22/23 09:58 Sertraline 50 Mg Tablet PO 50 mg DAILY ELIZABETH Administration Sodium Chloride 10 ml 03/16/23 21:20 03/17/23 05:57 Sodium Chloride Flush 0.9% 10 Ml Syringe IVP 10 ml PRN PRN Administration NEEDED PER PROVIDER ORDERS Sodium Chloride 10 ml 03/17/23 01:00 03/22/23 16:22 Sodium Chloride Flush 0.9% 10 Ml Syringe IVP Not Given 0100,0900,1700 [facility] Sodium Phosphate 250 mg 03/20/23 12:00 03/22/23 08:54 Neutra-Phos 250 Mg Tablet PO 250 mg DAILYWM ELIZABETH Administration Spironolactone 12.5 mg 03/21/23 09:00 03/22/23 09:58 Spironolactone 25 Mg Tablet PO 12.5 mg DAILY ELIZABETH Administration Timolol Maleate 1 drops 03/17/23 09:00 03/22/23 09:59 Timolol 0.5% Ophth Drops EACHEYE 1 drops BID ELIZABETH Administration Zinc Sulfate 220 mg 03/19/23 09:00 03/22/23 09:58 Zinc Sulfate 220 Mg Capsule PO 220 mg DAILY ELIZABETH Administration - Lab Result Fish Bone Diagrams: 03/22/23 07:13 03/22/23 07:13 - Additional Planning My Orders: My Active Orders 03/22/23 18:45 Miscellaenous Nursing Order [RC] QSHIFT Morphine Inj (Carpuject) [Morphine (Carpuject)] 2 mg IVP Q2HR PRN 03/22/23 18:48 Cooling Unit [RC] PRN Oral Care - Nursing [RC] BID Turn and Reposition [RC] PRN Warming Unit [RC] PRN 03/22/23 18:49 Comfort Care [] QSHIFT Subjective - Subjective Patient Reports: Other (Lethargic, moves and speaks minimally) Objective Vital Signs: Vital Signs - 24 hr 03/22/23 03/22/23 03/22/23 00:16 08:00 09:59 Temperature 36.8 C 36.4 C L Heart Rate [ 89 88 Brachial] Respiratory 20 16 Rate Blood Pressure 120/57 L Blood Pressure 115/57 L 124/55 L [Left Brachial artery] O2 Saturation 93 93 03/22/23 16:00 Temperature 36.7 C Heart Rate [ 88 Brachial] Respiratory 22 Rate Blood Pressure Blood Pressure 110/48 L [Left Brachial artery] O2 Saturation 95 Oxygen O2 Source Room air I&O (Last 24 Hrs): Intake and Output Totals x24h 03/20/23 03/21/23 03/22/23 23:59 23:59 23:59 Intake Total 2932 4028 1884 Output Total 2250 1525 3250 Balance 682 2503 -1366 General: Other (Asleep) HEENT: Mucous membr. moist/pink (NG tube in place) Neuro: Other (Lethargic, generalized weakness) Cardiovascular: No murmurs (distant heart sounds) Respiratory: No respiratory distress Abdomen: No tenderness Genitourinary: Other (very large decubitus wound is bandaged) Extremities: Other (1+ edema above ankles) - Results Results: Laboratory Results WBC 20.1 x10^3/uL (4.8-10.8) H 03/22/23 07:13 RBC 3.02 10^6/uL (4.20-5.40) L 03/22/23 07:13 Hgb 8.4 g/dL (12.0-16.0) L 03/22/23 07:13 Hct 28.1 % (37.0-47.0) L 03/22/23 07:13 MCV 93.0 fL (81.0-99.0) 03/22/23 07:13 MCH 27.8 pg (27.0-31.0) 03/22/23 07:13 MCHC 29.9 g/dL (32.0-36.0) L 03/22/23 07:13 RDW 18.2 % (12.0-15.0) H 03/22/23 07:13 Plt Count 224 10^3/uL (130-450) 03/22/23 07:13 MPV 12.4 fL (7.9-10.8) H 03/22/23 07:13 Neut # (Auto) HOUSE CALLS NURSE 03/22/23 07:13 Lymph # (Auto) HOUSE CALLS NURSE 03/22/23 07:13 [place] # (Auto) HOUSE CALLS NURSE 03/22/23 07:13 Eos # (Auto) HOUSE CALLS NURSE 03/22/23 07:13 Baso # (Auto) HOUSE CALLS NURSE 03/22/23 07:13 Absolute Nucleated RBC HOUSE CALLS NURSE 03/22/23 07:13 Total Counted 100 03/22/23 07:13 Band Neuts % (Manual) 0 % (0-10) 03/22/23 07:13 Abnorm Lymph % (Manual) 0 % 03/22/23 07:13 Metamyelocytes % 2 % (-0) H 03/22/23 07:13 Nucleated RBC % HOUSE CALLS NURSE 03/22/23 07:13 Neutrophils # (Manual) 16.5 10^3/uL (1.5-6.6) H 03/22/23 07:13 Lymphocytes # (Manual) 2.0 10^3/uL (1.5-3.5) 03/22/23 07:13 Monocytes # (Manual) 0.8 10^3/uL (0.0-1.0) 03/22/23 07:13 Eosinophils # (Manual) 0.4 10^3/uL (0-0.7) 03/22/23 07:13 Basophils # (Manual) 0.0 10^3/uL (0-0.1) 03/22/23 07:13 Differential Comment MANUAL DIFFERENTIAL 03/22/23 07:13 Manual Slide Review Indicated 03/22/23 07:13 Platelet Estimate NORMAL (130-450,000) (NORMAL) 03/22/23 07:13 Platelet Morphology NORMAL APPEARANCE (NORMAL) 03/22/23 07:13 RBC Morph Micro Appear NORMAL APPEARANCE (NORMAL) 03/22/23 07:13 PT 12.3 secs (9.9-12.6) 03/16/23 17:45 INR 1.1 (0.8-1.2) 03/16/23 17:45 APTT 20.5 secs (24.9-33.3) L 03/16/23 17:45 Sodium 142 mmol/L (135-145) 03/22/23 07:13 Potassium 4.7 mmol/L (3.5-4.5) H 03/22/23 07:13 Chloride 110 mmol/L (101-111) 03/22/23 07:13 Carbon Dioxide 29 mmol/L (21-32) 03/22/23 07:13 Anion Gap 3.0 (6-13) L 03/22/23 07:13 BUN 16 mg/dL (6-20) 03/22/23 07:13 Creatinine 0.4 mg/dL (0.6-1.3) L 03/22/23 07:13 Estimated GFR (MDRD) 154 (>89) 03/22/23 07:13 Glucose 266 mg/dL (74-104) H 03/22/23 07:13 POC Whole Bld Glucose 221 mg/dL (70 - 100) H 03/22/23 16:20 Estimat Average Glucose 120 mg/dL (70-100) H 03/17/23 04:48 Hemoglobin A1c % 5.8 % (4.27-6.07) 03/17/23 04:48 Lactic Acid 1.1 mmol/L (0.5-2.2) 03/16/23 17:45 Calcium 8.9 mg/dL (8.5-10.3) 03/22/23 07:13 Phosphorus 1.6 mg/dL (2.5-5.0) L 03/21/23 05:12 Magnesium 1.7 mg/dL (1.7-2.3) 03/21/23 05:12 Iron 15 ug/dL (50-212) L 03/19/23 05:06 TIBC 109 ug/dL (250-450) L 03/19/23 05:06 % Saturation 14 % (20-50) L 03/19/23 05:06 Transferrin 78 mg/dL (203-362) L 03/19/23 05:06 Total Bilirubin 0.3 mg/dL (0.2-1.0) 03/21/23 05:12 AST 12 IU/L (10-42) 03/21/23 05:12 ALT 10 IU/L (10-60) 03/21/23 05:12 Alkaline Phosphatase 71 IU/L (42-121) 03/21/23 05:12 Total Protein 5.3 g/dL (6.4-8.9) L 03/21/23 05:12 Albumin 2.3 g/dL (3.2-5.5) L 03/21/23 05:12 Globulin 3.0 g/dL (2.1-4.2) 03/21/23 05:12 Albumin/Globulin Ratio 0.8 (1.0-2.2) L 03/21/23 05:12 Prealbumin 5 mg/dL (17-34) L 03/21/23 05:12 Triglycerides 150 mg/dL (48-352) 03/17/23 04:48 Cholesterol 69 mg/dL (-200) 03/17/23 04:48 LDL Cholesterol, Calc 26 mg/dL (-129) 03/17/23 04:48 VLDL Cholesterol 30 mg/dL 03/17/23 04:48 HDL Cholesterol 13 mg/dL (60-) L 03/17/23 04:48 LDL/HDL Ratio 2.0 (<4.4) 03/17/23 04:48 Cholesterol/HDL Ratio 5.3 (<4.4) 03/17/23 04:48 Lipase 20 U/L (11-82) 03/16/23 17:45 Urine Color YELLOW 03/16/23 17:55 Urine Clarity HAZY (CLEAR) 03/16/23 17:55 Urine pH 5.5 PH (5.0-7.5) 03/16/23 17:55 Ur Specific [place] 1.010 (1.002-1.030) 03/16/23 17:55 Urine Protein TRACE mg/dL (NEGATIVE) 03/16/23 17:55 Urine Glucose (UA) >=1000 mg/dL (NEGATIVE) H 03/16/23 17:55 Urine Ketones NEGATIVE mg/dL (NEGATIVE) 03/16/23 17:55 Urine Occult Blood TRACE-INTA (NEGATIVE) 03/16/23 17:55 Urine Nitrite POSITIVE (NEGATIVE) H 03/16/23 17:55 Urine Bilirubin NEGATIVE (NEGATIVE) 12/12/23 17:55 Urine Urobilinogen 0.2 (NORMAL) E.U./dL (NORMAL) 03/16/23 17:55 Ur Leukocyte Esterase SMALL (NEGATIVE) H 03/16/23 17:55 Urine RBC 0-5 /HPF (0-5) 03/16/23 17:55 Urine WBC >25 /HPF (0-5) H 03/16/23 17:55 Ur Squamous Epith Cells FEW Squamous (<= Few) 03/16/23 17:55 Urine Bacteria Moderate /HPF (None Seen) H 03/16/23 17:55 Urine Yeast PRESENT 03/16/23 17:55 Ur Microscopic Review INDICATED 03/16/23 17:55 Urine Culture Comments INDICATED 03/16/23 17:55 Last Dose Date 03/20/23 03/21/23 20:02 Last Dose Time 223603/21/23 20:02 Vancomycin Trough 4.1 ug/mL 03/21/23 20:02 - Procedures Procedures: Procedures INSERTION OF INFUSION DEV INTO SUP VENA CAVA, PERC APPROACH (02/10/23) Sepsis Event Note (H) - Evaluation Possible source of Sepsis: positive: Genitourinary, Skin/soft tissue
[2023-03-22] MEDS: CARBOXYMETHYLCELLULOSE OPHTH DROPS EACHEYE SCH (21:47)
[2023-03-23] MEDS: SODIUM CHLORIDE FLUSH 0.9% 10 ML SYRINGE IVP SCH ×3 (01:02→22:26)
[2023-03-23] MEDS: LEVOTHYROXINE 25 MCG TABLET PO SCH (07:04)
[2023-03-23] MEDS: PANTOPRAZOLE 40 MG TABLET PO SCH ×2 (07:04→18:21)
[2023-03-23] MEDS: ASPIRIN CHEW 81 MG TABLET PO SCH ×2 (08:23→09:31)
[2023-03-23] MEDS: ASCORBIC ACID 500 MG TABLET PO SCH ×2 (08:23→09:31)
[2023-03-23] MEDS: SERTRALINE 50 MG TABLET PO SCH ×2 (08:23→09:31)
[2023-03-23] MEDS: METOPROLOL TARTRATE 25 MG TABLET PO SCH ×3 (08:23→22:27)
[2023-03-23] MEDS: NEUTRA-PHOS 250 MG TABLET PO SCH ×2 (08:24→09:31)
[2023-03-23] MEDS: CHOLECALCIFEROL 25 MCG TABLET PO SCH ×2 (08:24→09:31)
[2023-03-23] MEDS: SPIRONOLACTONE 25 MG TABLET PO SCH ×2 (08:24→09:31)
[2023-03-23] MEDS: MULTIVITAMIN W/MINERALS TABLET PO SCH ×2 (08:24→09:31)
[2023-03-23] MEDS: EYE EACHEYE SCH ×2 (08:25→22:27)
[2023-03-23] MEDS: TIMOLOL 0.5% OPHTH DROPS EACHEYE SCH ×3 (08:25→22:27)
[2023-03-23] MEDS: COMBIGAN EACHEYE SCH ×2 (08:25→22:27)
[2023-03-23] MEDS: INSULIN GLARGINE-YFGN 300 UNIT/3 ML PEN SUBQ SCH (08:29)
[2023-03-23] MEDS: ZINC SULFATE 220 MG CAPSULE PO SCH (08:34)
[2023-03-23 08:48] VITALS: O2SAT 97
[2023-03-23] MEDS ORDERED: MORPHINE SOL 10 MG/0.5 ML ORAL SYRINGE PO PRN ×2 (10:36→12:34)
[2023-03-23] MEDS ORDERED: ONDANSETRON 4 MG/2 ML VIAL IVP PRN (10:36)
[2023-03-23] MEDS ORDERED: GLYCOPYRROLATE 1 MG/5 ML VIAL SUBQ PRN (10:36)
[2023-03-23] MEDS ORDERED: LORazepam 2 MG/ML VIAL IVP PRN (10:36)
[2023-03-23] MEDS ORDERED: MORPHINE 2 MG/ML CARPUJECT IVP PRN (10:36)
[2023-03-23] MEDS ORDERED: ATROPINE 1% OPHTH DROPS 2 ML SL PRN (12:34)
[2023-03-23] MEDS ORDERED: LORazepam 1 MG TABLET PO PRN (12:34)
--- NOTE | 2023-03-23 12:34 | Discharge Plan ---
Discharge Plan for SNF / [facility] - Discharge Plan And Transition Orders Problem Reviewed?: Yes Disposition: 03 SNF DC/Xfer Condition: Poor Allergies and Adverse Reactions: Allergies Allergy/AdvReac Type Severity Reaction Status Date / Time Sulfa (Sulfonamide Allergy Mild Nausea Verified 02/10/23 17:48 Antibiotics) omeprazole Allergy Unknown Verified 03/16/23 17:31 epinephrine AdvReac Unknown Verified 02/10/23 17:48 Plan of Treatment: Transition to hospice care on 03/26 - SNF / CUSTODIAL Transition Orders Discharge Diagnosis: Sacral OM Failure to thrive. Medicare Certification Statement: I certify that Post Hospital fdc care is medically necessary on a continuing basis for any of the conditions for which she/he is receiving care during hospitalization. Notify PCP of admission and forward orders to primary provider for signature. Other Notification Orders: Call PCP immediately if patient develops dyspnea, chest pain/tightness or edema. Additional Bowel Program Orders: If no BM after 2 days, nurse may give M.O.M. 30ml PO PRN and/or ducolax Supp 1 MD and/or CINDY 250mg P.O., and/or senna 1-2 tabs PO. On day 3 nurse may give repeat above order until residents constipation is resolved. Annual Influenza Vaccine (between Dec 04 and July 03): No Two-step PPD per [facility] [phone] or approved exception documents: No Medication Orders: PLEASE REFER TO THE DISCHARGE MEDICATION LIST. - Medications New Prescriptions: Morphine Oral Soln [Roxanol] 10 mg PO Q2HR PRN 14 Days ml PRN Reason: Moderate Pain (Level 4-6)/SOA LORazepam [Ativan] 1 mg PO Q6H PRN #30 tab PRN Reason: Anxiety/Agitation Atropine 1% Ophth Drops [Isopto Atropine 1% Ophth Drops] 1 - 4 drops SL Q2H PRN 30 Days each PRN Reason: Excessive secretions - Diet Texture: Regular May have monthly special meal: Yes
--- NOTE | 2023-03-23 15:02 | PROVIDER PROGRESS NOTE ---
Assessment/Plan - Problem List (1) Osteomyelitis of sacrum Assessment/Plan: Placed on comfort measures. She will discharge to hospice on Wednesday. (2) Altered mental status Qualifiers: Altered mental status type: unspecified Qualified Code(s): R41.82 - Altered mental status, unspecified (5) Fever Qualifiers: Fever type: unspecified Qualified Code(s): R50.9 - Fever, unspecified (7) Hypotension Qualifiers: Hypotension type: unspecified hypotension type Qualified Code(s): I95.9 - Hypotension, unspecified (8) Sacral ulcer Qualifiers: Qualified Code(s): L98.429 - Non-pressure chronic ulcer of back with unspecified severity - Current Meds Current Meds: Current Medications Generic Name Dose Route Start Last Admin Trade Name Freq PRN Reason Stop Dose Admin Acetaminophen 650 mg 03/16/23 21:17 03/21/23 09:05 Acetaminophen 325 Mg Tablet PO 650 mg Q6H PRN Administration PRN MILD PAIN &/OR FEVER Ascorbic Acid 500 mg 03/19/23 09:00 03/23/23 09:31 Ascorbic Acid 500 Mg Tablet PO Not Given DAILY [facility] Aspirin 81 mg 03/17/23 09:00 03/23/23 09:31 Aspirin Chew 81 Mg Tablet PO Not Given DAILY [facility] Carboxymethylcellulose 1 drops 03/17/23 21:00 03/22/23 21:47 Carboxymethylcellulose Ophth Drops EACHEYE Not Given QPM [facility] Cholecalciferol 50 mcg 03/17/23 09:00 03/23/23 09:31 Cholecalciferol 25 Mcg Tablet PO Not Given DAILY [facility] Hydromorphone HCl 0.5 mg 03/21/23 07:14 03/21/23 13:38 Hydromorphone 0.5 Mg/0.5 Ml Syringe IVP 0.5 mg Q6H PRN Administration Severe Pain (Level 7-10) Insulin Glargine-yfgn 5 unit 03/20/23 21:00 03/23/23 08:29 Insulin Glargine-Yfgn 300 Unit/3 Ml Pen SUBQ 5 unit BID [facility] Administration Levothyroxine Sodium 50 mcg 03/17/23 07:00 03/23/23 07:04 Levothyroxine 25 Mcg Tablet PO Not Given QDAC [facility] Metoprolol Tartrate 12.5 mg 03/21/23 09:00 03/23/23 09:31 Metoprolol Tartrate 25 Mg Tablet PO Not Given BID [facility] Multivitamins/Minerals 1 tab 03/19/23 08:00 03/23/23 09:31 Multivitamin W/Minerals Tablet PO Not Given DAILYWM [facility] Pantoprazole Sodium 40 mg 03/17/23 07:00 03/23/23 07:04 Pantoprazole 40 Mg Tablet PO Not Given BIDAC [facility] Patient Own Med ( 1 each 03/17/23 09:00 03/23/23 08:25 Combigan 0.2%-0.5% EACHEYE Not Given Eye Drops) BID [facility] Polyethylene Glycol 17 gm 03/16/23 21:17 03/21/23 08:58 Polyethylene Glycol 3350 17 Gm Packet PO 17 gm DAILY PRN Administration Constipation Sertraline HCl 50 mg 03/17/23 09:00 03/23/23 09:31 Sertraline 50 Mg Tablet PO Not Given DAILY [facility] Sodium Chloride 10 ml 03/16/23 21:20 03/17/23 05:57 Sodium Chloride Flush 0.9% 10 Ml Syringe IVP 10 ml PRN PRN Administration NEEDED PER PROVIDER ORDERS Sodium Chloride 10 ml 03/17/23 01:00 03/23/23 08:24 Sodium Chloride Flush 0.9% 10 Ml Syringe IVP 10 ml 0100,0900,1700 [facility] Administration Sodium Phosphate 250 mg 03/20/23 12:00 03/23/23 09:31 Neutra-Phos 250 Mg Tablet PO Not Given DAILYWM [facility] Spironolactone 12.5 mg 03/21/23 09:00 03/23/23 09:31 Spironolactone 25 Mg Tablet PO Not Given DAILY [facility] Timolol Maleate 1 drops 03/17/23 09:00 03/23/23 09:35 Timolol 0.5% Ophth Drops EACHEYE 1 drops BID [facility] Administration Zinc Sulfate 220 mg 03/19/23 09:00 03/23/23 08:34 Zinc Sulfate 220 Mg Capsule PO Not Given DAILY [facility] - Lab Result Fish Bone Diagrams: 03/22/23 07:13 03/22/23 07:13 - Additional Planning My Orders: My Active Orders 03/23/23 Hospice Referral (Coordinate Admission by Hospice Office Staff) [CONS] Routine 03/23/23 08:44 Miscellaenous Nursing Order [RC] DAILY 03/23/23 10:36 Glycopyrrolate [Robinul] 0.2 mg SUBQ Q4H PRN LORazepam INJ [Ativan Inj (Vial)] 1 mg IVP Q6H PRN Morphine Inj (Carpuject) [Morphine (Carpuject)] 2 mg IVP Q2HR PRN Ondansetron Inj [Zofran Inj] 4 mg IVP Q8H PRN 03/23/23 12:34 Atropine 1% Ophth Drops [Isopto Atropine 1% Ophth Drops] 1 - 4 drops SL Q2H PRN LORazepam [Ativan] 1 mg PO Q6H PRN Morphine Oral Soln [Roxanol] 10 mg PO Q2HR PRN 03/23/23 12:35 Comfort Care [RC] QSHIFT 03/23/23 12:41 Discharge [RC] .ONCE Initiate Discharge Checklist [RC] .ONCE Subjective - Subjective Patient Reports: Resting Comfortably Objective Vital Signs: Vital Signs - 24 hr 03/22/23 03/22/23 03/23/23 16:00 23:59 08:46 Temperature 36.7 C 36.8 C 36.4 C L Heart Rate [ 88 82 81 Brachial] Respiratory 22 16 16 Rate Blood Pressure 110/48 L 119/52 L 113/54 L [Left Brachial artery] O2 Saturation 95 96 97 Oxygen O2 Source Room air I&O (Last 24 Hrs): Intake and Output Totals x24h 03/21/23 03/22/23 03/23/23 23:59 23:59 23:59 Intake Total 4028 2934 Output Total 1525 3250 380 Balance 2503 -316 -380 General: Alert, Oriented x3 Neuro: Alert Cardiovascular: Regular rate, Normal S1, Normal S2 - Results Results: Laboratory Results WBC 20.1 x10^3/uL (4.8-10.8) H 03/22/23 07:13 RBC 3.02 10^6/uL (4.20-5.40) L 03/22/23 07:13 Hgb 8.4 g/dL (12.0-16.0) L 03/22/23 07:13 Hct 28.1 % (37.0-47.0) L 03/22/23 07:13 MCV 93.0 fL (81.0-99.0) 03/22/23 07:13 MCH 27.8 pg (27.0-31.0) 03/22/23 07:13 MCHC 29.9 g/dL (32.0-36.0) L 03/22/23 07:13 RDW 18.2 % (12.0-15.0) H 03/22/23 07:13 Plt Count 224 10^3/uL (130-450) 03/22/23 07:13 MPV 12.4 fL (7.9-10.8) H 03/22/23 07:13 Neut # (Auto) [employer] 03/22/23 07:13 Lymph # (Auto) [employer] 03/22/23 07:13 [place] # (Auto) [employer] 03/22/23 07:13 Eos # (Auto) [employer] 03/22/23 07:13 Baso # (Auto) [employer] 03/22/23 07:13 Absolute Nucleated RBC [employer] 03/22/23 07:13 Total Counted 100 03/22/23 07:13 Band Neuts % (Manual) 0 % (0-10) 03/22/23 07:13 Abnorm Lymph % (Manual) 0 % 03/22/23 07:13 Metamyelocytes % 2 % (-0) H 03/22/23 07:13 Nucleated RBC % [employer] 03/22/23 07:13 Neutrophils # (Manual) 16.5 10^3/uL (1.5-6.6) H 03/22/23 07:13 Lymphocytes # (Manual) 2.0 10^3/uL (1.5-3.5) 03/22/23 07:13 Monocytes # (Manual) 0.8 10^3/uL (0.0-1.0) 03/22/23 07:13 Eosinophils # (Manual) 0.4 10^3/uL (0-0.7) 03/22/23 07:13 Basophils # (Manual) 0.0 10^3/uL (0-0.1) 03/22/23 07:13 Differential Comment MANUAL DIFFERENTIAL 03/22/23 07:13 Manual Slide Review Indicated 03/22/23 07:13 Platelet Estimate NORMAL (130-450,000) (NORMAL) 03/22/23 07:13 Platelet Morphology NORMAL APPEARANCE (NORMAL) 03/22/23 07:13 RBC Morph Micro Appear NORMAL APPEARANCE (NORMAL) 03/22/23 07:13 PT 12.3 secs (9.9-12.6) 03/16/23 17:45 INR 1.1 (0.8-1.2) 03/16/23 17:45 APTT 20.5 secs (24.9-33.3) L 03/16/23 17:45 Sodium 142 mmol/L (135-145) 03/22/23 07:13 Potassium 4.7 mmol/L (3.5-4.5) H 03/22/23 07:13 Chloride 110 mmol/L (101-111) 03/22/23 07:13 Carbon Dioxide 29 mmol/L (21-32) 03/22/23 07:13 Anion Gap 3.0 (6-13) L 03/22/23 07:13 BUN 16 mg/dL (6-20) 03/22/23 07:13 Creatinine 0.4 mg/dL (0.6-1.3) L 03/22/23 07:13 Estimated GFR (MDRD) 154 (>89) 03/22/23 07:13 Glucose 266 mg/dL (74-104) H 03/22/23 07:13 POC Whole Bld Glucose 119 mg/dL (70 - 100) H 03/23/23 08:28 Estimat Average Glucose 120 mg/dL (70-100) H 03/17/23 04:48 Hemoglobin A1c % 5.8 % (4.27-6.07) 03/17/23 04:48 Lactic Acid 1.1 mmol/L (0.5-2.2) 03/16/23 17:45 Calcium 8.9 mg/dL (8.5-10.3) 03/22/23 07:13 Phosphorus 1.6 mg/dL (2.5-5.0) L 03/21/23 05:12 Magnesium 1.7 mg/dL (1.7-2.3) 03/21/23 05:12 Iron 15 ug/dL (50-212) L 03/19/23 05:06 TIBC 109 ug/dL (250-450) L 03/19/23 05:06 % Saturation 14 % (20-50) L 03/19/23 05:06 Transferrin 78 mg/dL (203-362) L 03/19/23 05:06 Total Bilirubin 0.3 mg/dL (0.2-1.0) 03/21/23 05:12 AST 12 IU/L (10-42) 03/21/23 05:12 ALT 10 IU/L (10-60) 03/21/23 05:12 Alkaline Phosphatase 71 IU/L (42-121) 03/21/23 05:12 Total Protein 5.3 g/dL (6.4-8.9) L 03/21/23 05:12 Albumin 2.3 g/dL (3.2-5.5) L 03/21/23 05:12 Globulin 3.0 g/dL (2.1-4.2) 03/21/23 05:12 Albumin/Globulin Ratio 0.8 (1.0-2.2) L 03/21/23 05:12 Prealbumin 5 mg/dL (17-34) L 03/21/23 05:12 Triglycerides 150 mg/dL (48-352) 03/17/23 04:48 Cholesterol 69 mg/dL (-200) 03/17/23 04:48 LDL Cholesterol, Calc 26 mg/dL (-129) 03/17/23 04:48 VLDL Cholesterol 30 mg/dL 03/17/23 04:48 HDL Cholesterol 13 mg/dL (60-) L 03/17/23 04:48 LDL/HDL Ratio 2.0 (<4.4) 03/17/23 04:48 Cholesterol/HDL Ratio 5.3 (<4.4) 03/17/23 04:48 Lipase 20 U/L (11-82) 03/16/23 17:45 Urine Color YELLOW 03/16/23 17:55 Urine Clarity HAZY (CLEAR) 03/16/23 17:55 Urine pH 5.5 PH (5.0-7.5) 03/16/23 17:55 Ur Specific [place] 1.010 (1.002-1.030) 03/16/23 17:55 Urine Protein TRACE mg/dL (NEGATIVE) 03/16/23 17:55 Urine Glucose (UA) >=1000 mg/dL (NEGATIVE) H 03/16/23 17:55 Urine Ketones NEGATIVE mg/dL (NEGATIVE) 03/16/23 17:55 Urine Occult Blood TRACE-INTA (NEGATIVE) 03/16/23 17:55 Urine Nitrite POSITIVE (NEGATIVE) H 03/16/23 17:55 Urine Bilirubin NEGATIVE (NEGATIVE) 03/16/23 17:55 Urine Urobilinogen 0.2 (NORMAL) E.U./dL (NORMAL) 03/16/23 17:55 Ur Leukocyte Esterase SMALL (NEGATIVE) H 03/16/23 17:55 Urine RBC 0-5 /HPF (0-5) 03/16/23 17:55 Urine WBC >25 /HPF (0-5) H 03/16/23 17:55 Ur Squamous Epith Cells FEW Squamous (<= Few) 03/16/23 17:55 Urine Bacteria Moderate /HPF (None Seen) H 03/16/23 17:55 Urine Yeast PRESENT 03/16/23 17:55 Ur Microscopic Review INDICATED 03/16/23 17:55 Urine Culture Comments INDICATED 03/16/23 17:55 Last Dose Date 03/20/23 03/21/23 20:02 Last Dose Time 223603/21/23 20:02 Vancomycin Trough 4.1 ug/mL 03/21/23 20:02 - Procedures Procedures: Procedures INSERTION OF INFUSION DEV INTO SUP VENA CAVA, PERC APPROACH (02/10/23) Sepsis Event Note (H) - Evaluation Possible source of Sepsis: positive: Genitourinary, Skin/soft tissue Current Medications - Current Medications Current Medications: Active Medications Generic Name Dose Route Start Last Admin Trade Name Freq PRN Reason Stop Dose Admin Acetaminophen 650 mg 03/16/23 21:17 03/21/23 09:05 Acetaminophen 325 Mg Tablet PO 650 mg Q6H PRN Administration PRN MILD PAIN &/OR FEVER Ascorbic Acid 500 mg 03/19/23 09:00 03/23/23 09:31 Ascorbic Acid 500 Mg Tablet PO Not Given DAILY [facility] Aspirin 81 mg 03/17/23 09:00 03/23/23 09:31 Aspirin Chew 81 Mg Tablet PO Not Given DAILY [facility] Atropine Sulfate 1 - 4 drops 03/23/23 12:34 Atropine 1% Ophth Drops 2 Ml SL Q2H PRN Excessive secretions Bisacodyl 10 mg 03/16/23 21:17 Bisacodyl 10 Mg Supp WI DAILY PRN Constipation Calcium Carbonate/Glycine 1,000 mg 03/16/23 21:17 Calcium Carbonate Chew 500 Mg Tablet PO Q8H PRN Heartburn Carboxymethylcellulose 1 drops 03/17/23 21:00 03/22/23 21:47 Carboxymethylcellulose Ophth Drops EACHEYE Not Given QPM [facility] Cholecalciferol 50 mcg 03/17/23 09:00 03/23/23 09:31 Cholecalciferol 25 Mcg Tablet PO Not Given DAILY [facility] Glycopyrrolate 0.2 mg 03/23/23 10:36 Glycopyrrolate 1 Mg/5 Ml Vial SUBQ Q4H PRN Excessive secretions Hydromorphone HCl 0.5 mg 03/21/23 07:14 03/21/23 13:38 Hydromorphone 0.5 Mg/0.5 Ml Syringe IVP 0.5 mg Q6H PRN Administration Severe Pain (Level 7-10) Insulin Glargine-yfgn 5 unit 03/20/23 21:00 03/23/23 08:29 Insulin Glargine-Yfgn 300 Unit/3 Ml Pen SUBQ 5 unit BID ELIZABETH Administration Levothyroxine Sodium 50 mcg 03/17/23 07:00 03/23/23 07:04 Levothyroxine 25 Mcg Tablet PO Not Given QDAC [facility] Lorazepam 1 mg 03/23/23 10:36 Lorazepam 2 Mg/Ml Vial IVP Q6H PRN Anxiety/Agitation Lorazepam 1 mg 03/23/23 12:34 Lorazepam 1 Mg Tablet PO Q6H PRN Anxiety/Agitation Metoprolol Tartrate 12.5 mg 03/21/23 09:00 03/23/23 09:31 Metoprolol Tartrate 25 Mg Tablet PO Not Given BID [facility]ETH Morphine Sulfate 2 mg 03/23/23 10:36 Morphine 2 Mg/Ml Carpuject IVP Q2HR PRN Severe Pain (Level 7-10)/ SOA Morphine Sulfate 10 mg 03/23/23 12:34 Morphine Ynes 10 Mg/0.5 Ml Oral Syringe PO Q2HR PRN Moderate Pain (Level 4-6)/SOA Multivitamins/Minerals 1 tab 03/19/23 08:00 03/23/23 09:31 Multivitamin W/Minerals Tablet PO Not Given DAILYWM [facility] Ondansetron HCl 4 mg 03/16/23 21:20 Ondansetron Odt 4 Mg Tablet TL Q6HR PRN Nausea / Vomiting Ondansetron HCl 4 mg 03/23/23 10:36 Ondansetron 4 Mg/2 Ml Vial IVP Q8H PRN Nausea / Vomiting Pantoprazole Sodium 40 mg 03/17/23 07:00 03/23/23 07:04 Pantoprazole 40 Mg Tablet PO Not Given BIDAC [facility] Patient Own Med ( 1 each 03/17/23 09:00 03/23/23 08:25 Combigan 0.2%-0.5% EACHEYE Not Given Eye Drops) BID [facility] Polyethylene Glycol 17 gm 03/16/23 21:17 03/21/23 08:58 Polyethylene Glycol 3350 17 Gm Packet PO 17 gm DAILY PRN Administration Constipation Senna 17.2 mg 03/16/23 21:17 Senna 8.6 Mg Tablet PO DAILY PRN Constipation Sertraline HCl 50 mg 03/17/23 09:00 03/23/23 09:31 Sertraline 50 Mg Tablet PO Not Given DAILY [facility] Sodium Chloride 10 ml 03/16/23 21:20 03/17/23 05:57 Sodium Chloride Flush 0.9% 10 Ml Syringe IVP 10 ml PRN PRN Administration NEEDED PER PROVIDER ORDERS Sodium Chloride 10 ml 03/17/23 01:00 03/23/23 08:24 Sodium Chloride Flush 0.9% 10 Ml Syringe IVP 10 ml 0100,0900,1700 [facility] Administration Sodium Phosphate 250 mg 03/20/23 12:00 03/23/23 09:31 Neutra-Phos 250 Mg Tablet PO Not Given DAILYWM [facility] Spironolactone 12.5 mg 03/21/23 09:00 03/23/23 09:31 Spironolactone 25 Mg Tablet PO Not Given DAILY [facility] Timolol Maleate 1 drops 03/17/23 09:00 03/23/23 09:35 Timolol 0.5% Ophth Drops EACHEYE 1 drops BID ELIZABETH Administration Zinc Sulfate 220 mg 03/19/23 09:00 03/23/23 08:34 Zinc Sulfate 220 Mg Capsule PO Not Given DAILY [facility] Insulin Glargine [Lantus Solostar] 10 units SUBQ BID 06/15/21 Sennosides [Senna] 2 tab PO DAILY PRN 03/16/23
[2023-03-23] MEDS: CARBOXYMETHYLCELLULOSE OPHTH DROPS EACHEYE SCH (22:26)
[2023-03-24] MEDS: SODIUM CHLORIDE FLUSH 0.9% 10 ML SYRINGE IVP SCH ×2 (00:45→10:14)
[2023-03-24] MEDS: PANTOPRAZOLE 40 MG TABLET PO SCH (06:33)
[2023-03-24] MEDS: LEVOTHYROXINE 25 MCG TABLET PO SCH (06:33)
[2023-03-24 09:31] VITALS: BP 113/47
--- NOTE | 2023-03-24 09:45 | Discharge Plan ---
Discharge Plan for SNF / [facility] - Discharge Plan And Transition Orders Problem Reviewed?: Yes Disposition: 03 SNF DC/Xfer Condition: Poor Allergies and Adverse Reactions: Allergies Allergy/AdvReac Type Severity Reaction Status Date / Time Sulfa (Sulfonamide Allergy Mild Nausea Verified 02/10/23 17:48 Antibiotics) omeprazole Allergy Unknown Verified 03/16/23 17:31 epinephrine AdvReac Unknown Verified 02/10/23 17:48 Plan of Treatment: Transition to hospice care on 03/26 - SNF / SKILLED NURSING Transition Orders Medicare Certification Statement: I certify that Post Hospital fci care is medically necessary on a continuing basis for any of the conditions for which she/he is receiving care during hospitalization. Notify PCP of admission and forward orders to primary provider for signature. Other Notification Orders: Call PCP immediately if patient develops dyspnea, chest pain/tightness or edema. Additional Bowel Program Orders: If no BM after 2 days, nurse may give M.O.M. 30ml PO PRN and/or ducolax Supp 1 SD and/or CINDY 250mg P.O., and/or senna 1-2 tabs PO. On day 3 nurse may give repeat above order until residents constipation is resolved. Medication Orders: PLEASE REFER TO THE DISCHARGE MEDICATION LIST. - Medications New Prescriptions: Morphine Oral Soln [Roxanol] 10 mg PO Q2HR PRN 14 Days ml PRN Reason: Moderate Pain (Level 4-6)/SOA LORazepam [Ativan] 1 mg PO Q6H PRN #30 tab PRN Reason: Anxiety/Agitation Atropine 1% Ophth Drops [Isopto Atropine 1% Ophth Drops] 1 - 4 drops SL Q2H PRN 30 Days each PRN Reason: Excessive secretions Morphine Oral Soln [Roxanol] 10 mg PO Q2H 14 Days #84 ml - Diet Type: Geriatric Texture: Regular Liquids: Thin May have monthly special meal: Yes
[2023-03-24] MEDS: NEUTRA-PHOS 250 MG TABLET PO SCH (10:12)
[2023-03-24] MEDS: METOPROLOL TARTRATE 25 MG TABLET PO SCH (10:12)
[2023-03-24] MEDS: MULTIVITAMIN W/MINERALS TABLET PO SCH (10:12)
[2023-03-24] MEDS: ASPIRIN CHEW 81 MG TABLET PO SCH (10:12)
[2023-03-24] MEDS: COMBIGAN EACHEYE SCH (10:12)
[2023-03-24] MEDS: ASCORBIC ACID 500 MG TABLET PO SCH (10:12)
[2023-03-24] MEDS: EYE EACHEYE SCH (10:12)
[2023-03-24] MEDS: CHOLECALCIFEROL 25 MCG TABLET PO SCH (10:12)
[2023-03-24] MEDS: TIMOLOL 0.5% OPHTH DROPS EACHEYE SCH (10:13)
[2023-03-24] MEDS: SERTRALINE 50 MG TABLET PO SCH (10:13)
[2023-03-24] MEDS: SPIRONOLACTONE 25 MG TABLET PO SCH (10:13)
[2023-03-24] MEDS: ZINC SULFATE 220 MG CAPSULE PO SCH (10:13)
--- NOTE | 2023-03-24 11:36 | DISCHARGE SUMMARY ---
"Discharge Summary Discharge Date: 03/24/23 Discharging Provider: Asad Watkins Status: Do Not Attempt Resuscitation Condition at Discharge: Poor Discharge Disposition: SNF DC/Xfer - DIAGNOSES Discharge Diagnoses with Status of Each Condition: (1) Osteomyelitis of sacrum Assessment/Plan: Placed on comfort measures. She will discharge to hospice on Wednesday. (2) Altered mental status Qualifiers: Altered mental status type: unspecified Qualified Code(s): R41.82 - Altered mental status, unspecified (5) Fever Qualifiers: Fever type: unspecified Qualified Code(s): R50.9 - Fever, unspecified (7) Hypotension Qualifiers: Hypotension type: unspecified hypotension type Qualified Code(s): I95.9 - Hypotension, unspecified (8) Sacral ulcer Qualifiers: Qualified Code(s): L98.429 - Non-pressure chronic ulcer of back with unspecified severity - CONSULTS | PROCEDURES Consultations: Palliative care - HOSPITAL COURSE Hospital Course: Patient is a 77-year-old female who presented to the ED in septic shock. This is believed to be secondary to her very large sacral decub but his wound. During her hospital course she did develop bacteremia due to Proteus and staph species and was continued on broad-spectrum IV antibiotics. Debridement of her wound was performed by surgery which revealed her wound was down to the bone. CT abdomen/pelvis was performed which showed evidence of osteomyelitis. Given her overall poor prognosis and the likelihood of healing, palliative care was consulted. After a family meeting it was concluded that the patient would be placed on comfort cares and discharged to a hospice facility. - ALLERGIES Allergies/Adverse Reactions: Allergies Allergy/AdvReac Type Severity Reaction Status Date / Time Sulfa (Sulfonamide Allergy Mild Nausea Verified 02/10/23 17:48 Antibiotics) omeprazole Allergy Unknown Verified 03/16/23 17:31 epinephrine AdvReac Unknown Verified 02/10/23 17:48 - MEDICATIONS Home Medications: Ambulatory Orders Medication Instructions Recorded Confirmed Insulin Glargine [Lantus Solostar] 10 units SUBQ BID 06/15/21 03/16/23 Sertraline [Zoloft] 50 mg PO DAILY #0 02/23/23 03/16/23 Sennosides [Senna] 2 tab PO DAILY PRN 03/16/23 03/16/23 Acetaminophen [Tylenol] 650 mg PO Q6H PRN #30 03/23/23 03/16/23 Atropine 1% Ophth Drops [Isopto 1 - 4 drops SL Q2H PRN 30 Days 03/23/23 Atropine 1% Ophth Drops] each Bisacodyl Supp [Dulcolax Supp] 10 mg [place] DAILY PRN #30 03/23/23 03/16/23 LORazepam [Ativan] 1 mg PO Q6H PRN #30 tab 03/23/23 Morphine Oral Soln [Roxanol] 10 mg PO Q2H 14 Days #84 ml 03/23/23 Morphine Oral Soln [Roxanol] 10 mg PO Q2HR PRN 14 Days ml 03/23/23 Home Medications Other | Comments: May require downtitration of insulin if she is not eating. Careful monitoring of blood sugars. - PHYSICAL EXAM AT DISCHARGE General Appearance: positive: No acute distress Respiratory: positive: Chest non-tender, No respiratory distress Cardiovascular: positive: Regular rate & rhythm, No murmur Abdomen: positive: Non-tender, Nml bowel sounds Neurologic/Psychiatric: positive: Weakness - LABS Result Diagrams: 03/22/23 07:13 03/22/23 07:13 - SEPSIS Possible source of Sepsis: Genitourinary, Skin/soft tissue - TIME SPENT Time Spent in Discharge (Minutes): 35"
== END 2023-03-24 11:13 | DRG 853 ==
LOC: EDUNIT# → ED 17:28 → MS2 21:20
PROVIDERS: ADMIT Internal Medicine; ATTEND Family Medicine
PROC: 0JB70ZZ Excision of Back Subcutaneous Tissue and Fascia, Open Approach (ICD-10-PCS; principal; 2023-03-17)
PROC: 0JB70ZZ Excision of Back Subcutaneous Tissue and Fascia, Open Approach (ICD-10-PCS; 2023-03-18)
DX: A41.9 Sepsis, unspecified organism (principal); R06.00 Dyspnea, unspecified; L89.159 Pressure ulcer of sacral region, unspecified stage; E11.9 Type 2 diabetes mellitus without complications; R00.0 Tachycardia, unspecified; I48.91 Unspecified atrial fibrillation; E43 Unspecified severe protein-calorie malnutrition; L89.153 Pressure ulcer of sacral region, stage 3; R65.21 Severe sepsis with septic shock; M46.28 Osteomyelitis of vertebra, sacral and sacrococcygeal region; I69.951 Hemiplegia and hemiparesis following unspecified cerebrovascular disease affecting right dominant side; M86.10 Other acute osteomyelitis, unspecified site; Z51.5 Encounter for palliative care; I95.9 Hypotension, unspecified; I11.0 Hypertensive heart disease with heart failure; R65.20 Severe sepsis without septic shock; N17.9 Acute kidney failure, unspecified; N39.0 Urinary tract infection, site not specified; I50.9 Heart failure, unspecified; I25.10 Atherosclerotic heart disease of native coronary artery without angina pectoris; E03.9 Hypothyroidism, unspecified; H40.9 Unspecified glaucoma; E87.0 Hyperosmolality and hypernatremia; F31.9 Bipolar disorder, unspecified; E78.5 Hyperlipidemia, unspecified; E78.00 Pure hypercholesterolemia, unspecified; Z79.899 Other long term (current) drug therapy; Z79.4 Long term (current) use of insulin; Z79.82 Long term (current) use of aspirin; Z79.890 Hormone replacement therapy; Z88.2 Allergy status to sulfonamides; Z88.8 Allergy status to other drugs, medicaments and biological substances; E86.0 Dehydration; Z66 Do not resuscitate; R62.7 Adult failure to thrive; E11.649 Type 2 diabetes mellitus with hypoglycemia without coma; R79.89 Other specified abnormal findings of blood chemistry; I25.5 Ischemic cardiomyopathy; I48.0 Paroxysmal atrial fibrillation; Z74.01 Bed confinement status; R79.82 Elevated C-reactive protein (CRP); R70.0 Elevated erythrocyte sedimentation rate
CPT/HCPCS: 36415; 71045; 72170; 72192; 80048; 80053; 80061; 80202; 81001; 83036; 83540; 83605; 83690; 83735; 84100; 84134; 84295; 84466; 85025; 85610; 85651; 85730; 86140; 87040; 87070; 87076; 87077; 87086; 87150; 87181; 87205; 92526; 92610; 96365; 96366; 96368; 99285; 99291; A9270; J1170; J1750; J1815; J3370; J7120; 81003; 83721

== ENCOUNTER 2023-03-24 11:14 | Outpatient (CLI) | payer MEDICARE, BC | END 2023-03-24 11:15 | LOC: EMS 11:14 | PROVIDERS: ATTEND Family Medicine | DX: Z51.5 Encounter for palliative care (principal); M86.9 Osteomyelitis, unspecified; Z74.01 Bed confinement status | CPT/HCPCS: A0425; A0428 ==